=== PATIENT | female | born 1965 | race Caucasian/White ===

== ENCOUNTER → 2016-04-06 | Outpatient (CLI) | payer BC ==
[2016-04-06 12:11] LABS: Blood Urea Nitrogen 12 mg/dL (7-17); Non-African American GFR(MDRD) >60 (>60 ml/min/1.73 sqM)
--- NOTE | 2016-04-07 03:50 | MR ---
EXAMINATION TYPE: MR lumbar spine wo/w con DATE OF EXAM: 04/06/2016 1:27 PM COMPARISON: NONE HISTORY: 50-year-old female with low back pain Technique: Multiplanar, multisequence images of the lumbar spine were obtained before and after admin istration of 19 mL intravenous MultiHance gadolinium contrast. FINDINGS: Vertebral body heights are preserved and alignment is maintained. Mild heterogeneity of marrow signal without suspicious bone marrow replacement. There is a fatty matr ix hemangioma within L1 and S1 vertebral bodies. In addition, some fatty Modic type II endplate changes present at L5-S1 with associated moderate dege nerative disc disease characterized by desiccated, narrowed, and bulging disc. Mild disc bulging at a dditional levels especially L4-L5. There is hypertrophic facet arthropathy mid to lower lumbar spine along with ligamentum flavum thicke kyleigh. There also also disc desiccation and mild disc interspace narrowing in the visualized lower tho racic spine. Conus medullaris is normal. At T12-L1, there is facet degenerative change without spinal canal or neuroforaminal stenosis. At L1-L2, there is facet degenerative change without spinal canal or neuroforaminal stenosis. At L2-L3, there is facet degenerative change without spinal canal or neuroforaminal stenosis. At L3-L4, there is facet degenerative change and minimal disc bulging along with ligamentum flavum th ickening. No significant spinal canal or neuroforaminal stenosis. At L4-L5, there is mild disc bulge, marked ligamentum flavum thickening, and hypertrophic facet arthr opathy. Changes result in bilateral lateral recess stenosis with mass effect onto the cauda equina ne rve roots and mild circumferential attenuation of the thecal sac. The traversing right L5 nerve root in particular may be impinged. There is also mild bilateral neural foraminal stenosis. At L5-S1, there is broad-based disc protrusion eccentric towards the right with hypertrophic facet ar thropathy. There is mild impression onto the ventral thecal sac without significant spinal canal sten osis. Disc material closely approaches the traversing right S1 nerve root. There is mild right neurof oraminal stenosis. No abnormal enhancement within the spinal canal. No prevertebral or paravertebral soft tissue abnormality seen. IMPRESSION: 1. Degenerative disc disease greatest at L5-S1 and then at L4-L5. There is also hypertrophic facet ar thropathy in the mid to lower lumbar spine and marked ligamentum flavum thickening especially at L4-L 5. 2. At L4-L5, the changes circumferentially attenuate the thecal sac mildly narrowing the spinal canal but also cause a bilateral lateral recess stenosis. The traversing right L5 nerve root in particular may be impinged. Mild bilateral neuroforaminal stenosis at this level as well. 3. At L5-S1, a broad-based disc protrusion eccentric towards the right closely approaches the yola ing right S1 nerve root. Along with facet arthropathy, there is mild right-sided neural foraminal lucia nosis.
== END | disposition home or self-care (01) ==
LOC: RADMRIMAIN 11:40
PROVIDERS: ATTEND Physician Assistant
DX: M48.06 Spinal stenosis, lumbar region (principal); M99.73 Connective tissue and disc stenosis of intervertebral foramina of lumbar region; M51.27 Other intervertebral disc displacement, lumbosacral region; M51.37 Other intervertebral disc degeneration, lumbosacral region; M46.97 Unspecified inflammatory spondylopathy, lumbosacral region
CPT/HCPCS: 82565; 84520; 72158; 36415; A9577

== ENCOUNTER → 2016-07-28 | Outpatient (CLI) | payer BC ==
--- NOTE | 2016-07-28 11:40 | ECHOF ---
Referral Reason:R55 syncope and collapse MEASUREMENTS -------- HEIGHT: 154.9 cm WEIGHT: 95.3 kg BP: 91/53 RVIDd: 2.6 cm (< 3.3) IVSd: 1.0 cm (0.6 - 1.1) LVIDd: 3.8 cm (3.9 - 5.3) LVPWd: 0.9 cm (0.6 - 1.1) IVSs: 1.5 cm LVIDs: 2.5 cm LVPWs: 1.4 cm LA Diam: 3.3 cm (2.7 - 3.8) LAESV Index (A-L): 20.31 ml/m Ao Diam: 3.4 cm (2.0 - 3.7) AV Cusp: 2.2 cm (1.5 - 2.6) MV EXCURSION: 12.408 mm (> 18.000) MV EF SLOPE: 31 mm/s (70 - 150) EPSS: 1.0 cm MV E Mohsen: 0.70 m/s MV DecT: 175 ms MV A Mohsen: 0.91 m/s MV E/A Ratio: 0.76 RAP: 5.00 mmHg RVSP: 22.55 mmHg FINDINGS -------- Sinus rhythm. This was a technically good study. The left ventricular size is normal. Left ventricular wall thickness is normal. Overall left ventricular systolic function is normal with, an EF between 55 - 60 %. The right ventricle is normal in size and function. Normal LA size by volume 22+/-6 ml/m2. The right atrium is normal in size. Aortic valve is trileaflet and is mildly thickened. Mild mitral annular calcification present. The tricuspid valve appears structurally normal. The pulmonic valve is normal. The aortic root size is normal. Normal inferior vena cava with normal inspiratory collapse consistent with estimated right atrial pressure of 5 mmHg. The pericardium is normal. CONCLUSIONS -------- 1. Sinus rhythm. 2. Mild mitral annular calcification present. 3. The tricuspid valve appears structurally normal. 4. The pulmonic valve is normal. 5. The aortic root size is normal. 6. Normal inferior vena cava with normal inspiratory collapse consistent with estimated right atrial pressure of 5 mmHg. 7. The pericardium is normal. 8. This was a technically good study. 9. The left ventricular size is normal. 10. Left ventricular wall thickness is normal. 11. Overall left ventricular systolic function is normal with, an EF between 55 - 60 %. 12. The right ventricle is normal in size and function. 13. Normal LA size by volume 22+/-6 ml/m2. 14. The right atrium is normal in size. 15. Aortic valve is trileaflet and is mildly thickened. COMPLETION MANAGER: Jasmine Cee RDCS
--- NOTE | 2016-07-28 12:11 | CT ---
EXAMINATION TYPE: CT brain wo con DATE OF EXAM: 07/28/2016 COMPARISON: NONE HISTORY: Syncope and collapse CT DLP: 926.5 mGycm Automated exposure control for dose reduction was used. FINDINGS: There is no acute intracranial hemorrhage, mass effect, or midline shift identified. The ventricles and sulci are within normal limits in size. The globes are intact and the visualized sinuses are awa ar. IMPRESSION: No acute intracranial hemorrhage, mass effect, or midline shift is seen.
--- NOTE | 2016-07-28 16:10 | US ---
EXAMINATION TYPE: US carotid duplex BILAT DATE OF EXAM: 07/28/2016 COMPARISON: US CLINICAL HISTORY: R55 syncope and collapse. EXAM MEASUREMENTS: RIGHT: Peak Systolic Velocity (PSV) cm/sec ----- Right CCA: 73.5 ----- Right ICA: 82.6 ----- Right ECA: 94.3 ICA/CCA ratio: 1.1 RIGHT: End Diastole cm/sec ----- Right CCA: 28.5 ----- Right ICA: 26.7 ----- Right ECA: 22.2 LEFT: Peak Systolic Velocity (PSV) cm/sec ----- Left CCA: 64.9 ----- Left ICA: 86.4 ----- Left ECA: 90.5 ICA/CCA ratio: 1.3 LEFT: End Diastole cm/sec ----- Left CCA: 22.9 ----- Left ICA: 31.5 ----- Left ECA: 27.3 VERTEBRALS (direction of flow): Right Vertebral: Antegrade Left Vertebral: Antegrade No significant velocity elevations, minimal plaque. IMPRESSION: Intimal thickening and scattered plaques without evidence of flow-limiting stenosis. Criteria for Assigning % of Stenosis / Diameter reduction (Estimation based on the indirect measurements of the internal carotid artery velocities (ICA PSV). 1. Normal (no stenosis)=ICA PSV < 125 cm/s: ratio < 2.0: ICA EDV<40 cm/s. 2. Less than 50% stenosis=ICA PSV < 125 cm/s: ratio < 2.0: ICA EDV<40 cm/s. 3. 50 to 69% stenosis=ICA PSV of 125 to 230 cm/s: ration 2.0 ? 4.0: ICA EDV 40-100 cm/s. 4. Greater than 70% stenosis to near occlusion= ICA PSV > 230 cm/s: ratio > 4.0: ICA EDV > 100 cm/s. 5. Near occlusion= ICA PSV velocities may be low or undetectable: variable ratio and ICA EDV. 6. Total occlusion=unable to detect flow.
== END | disposition home or self-care (01) ==
LOC: RADUSMAIN 08:55
PROVIDERS: ATTEND Family Medicine
DX: I08.0 Rheumatic disorders of both mitral and aortic valves (principal); I65.23 Occlusion and stenosis of bilateral carotid arteries; R55 Syncope and collapse
CPT/HCPCS: 70450; 93306; 93880

== ENCOUNTER → 2016-11-13 | Outpatient (CLI) | payer BC ==
--- NOTE | 2016-11-16 19:11 | EEG ---
ELECTROENCEPHALOGRAM REPORT DATE OF SERVICE: 11/13/2016 REASON FOR TESTING: Syncope. DESCRIPTION OF THE PROCEDURE: This EEG was performed using a 21 channel digital electroencephalograph, following international 10-20 system. DESCRIPTION OF THE RECORDING: From the beginning of the tracing, with patient's eyes closed, the background rhythm was mostly consisting of 9 Hz alpha frequency in the posterior occipital leads. No obvious asymmetry is seen. Photic stimulation was performed with a good driving response seen. No pathological waves were elicited. Hyperventilation was not performed. Occasional movement artifacts are seen. The patient remains awake throughout the tracing. No epileptiform discharges were seen. Her EKG lead showed a regular rate and rhythm. INTERPRETATION: This awake EEG can be considered within normal limits. There is no asymmetry seen. No epileptiform discharges were noticed. The absence of epileptiform discharges does not rule out the diagnosis of epilepsy, therefore clinical correlation is recommended. YOLI / SANIA: [id number] /
== END | disposition home or self-care (01) ==
LOC: NEUROMAIN 07:56
PROVIDERS: ATTEND Pediatrics
DX: R55 Syncope and collapse (principal)
CPT/HCPCS: 95819

== ENCOUNTER → 2017-02-11 | Outpatient (CLI) | payer BC ==
--- NOTE | 2017-02-11 23:02 | MR ---
EXAMINATION TYPE: MR brain wo con DATE OF EXAM: 02/11/2017 COMPARISON: Prior MRI brain September 18, 2010. Prior CT brain July 28, 2016 HISTORY: Syncope and collapse TECHNIQUE: Multiplanar, multisequence imaging of the brain and brainstem is performed without IV cont rast. FINDINGS: Diffusion weighted images demonstrate no evidence of a recent infarct or other diffusion abnormality. There is no extraaxial fluid collection or significant white matter signal abnormality. The ventricu lar system and cisternal spaces are normal in size and appearance. The brain volume is age appropria te. Midline structures demonstrate normal morphology. The craniocervical junction appears within normal limits. Normal vascular flow voids are present. The visualized sinuses are clear and the globes are i ntact. No suspicious fluid signal bilateral mastoid air cells is present. IMPRESSION: No significant finding is seen to account for patient's symptoms. No significant change f rom prior studies.
--- NOTE | 2017-02-11 23:04 | MR ---
EXAMINATION TYPE: MR angio head wo con DATE OF EXAM: 02/11/2017 COMPARISON: Same day MRI brain. HISTORY: Syncope and collapse TECHNIQUE: Time of flight images focusing on the [place] of [place] were performed without contrast.. 2-D and 3-D postprocessing imaging is performed. FINDINGS: There is a codominant vertebrobasilar system. There is no significant stenosis or aneurysma l change in the posterior circulation. There is a patent left posterior communicating artery. There i s hypoplastic right posterior communicating artery. Images of the anterior circulation show patent anterior communicating artery. No significant focal st enosis or aneurysmal change is seen. IMPRESSION: No significant focal stenosis or aneurysmal change the level of the [place] of [place]a.
== END | disposition home or self-care (01) ==
LOC: RADMRIMAIN 17:44
PROVIDERS: ATTEND Psychiatry & Neurology Neurology
DX: R55 Syncope and collapse (principal); Z88.2 Allergy status to sulfonamides; Z88.8 Allergy status to other drugs, medicaments and biological substances
CPT/HCPCS: 70544; 70551

== ENCOUNTER → 2017-02-25 | Day surgery (SDC) | payer BC ==
[~2017-02-25] MED LIST: SODIUM CHLORIDE 0.9% 1,000 ML IV SCH
[2017-02-25 10:46] VITALS: BP 97/65; PULSE 102; RESP 18; TEMP 98.4
--- NOTE | 2017-02-25 17:59 | P.PCN ---
Preoperative Diagnosis: Tilt table test and twelve-lead EKG Indication for procedure recurrent syncope Twelve-lead ECG shows sinus rhythm normal NC narrow QRS normal ST segments normal QT interval poor R-wave progression in the precordial leads Tilt table test was formed per protocol. Baseline blood pressure 117/74 mmHg heart rate 99 beats a minute. Patient was tilted upright at night left 70 per protocol there was a mild drop in blood pressure into the mid 90s heart rate increased into the 120s. No syncope noted Impression mild orthostatic response with a commensurate increase in heart rate Anesthesia: none Disposition: same day
== END ==
LOC: CATHEP 10:02
PROVIDERS: ATTEND Internal Medicine Clinical Cardiac Electrophysiology
DX: R55 Syncope and collapse (principal); Z86.73 Personal history of transient ischemic attack (TIA), and cerebral infarction without residual deficits; Z79.82 Long term (current) use of aspirin; Z79.4 Long term (current) use of insulin; Z79.899 Other long term (current) drug therapy
CPT/HCPCS: 93005; 93660

== ENCOUNTER → 2017-06-10 | Outpatient (CLI) | payer BC ==
[2017-06-10 08:45] LABS: HCT 41.2 % (34.0-46.0); HGB 13.7 gm/dL (11.4-16.0); MCH 29.1 pg (25.0-35.0); MCHC 33.2 g/dL (31.0-37.0); MCV 87.6 fL (80.0-100.0); Mean Platelet Volume 6.8; Platelet Count 451 k/uL (150-450); RBC 4.71 m/uL (3.80-5.40); RDW 12.9 % (11.5-15.5); WBC 13.9 k/uL (3.8-10.6)
[2017-06-10 08:56] LABS: Anion Gap 13 mmol/L; Blood Urea Nitrogen 7 mg/dL (7-17); Calcium 10.1 mg/dL (8.4-10.2); Carbon Dioxide 29 mmol/L (22-30); Chloride 97 mmol/L (98-107); Glucose 208 mg/dL (74-99); Potassium 4.5 mmol/L (3.5-5.1); Sodium 139 mmol/L (137-145)
== END | disposition home or self-care (01) ==
LOC: LABWHC1 08:16
PROVIDERS: ATTEND Anesthesiology
DX: M48.061 Spinal stenosis, lumbar region without neurogenic claudication (principal); M54.16 Radiculopathy, lumbar region
CPT/HCPCS: 36415; 80048; 85027

== ENCOUNTER → 2017-08-26 | Outpatient (CLI) | payer BC ==
--- NOTE | 2017-08-31 07:53 | MM ---
Reason for exam: screening (asymptomatic). Last mammogram was performed 7 years and 3 months ago. History: Patient is postmenopausal. Took hormonal contraceptives for 2 years beginning at age 20. Physical Findings: A clinical breast exam by your physician is recommended on an annual basis and results should be correlated with mammographic findings. MG Screening Mammo w CAD Bilateral CC and MLO view(s) were taken. Prior study comparison: July 18, 2015, mammogram, performed at [facility]. May 29, 2010, [facility] DIGITAL LEFT BREAST MAMMOGRAM w/CAD. May 22, 2010, bilateral digital screening mammo w/CAD. There are scattered fibroglandular densities. Previous mammotome biopsy in the right breast. New 11 o'clock grouped calcifications left breast. Otherwise, no change. ASSESSMENT: Incomplete: need additional imaging evaluation, BI-RAD 0 RECOMMENDATION: Special view mammogram of the left breast. [facility] will attempt to contact patient to return for supplemental views and ultrasound if indicated. ANTONIA
== END | disposition home or self-care (01) ==
LOC: RADMAMWWP 09:06
PROVIDERS: ATTEND Pediatrics
DX: Z12.31 Encounter for screening mammogram for malignant neoplasm of breast (principal)
CPT/HCPCS: 77067

== ENCOUNTER → 2017-09-08 | Outpatient (CLI) | payer BC ==
--- NOTE | 2017-09-08 09:14 | MM ---
Reason for exam: additional evaluation requested from abnormal screening. Last mammogram was performed less than 1 month ago. History: Patient is postmenopausal. Took hormonal contraceptives for 2 years beginning at age 20. Physical Findings: Nurse did not find any significant physical abnormalities on exam. MG Work Up Mamm w CAD LT CC with magnification, LM with magnification, and LM view(s) were taken of the left breast. Prior study comparison: August 26, 2017, bilateral MG screening mammo w CAD. July 18, 2015, mammogram, performed at [facility]. Finding: There are intermediate concern, suspicious linear arranged calcifications in the 12 o'clock middle position of the left breast 10cm from the nipple. New finding since July 18, 2015. These results were verbally communicated with the patient and result sheet given to the patient on 09/08/17. ASSESSMENT: Suspicious, BI-RAD 4 RECOMMENDATION: Stereotactic core biopsy of the left breast. Called Dr. Thomas with mammographic findings and has scheduled an appointment for the patient for 09/16/17 at 10:[address] Munoz. PRELIMINARY REPORT CALLED AND FAXED TO DR. MUNOZ ON 09/08/17.
== END | disposition home or self-care (01) ==
LOC: RADMAMWWP 07:33
PROVIDERS: ATTEND Pediatrics
DX: R92.8 Other abnormal and inconclusive findings on diagnostic imaging of breast (principal)
CPT/HCPCS: 77065

== ENCOUNTER → 2017-09-16 | Outpatient (CLI) | payer BC ==
[2017-09-16 10:50] VITALS: BP 112/83; PULSE 101; TEMP 98.2; BMI 40.8
--- NOTE | 2017-09-16 11:17 | P.GSHP ---
History of Present Illness H&P Date: 09/16/17 The patient is a 51 year old white female on routine mammogram noted to have an area of increased microcalcifications in the left breast at approximately 12:00 10 cm from the nipple. She states that she does have some discomfort in the left breast and may have had some trauma in this vicinity. She otherwise feels no lumps or nodules in either breast. She has no nipple discharge or changes. She has no evidence of any infection in either breast. She has not had any prior breast biopsies. Family history: 1.mother; from lung cancer she was a smoker 2. 2 maternal aunts with lung cancer they were smokers as well 3. Cousin maternal side smoker lung cancer Past surgical history: 1. Hernia as an 2. Bladder stretched at 12 3. Hysterectomy he did not remove her ovaries this was done when she was in her 30s for a dropped bladder 4. Back surgeries 2 5. Cystectomy Past medical history: 1. Diabetes 2. Interstitial cystitis 3. Tachycardia with intermittent skipped beats Menarche: 16 Pregnancies: 4, 4 live births breast fed 2 of the children first born at 18 Menopause: Underwent hysterectomy in her 30s control pills: For approximately 6 years Home wounds: Negative Social history: smoke: none alcohol: none drugs: none - Constitutional Constitutional: Denies chills, Denies fever - EENT Eyes: denies blurred vision, denies pain Ears: deny: decreased hearing, tinnitus Ears, nose, mouth and throat: Denies headache, Denies sore throat - Breasts Breasts: bilateral: as per HPI - Cardiovascular Comment: Intermittent tachycardia and skipped heartbeats, she has been followed by cardiology and they are not concerned - Respiratory Comment: COPD, asthma, use oxygen at night Respiratory: Denies cough, Denies 7 - Gastrointestinal Gastrointestinal: Denies abdominal pain, Denies diarrhea, Denies nausea, Denies vomiting - Genitourinary (Female) Genitourinary: Denies dysuria, Denies hematuria - Menstruation Menstruation: Reports post hysterectomy - Musculoskeletal Comment: arthritis Musculoskeletal: Reports myalgias - Integumentary Integumentary: Denies pruritus, Denies rash - Neurological Neurological: Denies numbness, Denies weakness - Psychiatric Psychiatric: Denies anxiety, Denies depression - Endocrine Endocrine: Reports fatigue, Denies weight change - Hematologic/Lymphatic Comment: Baby aspirin - Allergic/Immunologic Allergic/Immunologic: Reports seasonal allergies Past Medical History Past Medical History: Asthma, COPD, Diabetes Mellitus, Osteoarthritis (OA), Seizure Disorder, Thyroid Disorder Additional Past Medical History / Comment(s): See Dr. Malcolm's H&P. hx:rapid, irregular heart rate, interstitial cystitis, seizures as a child age 2-4 History of Any Multi-Drug Resistant Organisms: None Reported Past Surgical History: Back Surgery, Bladder Surgery, Cholecystectomy, Hernia Repair, Hysterectomy Past Anesthesia/Blood Transfusion Reactions: Postoperative Nausea & Vomiting ( PONV) Smoking Status: Never smoker - Past Family History Mother Family Medical History: Cancer, Myocardial Infarction ([place]) Additional Family Medical History / Comment(s): lung cancer 11/2010 Medications and Allergies Home Medications Medication Instructions Recorded Confirmed Type Albuterol Inhaler [Ventolin Hfa 1 - 2 puff INHALATION Q6HR PRN 02/07/16 History Inhaler] Amitriptyline HCl [Elavil] 100 mg PO HS 02/07/16 09/16/17 History Aspirin [Adult Low Dose Aspirin EC] 81 mg PO DAILY 02/07/16 09/16/17 History Atorvastatin [Lipitor] 40 mg PO HS 02/07/16 09/16/17 History Cholecalciferol [Vitamin D3] 2,000 unit PO BID 02/07/16 09/16/17 History Cyanocobalamin [Vitamin B-12] 500 mcg PO DAILY 02/07/16 09/16/17 History Lisinopril-Hctz 20-12.5 mg 1 tab PO HS 02/07/16 09/16/17 History [Zestoretic 20-12.5] Mometasone/Formoterol [Dulera 100 2 puff INHALATION BID PRN 02/07/16 09/16/17 History Mcg/5 Mcg Inhaler] Montelukast [Singulair] 10 mg PO HS 02/07/16 09/16/17 History glipiZIDE XL [Glucotrol XL] 10 mg PO BID 02/07/16 09/16/17 History metFORMIN HCL 1,000 mg PO BID 02/07/16 09/16/17 History Insulin Glargine [Lantus] 36 units SQ DAILY 02/25/17 09/16/17 History Allergies Allergy/AdvReac Type Severity Reaction Status Date / Time carbamazepine [From Tegretol] Allergy Hallucinati Unverified 09/16/17 10:39 ons phenytoin [From Dilantin] Allergy Unknown Verified 09/16/17 10:39 Sulfa (Sulfonamide Allergy Dyspnea Verified 09/16/17 10:39 Antibiotics) Surgical - Exam Vital Signs Temp Pulse BP Pulse Ox 98.2 F 101 H 112/83 96 09/16/17 10:48 09/16/17 10:48 09/16/17 10:48 09/16/17 10:48 - General obese - Eyes normal ocular movement, no icteric - ENT no hearing loss, no congestion - Neck no masses, trachea midline - Respiratory normal respiratory effort, clear to auscultation - Cardiovascular Rhythm: regular Heart Sounds: normal: S1, S2 - Abdomen Abdomen: soft, non tender, no guarding, no rigid, no rebound - Neurologic no disoriented, no combative - Musculoskeletal normal gait, normal posture - Psychiatric oriented to time, oriented to person, oriented to place, speech is normal, memory intact Breast examination: Right breast: Multi-positional exam no dominant masses or nodules of concern Right axilla: No adenopathy of concern Left breast: Multi-positional exam no dominant masses or nodules of concern at the 11 o'clock position the patient does have some mild tenderness but no dominant masses or nodules of concern are appreciated Left axilla: No adenopathy of concern Results Mammogram results reviewed Assessment and Plan Assessment: Impression/plan: 1. Mammographic abnormality left breast for which stereotactic core biopsy is recommended 2. Mild tenderness medial aspect of left breast suspect may be related to trauma patient will follow up with us if it continues to be uncomfortable 3. History of osteoarthritis 4. Intermittent tachycardia 5. History of seizure disorder as a child 6. Oxygen dependent at night COPD Plan: 1. Stereotactic core biopsy of the left breast 2. At this time patient does not have any lesions noted radiographically or on physical exam in the area of tenderness in the left breast we will follow this clinically 3. Medical management of medical problems Cc: Dr. Mora The risk and benefits of the stereo procedure were discussed with the patient and she wishes to proceed.
== END | disposition home or self-care (01) ==
LOC: WWCWWP 09:51
PROVIDERS: ATTEND Surgery
DX: Z53.9 Procedure and treatment not carried out, unspecified reason (principal)

== ENCOUNTER → 2017-09-30 | Day surgery (SDC) | payer BC ==
[2017-09-30 07:41] VITALS: RESP 16; BMI 39.9
--- NOTE | 2017-09-30 09:09 | PCN ---
PROCEDURE NOTE PREPROCEDURE DIAGNOSIS: Calcifications of concern in the left breast. POSTPROCEDURE DIAGNOSIS: Calcifications of concern in the left breast. PROCEDURE: Left breast stereotactic core biopsy. PROCEDURE: The patient was taken to the stereotactic core room and the area of concern in the left breast was identified stereotactically. Prior to this, the patient had been seen in evaluation and multi-positional exam of each breast did not reveal any lesions of concern. Review of the radiographs did not reveal any other lesions of concern in the left breast. No lesions of concern had been identified for targeting in the right breast. The area of concern was targeted in the left breast. The patient was placed on the stereotactic core biopsy table. It was determined that we would approach this at a CC from above. The area of concern was targeted. The skin was prepped using Betadine and 1% lidocaine was used to anesthetize the area of concern. The needle was driven to the correct coordinates. Multiple core biopsies were obtained. Radiograph of the specimen initially did not show the calcifications and upon re-evaluation, additional tissue, which had not been radiographed, this was radiographed and calcifications were seen. The biopsy was obtained with a 9 mm vacuum assisted needle. Approximately 20 mL of 1% lidocaine were used to anesthetize the area. A top-hat SecurMark was left to tj the spot. No immediate postoperative complications were noted. The patient tolerated the procedure in stable condition. The specimen was sent to Pathology and the patient will follow up with Dr. Gill in 1 week. Please note, prior to the procedure, all risks and benefits have been discussed with the patient. MMODL / IJN: [id number] /
[2017-09-30 09:47] VITALS: BP 124/77; PULSE 87; TEMP 98
--- NOTE | 2017-09-30 13:57 | MM ---
EXAMINATION TYPE: MG stereo VAD BX LT DATE OF EXAM: 09/30/2017 COMPARISON: 09/08/2017 CLINICAL HISTORY: 3 mm group of calcifications at the 12:00 position within the left breast approximately 10 cm from the nipple TECHNIQUE: Stereotactic guided core biopsy of left breast. FINDINGS: The procedure of stereotactic guided core biopsy was explained to the patient. Benefits, alternatives, and risks were discussed. An informed consent was then obtained. [facility]. Shortness pathway was CC from above approach. I performed the localization, then surgeon, Dr. Jairo Montemayor performed the remainder of the procedure. A vacuum assisted biopsy gun was used to obtain multiple core samples. The patient tolerated the procedure well without any immediate complication. The patient was kept in the radiology department for short stay after the procedure and then discharged home in stable condition. Targeted calcifications are identified in specimen mammogram. Post biopsy mammogram shows the clip to appear in satisfactory position relative to the targeted area of concern on the preprocedure images. IMPRESSION: SUCCESSFUL, UNCOMPLICATED STEREOTACTIC GUIDED CORE BIOPSY OF THE 3 MM GROUP OF CALCIFICATIONS AT THE 12:00 POSITION WITHIN THE LEFT BREAST BREAST, FULL PATHOLOGY RESULTS TO FOLLOW. Pathology Results: Benign LEFT BREAST LESION, NEEDLE CORE BIOPSIES: Fibrocystic changes including duct cystic changes and stromal fibrosis in a background of fatty breast parenchyma with focal hemosiderin deposition and mineralizations consistent with remote breast trauma (fat necrosis). Recommendation Follow up mammogram of the left breast in 6 months. MTDD
== END | disposition home or self-care (01) ==
LOC: RADMAMWWP 07:08
PROVIDERS: ATTEND Surgery
DX: N60.32 Fibrosclerosis of left breast (principal); R92.8 Other abnormal and inconclusive findings on diagnostic imaging of breast; Z88.8 Allergy status to other drugs, medicaments and biological substances; Z88.2 Allergy status to sulfonamides
CPT/HCPCS: 19081; A4648; J2001; 88305

== ENCOUNTER → 2017-10-07 | Outpatient (CLI) | payer BC ==
[2017-10-07 11:46] VITALS: BP 123/73; PULSE 108; RESP 14; TEMP 98.4; BMI 39.2
--- NOTE | 2017-10-07 11:53 | P.PN ---
Progress Note - Text Progress Note Date: 10/07/17 Patient is status post area biopsy of the left breast. Pathology is benign. Patient has no complaints. Physical exam: Incision clean and dry mild ecchymosis near area Impression/plan: 1. Fiber cystic changes left breast 2. Stereotactic core biopsy benign this is concordant Plan: 1. Left breast mammogram in 6 months time with physician exam at that time CC: Dr. Abby Constantino
== END ==
LOC: WWCWWP 10:45
PROVIDERS: ATTEND Surgery
DX: Z53.9 Procedure and treatment not carried out, unspecified reason (principal)

== ENCOUNTER → 2017-12-24 | Outpatient (CLI) | payer BC ==
--- NOTE | 2017-12-24 12:23 | XR ---
EXAMINATION TYPE: XR ankle complete RT DATE OF EXAM: 12/24/2017 COMPARISON: NONE HISTORY: Pain TECHNIQUE: Frontal, lateral and oblique images of the right ankle are obtained. COMPARISON: None. FINDINGS: There is no acute fracture/dislocation evident. Chronic bony fragmentation noted. The join t spaces appear within normal limits. The overlying soft tissue appears unremarkable. IMPRESSION: There is no acute fracture or dislocation seen.
== END | disposition home or self-care (01) ==
LOC: RADXRMAIN 11:54
PROVIDERS: ATTEND Pediatrics
DX: M25.571 Pain in right ankle and joints of right foot (principal)

== ENCOUNTER → 2018-11-21 | Outpatient (CLI) | payer BC ==
--- NOTE | 2018-11-22 13:08 | MM ---
Reason for exam: additional evaluation requested from prior study. Last mammogram was performed 1 year and 2 months ago. History: Patient is postmenopausal. Benign MG stereo VAD BX LT of the left breast, September 30, 2017. Took hormonal contraceptives for 2 years beginning at age 20. Physical Findings: Nurse did not find any significant physical abnormalities on exam. MG Diagnostic Mammo w CAD SHAHRZAD Bilateral CC and MLO view(s) were taken. Prior study comparison: September 08, 2017, left breast MG work up mamm w CAD LT. August 26, 2017, bilateral MG screening mammo w CAD. There are scattered fibroglandular densities. Benign appearing bilateral calcifications. No suspicious abnormality. Left biopsy marker. These results were verbally communicated with the patient and result sheet given to the patient on 11/21/18. ASSESSMENT: Benign, BI-RAD 2 RECOMMENDATION: Routine screening mammogram of both breasts in 1 year.
== END | disposition home or self-care (01) ==
LOC: RADMAMWWP 07:35
PROVIDERS: ATTEND Surgery
DX: R92.8 Other abnormal and inconclusive findings on diagnostic imaging of breast (principal); R92.0 Mammographic microcalcification found on diagnostic imaging of breast
CPT/HCPCS: 77066

== ENCOUNTER → 2019-08-01 | Outpatient (CLI) | payer BC ==
--- NOTE | 2019-08-02 04:22 | US ---
EXAMINATION TYPE: US thyroid st tissue head/neck DATE OF EXAM: 08/01/2019 COMPARISON: NONE CLINICAL HISTORY: 53-year-old female E05.90 Hyperthyroidism. TECHNIQUE: Multiple sonographic images of the thyroid gland are obtained. FINDINGS: GLAND SIZE: Right Lobe: 4.1 x 2.2 x 1.5 cm Overall Parenchyma: heterogenous Left Lobe: 3.1 x .7 x 1.1 cm Overall Parenchyma: homogeneous Isthmus Thickness: .3 cm NODULES RIGHT: # of nodules measured on right: 2 1. 2.3 X 1.2 x 2.3 cm hypoechoic solid nodule at the lower pole with well-defined margins. This no dule is wider than tall and shows intranodular vascularity. Prior size: No prior 2. 1.0 X .8 x 1.3 cm hypoechoic solid nodule at the upper pole with well-defined margins; . This no dule is wider than tall and shows intranodular vascularity. Prior size: No prior LEFT: # of nodules measured on left: 0 ISTHMUS: # of nodules measured in the isthmus: 0 Bilateral neck scanned, prominent but not enlarged 1.4 x 0.6 cm lymph node along the left lateral nec k. No evidence of lymphadenopathy by size criteria based on short axis dimension. IMPRESSION: 2 dominant solid nodules in the right lobe measuring 2.3 cm and 1.3 cm. If concern for hyperfunctioni ng adenoma, nuclear medicine thyroid uptake and scan can be considered.
== END | disposition home or self-care (01) ==
LOC: RADUSWWP 16:06
PROVIDERS: ATTEND Pediatrics
DX: E05.90 Thyrotoxicosis, unspecified without thyrotoxic crisis or storm (principal)
CPT/HCPCS: 76536

== ENCOUNTER → 2020-08-22 | Outpatient (CLI) | payer BC ==
[2020-08-23 01:57] LABS: Basophils # (A) 0.05 X 10*3/uL (0.00-0.10); Basophils % (A) 0.5 %; Eosinophils # (A) 0.08 X 10*3/uL (0.04-0.35); Eosinophils % (A) 0.9 %; HCT 42.8 % (37.2-46.3); HGB 13.9 g/dL (12.0-15.0); Lymphocytes # (A) 3.42 X 10*3/uL (0.90-5.00); Lymphocytes % (A) 37.1 %; MCH 29.5 pg (27.0-32.0); MCHC 32.5 g/dL (32.0-37.0); MCV 90.9 fL (80.0-97.0); Mean Platelet Volume 9.4 fL (9.5-12.2); Monocytes # (A) 0.61 X 10*3/uL (0.20-1.00); Monocytes % (A) 6.6 %; Neutrophils # (A) 5.03 X 10*3/uL (1.80-7.70); Neutrophils % (A) 54.6 %; Platelet Count 389 X 10*3/uL (140-440); RBC 4.71 X 10*6/uL (4.10-5.20); RDW 12.5 % (11.5-14.5); WBC 9.22 X 10*3/uL (4.50-10.00)
[2020-08-23 03:50] LABS: African American GFR (CKD) 96.9 (60.0-200.0); Albumin 4.6 g/dL (3.80-4.90); Anion Gap 12.7 mmol/L (4.00-12.00); Calcium 10.2 mg/dL (8.7-10.3); Carbon Dioxide 26.3 mmol/L (21.6-31.8); Chol/HDL Ratio 4.73; Globulin 2.3 g/dL (1.6-3.3); LDL Cholesterol,Calculated 135.2 mg/dL (0.0-131.0); Non-African American GFR(CKD) 83.6 (60.0-200.0); Total Bilirubin 0.7 mg/dL (0.2-1.2); Total Protein 6.9 g/dL (6.2-8.2); VLDL Calculation 43.8 mg/dL (5.00-40.00)
[2020-08-23 06:18] LABS: Hemoglobin A1C 6.5 % (4.0-6.0)
== END | disposition home or self-care (01) ==
LOC: LABWHC1 15:44
PROVIDERS: ATTEND Physician Assistant
DX: Z00.01 Encounter for general adult medical examination with abnormal findings (principal); I10 Essential (primary) hypertension; E78.5 Hyperlipidemia, unspecified; E11.9 Type 2 diabetes mellitus without complications
CPT/HCPCS: 36415; 80053; 80061; 83036; 84443; 85025

== ENCOUNTER → 2021-01-13 | Outpatient (CLI) | payer BC ==
--- NOTE | 2021-01-15 08:46 | MM ---
Reason for exam: screening (asymptomatic). Last mammogram was performed 2 years and 2 months ago. History: Patient is postmenopausal. Benign MG stereo VAD BX LT of the left breast, September 30, 2017. Took hormonal contraceptives for 2 years beginning at age 20. Physical Findings: A clinical breast exam by your physician is recommended on an annual basis and results should be correlated with mammographic findings. MG Screening Mammo w CAD Bilateral CC and MLO view(s) were taken. Prior study comparison: November 21, 2018, bilateral MG diagnostic mammo w CAD SHAHRZAD. September 08, 2017, left breast MG work up mamm w CAD LT. There are scattered fibroglandular densities. Previous mammotome biopsy in the left breast. No significant changes when compared with prior studies. ASSESSMENT: Benign, BI-RAD 2 RECOMMENDATION: Routine screening mammogram of both breasts in 1 year.
== END | disposition home or self-care (01) ==
LOC: RADMAMWWP 16:12
PROVIDERS: ATTEND Pediatrics
DX: Z78.0 Asymptomatic menopausal state (principal)
CPT/HCPCS: 77067

== ENCOUNTER → 2023-03-26 | Outpatient (CLI) | payer BC ==
--- NOTE | 2023-03-29 08:50 | MM ---
Reason for Exam: Screening (asymptomatic). Last mammogram was performed 2 year(s) and 3 month(s) ago. Patient History: Menarche at age 17. First Full-Term at age 17. Hysterectomy at age 39. Postmenopausal. Hormonal Contraceptives for 2 years from age 20 until age 25. 09/30/2017, Benign Core Biopsy on the left side. Risk Values: Paige 5 year model risk: 1.0%. NCI Lifetime model risk: 6.2%. Prior Study Comparison: 09/08/2017 Left Diagnostic Mammogram, [facility]. 11/21/2018 Bilateral Diagnostic Mammogram, [facility]. 01/13/2021 Bilateral Screening Mammogram, [facility]. Tissue Density: There are scattered fibroglandular densities. Findings: Analyzed By CAD. Left breast biopsy clip. There is no suspicious group of microcalcifications or new suspicious mass. Overall Assessment: Benign, BI-RAD 2 Management: Screening Mammogram of both breasts in [address] [facility] will attempt to contact patient to return for supplemental views and ultrasound if indicated. Patient should continue monthly self-breast exams. A clinical breast exam by your physician is recommended on an annual basis. This exam should not preclude additional follow-up of suspicious palpable abnormalities. Note on Paige scores and lifetime risk: 1. A Paige score greater than 3% is considered moderate risk. If this is the case, consider specialist referral to assess eligibility for a risk reducing agent. 2. If overall lifetime risk for the development of breast cancer is 20% or higher, the patient may qualify for future screening with alternating mammogram and breast MRI. Electronically signed and approved by: Mj Ching DO
--- NOTE | 2023-03-29 12:29 | US ---
EXAMINATION TYPE: US thyroid st tissue head/neck DATE OF EXAM: 03/26/2023 COMPARISON: 08/01/2019 CLINICAL INDICATION: Female, 57 years old with history of E04.1 NONTOXIC SINGLE THYROID NODULE; F/U GLAND SIZE: Right Lobe: 4.7 x 2.0 x 1.9 cm Overall Parenchyma: heterogenous Left Lobe: 3.1 x 0.6 x 0.9 cm Overall Parenchyma: homogeneous Isthmus Thickness: 0.3 cm NODULES RIGHT: # of nodules measured on right: 3 1. 2.4 X 1.2 x 2.0 cm, mid, solid or almost completely solid, isoechoic TR 3 nodule, which is wide r than tall, with smooth margins, without echogenic foci. Prior size: 2.3 x 1.2 x 2.3 cm 2. 1.1 X 0.8 x 0.8 cm, upper, solid or almost completely solid, hypoechoic TR 4 nodule, which is wi johnathon than tall, with ill-defined margins, without echogenic foci. Prior size: 1.0 x 0.8 x 1.3 cm 3. 0.8 X 0.7 x 0.7 cm, lower, mixed cystic and solid, hypoechoic TR 3 nodule, which is wider than t all, with smooth margins, without echogenic foci. Prior size: Not visualized on prior LEFT: # of nodules measured on left: 0 ISTHMUS: # of nodules measured in the isthmus: 0 Internet Merchant notes: Bilateral neck scanned, no evidence of lymphadenopathy. Similar findings when comp ared to prior with one new small sub-centimeter nodule right lobe. IMPRESSION: 2 dominant solid nodules in the right lobe measuring up to 2.4 cm (TR3) and 1.1 cm (TR4) remain relat ively unchanged. 2017 ACR TI-RADS LEVEL: TR-RADS 4 - Moderately Suspicious: Follow if > 1 cm, FNA if > 1.5 cm *Highest TI-RADS level nodule reported
== END | disposition home or self-care (01) ==
LOC: RADUSWWP 15:44
PROVIDERS: ATTEND Pediatrics
DX: Z12.31 Encounter for screening mammogram for malignant neoplasm of breast (principal); E04.1 Nontoxic single thyroid nodule; R22.0 Localized swelling, mass and lump, head; Z78.0 Asymptomatic menopausal state
CPT/HCPCS: 76536; 77067

== ENCOUNTER → 2023-03-26 | Outpatient (CLI) | payer BC | END | disposition home or self-care (01) | LOC: RADMAMWWP 15:43 | PROVIDERS: ATTEND Pediatrics | DX: Z53.9 Procedure and treatment not carried out, unspecified reason (principal) ==

== ENCOUNTER 2023-09-30 06:30 | Day surgery (SDC) | payer BC ==
[2023-09-30] MEDS ORDERED: LACTATED RINGERS 1,000 ML BAG ONE (06:48)
[2023-09-30] MEDS ORDERED: BACITRACIN OINT 1 EACH PACKET TOPICAL ONE (06:48)
[2023-09-30] MEDS ORDERED: SODIUM CHLORIDE 0.9% 50 ML BAG ONE (06:48)
[2023-09-30] MEDS ORDERED: VASOPRESSIN 20 UNIT/ML 1 ML VIAL ONE (06:48)
[2023-09-30] MEDS ORDERED: DEXAMETHASONE SOD PHOSPHATE 4 MG/ML 1 ML VIAL ONE (06:56)
[2023-09-30] MEDS ORDERED: ONDANSETRON 4 MG/2 ML VIAL ONE (06:56)
[2023-09-30] MEDS ORDERED: MIDAZOLAM 2 MG/2 ML VIAL ONE (07:21)
[2023-09-30] MEDS ORDERED: fentaNYL (PF) 50 MCG/ML 2 ML AMP ONE (07:21)
[2023-09-30] MEDS ORDERED: LIDOCAINE 1% INJ 10MG/ML (20 ML MDV) ONE (07:21)
[2023-09-30] MEDS ORDERED: KETOROLAC 15 MG/ML 1 ML VIAL ONE (07:21)
[2023-09-30] MEDS ORDERED: PROPOFOL 10 MG/ML 20 ML VIAL IV ONE (07:21)
== END 2023-09-30 14:30 ==
LOC: OR 06:30
PROVIDERS: ATTEND Obstetrics & Gynecology
DX: N81.6 Rectocele (principal); E78.5 Hyperlipidemia, unspecified; J45.909 Unspecified asthma, uncomplicated; G40.909 Epilepsy, unspecified, not intractable, without status epilepticus; Z87.442 Personal history of urinary calculi; Z88.2 Allergy status to sulfonamides; Z79.899 Other long term (current) drug therapy
CPT/HCPCS: 57250; J2250; J1100; J2405; J2001; J3010; J1885; J2704

== ENCOUNTER 2024-04-18 14:17 | Inpatient (IN) | payer BC ==
[2024-04-18 14:42] LABS: Basophils % (A) 0 %; Eosinophils % (A) 0 %; HCT 43.2 % (34.0-46.0); Lymphocytes # (A) 0.6 k/uL (1.0-4.8); Lymphocytes % (A) 8 %; MCH 28.4 pg (25.0-35.0); MCHC 32.3 g/dL (31.0-37.0); MCV 87.8 fL (80.0-100.0); Mean Platelet Volume 7.3; Monocytes # (A) 0.4 k/uL (0-1.0); Monocytes % (A) 5 %; Neutrophils # (A) 6.8 k/uL (1.3-7.7); Neutrophils % (A) 85 %; Platelet Count 405 k/uL (150-450); RBC 4.91 m/uL (3.80-5.40)
[2024-04-18 14:53] LABS: ALT 18 U/L (4-34); African American GFR (CKD) >90 (>60 ml/min/1.73 sqM); Albumin 4.2 g/dL (3.5-5.0); Anion Gap 26 mmol/L; Blood Urea Nitrogen 19 mg/dL (7-17); Calcium 9.8 mg/dL (8.4-10.2); Carbon Dioxide 14 mmol/L (22-30); Chloride 91 mmol/L (98-107); Glucose 302 mg/dL (74-99); Non-African American GFR(CKD) 88 (>60 ml/min/1.73 sqM); Sodium 131 mmol/L (137-145); Total Bilirubin 1.6 mg/dL (0.2-1.3)
[2024-04-18 14:58] LABS: AST 23 U/L (14-36); Alkaline Phosphatase 76 U/L (38-126); Potassium 3.9 mmol/L (3.5-5.1)
[2024-04-18 15:02] LABS: Prothrombin Time 11.3 sec (10.0-12.5)
--- NOTE | 2024-04-18 15:13 | XR ---
EXAMINATION TYPE: XR chest 2V DATE OF EXAM: 04/18/2024 3:09 PM COMPARISON: None TECHNIQUE: XR chest 2V Frontal and lateral views of the chest. CLINICAL INDICATION:Female, 58 years old with history of difficulty breathing; FINDINGS: Lungs/Pleura: No pleural effusion or pneumothorax. Bibasilar and right midlung airspace opacities. Pulmonary vascularity: Unremarkable. Heart/mediastinum: Cardiomediastinal silhouette is unremarkable. Musculoskeletal: No acute osseous pathology. IMPRESSION: Bibasilar and right midlung airspace opacities concerning for pneumonia. [facility], , 04/18/2024 3:11 PM
[2024-04-18] MEDS: SODIUM CHLORIDE 0.9% 1,000 ML IV STA ×2 (15:49→15:55)
[2024-04-18] MEDS: INSULIN REGULAR 100 UNIT/ML VIAL (IM/SQ) SQ ONE (15:58)
--- NOTE | 2024-04-18 16:13 | ED ---
SOB HPI - General Chief Complaint: Shortness of Breath Stated Complaint: SOB, back pain Time Seen by Provider: 04/18/24 16:11 Source: patient, RN notes reviewed Mode of arrival: wheelchair Limitations: no limitations - History of Present Illness Initial Comments: 58-year-old female with history of type 2 diabetes presenting for shortness of breath x 1 day. Reports she was diagnosed with the flu last week and has had progressive shortness of breath and productive cough since then. Reports generalized back pain. Denies chest pain, abdominal pain, urinary symptoms. Denies injury or falls. History of COPD and asthma. - Related Data Home Medications Medication Instructions Recorded Confirmed Lisinopril-Hctz 20-12.5 mg 1 tab PO DAILY 02/07/16 04/18/24 [Zestoretic 20-12.5] Montelukast [Singulair] 10 mg PO HS 02/07/16 04/18/24 Amitriptyline HCl [Elavil] 150 mg PO HS 04/18/24 04/18/24 Atorvastatin [Lipitor] 80 mg PO HS 04/18/24 04/18/24 Cyclobenzaprine [Flexeril] 10 mg PO HS 04/18/24 04/18/24 Empagliflozin [Jardiance] 10 mg PO DAILY 04/18/24 04/18/24 Insulin Degludec [Tresiba 10 units SQ DAILY 04/18/24 04/18/24 Flextouch U-100 Pen] Oxybutynin Chloride [oxyBUTYnin 30 mg PO DAILY 04/18/24 04/18/24 chloride ER] Allergies Allergy/AdvReac Type Severity Reaction Status Date / Time carbamazepine [From Tegretol] Allergy Hallucinati Verified 04/18/24 16:52 ons phenytoin [From Dilantin] Allergy Unknown Verified 04/18/24 16:52 Sulfa (Sulfonamide Allergy Dyspnea Verified 04/18/24 16:52 Antibiotics) Review of Systems ROS Statement: Those systems with pertinent positive or pertinent negative responses have been documented in the HPI. ROS Other: All systems not noted in ROS Statement are negative. Past Medical History Past Medical History: Asthma, COPD, Diabetes Mellitus, Osteoarthritis (OA), Seizure Disorder, Thyroid Disorder Additional Past Medical History / Comment(s): See Dr. Malcolm's H&P. hx:rapid, irregular heart rate, interstitial cystitis, seizures as a child age 2-4 History of Any Multi-Drug Resistant Organisms: None Reported Past Surgical History: Back Surgery, Bladder Surgery, Cholecystectomy, Hernia Repair, Hysterectomy Past Anesthesia/Blood Transfusion Reactions: Postoperative Nausea & Vomiting (PONV) Past Psychological History: No Psychological Hx Reported Past Alcohol Use History: None Reported Past Drug Use History: None Reported - Past Family History Mother Family Medical History: Cancer, Myocardial Infarction (DC) Additional Family Medical History / Comment(s): lung cancer 11/2010 General Exam Limitations: no limitations General appearance: alert, in no apparent distress Head exam: Present: atraumatic, normocephalic, normal inspection Eye exam: Present: normal appearance, PERRL, EOMI. Absent: scleral icterus, conjunctival injection, periorbital swelling ENT exam: Present: normal exam, mucous membranes moist Respiratory exam: Present: normal lung sounds bilaterally. Absent: respiratory distress, wheezes, rales, rhonchi, stridor Cardiovascular Exam: Present: regular rate, normal rhythm, normal heart sounds. Absent: systolic murmur, diastolic murmur, rubs, gallop, clicks GI/Abdominal exam: Present: soft, normal bowel sounds. Absent: distended, tenderness, guarding, rebound, rigid Back exam: Present: normal inspection, full ROM, tenderness (Diffuse reproducible tenderness in thoracic portion of spine) Neurological exam: Present: alert, oriented X3 Psychiatric exam: Present: normal affect, normal mood Skin exam: Present: warm, dry, intact, normal color. Absent: rash Course Vital Signs 04/18/24 04/18/24 14:22 17:34 Temperature 98.4 F 98.5 F Pulse Rate 134 H 111 H Respiratory 36 H 20 Rate Blood Pressure 106/67 109/67 O2 Sat by Pulse 93 L 92 L Oximetry Medical Decision Making - Medical Decision Making Was pt. sent in by a medical professional or institution (, PA, MOPHEAD SEWER, urgent care, hospital, or fpc...) When possible be specific @ -No Did you speak to anyone other than the patient for history (EMS, parent, family, police, friend...)? What history was obtained from this source @ -No Did you review nursing and triage notes (agree or disagree)? Why? @ -I reviewed and agree with nursing and triage notes Were old charts reviewed (outside hosp., previous admission, EMS record, old EKG, old radiological studies, urgent care reports/EKG's, fpc records)? Report findings @ -No old charts were reviewed Differential Diagnosis (chest pain, altered mental status, abdominal pain women, abdominal pain men, vaginal bleeding, weakness, fever, dyspnea, syncope, headache, dizziness, GI bleed, back pain, seizure, CVA, palpatations, mental health, musculoskeletal)? @ -Differential Dyspnea: Coronary syndrome, arrhythmia, tamponade, asthma, COPD, pulmonary embolism, pneumonia, pneumothorax, pulmonary effusion, anaphylaxis, diabetic ketoacidosis, flailed chest, pulmonary contusion, diaphragmatic rupture, anemia, neuromuscular, this is not meant to be an all-inclusive list. EKG interpreted by me (3pts min.). @ -No X-rays interpreted by me (1pt min.). @ -Chest x-ray revealed bibasilar and right midlung airspace opacity concerning for pneumonia CT interpreted by me (1pt min.). @ -None done U/S interpreted by me (1pt. min.). @ -None done What testing was considered but not performed or refused? (CT, X-rays, U/S, labs)? Why? @ -None What meds were considered but not given or refused? Why? @ -None Did you discuss the management of the patient with other professionals (professionals i.e. , PA, MOPHEAD SEWER, lab, RT, psych nurse, social services aide, montessori program director, teacher, anti air warfare operations officer, pillowcase maker)? Give summary @ -I spoke with Rogelio from [facility] who accepts admission for DKA Was smoking cessation discussed for >3mins.? @ -No Was critical care preformed (if so, how long)? @ -No Were there social determinants of health that impacted care today? How? (Homele ssness, low income, unemployed, alcoholism, drug addiction, transportation, low edu. Level, literacy, decrease access to med. care, assisted, rehab)? @ -No Was there de-escalation of care discussed even if they declined (Discuss DNR or withdrawal of care, Hospice)? DNR status @ -No What co-morbidities impacted this encounter? (DM, HTN, Smoking, COPD, CAD, Cancer, CVA, ARF, Chemo, Hep., AIDS, mental health diagnosis, sleep apnea, morbid obesity)? @ -DM Was patient admitted / discharged? Hospital course, mention meds given and route, prescriptions, significant lab abnormalities, going to OR and other pertinent info. @ -Admitted. 58-year-old female with history of diabetes presenting for shortness of breath x 1 day. Patient is tachycardic and tachypneic. Blood glucose is found to be 302 anion gap 26, acetone positive, pCO2 28, 3+ ketones in urinalysis. Potassium stable at 3.9. Patient was started on IV fluids and given dose of subcutaneous insulin. Chest x-ray reveals bibasilar and right midlung airspace opacity concerning for pneumonia. Blood blood cell count stable at 8. As patient is afebrile and white count stable, I suspect pneumonia is viral at this time. Patient will be admitted to medicine for DKA. DKA protocol initiated and procalcitonin was ordered per Rogelio. Case was discussed with ED attending Dr. Chang. Undiagnosed new problem with uncertain prognosis? @ -No Drug Therapy requiring intensive monitoring for toxicity (Heparin, Nitro, Insulin, Cardizem)? @ -No Were any procedures done? @ -No Diagnosis/symptom? @ -Diabetic ketoacidosis Acute, or Chronic, or Acute on Chronic? @ -Acute Uncomplicated (without systemic symptoms) or Complicated (systemic symptoms)? @ -Complicated Side effects of treatment? @ -No Exacerbation, Progression, or Severe Exacerbation? @ -No Poses a threat to life or bodily function? How? (Chest pain, USA, DC, pneumonia, PE, COPD, DKA, ARF, appy, cholecystitis, CVA, Diverticulitis, Homicidal, Suicidal, threat to staff... and all critical care pts) @ -Yes - Lab Data Result diagrams: 04/18/24 14:32 04/18/24 14:32 Lab Results 04/18/24 04/18/24 04/18/24 Range/Units 12:35 14:32 14:32 WBC 8.0 (3.8-10.6) k/uL RBC 4.91 (3.80-5.40) m/uL Hgb 14.0 (11.4-16.0) gm/dL Hct 43.2 (34.0-46.0) % MCV 87.8 (80.0-100.0) fL MCH 28.4 (25.0-35.0) pg MCHC 32.3 (31.0-37.0) g/dL RDW 13.0 (11.5-15.5) % Plt Count 405 (150-450) k/uL MPV 7.3 Neutrophils % 85 % Lymphocytes % 8 % Monocytes % 5 % Eosinophils % 0 % Basophils % 0 % Neutrophils # 6.8 (1.3-7.7) k/uL Lymphocytes # 0.6 L (1.0-4.8) k/uL Monocytes # 0.4 (0-1.0) k/uL Eosinophils # 0.0 (0-0.7) k/uL Basophils # 0.0 (0-0.2) k/uL Manual Slide Review Performed PT 11.3 (10.0-12.5) sec INR 1.0 (<1.2) APTT 22.0 (22.0-30.0) sec VBG pH (7.31-7.41) VBG pCO2 (37-51) mmHg VBG HCO3 (24-28) mmol/L Sodium (137-145) mmol/L Potassium (3.5-5.1) mmol/L Chloride (98-107) mmol/L Carbon Dioxide (22-30) mmol/L Anion Gap mmol/L BUN (7-17) mg/dL Creatinine (0.52-1.04) mg/dL Est GFR (CKD-EPI)AfAm (>60 ml/min/1.73 sqM) Est GFR (CKD-EPI)NonAf (>60 ml/min/1.73 sqM) Glucose (74-99) mg/dL POC Glucose (mg/dL) (70-110) mg/dL POC Glu Corporate Human Resources Manager ID Lactic Ac Sepsis Rflx Plasma Lactic Acid Clayton (0.7-2.0) mmol/L Calcium (8.4-10.2) mg/dL Total Bilirubin (0.2-1.3) mg/dL AST (14-36) U/L ALT (4-34) U/L Alkaline Phosphatase (38-126) U/L Troponin I (0.000-0.034) ng/mL Total Protein (6.3-8.2) g/dL Albumin (3.5-5.0) g/dL Urine Color Urine Appearance (Clear) Urine pH (5.0-8.0) Ur Specific [place] (1.001-1.035) Urine Protein (Negative) Urine Glucose (UA) (Negative) Urine Ketones (Negative) Urine Blood (Negative) Urine Nitrite (Negative) Urine Bilirubin (Negative) Urine Urobilinogen (<2.0) mg/dL Ur Leukocyte Esterase (Negative) Acetone, Qual Positive (Negative) 04/18/24 04/18/24 04/18/24 Range/Units 14:32 14:32 15:59 WBC (3.8-10.6) k/uL RBC (3.80-5.40) m/uL Hgb (11.4-16.0) gm/dL Hct (34.0-46.0) % MCV (80.0-100.0) fL MCH (25.0-35.0) pg MCHC (31.0-37.0) g/dL RDW (11.5-15.5) % Plt Count (150-450) k/uL MPV Neutrophils % % Lymphocytes % % Monocytes % % Eosinophils % % Basophils % % Neutrophils # (1.3-7.7) k/uL Lymphocytes # (1.0-4.8) k/uL Monocytes # (0-1.0) k/uL Eosinophils # (0-0.7) k/uL Basophils # (0-0.2) k/uL Manual Slide Review PT (10.0-12.5) sec INR (<1.2) APTT (22.0-30.0) sec VBG pH (7.31-7.41) VBG pCO2 (37-51) mmHg VBG HCO3 (24-28) mmol/L Sodium 131 L (137-145) mmol/L Potassium 3.9 (3.5-5.1) mmol/L Chloride 91 L (98-107) mmol/L Carbon Dioxide 14 L (22-30) mmol/L Anion Gap 26 mmol/L BUN 19 H (7-17) mg/dL Creatinine 0.75 (0.52-1.04) mg/dL Est GFR (CKD-EPI)AfAm >90 (>60 ml/min/1.73 sqM) Est GFR (CKD-EPI)NonAf 88 (>60 ml/min/1.73 sqM) Glucose 302 H (74-99) mg/dL POC Glucose (mg/dL) (70-110) mg/dL POC Glu Corporate Human Resources Manager ID Lactic Ac Sepsis Rflx Plasma Lactic Acid Clayton 2.5 H* (0.7-2.0) mmol/L Calcium 9.8 (8.4-10.2) mg/dL Total Bilirubin 1.6 H (0.2-1.3) mg/dL AST 23 (14-36) U/L ALT 18 (4-34) U/L Alkaline Phosphatase 76 (38-126) U/L Troponin I <0.012 (0.000-0.034) ng/mL Total Protein 7.0 (6.3-8.2) g/dL Albumin 4.2 (3.5-5.0) g/dL Urine Color Urine Appearance (Clear) Urine pH (5.0-8.0) Ur Specific [place] (1.001-1.035) Urine Protein (Negative) Urine Glucose (UA) (Negative) Urine Ketones (Negative) Urine Blood (Negative) Urine Nitrite (Negative) Urine Bilirubin (Negative) Urine Urobilinogen (<2.0) mg/dL Ur Leukocyte Esterase (Negative) Acetone, Qual (Negative) 04/18/24 04/18/24 04/18/24 Range/Units 16:35 17:26 17:34 WBC (3.8-10.6) k/uL RBC (3.80-5.40) m/uL Hgb (11.4-16.0) gm/dL Hct (34.0-46.0) % MCV (80.0-100.0) fL MCH (25.0-35.0) pg MCHC (31.0-37.0) g/dL RDW (11.5-15.5) % Plt Count (150-450) k/uL MPV Neutrophils % % Lymphocytes % % Monocytes % % Eosinophils % % Basophils % % Neutrophils # (1.3-7.7) k/uL Lymphocytes # (1.0-4.8) k/uL Monocytes # (0-1.0) k/uL Eosinophils # (0-0.7) k/uL Basophils # (0-0.2) k/uL Manual Slide Review PT (10.0-12.5) sec INR (<1.2) APTT (22.0-30.0) sec VBG pH 7.34 (7.31-7.41) VBG pCO2 28 L (37-51) mmHg VBG HCO3 15 L (24-28) mmol/L Sodium (137-145) mmol/L Potassium (3.5-5.1) mmol/L Chloride (98-107) mmol/L Carbon Dioxide (22-30) mmol/L Anion Gap mmol/L BUN (7-17) mg/dL Creatinine (0.52-1.04) mg/dL Est GFR (CKD-EPI)AfAm (>60 ml/min/1.73 sqM) Est GFR (CKD-EPI)NonAf (>60 ml/min/1.73 sqM) Glucose (74-99) mg/dL POC Glucose (mg/dL) (70-110) mg/dL POC Glu Corporate Human Resources Manager ID Lactic Ac Sepsis Rflx Y Plasma Lactic Acid Clayton (0.7-2.0) mmol/L Calcium (8.4-10.2) mg/dL Total Bilirubin (0.2-1.3) mg/dL AST (14-36) U/L ALT (4-34) U/L Alkaline Phosphatase (38-126) U/L Troponin I (0.000-0.034) ng/mL Total Protein (6.3-8.2) g/dL Albumin (3.5-5.0) g/dL Urine Color Colorless Urine Appearance Clear (Clear) Urine pH 5.5 (5.0-8.0) Ur Specific [place] 1.024 (1.001-1.035) Urine Protein Trace H (Negative) Urine Glucose (UA) 4+ H (Negative) Urine Ketones 3+ H (Negative) Urine Blood Negative (Negative) Urine Nitrite Negative (Negative) Urine Bilirubin Negative (Negative) Urine Urobilinogen <2.0 (<2.0) mg/dL Ur Leukocyte Esterase Negative (Negative) Acetone, Qual (Negative) 04/18/24 Range/Units 18:48 WBC (3.8-10.6) k/uL RBC (3.80-5.40) m/uL Hgb (11.4-16.0) gm/dL Hct (34.0-46.0) % MCV (80.0-100.0) fL MCH (25.0-35.0) pg MCHC (31.0-37.0) g/dL RDW (11.5-15.5) % Plt Count (150-450) k/uL MPV Neutrophils % % Lymphocytes % % Monocytes % % Eosinophils % % Basophils % % Neutrophils # (1.3-7.7) k/uL Lymphocytes # (1.0-4.8) k/uL Monocytes # (0-1.0) k/uL Eosinophils # (0-0.7) k/uL Basophils # (0-0.2) k/uL Manual Slide Review PT (10.0-12.5) sec INR (<1.2) APTT (22.0-30.0) sec VBG pH (7.31-7.41) VBG pCO2 (37-51) mmHg VBG HCO3 (24-28) mmol/L Sodium (137-145) mmol/L Potassium (3.5-5.1) mmol/L Chloride (98-107) mmol/L Carbon Dioxide (22-30) mmol/L Anion Gap mmol/L BUN (7-17) mg/dL Creatinine (0.52-1.04) mg/dL Est GFR (CKD-EPI)AfAm (>60 ml/min/1.73 sqM) Est GFR (CKD-EPI)NonAf (>60 ml/min/1.73 sqM) Glucose (74-99) mg/dL POC Glucose (mg/dL) 205 H (70-110) mg/dL POC Glu Corporate Human Resources Manager ID Lj Schaefer Lactic Ac Sepsis Rflx Plasma Lactic Acid Clayton (0.7-2.0) mmol/L Calcium (8.4-10.2) mg/dL Total Bilirubin (0.2-1.3) mg/dL AST (14-36) U/L ALT (4-34) U/L Alkaline Phosphatase (38-126) U/L Troponin I (0.000-0.034) ng/mL Total Protein (6.3-8.2) g/dL Albumin (3.5-5.0) g/dL Urine Color Urine Appearance (Clear) Urine pH (5.0-8.0) Ur Specific [place] (1.001-1.035) Urine Protein (Negative) Urine Glucose (UA) (Negative) Urine Ketones (Negative) Urine Blood (Negative) Urine Nitrite (Negative) Urine Bilirubin (Negative) Urine Urobilinogen (<2.0) mg/dL Ur Leukocyte Esterase (Negative) Acetone, Qual (Negative) Disposition Clinical Impression: Diabetic ketoacidosis Disposition: ADMITTED IP TO THIS HOSP Condition: Fair Referrals: Vonda Mueller PAC [REFERRING] - 1-2 days Time of Disposition: 18:30
[2024-04-18] MEDS: KETOROLAC 15 MG/ML 1 ML VIAL IVP STA (16:37)
[2024-04-18 17:38] LABS: Appearance,Urine Clear (Clear); Bilirubin,Urine Negative (Negative); Blood,Urine Negative (Negative); Color,Urine Colorless; Glucose,Urine (UA) 4+ (Negative); Leukocyte Esterase,Urine Negative (Negative); Nitrite,Urine Negative (Negative); PH, Urine 5.5 (5.0-8.0); Protein,Urine Trace (Negative); Specific Gravity,Urine 1.024 (1.001-1.035); Urobilinogen,Urine <2.0 mg/dL (<2.0)
[2024-04-18 17:50] LABS: VBG PH 7.34 (7.31-7.41)
[2024-04-18 18:09] LABS: Ketones,Urine 3+ (Negative)
[2024-04-18] MEDS ORDERED: NALOXONE 0.4 MG/ML 1 ML VIAL IV PRN (18:24)
[2024-04-18] MEDS ORDERED: ONDANSETRON 4 MG/2 ML VIAL IVP PRN (18:24)
[2024-04-18 18:49] LABS: Glucose,Whole Blood 205 mg/dL (70-110)
[2024-04-18] MEDS: SODIUM CHLORIDE 0.9% 1,000 ML IV SCH (18:49)
[2024-04-18] MEDS: INSULIN REGULAR 100 UNIT in SODIUM CHLORIDE 0.9% 100 ML IV SCH (19:05)
[2024-04-18] MEDS: D5-0.45% NACL WITH KCL 20MEQ/L 1,000 ML IV SCH (19:49)
[2024-04-18] MEDS: ACETAMINOPHEN TAB 325 MG TAB PO PRN (20:12)
[2024-04-18 20:13] LABS: Glucose,Whole Blood 177 mg/dL (70-110)
[2024-04-18] MEDS: MORPHINE SULFATE 4 MG/ML SYRINGE IV PRN (20:13)
[2024-04-18 21:02] LABS: African American GFR (CKD) >90 (>60 ml/min/1.73 sqM); Anion Gap 17 mmol/L; Blood Urea Nitrogen 19 mg/dL (7-17); Carbon Dioxide 17 mmol/L (22-30); Chloride 101 mmol/L (98-107); Glucose 196 mg/dL (74-99); Non-African American GFR(CKD) >90 (>60 ml/min/1.73 sqM); Phosphorus 2.5 mg/dL (2.5-4.5); Potassium 4.3 mmol/L (3.5-5.1); Sodium 135 mmol/L (137-145)
[2024-04-18 21:02] LABS: Glucose,Whole Blood 176 mg/dL (70-110)
[2024-04-18 21:21] LABS: Influenza A Not Detected (Not Detectd); Influenza B Not Detected (Not Detectd); RSV Not Detected (Not Detectd)
[2024-04-18 22:17] LABS: Glucose,Whole Blood 151 mg/dL (70-110)
[2024-04-18 23:07] LABS: Glucose,Whole Blood 161 mg/dL (70-110)
[2024-04-19 00:06] LABS: Glucose,Whole Blood 131 mg/dL (70-110)
[2024-04-19 01:08] LABS: Glucose,Whole Blood 118 mg/dL (70-110)
[2024-04-19] MEDS: KETOROLAC 15 MG/ML 1 ML VIAL IVP PRN (01:47)
[2024-04-19] MEDS: DOXYCYCLINE 100 MG TABLET PO SCH (01:48)
[2024-04-19 01:51] LABS: African American GFR (CKD) >90 (>60 ml/min/1.73 sqM); Anion Gap 10 mmol/L; Blood Urea Nitrogen 22 mg/dL (7-17); Carbon Dioxide 22 mmol/L (22-30); Chloride 101 mmol/L (98-107); Glucose 123 mg/dL (74-99); Non-African American GFR(CKD) 84 (>60 ml/min/1.73 sqM); Sodium 133 mmol/L (137-145)
[2024-04-19 02:00] LABS: NT-Pro-B-Type Natriuretic Pept 7700 pg/mL
[2024-04-19 02:07] LABS: Glucose,Whole Blood 108 mg/dL (70-110)
[2024-04-19 03:06] LABS: Glucose,Whole Blood 121 mg/dL (70-110)
[2024-04-19] MEDS ORDERED: DEXTROSE 50% SYRINGE 50 ML IVP PRN ×2 (03:09)
--- NOTE | 2024-04-19 04:09 | P.CNPUL ---
History of Present Illness Consult date: 04/19/24 Requesting physician: Rogelio Infante Reason for consult: pneumonia Chief complaint: Shortness of breath, fevers, recent influenza A infection History of present illness: Patient is a 58-year-old female with past medical history significant for asthma/COPD, diabetes mellitus, hypertension, hyperlipidemia, GERD. Presented emergency department yesterday afternoon with severe shortness of breath. Vanna mejia reports flulike symptoms developing last Wednesday. Seen at her PCP office, in [place] on Wednesday and diagnosed with influenza. She was outside the window for Tamiflu. Given steroid burst taper and cough suppressant. Intially, felt a little better, then her symptoms worsened. Workup in the emergency department including a chest x-ray demonstrating bibasilar and right midlung airspace opacities concerning for pneumonia. Febrile with a Tmax of 102.1 F, tachycardic, tachypneic. Viral screen at our facility negative for influenza A/B, RSV, COVID. Previously fluid resuscitated with 2 L normal saline in the ED. Found to be hypoxic on room air and placed on 2 L/min nasal cannula. CBC: WBC count 8, hemoglobin 14, platelets 405. VBG with a pH of 7.34, pCO2 28. CMP done on arrival includes a sodium 135 potassium 4.3, chloride 101, serum bicarb 17, BUN 19, creatinine 0.64, glucose 196. Lactic is elevated at 4.4. Troponin less than 0.012. NT proBNP 7700. UA positive for glucose and ketones. [place] to be in a mild DKA in the ED, and started on the DKA protocol. Admitting physician started patient on antibiotics empirically. Patient currently being evaluated in the cardiac stepdown unit. D5W/0.45% saline/20 mEq of potassium infusing at 75 mg/h. Insulin infusion per protocol. Repeat electrolytes indicate resolution of DKA. Endorses above mentioned symptoms. She has been intermittently febrile at home, productive cough with green sputum, generally weak, poor appetite. Bloo d sugars were high at home. Most recent vital signs: Temperature 98.9 F, heart rate 134 bpm, blood pressure 90/63 mmHg, tachypneic, SpO2 recorded at 92% on 2 L/min nasal cannula. Review of Systems Constitutional: Reports chills, Reports fatigue, Reports fever, Reports poor appetite, Reports sweats, Denies weight gain, Denies weight loss Ears, nose, mouth and throat: Reports nasal congestion, Reports nasal discharge, Reports post-nasal drip, Reports sore throat, Denies sinus pain, Denies sinus pressure Cardiovascular: Denies chest pain, Denies leg edema, Denies lightheadedness, Denies orthopnea, Denies palpitations, Denies paroxysmal nocturnal dyspnea, Denies syncope Respiratory: Reports congestion, Reports cough, Reports cough with sputum, Denies hemoptysis, Denies home oxygen, Denies pain on inspiration Gastrointestinal: Denies abdominal pain, Denies change in bowel habits, Denies diarrhea, Denies nausea, Denies vomiting Genitourinary: Denies dysuria Musculoskeletal: Denies limitation of motion Integumentary: Denies rash Neurological: Denies seizures, Denies syncope Psychiatric: Denies anxiety, Denies depression Past Medical History Past Medical History: Asthma, COPD, Diabetes Mellitus, Osteoarthritis (OA), Seizure Disorder, Thyroid Disorder Additional Past Medical History / Comment(s): See Dr. Malcolm's H&P. hx:rapid, irregular heart rate, interstitial cystitis, seizures as a child age 2-4 History of Any Multi-Drug Resistant Organisms: None Reported Past Surgical History: Back Surgery, Bladder Surgery, Cholecystectomy, Hernia Repair, Hysterectomy Past Anesthesia/Blood Transfusion Reactions: Postoperative Nausea & Vomiting (PONV) Past Psychological History: No Psychological Hx Reported Smoking Status: Never smoker Past Alcohol Use History: None Reported Past Drug Use History: None Reported - Past Family History Mother Family Medical History: Cancer, Myocardial Infarction ([place]) Additional Family Medical History / Comment(s): lung cancer 11/2010 Medications and Allergies Home Medications Medication Instructions Recorded Confirmed Type Lisinopril-Hctz 20-12.5 mg 1 tab PO DAILY 02/07/16 04/18/24 History [Zestoretic 20-12.5] Montelukast [Singulair] 10 mg PO HS 02/07/16 04/18/24 History Amitriptyline HCl [Elavil] 150 mg PO HS 04/18/24 04/18/24 History Atorvastatin [Lipitor] 80 mg PO HS 04/18/24 04/18/24 History Cyclobenzaprine [Flexeril] 10 mg PO HS 04/18/24 04/18/24 History Empagliflozin [Jardiance] 10 mg PO DAILY 04/18/24 04/18/24 History Insulin Degludec [Tresiba 10 units SQ DAILY 04/18/24 04/18/24 History Flextouch U-100 Pen] Oxybutynin Chloride [oxyBUTYnin 30 mg PO DAILY 04/18/24 04/18/24 History chloride ER] Allergies Allergy/AdvReac Type Severity Reaction Status Date / Time carbamazepine [From Tegretol] Allergy Hallucinati Verified 04/18/24 16:52 ons phenytoin [From Dilantin] Allergy Unknown Verified 04/18/24 16:52 Sulfa (Sulfonamide Allergy Dyspnea Verified 04/18/24 16:52 Antibiotics) Physical Exam Vitals: Vital Signs Temp Pulse Pulse Resp BP BP Pulse Ox 04/18/24 21:42 98.9 F 134 H 19 90/63 92 L 04/18/24 21:00 99.7 F H 135 H 22 113/72 90 L 04/18/24 20:04 102.1 F H 130 H 22 112/65 91 L 04/18/24 17:34 98.5 F 111 H 20 109/67 92 L 04/18/24 14:22 98.4 F 134 H 36 H 106/67 93 L Intake and Output 04/18/24 04/18/24 04/19/24 14:59 22:59 06:59 Intake Total 8.98 34.765 Balance 8.98 34.765 Intake: Intake, IV Titration 8.98 34.765 Amount Insulin Regular 100 unit 8.98 34.765 In Sodium Chloride 0.9% 100 ml @ 0.1 UNITS/KG/HR 7.697 mls/hr IV .Q13H8M [facility] Rx#:[id number] Other: Weight 76.204 kg 76.204 kg GENERAL EXAM: Lethargic and generally weak, 58-year-old female, nonlabored breathing HEAD: Normocephalic and atraumatic EYES: Normal reaction of pupils, equal size. NOSE: Clear with pink turbinates. THROAT: No erythema or exudates. NECK: No masses, no JVD. CHEST: No chest wall deformity. LUNGS: Equal air entry with diffuse bilateral rhonchi. On 2 L/min nasal cannula. No conversational dyspnea or accessory muscle use while at rest CVS: S1 and S2 normal with no audible murmur, regular rhythm. No extra heart sounds ABDOMEN: No hepatosplenomegaly, active bowel sounds, no guarding or rigidity. SPINE: No scoliosis or deformity SKIN: No rashes CENTRAL NERVOUS SYSTEM: No focal deficits, tone is normal in all 4 extremities. EXTREMITIES: There is no peripheral edema, clubbing, or cyanosis. Peripheral pulses are intact. Results - Laboratory Findings CBC and BMP: 04/18/24 14:32 04/19/24 01:10 PT/INR, D-dimer PT 11.3 sec (10.0-12.5) 04/18/24 14:32 INR 1.0 (<1.2) 04/18/24 14:32 Abnormal lab findings: Abnormal Labs 04/18/24 04/18/24 04/18/24 14:32 14:32 15:59 Lymphocytes # 0.6 L VBG pCO2 VBG HCO3 Sodium 131 L Potassium Chloride 91 L Carbon Dioxide 14 L BUN 19 H Glucose 302 H POC Glucose (mg/dL) Plasma Lactic Acid Clayton 2.5 H* Phosphorus Total Bilirubin 1.6 H Urine Protein Urine Glucose (UA) Urine Ketones 04/18/24 04/18/24 04/18/24 17:26 17:34 18:48 Lymphocytes # VBG pCO2 28 L VBG HCO3 15 L Sodium Potassium Chloride Carbon Dioxide BUN Glucose POC Glucose (mg/dL) 205 H Plasma Lactic Acid Clayton Phosphorus Total Bilirubin Urine Protein Trace H Urine Glucose (UA) 4+ H Urine Ketones 3+ H 04/18/24 04/18/24 04/18/24 20:01 20:12 21:00 Lymphocytes # VBG pCO2 VBG HCO3 Sodium 135 L Potassium Chloride Carbon Dioxide 17 L BUN 19 H Glucose 196 H POC Glucose (mg/dL) 177 H 176 H Plasma Lactic Acid Clayton Phosphorus Total Bilirubin Urine Protein Urine Glucose (UA) Urine Ketones 04/18/24 04/18/24 04/18/24 22:16 22:17 23:06 Lymphocytes # VBG pCO2 VBG HCO3 Sodium Potassium Chloride Carbon Dioxide BUN Glucose POC Glucose (mg/dL) 151 H 161 H Plasma Lactic Acid Clayton 4.4 H* Phosphorus Total Bilirubin Urine Protein Urine Glucose (UA) Urine Ketones 04/19/24 04/19/24 04/19/24 00:05 00:18 01:06 Lymphocytes # VBG pCO2 VBG HCO3 Sodium Potassium Chloride Carbon Dioxide BUN Glucose POC Glucose (mg/dL) 131 H 118 H Plasma Lactic Acid Clayton Phosphorus 1.4 L Total Bilirubin Urine Protein Urine Glucose (UA) Urine Ketones 04/19/24 01:10 Lymphocytes # VBG pCO2 VBG HCO3 Sodium 133 L Potassium 3.0 L Chloride Carbon Dioxide BUN 22 H Glucose 123 H POC Glucose (mg/dL) Plasma Lactic Acid Clayton Phosphorus Total Bilirubin Urine Protein Urine Glucose (UA) Urine Ketones - Diagnostic Findings Chest x-ray: image reviewed Assessment and Plan Assessment: Community acquired pneumonia, chest x-ray showing bibasilar and right midlung airspace opacities concerning for pneumonia. Procalcitonin level elevated at 8.68. Acute hypoxemic respiratory failure, secondary to above Pneumonia, sepsis; tachycardic, tachypneic, febrile Lactic acidosis, improving Anion gap metabolic acidosis, improved Mild DKA, resolved Recent influenza infection Asthma/COPD Diabetes mellitus type II History of hypertension History of hyperlipidemia Gastroesophageal reflux disease Obesity, with a BMI of 32.8 kg/m Plan: Continue supplemental oxygen to maintain oxygen saturation 92% or greater Patient's medications, labs, chest x-ray reviewed Findings consistent with pneumonia sepsis Continue empiric antibiotics Obtain sputum and blood cultures Procalcitonin level elevated at 8.68 Viral screen at our facility negative for influenza A/B, RSV, COVID Add DuFay [id number] Transition patient over to subcutaneous insulin We will continue to follow, additional recommendations to be forthcoming I have personally seen and examined the patient, performed the documentation and the assessment and plan as written. Number of minutes spent on the visit:20 This dictation was produced using [employer] dictation software please excuse grammatical errors Time with Patient: Greater than 30
[2024-04-19] MEDS: INSULIN NPH 100 UNIT/ML 10 ML VIAL SQ ONE (04:39)
--- NOTE | 2024-04-19 06:20 | CT ---
EXAM: CT Angiography Chest With Intravenous Contrast CLINICAL HISTORY: Rule out PE TECHNIQUE: Axial computed tomographic angiography images of the chest with intravenous contrast. CTDI is 83.2 mGy and DLP is 512.9 mGy-cm. This CT exam was performed using one or more of the following dose reduction techniques: automated exposure control, adjustment of the mA and/or kV according to patient size, and/or use of iterative reconstruction technique. MIP reconstructed images were created and reviewed. Coronal and sagittal reformatted images were created and reviewed.700 images COMPARISON: No relevant prior studies available. FINDINGS: Pulmonary arteries: Unremarkable. No pulmonary embolism. Aorta: Minimal atherosclerotic calcifications. No thoracic aortic aneurysm. Lungs: Moderate-large amount of patchy airspace opacities/consolidations more on the left indicate pneumonia. Pleural space: Small bilateral pleural effusions more on the right. No pneumothorax. Heart: Unremarkable. No cardiomegaly. No significant pericardial effusion. No evidence of RV dysfunction. Thyroid: Solid-appearing nodule of right lobe of the thyroid gland with coarse calcification. Bones/joints: Suspect osteopenia. Mild to moderate degenerative changes. Soft tissues: Unremarkable. Lymph nodes: Unremarkable. No enlarged lymph nodes. Gallbladder and bile ducts: Cholecystectomy clips. IMPRESSION: 1. No pulmonary embolism. 2. Bilateral pneumonia. 3. Small bilateral pleural effusions
[2024-04-19 06:57] LABS: Glucose,Whole Blood 154 mg/dL (70-110)
[2024-04-19] MEDS: INSULIN GLARGINE (LANTUS) 100 UNIT/ML SYR SQ SCH ×2 (06:59→10:33)
[2024-04-19] MEDS: INSULIN LISPRO (HumaLOG) 100 UNIT/ML 10 mL VL SQ SCH (06:59)
[2024-04-19] MEDS: BUDESONIDE 1 MG/2 ML NEBU INHALATION SCH (09:48)
[2024-04-19] MEDS: IPRATROPIUM-ALBUTEROL 3 ML NEB INHALATION SCH (09:48)
[2024-04-19] MEDS: FORMOTEROL FUMARATE 20 MCG/2 ML NEBU INHALATION SCH (09:48)
[2024-04-19] MEDS ORDERED: VANCOMYCIN IV PER PHARMACY 1 EACH MISC MISCELLANE PRN (09:56)
[2024-04-19] MEDS ORDERED: Phosphorus Replacement Protoco 1 EACH MISC MISCELLANE PRN (09:57)
[2024-04-19] MEDS ORDERED: Potassium Replacement Protocol 1 EACH MISC MISCELLANE PRN (09:57)
[2024-04-19] MEDS: VANCOMYCIN 1,500 MG in SODIUM CHLORIDE 0.9% 500 ML 500 ML IVPB SCH (11:22)
[2024-04-19 11:51] LABS: Glucose,Whole Blood 230 mg/dL (70-110)
--- NOTE | 2024-04-19 14:07 | P.HPIM ---
History of Present Illness H&P Date: 04/19/24 History of present illness: 58-year-old female with past medical history significant for type 2 diabetes mellitus, history of COPD/asthma on home inhalers, on 2 L oxygen nightly, hypertension, hyperlipidemia, GERD who presented to ER with a complaint of significant shortness of breath. Patient reported that she had flulike symptoms last Wednesday, went to PCP office on Wednesday and was diagnosed with influenza, patient was outside the window for Tamiflu, was treated with steroid burst taper and cough suppressants. Patient stated that she felt better initially, but her symptoms started to get worse later on. Patient also reported having fever and chills at home. Patient reported productive cough, worsening shortness of breath. Patient denied any headache, chest pain, palpitations, nausea vomiting diarrhea constipation abdominal pain dysuria urgency frequency weakness or numbness to extremities. In the ED patient had a Tmax of 102.1, was initially tachycardic with heart rate in the 130s, tachypneic, blood pressure 10 initially was 112/65, required 2 L oxygen. WBCs 8.0, hemoglobin 14.0, platelet 405. Absolute neutrophils 6.8. VBG showed pH 7.34, pCO2 28, HCO3 15. Sodium 135 potassium 4.3 chloride 101 BUN 19 creatinine 0.64. Lactic acid was 4.2, received fluid boluses, trended down, today 2.2. LFTs were unremarkable except mildly elevated bilirubin 1.6. NT proBNP was 7700. Procalcitonin was 8.68. UA was negative. Viral panel was negative. CT chest showed no PE, showed bilateral pneumonia, small bilateral pleural effusions. Assessment and plan: Acute hypoxic respiratory failure: Severe sepsis: Bilateral pneumonia Lactic acidosis: Mild DKA: Resolved Recent influenza A infection Asthma/COPD: Diabetes mellitus Hypertension Hyperlipidemia GERD Morbid obesity with BMI of 32.8 Plan: Presented with worsening shortness of breath, productive cough, fever, chills. Recent influenza infection treated with steroids CT chest showed bilateral pneumonia, small pleural effusions Procalcitonin 8.68 Monitor vitals closely Antibiotics: Vancomycin Rocephin, doxycycline Judicious IV fluid boluses for low blood pressure Blood culture, sputum culture Initially required insulin drip, now on subcu insulin, Accu-Cheks, Inhaler/bronchodilator protocol Hold antihypertensives Pulmonary consulted DVT prophylaxis Subcutaneous heparin Monitor vital signs and labs Labs and medication were reviewed. Continue same treatment. Further recommendations as per clinical course of the patient PHYSICAL EXAMINATION: GENERAL: The patient is A&O x3, NAD HEENT: EOMI, Sclerae anicteric, Moist Mucous membranes Neck: Supple, Non tender, No JVD PULMONARY: Decreased breath sounds bilaterally, + crackles. CARDIOVASCULAR: S1, S2 present. No murmurs, rubs, or gallops. ABDOMEN: Soft, nontender, nondistended, normoactive bowel sounds. No guarding or rebound tenderness. MUSCULOSKELETAL: No edema, No cyanosis. No clubbing. Normal ROM. Intact peripheral pulses. NEUROLOGICAL: CN 2-12 grossly intact. No FND REVIEW OF SYSTEMS: CONSTITUTIONAL: Complains of fever, chills, fatigue. HEENT: No recent visual problems or hearing problems. Denied any sore throat. CARDIOVASCULAR: No chest pain, orthopnea, PND, no palpitations, no syncope. PULMONARY: + Productive cough, shortness of breath GASTROINTESTINAL: No diarrhea, no nausea, no vomiting, no abdominal pain. NEUROLOGICAL: No headaches, no weakness, no numbness. HEMATOLOGICAL: Denies any bleeding or petechiae. GENITOURINARY: Denies any burning micturition, frequency, or urgency. MUSCULOSKELETAL/RHEUMATOLOGICAL: Denies any joint pain, swelling, or any muscle pain. ENDOCRINE: Denies any polyuria or polydipsia. The rest of the 14-point review of systems is negative. Dictation was produced using [employer] dictation software. please excuse any grammatical, word or spelling errors. Past Medical History Past Medical History: Asthma, COPD, Diabetes Mellitus, Osteoarthritis (OA), Seizure Disorder, Thyroid Disorder Additional Past Medical History / Comment(s): See Dr. Malcolm's H&P. hx:rapid, irregular heart rate, interstitial cystitis, seizures as a child age 2-4 History of Any Multi-Drug Resistant Organisms: None Reported Past Surgical History: Back Surgery, Bladder Surgery, Cholecystectomy, Hernia Repair, Hysterectomy Past Anesthesia/Blood Transfusion Reactions: Postoperative Nausea & Vomiting (PONV) Past Psychological History: No Psychological Hx Reported Smoking Status: Never smoker Past Alcohol Use History: None Reported Past Drug Use History: None Reported - Past Family History Mother Family Medical History: Cancer, Myocardial Infarction ([place]) Additional Family Medical History / Comment(s): lung cancer 11/2010 Medications and Allergies Home Medications Medication Instructions Recorded Confirmed Type Lisinopril-Hctz 20-12.5 mg 1 tab PO DAILY 02/07/16 04/18/24 History [Zestoretic 20-12.5] Montelukast [Singulair] 10 mg PO HS 02/07/16 04/18/24 History Amitriptyline HCl [Elavil] 150 mg PO HS 04/18/24 04/18/24 History Atorvastatin [Lipitor] 80 mg PO HS 04/18/24 04/18/24 History Cyclobenzaprine [Flexeril] 10 mg PO HS 04/18/24 04/18/24 History Empagliflozin [Jardiance] 10 mg PO DAILY 04/18/24 04/18/24 History Insulin Degludec [Tresiba 10 units SQ DAILY 04/18/24 04/18/24 History Flextouch U-100 Pen] Oxybutynin Chloride [oxyBUTYnin 30 mg PO DAILY 04/18/24 04/18/24 History chloride ER] Allergies Allergy/AdvReac Type Severity Reaction Status Date / Time carbamazepine [From Tegretol] Allergy Hallucinati Verified 04/18/24 16:52 ons phenytoin [From Dilantin] Allergy Unknown Verified 04/18/24 16:52 Sulfa (Sulfonamide Allergy Dyspnea Verified 04/18/24 16:52 Antibiotics) Physical Exam Vitals: Vital Signs Temp Pulse Pulse Resp BP BP Pulse Ox 04/19/24 13:33 118 H 04/19/24 11:27 98.1 F 130 H 22 83/50 92 L 04/19/24 10:08 125 H 04/19/24 10:01 126 H 04/19/24 09:52 128 H 04/19/24 09:49 91 L 04/19/24 08:28 98.1 F 128 H 28 H 88/56 90 L 04/19/24 04:00 98.3 F 127 H 26 H 96/65 90 L 04/19/24 02:00 128 H 26 H 04/19/24 00:00 98.7 F 123 H 25 H 87/60 91 L 04/18/24 21:42 98.9 F 134 H 19 90/63 92 L 04/18/24 21:00 99.7 F H 135 H 22 113/72 90 L 04/18/24 20:04 102.1 F H 130 H 22 112/65 91 L 04/18/24 17:34 98.5 F 111 H 20 109/67 92 L 04/18/24 14:22 98.4 F 134 H 36 H 106/67 93 L Intake and Output 04/18/24 04/19/24 04/19/24 22:59 06:59 14:59 Intake Total 8.98 532.554 462 Balance 8.98 532.554 462 Intake: IV 10 Invasive Line 2 10 Intake, IV Titration 8.98 42.554 Amount Insulin Regular 100 unit 8.98 42.554 In Sodium Chloride 0.9% 100 ml @ 0.1 UNITS/KG/HR 7.697 mls/hr IV .Q13H8M [facility] Rx#:[id number] Oral 480 462 Other: Voiding Method Toilet # Voids 1 Weight 76.204 kg 76.4 kg Results CBC & Chem 7: 04/18/24 14:32 04/19/24 01:10 Labs: Abnormal Lab Results - Last 24 Hours (Table) 04/18/24 04/18/24 04/18/24 Range/Units 14:32 14:32 14:32 Lymphocytes # 0.6 L (1.0-4.8) k/uL VBG pCO2 (37-51) mmHg VBG HCO3 (24-28) mmol/L Sodium 131 L (137-145) mmol/L Potassium (3.5-5.1) mmol/L Chloride 91 L (98-107) mmol/L Carbon Dioxide 14 L (22-30) mmol/L BUN 19 H (7-17) mg/dL Glucose 302 H (74-99) mg/dL POC Glucose (mg/dL) (70-110) mg/dL Plasma Lactic Acid Clayton (0.7-2.0) mmol/L Phosphorus (2.5-4.5) mg/dL Total Bilirubin 1.6 H (0.2-1.3) mg/dL Procalcitonin 8.68 H (0.02-0.50) ng/mL Urine Protein (Negative) Urine Glucose (UA) (Negative) Urine Ketones (Negative) 04/18/24 04/18/24 04/18/24 Range/Units 15:59 17:26 17:34 Lymphocytes # (1.0-4.8) k/uL VBG pCO2 28 L (37-51) mmHg VBG HCO3 15 L (24-28) mmol/L Sodium (137-145) mmol/L Potassium (3.5-5.1) mmol/L Chloride (98-107) mmol/L Carbon Dioxide (22-30) mmol/L BUN (7-17) mg/dL Glucose (74-99) mg/dL POC Glucose (mg/dL) (70-110) mg/dL Plasma Lactic Acid Clayton 2.5 H* (0.7-2.0) mmol/L Phosphorus (2.5-4.5) mg/dL Total Bilirubin (0.2-1.3) mg/dL Procalcitonin (0.02-0.50) ng/mL Urine Protein Trace H (Negative) Urine Glucose (UA) 4+ H (Negative) Urine Ketones 3+ H (Negative) 04/18/24 04/18/24 04/18/24 Range/Units 18:48 20:01 20:12 Lymphocytes # (1.0-4.8) k/uL VBG pCO2 (37-51) mmHg VBG HCO3 (24-28) mmol/L Sodium 135 L (137-145) mmol/L Potassium (3.5-5.1) mmol/L Chloride (98-107) mmol/L Carbon Dioxide 17 L (22-30) mmol/L BUN 19 H (7-17) mg/dL Glucose 196 H (74-99) mg/dL POC Glucose (mg/dL) 205 H 177 H (70-110) mg/dL Plasma Lactic Acid Clayton (0.7-2.0) mmol/L Phosphorus (2.5-4.5) mg/dL Total Bilirubin (0.2-1.3) mg/dL Procalcitonin (0.02-0.50) ng/mL Urine Protein (Negative) Urine Glucose (UA) (Negative) Urine Ketones (Negative) 04/18/24 04/18/24 04/18/24 Range/Units 21:00 22:16 22:17 Lymphocytes # (1.0-4.8) k/uL VBG pCO2 (37-51) mmHg VBG HCO3 (24-28) mmol/L Sodium (137-145) mmol/L Potassium (3.5-5.1) mmol/L Chloride (98-107) mmol/L Carbon Dioxide (22-30) mmol/L BUN (7-17) mg/dL Glucose (74-99) mg/dL POC Glucose (mg/dL) 176 H 151 H (70-110) mg/dL Plasma Lactic Acid Clayton 4.4 H* (0.7-2.0) mmol/L Phosphorus (2.5-4.5) mg/dL Total Bilirubin (0.2-1.3) mg/dL Procalcitonin (0.02-0.50) ng/mL Urine Protein (Negative) Urine Glucose (UA) (Negative) Urine Ketones (Negative) 04/18/24 04/19/24 04/19/24 Range/Units 23:06 00:05 00:18 Lymphocytes # (1.0-4.8) k/uL VBG pCO2 (37-51) mmHg VBG HCO3 (24-28) mmol/L Sodium (137-145) mmol/L Potassium (3.5-5.1) mmol/L Chloride (98-107) mmol/L Carbon Dioxide (22-30) mmol/L BUN (7-17) mg/dL Glucose (74-99) mg/dL POC Glucose (mg/dL) 161 H 131 H (70-110) mg/dL Plasma Lactic Acid Clayton (0.7-2.0) mmol/L Phosphorus 1.4 L (2.5-4.5) mg/dL Total Bilirubin (0.2-1.3) mg/dL Procalcitonin (0.02-0.50) ng/mL Urine Protein (Negative) Urine Glucose (UA) (Negative) Urine Ketones (Negative) 04/19/24 04/19/24 04/19/24 Range/Units 01:06 01:10 02:14 Lymphocytes # (1.0-4.8) k/uL VBG pCO2 (37-51) mmHg VBG HCO3 (24-28) mmol/L Sodium 133 L (137-145) mmol/L Potassium 3.0 L (3.5-5.1) mmol/L Chloride (98-107) mmol/L Carbon Dioxide (22-30) mmol/L BUN 22 H (7-17) mg/dL Glucose 123 H (74-99) mg/dL POC Glucose (mg/dL) 118 H (70-110) mg/dL Plasma Lactic Acid Clayton 3.5 H* (0.7-2.0) mmol/L Phosphorus (2.5-4.5) mg/dL Total Bilirubin (0.2-1.3) mg/dL Procalcitonin (0.02-0.50) ng/mL Urine Protein (Negative) Urine Glucose (UA) (Negative) Urine Ketones (Negative) 04/19/24 04/19/24 04/19/24 Range/Units 03:05 06:52 07:06 Lymphocytes # (1.0-4.8) k/uL VBG pCO2 (37-51) mmHg VBG HCO3 (24-28) mmol/L Sodium (137-145) mmol/L Potassium (3.5-5.1) mmol/L Chloride (98-107) mmol/L Carbon Dioxide (22-30) mmol/L BUN (7-17) mg/dL Glucose (74-99) mg/dL POC Glucose (mg/dL) 121 H 154 H (70-110) mg/dL Plasma Lactic Acid Clayton 2.3 H* (0.7-2.0) mmol/L Phosphorus (2.5-4.5) mg/dL Total Bilirubin (0.2-1.3) mg/dL Procalcitonin (0.02-0.50) ng/mL Urine Protein (Negative) Urine Glucose (UA) (Negative) Urine Ketones (Negative) 04/19/24 04/19/24 04/19/24 Range/Units 10:06 11:50 13:10 Lymphocytes # (1.0-4.8) k/uL VBG pCO2 (37-51) mmHg VBG HCO3 (24-28) mmol/L Sodium (137-145) mmol/L Potassium (3.5-5.1) mmol/L Chloride (98-107) mmol/L Carbon Dioxide (22-30) mmol/L BUN (7-17) mg/dL Glucose (74-99) mg/dL POC Glucose (mg/dL) 230 H (70-110) mg/dL Plasma Lactic Acid Clayton 2.8 H* 2.2 H* (0.7-2.0) mmol/L Phosphorus (2.5-4.5) mg/dL Total Bilirubin (0.2-1.3) mg/dL Procalcitonin (0.02-0.50) ng/mL Urine Protein (Negative) Urine Glucose (UA) (Negative) Urine Ketones (Negative) Thrombosis Risk Factor Assmnt - Choose All That Apply Any of the Below Risk Factors Present?: Yes Each Factor Represents 1 point: Abnormal pulmonary function (COPD), Age 41-60 years, Obesity (BMI >25) Other Risk Factors: No Thrombosis Risk Factor Assessment Total Risk Factor Score: 3 Thrombosis Risk Factor Assessment Level: Moderate Risk
[2024-04-19 16:23] LABS: Glucose,Whole Blood 258 mg/dL (70-110)
[2024-04-19] MEDS: POTASSIUM CHLORIDE ER 20 MEQ TAB.ER PO SCH (17:32)
[2024-04-19] MEDS: SODIUM CHLORIDE 0.9% 500 ML 500 ML IV ONE (17:32)
[2024-04-19] MEDS: POTAS-SOD-PHOS 280-160-250 MG 1 EACH PACKET PO ONE (18:30)
[2024-04-19 20:38] LABS: Glucose,Whole Blood 224 mg/dL (70-110)
[2024-04-19] MEDS: CYCLOBENZAPRINE 10 MG TAB PO SCH (20:38)
[2024-04-19] MEDS: ATORVASTATIN 80 MG TAB PO SCH (20:38)
[2024-04-19] MEDS: MONTELUKAST 10 MG TAB PO SCH (20:38)
[2024-04-19] MEDS: AMITRIPTYLINE HCL 50 MG TAB PO SCH (20:39)
[2024-04-20 06:01] LABS: Glucose,Whole Blood 177 mg/dL (70-110)
[2024-04-20] MEDS: OXYBUTYNIN 15 MG TAB.ER.24 PO SCH (07:54)
[2024-04-20 08:19] LABS: Basophils % (A) 0 %; Eosinophils % (A) 0 %; HCT 36.6 % (34.0-46.0); HGB 11.5 gm/dL (11.4-16.0); Hypochromasia Slight; Lymphocytes # (A) 0.7 k/uL (1.0-4.8); Lymphocytes % (A) 6 %; MCH 28.1 pg (25.0-35.0); MCHC 31.3 g/dL (31.0-37.0); MCV 89.8 fL (80.0-100.0); Mean Platelet Volume 7.5; Monocytes # (A) 0.6 k/uL (0-1.0); Monocytes % (A) 5 %; Neutrophils # (A) 10.6 k/uL (1.3-7.7); Neutrophils % (A) 87 %; Platelet Count 331 k/uL (150-450); RBC 4.08 m/uL (3.80-5.40); RDW 13.2 % (11.5-15.5); WBC 12.1 k/uL (3.8-10.6)
[2024-04-20 08:42] LABS: African American GFR (CKD) >90 (>60 ml/min/1.73 sqM); Anion Gap 12 mmol/L; Blood Urea Nitrogen 28 mg/dL (7-17); Calcium 7.9 mg/dL (8.4-10.2); Carbon Dioxide 16 mmol/L (22-30); Chloride 107 mmol/L (98-107); Glucose 150 mg/dL (74-99); Non-African American GFR(CKD) >90 (>60 ml/min/1.73 sqM); Potassium 4.1 mmol/L (3.5-5.1); Sodium 135 mmol/L (137-145)
--- NOTE | 2024-04-20 11:40 | CA ---
Transthoracic Echo Report Name: Marisa Moody Age: 58 Gender: F : 1965 Exam Date: 04/20/2024 10:54 Exam Location: [facility] Ht (in): 60 Wt (lb): 177 Ordering Physician: Brice Arthur MD Attending/Referring Phys: Top Icer Jasmine Cee RDCS Procedure CPT: Indications: chf Cardiac Hx: Technical Quality: Good Contrast 1: Total Dose (mL): Contrast 2: Total Dose (mL): MEASUREMENTS (Male / Female) Normal Values 2D ECHO LV Diastolic Diameter PLAX 3.9 cm 4.2 - 5.9 / 3.9 - 5.3 cm LV Systolic Diameter PLAX 2.6 cm IVS Diastolic Thickness 1.0 cm 0.6 - 1.0 / 0.6 - 0.9 cm LVPW Diastolic Thickness 1.0 cm 0.6 - 1.0 / 0.6 - 0.9 cm LV Relative Wall Thickness 0.5 RV Internal Dim ED PLAX 3.1 cm LA Systolic Diameter LX 3.3 cm 3.0 - 4.0 / 2.7 - 3.8 cm LV Diastolic Volume MOD 4C 111.1 cm??? LV Systolic Volume MOD 4C 63.8 cm??? LV Ejection Fraction MOD 4C 42.5 % LV Cardiac Index MOD 4C 3136.9 cm???/min???m??? LV Diastolic Length 4C 8.1 cm LV Systolic Length 4C 6.4 cm LV Diastolic Volume MOD 2C 89.5 cm??? LV Systolic Volume MOD 2C 50.3 cm??? LV Ejection Fraction MOD 2C 43.8 % LV Cardiac Index MOD 2C 2603.8 cm???/min???m??? LV Diastolic Length 2C 7.7 cm LV Systolic Length 2C 6.4 cm LA Volume 51.1 cm??? 18 - 58 / 22 - 52 cm??? LA Volume Index 27.1 cm???/m??? 16 - 28 cm???/m??? M-MODE Aortic Root Diameter MM 3.3 cm DOPPLER AV Peak Velocity 143.2 cm/s AV Peak Gradient 8.2 mmHg TR Peak Velocity 225.1 cm/s TR Peak Gradient 20.3 mmHg Right Ventricular Systolic Press 24.9 mmHg FINDINGS Left Ventricle Left ventricular ejection fraction is estimated at 50-55 %. Left ventricular cavity size normal. Left ventricular systolic function borderline normal Right Ventricle Normal right ventricular size and function. Right ventricular systolic pressure within normal limits. Right Atrium Normal right atrial size. No right atrial thrombus or mass seen. Left Atrium Normal left atrial size. No left atrial thrombus or mass present. Mitral Valve Structurally normal mitral valve. No mitral stenosis. No evidence for mitral valve prolapse. Mild mitral regurgitation. Aortic Valve Trileaflet aortic valve. No aortic valve stenosis or regurgitation. Tricuspid Valve Structurally normal tricuspid valve. Mild tricuspid regurgitation. Pulmonic Valve Structurally normal pulmonic valve. No pulmonic regurgitation. Pericardium No pericardial effusion. Aorta Normal size aortic root and proximal ascending aorta. CONCLUSIONS 1. Left ventricle systolic function borderline normal 2. Mild mitral and tricuspid regurgitation with no evidence of pulmonary hypertension Previewed by: Dr. Nicolasa Harrell MD (Electronically Signed) Final Date: 20 April 2024 11:39
[2024-04-20 11:53] LABS: Glucose,Whole Blood 166 mg/dL (70-110)
--- NOTE | 2024-04-20 14:13 | P.PN ---
Subjective Progress Note Date: 04/20/24 Principal diagnosis: Shortness of breath. Patient is a 58-year-old female with past medical history significant for asthma/COPD, diabetes mellitus, hypertension, hyperlipidemia, GERD. Presented emergency department yesterday afternoon with severe shortness of breath. Patient reports flulike symptoms developing last Wednesday. Seen at her PCP office, in [place] on Wednesday and diagnosed with influenza. She was outside the window for Tamiflu. Given steroid burst taper and cough suppressant. Intially, felt a little better, then her symptoms worsened. Workup in the emergency depa rtment including a chest x-ray demonstrating bibasilar and right midlung airspace opacities concerning for pneumonia. Febrile with a Tmax of 102.1 F, tachycardic, tachypneic. Viral screen at our facility negative for influenza A/B, RSV, COVID. Previously fluid resuscitated with 2 L normal saline in the ED. Found to be hypoxic on room air and placed on 2 L/min nasal cannula. CBC: WBC count 8, hemoglobin 14, platelets 405. VBG with a pH of 7.34, pCO2 28. CMP done on arrival includes a sodium 135 potassium 4.3, chloride 101, serum bicarb 17, BUN 19, creatinine 0.64, glucose 196. Lactic is elevated at 4.4. Troponin less than 0.012. NT proBNP 7700. UA positive for glucose and ketones. Dubberly to be in a mild DKA in the ED, and started on the DKA protocol. Admitting physician started patient on antibiotics empirically. Patient currently being evaluated in the cardiac stepdown unit. D5W/0.45% saline/20 mEq of potassium infusing at 75 mg/h. Insulin infusion per protocol. Repeat electrolytes indicate resolution of DKA. Endorses above mentioned symptoms. She has been intermittently febrile at home, productive cough with green sputum, generally weak, poor appetite. Blood sugars were high at home. Most recent vital signs: Temperature 98.9 F, heart rate 134 bpm, blood pressure 90/63 mmHg, tachypneic, SpO2 recorded at 92% on 2 L/min nasal cannula. Progress note dated April 20, 2024. 58-year-old female seen today in room 373. The patient has a history of asthma/COPD, diabetes, hypertension, hyperlipidemia, and gastroesophageal reflux disease. The patient is currently being treated for influenza, and pneumonia. Her procalcitonin level was elevated at 8.68. Her BNP was elevated at 7700. She is on 5 L nasal cannula. She is getting saline at 15 cc an hour. We ordered a follow-up chest x-ray for the morning. White count 12.1, hemoglobin 11.5, hematocrit 36.6, platelet count 331,000. Sodium 135, potassium 4.1, chlorides 107, CO2 16, anion gap 12, BUN 28, creatinine 0.68. Glucose is 166. Calcium is 7.9. Objective - Vital Signs Vital signs: Vital Signs Temp 98.2 F 04/20/24 11:35 Pulse 118 H 04/20/24 12:31 Resp 17 04/20/24 11:35 BP 108/68 04/20/24 11:35 Pulse Ox 96 04/20/24 11:35 FiO2 Intake & Output 04/19/24 04/20/24 04/20/24 18:59 06:59 18:59 Intake Total 1002 20 Balance 1002 20 Weight 80.7 kg 80.7 kg Intake: IV 20 Invasive Line 1 20 Oral 1002 Other: Voiding Method Toilet Toilet Toilet # Voids 0 - Exam No acute distress, oriented 3. Nurse of breath. The patient is currently on 5 L of oxygen. HEENT examination is grossly unremarkable. Mucous membranes are moist. No oral lesions. Neck supple. Full range of motion. No adenopathy thyromegaly or neck vein distention. Cardiovascular examination reveals regular rhythm rate. S1-S2 normal. No S3 or S4. No discernible murmur noted. Lungs reveal bilateral inspiratory and expiratory rhonchi. Few scattered crackles are noted. No wheezes. Breath sounds are equal bilaterally. Abdomen soft bowel sounds are heard. No masses or tenderness. Extremities are intact. No cyanosis clubbing or edema. Skin is without rash or lesion. Neurologic examination is brief but nonfocal. - Labs CBC & Chem 7: 04/20/24 07:47 04/20/24 07:47 Labs: Abnormal Lab Results - Last 24 Hours (Table) 04/19/24 04/19/24 04/20/24 Range/Units 16:22 20:36 05:59 WBC (3.8-10.6) k/uL Neutrophils # (1.3-7.7) k/uL Lymphocytes # (1.0-4.8) k/uL Sodium (137-145) mmol/L Carbon Dioxide (22-30) mmol/L BUN (7-17) mg/dL Glucose (74-99) mg/dL POC Glucose (mg/dL) 258 H 224 H 177 H (70-110) mg/dL Hemoglobin A1c (<=6.0) % Calcium (8.4-10.2) mg/dL 04/20/24 04/20/24 04/20/24 Range/Units 07:47 07:47 07:47 WBC 12.1 H (3.8-10.6) k/uL Neutrophils # 10.6 H (1.3-7.7) k/uL Lymphocytes # 0.7 L (1.0-4.8) k/uL Sodium 135 L (137-145) mmol/L Carbon Dioxide 16 L (22-30) mmol/L BUN 28 H (7-17) mg/dL Glucose 150 H (74-99) mg/dL POC Glucose (mg/dL) (70-110) mg/dL Hemoglobin A1c 14.3 H (<=6.0) % Calcium 7.9 L (8.4-10.2) mg/dL 04/20/24 Range/Units 11:51 WBC (3.8-10.6) k/uL Neutrophils # (1.3-7.7) k/uL Lymphocytes # (1.0-4.8) k/uL Sodium (137-145) mmol/L Carbon Dioxide (22-30) mmol/L BUN (7-17) mg/dL Glucose (74-99) mg/dL POC Glucose (mg/dL) 166 H (70-110) mg/dL Hemoglobin A1c (<=6.0) % Calcium (8.4-10.2) mg/dL Microbiology - Last 24 Hours (Table) 04/19/24 07:06 Blood Culture - Preliminary Blood Assessment and Plan Assessment: Community acquired pneumonia, right lung. Acute hypoxemic respiratory failure, secondary to above. Lactic acidosis, improving. Anion gap metabolic acidosis. Mild DKA, resolved. Recent influenza infection. Asthma/COPD. Diabetes mellitus type II. History of hypertension. History of hyperlipidemia . Gastroesophageal reflux disease. Obesity, with a BMI of 32.8 kg/m. Plan: Plan dated April 20, 2024. The patient continues on appropriate medications, including antibiotics, b reathing treatments, formoterol, budesonide, and Singulair. Labs, x-rays, and medications are all reviewed. The patient is currently feeling a bit better than she did yesterday. She continues on 5 L. We will continue to follow make recommendations along the way. Prognosis is guarded. All labs, x-rays, medications are reviewed. The patient will have a follow-up chest x-ray in the morning, April 21. Time with Patient: Less than 30
--- NOTE | 2024-04-20 14:32 | P.PN ---
Subjective Progress Note Date: 04/20/24 Interval History: History of present illness: 58-year-old female with past medical history significant for type 2 diabetes mellitus, history of COPD/asthma on home inhalers, on 2 L oxygen nightly, hypertension, hyperlipidemia, GERD who presented to ER with a complaint of significant shortness of breath. Patient reported that she had flulike symptoms last Wednesday, went to PCP office on Wednesday and was diagnosed with influenza, patient was outside the window for Tamiflu, was treated with steroid burst taper and cough suppressants. Patient stated that she felt better initially, but her symptoms started to get worse later on. Patient also reported having fever and chills at home. Patient reported productive cough, worsening shortness of breath. Patient denied any headache, chest pain, palpitations, nausea vomiting diarrhea constipation abdominal pain dysuria urgency frequency weakness or nu mbness to extremities. In the ED patient had a Tmax of 102.1, was initially tachycardic with heart rate in the 130s, tachypneic, blood pressure 10 initially was 112/65, required 2 L oxygen. WBCs 8.0, hemoglobin 14.0, platelet 405. Absolute neutrophils 6.8. VBG showed pH 7.34, pCO2 28, HCO3 15. Sodium 135 potassium 4.3 chloride 101 BUN 19 creatinine 0.64. Lactic acid was 4.2, received fluid boluses, trended down, today 2.2. LFTs were unremarkable except mildly elevated bilirubin 1.6. NT pro BNP was 7700. Procalcitonin was 8.68. UA was negative. Viral panel was negative. CT chest showed no PE, showed bilateral pneumonia, small bilateral pleural effusions. 04/20--- patient was seen and examined today. Patient is afebrile, tachycardic, respiratory rate 17, blood pressure 108/68, better as compared to yesterday. Saturating 96% on 5 L. WBCs 12.5, hemoglobin 11.5, platelet 331. BMP is unremarkable. HbA1c is 14.3. Echocardiogram done which showed normal ventricle systolic function, mild MR and TR. No pericardial effusion. Will discontinue IV fluids due to concern of fluid overload, will monitor blood pressure closely. Patient remains on vancomycin Rocephin and doxycycline, infectious disease consulted. Pulmonary following. Will try IV diuresis if blood pressure better. Assessment and plan: Acute hypoxic respiratory failure: Severe sepsis: Bilateral pneumonia: Fluid overload: Hypotension: Lactic acidosis: Mild DKA: Resolved Recent influenza A infection Asthma/COPD: Diabetes mellitus: Poorly controlled Hypertension Hyperlipidemia GERD Morbid obesity with BMI of 32.8 Plan: Presented with worsening shortness of breath, productive cough, fever, chills. Recent influenza infection treated with steroids CT chest showed bilateral pneumonia, small pleural effusions Procalcitonin 8.68 Monitor vitals closely Antibiotics: Vancomycin Rocephin, doxycycline Judicious IV fluid boluses for low blood pressure Blood culture, sputum culture Initially required insulin drip, now on subcu insulin, Accu-Cheks, Inhaler/bronchodilator protocol Hold antihypertensives Pulmonary consulted Infectious disease consulted. Echocardiogramnormal LV function, mild MR and TR, no pericardial effusion. DVT prophylaxis Subcutaneous heparin Monitor vital signs and labs Labs and medication were reviewed. Continue same treatment. Further recommendations as per clinical course of the patient PHYSICAL EXAMINATION: GENERAL: The patient is A&O x3, NAD HEENT: EOMI, Sclerae anicteric, Moist Mucous membranes Neck: Supple, Non tender, No JVD PULMONARY: Decreased breath sounds bilaterally, + crackles. CARDIOVASCULAR: S1, S2 present. No murmurs, rubs, or gallops. ABDOMEN: Soft, nontender, nondistended, normoactive bowel sounds. No guarding or rebound tenderness. MUSCULOSKELETAL: +edema, No cyanosis. No clubbing. Normal ROM. Intact peripheral pulses. NEUROLOGICAL: CN 2-12 grossly intact. No FND REVIEW OF SYSTEMS: CONSTITUTIONAL: No fever or chills. CARDIOVASCULAR: No chest pain, palpitations or syncope. PULMONARY: No shortness of breath, no cough, sore throat. GASTROINTESTINAL: No nausea, vomiting, diarrhea, abdominal pain. : No Dysuria, urgency, frequency. Extremities: No edema. NEUROLOGICAL: No headaches, no weakness, or numbness Dictation was produced using [employer] dictation software. please excuse any grammatical, word or spelling errors. Objective - Vital Signs Vital signs: Vital Signs Temp 98.2 F 04/20/24 11:35 Pulse 118 H 04/20/24 12:31 Resp 17 04/20/24 11:35 BP 108/68 04/20/24 11:35 Pulse Ox 96 04/20/24 11:35 FiO2 Intake & Output 04/19/24 04/20/24 04/20/24 18:59 06:59 18:59 Intake Total 1002 20 Balance 1002 20 Weight 80.7 kg 80.7 kg Intake: IV 20 Invasive Line 1 20 Oral 1002 Other: Voiding Method Toilet Toilet Toilet # Voids 0 - Labs CBC & Chem 7: 04/20/24 07:47 04/20/24 07:47 Labs: Abnormal Lab Results - Last 24 Hours (Table) 04/19/24 04/19/24 04/20/24 Range/Units 16:22 20:36 05:59 WBC (3.8-10.6) k/uL Neutrophils # (1.3-7.7) k/uL Lymphocytes # (1.0-4.8) k/uL Sodium (137-145) mmol/L Carbon Dioxide (22-30) mmol/L BUN (7-17) mg/dL Glucose (74-99) mg/dL POC Glucose (mg/dL) 258 H 224 H 177 H (70-110) mg/dL Hemoglobin A1c (<=6.0) % Calcium (8.4-10.2) mg/dL 04/20/24 04/20/24 04/20/24 Range/Units 07:47 07:47 07:47 WBC 12.1 H (3.8-10.6) k/uL Neutrophils # 10.6 H (1.3-7.7) k/uL Lymphocytes # 0.7 L (1.0-4.8) k/uL Sodium 135 L (137-145) mmol/L Carbon Dioxide 16 L (22-30) mmol/L BUN 28 H (7-17) mg/dL Glucose 150 H (74-99) mg/dL POC Glucose (mg/dL) (70-110) mg/dL Hemoglobin A1c 14.3 H (<=6.0) % Calcium 7.9 L (8.4-10.2) mg/dL 04/20/24 Range/Units 11:51 WBC (3.8-10.6) k/uL Neutrophils # (1.3-7.7) k/uL Lymphocytes # (1.0-4.8) k/uL Sodium (137-145) mmol/L Carbon Dioxide (22-30) mmol/L BUN (7-17) mg/dL Glucose (74-99) mg/dL POC Glucose (mg/dL) 166 H (70-110) mg/dL Hemoglobin A1c (<=6.0) % Calcium (8.4-10.2) mg/dL Microbiology - Last 24 Hours (Table) 04/19/24 07:06 Blood Culture - Preliminary Blood
[2024-04-20] MEDS: HEPARIN SODIUM,PORCINE 5,000 UNIT/ML 1 ML VIAL SQ SCH (16:16)
[2024-04-20 16:53] LABS: Glucose,Whole Blood 125 mg/dL (70-110)
[2024-04-20 19:59] LABS: Glucose,Whole Blood 140 mg/dL (70-110)
--- NOTE | 2024-04-20 22:06 | P.CONS ---
History of Present Illness - Reason for Consult Consult date: 04/20/24 Sepsis, pneumonia, recent influenza Requesting physician: Brice Arthur - Chief Complaint Shortness of breath and cough x 3 days - History of Present Illness Patient is a 58-year-old female with a past medical history significant for COPD diabetes mellitus osteoarthritis and seizure disorder has been diagnosed with influenza A about a week and a half ago however the patient mention she did not receive treatment as she was told presented 2 days ago her symptoms patient now presenting to [facility] ER 2 days ago for evaluation of increasing shortness of breath that has been getting worse for about a day before presentation shortness of breath on minimal exertion even at rest the patient also have a cough which has been moderate intensity congestion unable to bring up any sputum denies any pleuritic chest pain patient denies having any nausea vomiting no abdominal pain no diarrhea patient on presentation to the hospital did have a temperature of 102.1 F patient was tachycardic but not hypotensive or hypoxic currently on 5 L nasal cannula oxygen she did have white count of 12.1 with a left shift creatinine is 0.68 electrolytes has been normal lactic acid was elevated urine has been negative influenza RSV COVID testing negative patient was started on vancomycin and ceftriaxone infectious disease was consulted today regarding sepsis pneumonia and recent influenza Review of Systems Positive point and negatives has been mentioned in the HPI, complete review of systems was performed and all other systems are negative Past Medical History Past Medical History: Asthma, COPD, Diabetes Mellitus, Osteoarthritis (OA), Seizure Disorder, Thyroid Disorder Additional Past Medical History / Comment(s): See Dr. Malcolm's H&P. hx:rapid, irregular heart rate, interstitial cystitis, seizures as a child age 2-4 History of Any Multi-Drug Resistant Organisms: None Reported Past Surgical History: Back Surgery, Bladder Surgery, Cholecystectomy, Hernia Repair, Hysterectomy Past Anesthesia/Blood Transfusion Reactions: Postoperative Nausea & Vomiting (PONV) Past Psychological History: No Psychological Hx Reported Smoking Status: Never smoker Past Alcohol Use History: None Reported Past Drug Use History: None Reported - Past Family History Mother Family Medical History: Cancer, Myocardial Infarction ([place]) Additional Family Medical History / Comment(s): lung cancer 11/2010 Medications and Allergies Home Medications Medication Instructions Recorded Confirmed Type Lisinopril-Hctz 20-12.5 mg 1 tab PO DAILY 02/07/16 04/18/24 History [Zestoretic 20-12.5] Montelukast [Singulair] 10 mg PO HS 02/07/16 04/18/24 History Amitriptyline HCl [Elavil] 150 mg PO HS 04/18/24 04/18/24 History Atorvastatin [Lipitor] 80 mg PO HS 04/18/24 04/18/24 History Cyclobenzaprine [Flexeril] 10 mg PO HS 04/18/24 04/18/24 History Empagliflozin [Jardiance] 10 mg PO DAILY 04/18/24 04/18/24 History Insulin Degludec [Tresiba 10 units SQ DAILY 04/18/24 04/18/24 History Flextouch U-100 Pen] Oxybutynin Chloride [oxyBUTYnin 30 mg PO DAILY 04/18/24 04/18/24 History chloride ER] Allergies Allergy/AdvReac Type Severity Reaction Status Date / Time carbamazepine [From Tegretol] Allergy Hallucinati Verified 04/18/24 16:52 ons phenytoin [From Dilantin] Allergy Unknown Verified 04/18/24 16:52 Sulfa (Sulfonamide Allergy Dyspnea Verified 04/18/24 16:52 Antibiotics) Physical Exam Vitals: Vital Signs Temp Pulse Pulse Resp BP Pulse Ox 04/20/24 11:35 98.2 F 118 H 17 108/68 96 04/20/24 09:06 116 H 04/20/24 08:55 120 H 04/20/24 08:48 94 L 04/20/24 08:44 118 H 04/20/24 07:50 98.5 F 118 H 19 101/67 95 04/20/24 03:45 98.6 F 119 H 20 101/64 94 L 04/20/24 02:00 120 H 20 04/19/24 23:04 98.2 F 120 H 20 96/65 94 L 04/19/24 20:52 127 H 20 04/19/24 20:41 124 H 20 04/19/24 20:34 122 H 20 04/19/24 20:00 98.6 F 125 H 20 107/59 92 L 04/19/24 18:35 122 H 91/55 04/19/24 16:56 98.2 F 124 H 20 81/52 92 L 04/19/24 16:53 123 H 04/19/24 16:30 122 H 04/19/24 15:17 98.2 F 120 H 22 91/56 93 L 04/19/24 13:33 118 H Intake and Output 04/19/24 04/20/24 04/20/24 22:59 06:59 14:59 Intake Total 540 10 Balance 540 10 Intake: IV 10 Invasive Line 1 10 Oral 540 Other: Voiding Method Toilet Toilet Toilet # Voids 0 0 Weight 80.7 kg GENERAL DESCRIPTION: Middle-age female lying in bed, no distress. No tachypnea or accessory muscle of respiration use. HEENT: Shows Pallor , no scleral icterus. Oral mucous membrane is dry. NECK: Trachea central, no thyromegaly. LUNGS: Unlabored breathing. Coarse breath sounds bilaterally HEART: S1, S2, regular rate and rhythm. No loud murmur ABDOMEN: Soft, no tenderness , EXTREMITIES: No edema of feet. SKIN: No rash, no masses palpable. NEUROLOGICAL: The patient is awake, alert, oriented x3, mood and affect normal. Results CBC & Chem 7: 04/20/24 07:47 04/20/24 07:47 Labs: Abnormal Lab Results - Last 24 Hours (Table) 04/19/24 04/19/24 04/19/24 Range/Units 11:50 13:10 16:22 WBC (3.8-10.6) k/uL Neutrophils # (1.3-7.7) k/uL Lymphocytes # (1.0-4.8) k/uL Sodium (137-145) mmol/L Carbon Dioxide (22-30) mmol/L BUN (7-17) mg/dL Glucose (74-99) mg/dL POC Glucose (mg/dL) 230 H 258 H (70-110) mg/dL Hemoglobin A1c (<=6.0) % Plasma Lactic Acid Clayton 2.2 H* (0.7-2.0) mmol/L Calcium (8.4-10.2) mg/dL 04/19/24 04/20/24 04/20/24 Range/Units 20:36 05:59 07:47 WBC (3.8-10.6) k/uL Neutrophils # (1.3-7.7) k/uL Lymphocytes # (1.0-4.8) k/uL Sodium (137-145) mmol/L Carbon Dioxide (22-30) mmol/L BUN (7-17) mg/dL Glucose (74-99) mg/dL POC Glucose (mg/dL) 224 H 177 H (70-110) mg/dL Hemoglobin A1c 14.3 H (<=6.0) % Plasma Lactic Acid Clayton (0.7-2.0) mmol/L Calcium (8.4-10.2) mg/dL 04/20/24 04/20/24 Range/Units 07:47 07:47 WBC 12.1 H (3.8-10.6) k/uL Neutrophils # 10.6 H (1.3-7.7) k/uL Lymphocytes # 0.7 L (1.0-4.8) k/uL Sodium 135 L (137-145) mmol/L Carbon Dioxide 16 L (22-30) mmol/L BUN 28 H (7-17) mg/dL Glucose 150 H (74-99) mg/dL POC Glucose (mg/dL) (70-110) mg/dL Hemoglobin A1c (<=6.0) % Plasma Lactic Acid Clayton (0.7-2.0) mmol/L Calcium 7.9 L (8.4-10.2) mg/dL Assessment and Plan (1) Sepsis Current Visit: Yes Status: Acute Code(s): A41.9 - SEPSIS, UNSPECIFIED ORGANISM SNOMED Code(s): 95433492 (2) Pneumonia Current Visit: Yes Status: Acute Code(s): J18.9 - PNEUMONIA, UNSPECIFIED ORGANISM SNOMED Code(s): 124419201 (3) Allergy to sulfa drugs Current Visit: Yes Status: Acute Code(s): Z88.2 - ALLERGY STATUS TO SULFONAMIDES SNOMED Code(s): 25500069 Plan: 1patient presented to hospital with sepsis in this patient noted to have fever tachycardia elevated white count meeting criteria for SIRS source is likely pneumonia in this patient who recently did have a influenza A but not treated with evidence of bibasilar and right middle lung airspace opacity concerning for pneumonia will need to cover for Staph aureus that is commonly associated post influenza pneumonia 2-blood culture has been obtained try to obtain sputum for Gram stain and culture 3-we will treat with Rocephin and vancomycin while waiting for the culture to finalize We will follow on clinical condition and cultures to further adjust medication if needed Thank you for this consultation we will follow the patient along with you Dictation was produced using [employer] dictation software. please excuse any grammatical, word or spelling errors.
[2024-04-21] MEDS: CALCIUM CARBONATE 500 MG CHEWABLE PO PRN (01:05)
[2024-04-21 06:07] LABS: Glucose,Whole Blood 134 mg/dL (70-110)
[2024-04-21 07:10] LABS: Basophils % (A) 0 %; Eosinophils % (A) 0 %; HCT 40.8 % (34.0-46.0); HGB 12.8 gm/dL (11.4-16.0); Lymphocytes # (A) 0.6 k/uL (1.0-4.8); Lymphocytes % (A) 4 %; MCH 27.7 pg (25.0-35.0); MCHC 31.5 g/dL (31.0-37.0); MCV 88.1 fL (80.0-100.0); Mean Platelet Volume 7.7; Monocytes # (A) 0.7 k/uL (0-1.0); Monocytes % (A) 5 %; Neutrophils # (A) 13.5 k/uL (1.3-7.7); Neutrophils % (A) 90 %; Platelet Count 423 k/uL (150-450); RBC 4.63 m/uL (3.80-5.40); RDW 13.2 % (11.5-15.5); WBC 15.1 k/uL (3.8-10.6)
[2024-04-21 07:20] LABS: African American GFR (CKD) >90 (>60 ml/min/1.73 sqM); Anion Gap 20 mmol/L; Blood Urea Nitrogen 23 mg/dL (7-17); Calcium 8.7 mg/dL (8.4-10.2); Carbon Dioxide 14 mmol/L (22-30); Chloride 104 mmol/L (98-107); Glucose 150 mg/dL (74-99); Non-African American GFR(CKD) >90 (>60 ml/min/1.73 sqM); Potassium 3.5 mmol/L (3.5-5.1); Sodium 138 mmol/L (137-145)
--- NOTE | 2024-04-21 08:05 | XR ---
EXAMINATION TYPE: XR chest 1V portable DATE OF EXAM: 04/21/2024 7:05 AM COMPARISON: Chest radiographs from 04/18/2024 TECHNIQUE: XR chest 1V portable Portable AP radiograph of the chest. CLINICAL INDICATION:Female, 58 years old with history of Pneumonia; FINDINGS: Lungs/Pleura: Blunting of both costal angles. Redemonstration of multifocal patchy bibasilar airspace opacities. No pneumothorax. Pulmonary vascularity: Unremarkable. Heart/mediastinum: Cardiomediastinal silhouette is enlarged and stable. Atherosclerotic calcificatio ns are seen in the aorta. Musculoskeletal: No acute osseous pathology. IMPRESSION: 1. Similar multifocal patchy airspace opacities consistent with pneumonia. 2. Similar small right pleural effusions. [facility], , 04/21/2024 8:03 AM
[2024-04-21] MEDS: METOPROLOL TARTRATE 12.5 MG TAB PO SCH (08:55)
[2024-04-21 11:44] LABS: Glucose,Whole Blood 163 mg/dL (70-110)
--- NOTE | 2024-04-21 12:20 | P.PN ---
Subjective Interval History: History of present illness: 58-year-old female with past medical history significant for type 2 diabetes mellitus, history of COPD/asthma on home inhalers, on 2 L oxygen nightly, hypertension, hyperlipidemia, GERD who presented to ER with a complaint of significant shortness of breath. Patient reported that she had flulike symptoms last Wednesday, went to PCP office on Wednesday and was diagnosed with influenza, patient was outside the window for Tamiflu, was treated with steroid burst taper and cough suppressants. Patient stated that she felt better initially, but her symptoms started to get worse later on. Patient also reported having fever and chills at home. Patient reported productive cough, worsening shortness of breath. Patient denied any headache, chest pain, palpitations, nausea vomiting diarrhea constipation abdominal pain dysuria urgency frequency weakness or numbness to extremities. In the ED patient had a Tmax of 102.1, was initially tachycardic with heart rate in the 130s, tachypneic, blood pressure 10 initially was 112/65, required 2 L oxygen. WBCs 8.0, hemoglobin 14.0, platelet 405. Absolute neutrophils 6.8. VBG showed pH 7.34, pCO2 28, HCO3 15. Sodium 135 potassium 4.3 chloride 101 BUN 19 creatinine 0.64. Lactic acid was 4.2, received fluid boluses, trended down, today 2.2. LFTs were unremarkable except mildly elevated bilirubin 1.6. NT proBNP was 7700. Procalcitonin was 8.68. UA was negative. Viral panel was negative. CT chest showed no PE, showed bilateral pneumonia, small bilateral pleural effusions. 04/20--- patient was seen and examined today. Patient is afebrile, tachycardic, respiratory rate 17, blood pressure 108/68, better as compared to yesterday. Saturating 96% on 5 L. WBCs 12.5, hemoglobin 11.5, platelet 331. BMP is unremarkable. HbA1c is 14.3. Echocardiogram done which showed normal ventricle systolic function, mild MR and TR. No pericardial effusion. Will discontinue IV fluids due to concern of fluid overload, will monitor blood pressure closely. Patient remains on vancomycin Rocephin and doxycycline, infectious disease consulted. Pulmonary following. Will try IV diuresis if blood pressure better. 04/21--patient was seen and examined today. Continues complain of productive cough, shortness of breath, generalized weakness and fatigue. Remained afebrile, still quite tachycardic with heart rate in 110s, respiratory rate 20, blood pressure better 119/79, saturating 93% on 4 L. Blood culture came back positive for Staph aureus, antibiotics changed to cefazolin per infectious disease. Started on low-dose metoprolol for heart rate control. Will try low- dose IV Lasix if blood pressure remains stable. Assessment and plan: Acute hypoxic respiratory failure: Severe sepsis: Bilateral pneumonia Staph aureus bacteremia:onia: Fluid overload: Hypotension: Lactic acidosis: Mild DKA: Resolved Recent influenza A infection Asthma/COPD: Diabetes mellitus: Poorly controlled Hypertension Hyperlipidemia GERD Morbid obesity with BMI of 32.8 Plan: Presented with worsening shortness of breath, productive cough, fever, chills. Recent influenza infection treated with steroids CT chest showed bilateral pneumonia, small pleural effusions Procalcitonin 8.68 Monitor vitals closely Antibiotics: Vancomycin Rocephin, doxycycline, now switched to cefazolin 04/21. Judicious IV fluid boluses for low blood pressure Blood culture--Staph aureus Sputum culture Initially required insulin drip, now on subcu insulin, Accu-Cheks, Inhaler/bronchodilator protocol Hold antihypertensives Pulmonary consulted Infectious disease consulted. Echocardiogramnormal LV function, mild MR and TR, no pericardial effusion. DVT prophylaxis Subcutaneous heparin Monitor vital signs and labs Labs and medication were reviewed. Continue same treatment. Further recommendations as per clinical course of the patient PHYSICAL EXAMINATION: GENERAL: The patient is A&O x3, NAD HEENT: EOMI, Sclerae anicteric, Moist Mucous membranes Neck: Supple, Non tender, No JVD PULMONARY: Decreased breath sounds bilaterally, + crackles. CARDIOVASCULAR: S1, S2 present. No murmurs, rubs, or gallops. ABDOMEN: Soft, nontender, nondistended, normoactive bowel sounds. No guarding or rebound tenderness. MUSCULOSKELETAL: +edema, No cyanosis. No clubbing. Normal ROM. Intact peripheral pulses. NEUROLOGICAL: CN 2-12 grossly intact. No FND REVIEW OF SYSTEMS: CONSTITUTIONAL: No fever or chills. CARDIOVASCULAR: No chest pain, palpitations or syncope. PULMONARY: No shortness of breath, no cough, sore throat. GASTROINTESTINAL: No nausea, vomiting, diarrhea, abdominal pain. : No Dysuria, urgency, frequency. Extremities: No edema. NEUROLOGICAL: No headaches, no weakness, or numbness Dictation was produced using [employer] dictation software. please excuse any grammatical, word or spelling errors. Objective - Vital Signs Vital signs: Vital Signs Temp 97.8 F 04/21/24 08:00 Pulse 108 H 04/21/24 11:38 Resp 18 04/21/24 11:29 BP 111/62 04/21/24 11:29 Pulse Ox 94 L 04/21/24 11:29 FiO2 Intake & Output 04/20/24 04/21/24 04/21/24 18:59 06:59 18:59 Intake Total 20 20 540 Balance 20 20 540 Weight 80.7 kg 81.1 kg Intake: IV 20 20 Invasive Line 1 20 20 Oral 540 Other: Voiding Method Toilet Toilet Toilet Bedside Commode # Voids 1 1 1 # Bowel Movements 1 1 - Labs CBC & Chem 7: 04/21/24 06:39 04/21/24 06:39 Labs: Abnormal Lab Results - Last 24 Hours (Table) 04/20/24 04/20/24 04/21/24 Range/Units 16:51 19:57 06:03 WBC (3.8-10.6) k/uL Neutrophils # (1.3-7.7) k/uL Lymphocytes # (1.0-4.8) k/uL Carbon Dioxide (22-30) mmol/L BUN (7-17) mg/dL Glucose (74-99) mg/dL POC Glucose (mg/dL) 125 H 140 H 134 H (70-110) mg/dL 04/21/24 04/21/24 04/21/24 Range/Units 06:39 06:39 11:42 WBC 15.1 H (3.8-10.6) k/uL Neutrophils # 13.5 H (1.3-7.7) k/uL Lymphocytes # 0.6 L (1.0-4.8) k/uL Carbon Dioxide 14 L (22-30) mmol/L BUN 23 H (7-17) mg/dL Glucose 150 H (74-99) mg/dL POC Glucose (mg/dL) 163 H (70-110) mg/dL Microbiology - Last 24 Hours (Table) 04/19/24 07:06 Blood Culture Gram Stain - Preliminary Blood Blood Culture - Preliminary Presumptive Staph aureus Molecular ID 04/19/24 11:30 Nasal Screen MRSA/MSSA - Final Nasal Swab Staphylococcus aureus,Not MRSA
--- NOTE | 2024-04-21 14:24 | P.PN ---
Subjective Progress Note Date: 04/21/24 Principal diagnosis: Shortness of breath. Patient is a 58-year-old female with past medical history significant for asthma/COPD, diabetes mellitus, hypertension, hyperlipidemia, GERD. Presented emergency department yesterday afternoon with severe shortness of breath. Patient reports flulike symptoms developing last Wednesday. Seen at her PCP office, in [place] on Wednesday and diagnosed with influenza. She was outside the window for Tamiflu. Given steroid burst taper and cough suppressant. Intially, felt a little better, then her symptoms worsened. Workup in the emergency depa rtment including a chest x-ray demonstrating bibasilar and right midlung airspace opacities concerning for pneumonia. Febrile with a Tmax of 102.1 F, tachycardic, tachypneic. Viral screen at our facility negative for influenza A/B, RSV, COVID. Previously fluid resuscitated with 2 L normal saline in the ED. Found to be hypoxic on room air and placed on 2 L/min nasal cannula. CBC: WBC count 8, hemoglobin 14, platelets 405. VBG with a pH of 7.34, pCO2 28. CMP done on arrival includes a sodium 135 potassium 4.3, chloride 101, serum bicarb 17, BUN 19, creatinine 0.64, glucose 196. Lactic is elevated at 4.4. Troponin less than 0.012. NT proBNP 7700. UA positive for glucose and ketones. Hurst to be in a mild DKA in the ED, and started on the DKA protocol. Admitting physician started patient on antibiotics empirically. Patient currently being evaluated in the cardiac stepdown unit. D5W/0.45% saline/20 mEq of potassium infusing at 75 mg/h. Insulin infusion per protocol. Repeat electrolytes indicate resolution of DKA. Endorses above mentioned symptoms. She has been intermittently febrile at home, productive cough with green sputum, generally weak, poor appetite. Blood sugars were high at home. Most recent vital signs: Temperature 98.9 F, heart rate 134 bpm, blood pressure 90/63 mmHg, tachypneic, SpO2 recorded at 92% on 2 L/min nasal cannula. Progress note dated April 20, 2024. 58-year-old female seen today in room 373. The patient has a history of asthma/COPD, diabetes, hypertension, hyperlipidemia, and gastroesophageal reflux disease. The patient is currently being treated for influenza, and pneumonia. Her procalcitonin level was elevated at 8.68. Her BNP was elevated at 7700. She is on 5 L nasal cannula. She is getting saline at 15 cc an hour. We ordered a follow-up chest x-ray for the morning. White count 12.1, hemoglobin 11.5, hematocrit 36.6, platelet count 331,000. Sodium 135, potassium 4.1, chlorides 107, CO2 16, anion gap 12, BUN 28, creatinine 0.68. Glucose is 166. Calcium is 7.9. Progress note dated April 21, 2024. 58-year-old female seen today in room 373. Currently, the patient is on 4 L of oxygen. She is not receiving any IV fluids. She has a history of asthma/COPD, diabetes mellitus, hypertension, hyperlipidemia, and GERD. The patient is currently being treated for both influenza and pneumonia. White count is 15.1, hemoglobin 12.8, macro 40.8, platelet count 423,000. Sodium 138, potassium 3.5, chlorides 104, CO2 14, anion gap 20, BUN 23, and creatinine 0.59. Glucose is 163. Calcium is 8.7. Nasal screen was positive for oxacillin sensitive Staph aureus. Blood cultures are positive for presumptive Staph aureus. Chest x-ray from today shows patchy airspace disease, in both bases. Objective - Vital Signs Vital signs: Vital Signs Temp 97.8 F 04/21/24 08:00 Pulse 108 H 04/21/24 11:38 Resp 18 04/21/24 11:29 BP 111/62 04/21/24 11:29 Pulse Ox 94 L 04/21/24 11:29 FiO2 Intake & Output 04/20/24 04/21/24 04/21/24 18:59 06:59 18:59 Intake Total 20 20 540 Balance 20 20 540 Weight 80.7 kg 81.1 kg Intake: IV 20 20 Invasive Line 1 20 20 Oral 540 Other: Voiding Method Toilet Toilet Toilet Bedside Commode # Voids 1 1 1 # Bowel Movements 1 1 - Exam No acute distress, oriented 3. Nurse of breath. The patient is currently on 4 L of oxygen. HEENT examination is grossly unremarkable. Mucous membranes are moist. No oral lesions. Neck supple. Full range of motion. No adenopathy thyromegaly or neck vein dist ention. Cardiovascular examination reveals regular rhythm rate. S1-S2 normal. No S3 or S4. No discernible murmur noted. Lungs reveal bilateral inspiratory and expiratory rhonchi. Few scattered c rackles are noted. No wheezes. Breath sounds are equal bilaterally. Abdomen soft bowel sounds are heard. No masses or tenderness. Extremities are intact. No cyanosis clubbing or edema. Skin is without rash or lesion. Neurologic examination is brief but nonfocal. - Labs CBC & Chem 7: 04/21/24 06:39 04/21/24 06:39 Labs: Abnormal Lab Results - Last 24 Hours (Table) 04/20/24 04/20/24 04/21/24 Range/Units 16:51 19:57 06:03 WBC (3.8-10.6) k/uL Neutrophils # (1.3-7.7) k/uL Lymphocytes # (1.0-4.8) k/uL Carbon Dioxide (22-30) mmol/L BUN (7-17) mg/dL Glucose (74-99) mg/dL POC Glucose (mg/dL) 125 H 140 H 134 H (70-110) mg/dL 04/21/24 04/21/24 04/21/24 Range/Units 06:39 06:39 11:42 WBC 15.1 H (3.8-10.6) k/uL Neutrophils # 13.5 H (1.3-7.7) k/uL Lymphocytes # 0.6 L (1.0-4.8) k/uL Carbon Dioxide 14 L (22-30) mmol/L BUN 23 H (7-17) mg/dL Glucose 150 H (74-99) mg/dL POC Glucose (mg/dL) 163 H (70-110) mg/dL Microbiology - Last 24 Hours (Table) 04/19/24 07:06 Blood Culture Gram Stain - Preliminary Blood Blood Culture - Preliminary Presumptive Staph aureus Molecular ID 04/19/24 11:30 Nasal Screen MRSA/MSSA - Final Nasal Swab Staphylococcus aureus,Not MRSA Assessment and Plan Assessment: Community acquired pneumonia, right lung. Staphylococcal bacteremia, sensitivities pending. Acute hypoxemic respiratory failure, secondary to above. Lactic acidosis, improving. Anion gap metabolic acidosis. Mild DKA, resolved. Recent influenza infection. Asthma/COPD. Diabetes mellitus type II. History of hypertension. History of hyperlipidemia . Gastroesophageal reflux disease. Obesity, with a BMI of 32.8 kg/m. Plan: Plan dated April 20, 2024. The patient continues on appropriate medications, including antibiotics, breathing treatments, formoterol, budesonide, and Singulair. Labs, x-rays, and medications are all reviewed. The patient is currently feeling a bit better than she did yesterday. She continues on 5 L. We will continue to follow make recommendations along the way. Prognosis is guarded. All labs, x-rays, medications are reviewed. The patient will have a follow-up chest x-ray in the morning, April 21. Plan dated April 21, 2024. 58-year-old female seen today in room 373. She was admitted with a diagnosis of pneumonia and influenza. Currently, she is on 4 L. She is a bit improved today. She continues on Pulmicort, formoterol, and DuoNebs. In addition, she is currently on Ancef. Blood cultures were positive for presumptive staphylococcal aureus. We do not know if it is methicillin-resistant staph or methicillin sensitive staph. Additional recommendations and suggestions are forthcoming. We will continue to follow. Prognosis is guarded. All labs, x- rays, and medications are reviewed. Dictation was produced using [employer] dictation software. Please excuse any grammatical, word or spelling errors. Time with Patient: Less than 30
--- NOTE | 2024-04-21 15:15 | P.PN ---
Subjective Progress Note Date: 04/21/24 Principal diagnosis: Reason for follow-up is pneumonia and bacteremia Patient is a 58-year-old female with a past medical history significant for COPD diabetes mellitus osteoarthritis and seizure disorder has been diagnosed with influenza A about a week and a half before presentation to the hospital subsequently presented to the hospital with increasing shortness of breath and cough has been diagnosed with pneumonia blood culture positive for MSSA. On today's evaluation that is 04/21/2024, the patient did have resolution of her fever afebrile this morning still complaining of feeling weak short of breath or cough moderate intensity is currently on 4 L nasal cannula oxygen no vomiting abdominal pain or diarrhea. The patient white count is 15.1 creatinine 0.59 blood culture with MSSA Objective - Vital Signs Vital signs: Vital Signs Temp 97.8 F 04/21/24 08:00 Pulse 108 H 04/21/24 11:38 Resp 18 04/21/24 11:29 BP 111/62 04/21/24 11:29 Pulse Ox 94 L 04/21/24 11:29 FiO2 Intake & Output 04/20/24 04/21/24 04/21/24 18:59 06:59 18:59 Intake Total 20 20 540 Balance 20 20 540 Weight 80.7 kg 81.1 kg Intake: IV 20 20 Invasive Line 1 20 20 Oral 540 Other: Voiding Method Toilet Toilet Toilet Bedside Commode # Voids 1 1 1 # Bowel Movements 1 1 - Exam GENERAL DESCRIPTION: Middle-age female up in bed in no distress RESPIRATORY SYSTEM: Unlabored breathing , coarse breath sounds bilaterally HEART: S1 S2 regular rate and rhythm , ABDOMEN: Soft , no tenderness EXTREMITIES: No edema feet - Labs CBC & Chem 7: 04/21/24 06:39 04/21/24 06:39 Labs: Abnormal Lab Results - Last 24 Hours (Table) 04/20/24 04/20/24 04/21/24 Range/Units 16:51 19:57 06:03 WBC (3.8-10.6) k/uL Neutrophils # (1.3-7.7) k/uL Lymphocytes # (1.0-4.8) k/uL Carbon Dioxide (22-30) mmol/L BUN (7-17) mg/dL Glucose (74-99) mg/dL POC Glucose (mg/dL) 125 H 140 H 134 H (70-110) mg/dL 04/21/24 04/21/24 04/21/24 Range/Units 06:39 06:39 11:42 WBC 15.1 H (3.8-10.6) k/uL Neutrophils # 13.5 H (1.3-7.7) k/uL Lymphocytes # 0.6 L (1.0-4.8) k/uL Carbon Dioxide 14 L (22-30) mmol/L BUN 23 H (7-17) mg/dL Glucose 150 H (74-99) mg/dL POC Glucose (mg/dL) 163 H (70-110) mg/dL Microbiology - Last 24 Hours (Table) 04/19/24 07:06 Blood Culture Gram Stain - Preliminary Blood Blood Culture - Preliminary Presumptive Staph aureus Molecular ID 04/19/24 11:30 Nasal Screen MRSA/MSSA - Final Nasal Swab Staphylococcus aureus,Not MRSA Assessment and Plan (1) Sepsis Current Visit: Yes Status: Acute Code(s): A41.9 - SEPSIS, UNSPECIFIED ORGANISM SNOMED Code(s): 63054637 (2) Pneumonia Current Visit: Yes Status: Acute Code(s): J18.9 - PNEUMONIA, UNSPECIFIED ORGANISM SNOMED Code(s): 832019251 (3) Allergy to sulfa drugs Current Visit: Yes Status: Acute Code(s): Z88.2 - ALLERGY STATUS TO SULFONAMIDES SNOMED Code(s): 05878702 Plan: 1patient presented to hospital with sepsis in this patient noted to have fever tachycardia elevated white count meeting criteria for SIRS source is likely pneumonia in this patient who recently did have a influenza A but not treated with evidence of bibasilar and right middle lung airspace opacity concerning for pneumonia will need to cover for Staph aureus that is commonly associated post influenza pneumonia 2-blood culture has been positive for MSSA sputum culture has been collected 3-patient antibiotics has been treated with cefazolin 2 g every 8 hours Multiple question concern answered Dictation was produced using [employer] dictation software. please excuse any grammatical, word or spelling errors. Time with Patient: Less than 30
[2024-04-21 16:33] LABS: Glucose,Whole Blood 200 mg/dL (70-110)
[2024-04-21 20:17] LABS: Glucose,Whole Blood 162 mg/dL (70-110)
[2024-04-22 02:58] LABS: Glucose,Whole Blood 127 mg/dL (70-110)
[2024-04-22 06:09] LABS: Glucose,Whole Blood 141 mg/dL (70-110)
[2024-04-22 07:39] LABS: Basophils % (A) 0 %; Eosinophils % (A) 0 %; HCT 42.6 % (34.0-46.0); HGB 13.5 gm/dL (11.4-16.0); Hypochromasia Slight; Lymphocytes # (A) 0.7 k/uL (1.0-4.8); Lymphocytes % (A) 5 %; MCH 28.1 pg (25.0-35.0); MCHC 31.6 g/dL (31.0-37.0); MCV 88.8 fL (80.0-100.0); Mean Platelet Volume 7.7; Monocytes % (A) 6 %; Neutrophils # (A) 13.3 k/uL (1.3-7.7); Neutrophils % (A) 87 %; Platelet Count 349 k/uL (150-450); RBC 4.79 m/uL (3.80-5.40); RDW 13.4 % (11.5-15.5); WBC 15.3 k/uL (3.8-10.6)
[2024-04-22 07:45] LABS: ALT 148 U/L (4-34); AST 648 U/L (14-36); African American GFR (CKD) >90 (>60 ml/min/1.73 sqM); Albumin 2.5 g/dL (3.5-5.0); Alkaline Phosphatase 472 U/L (38-126); Anion Gap 18 mmol/L; Blood Urea Nitrogen 19 mg/dL (7-17); Calcium 8.9 mg/dL (8.4-10.2); Carbon Dioxide 16 mmol/L (22-30); Chloride 104 mmol/L (98-107); Glucose 149 mg/dL (74-99); Magnesium 2.1 mg/dL (1.6-2.3); Non-African American GFR(CKD) >90 (>60 ml/min/1.73 sqM); Potassium 3.1 mmol/L (3.5-5.1); Sodium 138 mmol/L (137-145); Total Protein 4.9 g/dL (6.3-8.2)
[2024-04-22 11:27] LABS: Glucose,Whole Blood 150 mg/dL (70-110)
[2024-04-22] MEDS: guaiFENesin 600 MG TABLET.ER PO SCH (13:00)
--- NOTE | 2024-04-22 13:28 | P.PN ---
Subjective Progress Note Date: 04/22/24 58-year-old female with past medical history significant for type 2 diabetes mellitus, history of COPD/asthma on home inhalers, on 2 L oxygen nightly, hypertension, hyperlipidemia, GERD who presented to ER with a complaint of significant shortness of breath. Patient reported that she had flulike symptoms last Wednesday, went to PCP office on Wednesday and was diagnosed with influenza, patient was outside the window for Tamiflu, was treated with steroid burst taper and cough suppressants. Patient stated that she felt better initially, but her symptoms started to get worse later on. Patient also reported having fever and chills at home. Patient reported productive cough, worsening shortness of br eath. Patient denied any headache, chest pain, palpitations, nausea vomiting diarrhea constipation abdominal pain dysuria urgency frequency weakness or numbness to extremities. In the ED patient had a Tmax of 102.1, was initially tachycardic with heart rate in the 130s, tachypneic, blood pressure 10 initially was 112/65, required 2 L oxygen. WBCs 8.0, hemoglobin 14.0, platelet 405. Absolute neutrophils 6.8. VBG showed pH 7.34, pCO2 28, HCO3 15. Sodium 135 potassium 4.3 chloride 101 BUN 19 cr eatinine 0.64. Lactic acid was 4.2, received fluid boluses, trended down, today 2.2. LFTs were unremarkable except mildly elevated bilirubin 1.6. NT proBNP was 7700. Procalcitonin was 8.68. UA was negative. Viral panel was negative. CT chest showed no PE, showed bilateral pneumonia, small bilateral pleural effusions. 04/20--- patient was seen and examined today. Patient is afebrile, tachycardic, respiratory rate 17, blood pressure 108/68, better as compared to yesterday. Saturating 96% on 5 L. WBCs 12.5, hemoglobin 11.5, platelet 331. BMP is unremarkable. HbA1c is 14.3. Echocardiogram done which showed normal ventricle systolic function, mild MR and TR. No pericardial effusion. Will discontinue IV fluids due to concern of fluid overload, will monitor blood pressure closely. Patient remains on vancomycin Rocephin and doxycycline, infectious disease consulted. Pulmonary following. Will try IV diuresis if blood pressure better. 04/21--patient was seen and examined today. Continues complain of productive cough, shortness of breath, generalized weakness and fatigue. Remained afebrile, still quite tachycardic with heart rate in 110s, respiratory rate 20, blood pressure better 119/79, saturating 93% on 4 L. Blood culture came back positive for Staph aureus, antibiotics changed to cefazolin per infectious disease. Started on low-dose metoprolol for heart rate control. Will try low- dose IV Lasix if blood pressure remains stable. 04/22. Patient seen and examined. Vital signs of this morning showed heart rate 122, respiration 20, blood pressure 111/83, currently on 3 L of oxygen. LFTs were elevated. Patient also complaining of coughing when swallowing. Speech evaluation ordered REVIEW OF SYSTEMS: CONSTITUTIONAL: No fever, no malaise,. CARDIOVASCULAR: No chest pain, no palpitations, no syncope. PULMONARY: No shortness of breath, no cough, GASTROINTESTINAL: No diarrhea, no nausea, no vomiting, no abdominal pain. NEUROLOGICAL: No headaches, no weakness, PHYSICAL EXAMINATION: GENERAL: The patient is alert and oriented x3, ill looking HEENT: Pupils are round and equally reacting to light. EOMI. No scleral icterus. No conjunctival pallor. Normocephalic, atraumatic. No pharyngeal erythema. No thyromegaly. CARDIOVASCULAR: S1 and S2 present. No murmurs, rubs, or gallops. PULMONARY: Coarse breath sound bilaterally, crackles on the right lung base, no wheezing ABDOMEN: Soft, nontender, nondistended, normoactive bowel sounds. No palpable organomegaly. MUSCULOSKELETAL: No joint swelling or deformity. EXTREMITIES: No cyanosis, clubbing, or pedal edema. NEUROLOGICAL: Gross neurological examination did not reveal any focal deficits. SKIN: No rashes. Assessment and plan Severe sepsis: Bilateral pneumonia Staph aureus bacteremia Fluid overload: Hypotension: Lactic acidosis: Mild DKA: Resolved Recent influenza A infection Asthma/COPD: Diabetes mellitus: Poorly controlled Hypertension Hyperlipidemia GERD Morbid obesity with BMI of 32.8 Acute transaminitis Monitor vital signs Monitor CBC Monitor CMP Continue telemetry monitoring CT chest showed bilateral pneumonia, small pleural effusions Echocardiogramnormal LV function, mild MR and TR, no pericardial effusion. Blood culture--Staph aureus Sputum culture Continue cefazolin Judicious IV fluid boluses for low blood pressure subcu insulin, Accu-Cheks, Trend LFTs, DC Lipitor, avoid hepatotoxic agents Inhaler/bronchodilator protocol Pulmonary following Infectious disease following Labs and medication were reviewed.. Continue same treatment. Continue with symptomatic treatment. Resume home medication. Monitor labs and vitals. DVT and GI prophylaxis. Further recommendations as per clinical course of the patient Dictation was produced using iGo dictation software. please excuse any grammatical, word or spelling errors. Objective - Vital Signs Vital signs: Vital Signs Temp 98.0 F 04/22/24 08:20 Pulse 122 H 04/22/24 08:20 Resp 20 04/22/24 08:20 BP 141/83 04/22/24 08:20 Pulse Ox 97 04/22/24 08:20 FiO2 Intake & Output 04/21/24 04/22/24 04/22/24 18:59 06:59 18:59 Intake Total 898 Output Total 300 Balance 898 -300 Weight 81.1 kg Intake: Oral 898 Output: Urine 300 Other: Voiding Method Toilet Toilet Bedside Commode Bedside Commode # Voids 2 1 # Bowel Movements 1 - Labs CBC & Chem 7: 04/22/24 06:55 04/22/24 06:55 Labs: Abnormal Lab Results - Last 24 Hours (Table) 04/21/24 04/21/24 04/21/24 Range/Units 11:42 16:32 20:16 WBC (3.8-10.6) k/uL Neutrophils # (1.3-7.7) k/uL Lymphocytes # (1.0-4.8) k/uL Potassium (3.5-5.1) mmol/L Carbon Dioxide (22-30) mmol/L BUN (7-17) mg/dL Creatinine (0.52-1.04) mg/dL Glucose (74-99) mg/dL POC Glucose (mg/dL) 163 H 200 H 162 H (70-110) mg/dL AST (14-36) U/L ALT (4-34) U/L Alkaline Phosphatase (38-126) U/L Total Protein (6.3-8.2) g/dL Albumin (3.5-5.0) g/dL 04/22/24 04/22/24 04/22/24 Range/Units 02:56 06:07 06:55 WBC 15.3 H (3.8-10.6) k/uL Neutrophils # 13.3 H (1.3-7.7) k/uL Lymphocytes # 0.7 L (1.0-4.8) k/uL Potassium (3.5-5.1) mmol/L Carbon Dioxide (22-30) mmol/L BUN (7-17) mg/dL Creatinine (0.52-1.04) mg/dL Glucose (74-99) mg/dL POC Glucose (mg/dL) 127 H 141 H (70-110) mg/dL AST (14-36) U/L ALT (4-34) U/L Alkaline Phosphatase (38-126) U/L Total Protein (6.3-8.2) g/dL Albumin (3.5-5.0) g/dL 04/22/24 Range/Units 06:55 WBC (3.8-10.6) k/uL Neutrophils # (1.3-7.7) k/uL Lymphocytes # (1.0-4.8) k/uL Potassium 3.1 L (3.5-5.1) mmol/L Carbon Dioxide 16 L (22-30) mmol/L BUN 19 H (7-17) mg/dL Creatinine 0.44 L (0.52-1.04) mg/dL Glucose 149 H (74-99) mg/dL POC Glucose (mg/dL) (70-110) mg/dL AST 648 H (14-36) U/L ALT 148 H (4-34) U/L Alkaline Phosphatase 472 H (38-126) U/L Total Protein 4.9 L (6.3-8.2) g/dL Albumin 2.5 L (3.5-5.0) g/dL Microbiology - Last 24 Hours (Table) 04/19/24 07:06 Blood Culture Gram Stain - Preliminary Blood Blood Culture - Preliminary Presumptive Staph aureus Molecular ID
--- NOTE | 2024-04-22 14:16 | P.PN ---
Subjective Progress Note Date: 04/22/24 Principal diagnosis: Shortness of breath. Patient is a 58-year-old female with past medical history significant for asthma/COPD, diabetes mellitus, hypertension, hyperlipidemia, GERD. Presented emergency department yesterday afternoon with severe shortness of breath. Patient reports flulike symptoms developing last Wednesday. Seen at her PCP office, in [place] on Wednesday and diagnosed with influenza. She was outside the window for Tamiflu. Given steroid burst taper and cough suppressant. Intially, felt a little better, then her symptoms worsened. Workup in the emergency depa rtment including a chest x-ray demonstrating bibasilar and right midlung airspace opacities concerning for pneumonia. Febrile with a Tmax of 102.1 F, tachycardic, tachypneic. Viral screen at our facility negative for influenza A/B, RSV, COVID. Previously fluid resuscitated with 2 L normal saline in the ED. Found to be hypoxic on room air and placed on 2 L/min nasal cannula. CBC: WBC count 8, hemoglobin 14, platelets 405. VBG with a pH of 7.34, pCO2 28. CMP done on arrival includes a sodium 135 potassium 4.3, chloride 101, serum bicarb 17, BUN 19, creatinine 0.64, glucose 196. Lactic is elevated at 4.4. Troponin less than 0.012. NT proBNP 7700. UA positive for glucose and ketones. [place] to be in a mild DKA in the ED, and started on the DKA protocol. Admitting physician started patient on antibiotics empirically. Patient currently being evaluated in the cardiac stepdown unit. D5W/0.45% saline/20 mEq of potassium infusing at 75 mg/h. Insulin infusion per protocol. Repeat electrolytes indicate resolution of DKA. Endorses above mentioned symptoms. She has been intermittently febrile at home, productive cough with green sputum, generally weak, poor appetite. Blood sugars were high at home. Most recent vital signs: Temperature 98.9 F, heart rate 134 bpm, blood pressure 90/63 mmHg, tachypneic, SpO2 recorded at 92% on 2 L/min nasal cannula. Progress note dated April 20, 2024. 58-year-old female seen today in room 373. The patient has a history of asthma/COPD, diabetes, hypertension, hyperlipidemia, and gastroesophageal reflux disease. The patient is currently being treated for influenza, and pneumonia. Her procalcitonin level was elevated at 8.68. Her BNP was elevated at 7700. She is on 5 L nasal cannula. She is getting saline at 15 cc an hour. We ordered a follow-up chest x-ray for the morning. White count 12.1, hemoglobin 11.5, hematocrit 36.6, platelet count 331,000. Sodium 135, potassium 4.1, chlorides 107, CO2 16, anion gap 12, BUN 28, creatinine 0.68. Glucose is 166. Calcium is 7.9. Progress note dated April 21, 2024. 58-year-old female seen today in room 373. Currently, the patient is on 4 L of oxygen. She is not receiving any IV fluids. She has a history of asthma/COPD, diabetes mellitus, hypertension, hyperlipidemia, and GERD. The patient is currently being treated for both influenza and pneumonia. White count is 15.1, hemoglobin 12.8, macro 40.8, platelet count 423,000. Sodium 138, potassium 3.5, chlorides 104, CO2 14, anion gap 20, BUN 23, and creatinine 0.59. Glucose is 163. Calcium is 8.7. Nasal screen was positive for oxacillin sensitive Staph aureus. Blood cultures are positive for presumptive Staph aureus. Chest x-ray from today shows patchy airspace disease, in both bases. Progress note dated April 22, 2024. 58-year-old female seen today in room 373. Family members are also in the room. The patient is currently on 3 L of oxygen. She was on 4 L yesterday. She is feeling better. In addition, she is getting saline at 20 cc an hour. She is much more awake and alert. She has a history of asthma/COPD, diabetes, hypertension, hyperlipidemia, and gastroesophageal reflux disease. White count is 15.3, hemoglobin 13.5, hematocrit 42.6, platelet count 349,000. Sodium 138, potassium 3.1, chlorides 104, CO2 16, anion gap 18, BUN 19, creatinine 0.44. Glucose is 150. AST is 648. ALT is 148. Alkaline phosphatase is 472. Albumin 2.5. Blood cultures are positive for Staphylococcus aureus. Chest x-rays from April 21 shows patchy opacities consistent with pneumonia. Patient continues on Ancef, as per infectious diseases. Objective - Vital Signs Vital signs: Vital Signs Temp 98.0 F 04/22/24 08:20 Pulse 101 H 04/22/24 12:42 Resp 20 04/22/24 12:42 BP 113/73 04/22/24 12:42 Pulse Ox 97 04/22/24 12:42 FiO2 Intake & Output 04/21/24 04/22/24 04/22/24 18:59 06:59 18:59 Intake Total 898 0 Output Total 300 Balance 898 -300 0 Weight 81.1 kg Intake: Oral 898 0 Output: Urine 300 Other: Voiding Method Toilet Toilet Toilet Bedside Commode Bedside Commode Bedside Commode # Voids 2 1 # Bowel Movements 1 - Exam No acute distress, oriented 3. Nurse of breath. The patient is currently on 3 L of oxygen. HEENT examination is grossly unremarkable. Mucous membranes are moist. No oral lesions. Neck supple. Full range of motion. No adenopathy thyromegaly or neck vein distention. Cardiovascular examination reveals regular rhythm rate. S1-S2 normal. No S3 or S4. No discernible murmur noted. Lungs reveal bilateral inspiratory and expiratory rhonchi. Few scattered crackles are noted. No wheezes. Breath sounds are equal bilaterally. Abdomen soft bowel sounds are heard. No masses or tenderness. Extremities are intact. No cyanosis clubbing or edema. Skin is without rash or lesion. Neurologic examination is brief but nonfocal. - Labs CBC & Chem 7: 04/22/24 06:55 04/22/24 06:55 Labs: Abnormal Lab Results - Last 24 Hours (Table) 04/21/24 04/21/24 04/22/24 Range/Units 16:32 20:16 02:56 WBC (3.8-10.6) k/uL Neutrophils # (1.3-7.7) k/uL Lymphocytes # (1.0-4.8) k/uL Potassium (3.5-5.1) mmol/L Carbon Dioxide (22-30) mmol/L BUN (7-17) mg/dL Creatinine (0.52-1.04) mg/dL Glucose (74-99) mg/dL POC Glucose (mg/dL) 200 H 162 H 127 H (70-110) mg/dL AST (14-36) U/L ALT (4-34) U/L Alkaline Phosphatase (38-126) U/L Total Protein (6.3-8.2) g/dL Albumin (3.5-5.0) g/dL 04/22/24 04/22/24 04/22/24 Range/Units 06:07 06:55 06:55 WBC 15.3 H (3.8-10.6) k/uL Neutrophils # 13.3 H (1.3-7.7) k/uL Lymphocytes # 0.7 L (1.0-4.8) k/uL Potassium 3.1 L (3.5-5.1) mmol/L Carbon Dioxide 16 L (22-30) mmol/L BUN 19 H (7-17) mg/dL Creatinine 0.44 L (0.52-1.04) mg/dL Glucose 149 H (74-99) mg/dL POC Glucose (mg/dL) 141 H (70-110) mg/dL AST 648 H (14-36) U/L ALT 148 H (4-34) U/L Alkaline Phosphatase 472 H (38-126) U/L Total Protein 4.9 L (6.3-8.2) g/dL Albumin 2.5 L (3.5-5.0) g/dL 04/22/24 Range/Units 11:25 WBC (3.8-10.6) k/uL Neutrophils # (1.3-7.7) k/uL Lymphocytes # (1.0-4.8) k/uL Potassium (3.5-5.1) mmol/L Carbon Dioxide (22-30) mmol/L BUN (7-17) mg/dL Creatinine (0.52-1.04) mg/dL Glucose (74-99) mg/dL POC Glucose (mg/dL) 150 H (70-110) mg/dL AST (14-36) U/L ALT (4-34) U/L Alkaline Phosphatase (38-126) U/L Total Protein (6.3-8.2) g/dL Albumin (3.5-5.0) g/dL Microbiology - Last 24 Hours (Table) 04/19/24 07:06 Blood Culture Gram Stain - Final Blood Blood Culture - Final Staphylococcus aureus Molecular ID Assessment and Plan Assessment: Community acquired pneumonia, right lung. Staphylococcal bacteremia, sensitivities pending. Acute hypoxemic respiratory failure, secondary to above. Lactic acidosis, improving. Anion gap metabolic acidosis. Mild DKA, resolved. Recent influenza infection. Asthma/COPD. Diabetes mellitus type II. History of hypertension. History of hyperlipidemia . Gastroesophageal reflux disease. Obesity, with a BMI of 32.8 kg/m. Plan: Plan dated April 20, 2024. The patient continues on appropriate medications, including antibiotics, breathi ng treatments, formoterol, budesonide, and Singulair. Labs, x-rays, and medications are all reviewed. The patient is currently feeling a bit better than she did yesterday. She continues on 5 L. We will continue to follow make recommendations along the way. Prognosis is guarded. All labs, x-rays, medications are reviewed. The patient will have a follow-up chest x-ray in the morning, April 21. Plan dated April 21, 2024. 58-year-old female seen today in room 373. She was admitted with a diagnosis of pneumonia and influenza. Currently, she is on 4 L. She is a bit improved today. She continues on Pulmicort, formoterol, and DuoNebs. In addition, she is currently on Ancef. Blood cultures were positive for presumptive staphylococcal aureus. We do not know if it is methicillin-resistant staph or methicillin sensitive staph. Additional recommendations and suggestions are forthcoming. We will continue to follow. Prognosis is guarded. All labs, x- rays, and medications are reviewed. Dictation was produced using Image[employer] software. Please excuse any grammatical, word or spelling errors. Plan dated April 22, 2024. 58-year-old female, seen today in room 373. She is down to 3 L nasal O2. She is feeling better. She continues on Ancef as per infectious diseases. Labs, x- rays, and all medications are reviewed. We will continue to follow the patient, make recommendations. Clinically, the patient appears a bit more awake and alert, and definitely feels better. We will continue to follow. Dictation was produced using [employer] software. Please excuse any grammatical, word or spelling errors. Time with Patient: Less than 30
[2024-04-22] MEDS ORDERED: Potassium Replacement Protocol 1 EACH MISC MISCELLANE PRN (15:56)
[2024-04-22 16:20] LABS: Glucose,Whole Blood 219 mg/dL (70-110)
[2024-04-22] MEDS: POTASSIUM CHLORIDE ER 20 MEQ TAB.ER PO SCH (16:24)
[2024-04-22 20:26] LABS: Glucose,Whole Blood 145 mg/dL (70-110)
[2024-04-22] MEDS: METOPROLOL TARTRATE 25 MG TAB PO SCH (21:22)
[2024-04-23 03:16] LABS: Glucose,Whole Blood 213 mg/dL (70-110)
[2024-04-23 06:09] LABS: Glucose,Whole Blood 226 mg/dL (70-110)
--- NOTE | 2024-04-23 07:38 | US ---
EXAMINATION TYPE: US abdomen limited DATE OF EXAM: 04/23/2024 COMPARISON: NONE CLINICAL INDICATION: Female, 58 years old with history of Right upper quadrant pain, elevated LFTs; L FTs, GB resected TECHNIQUE: Grayscale and color Doppler imaging of the right upper quadrant was performed. FINDINGS: EXAM MEASUREMENTS: Liver Length: 14.3 cm Gallbladder Wall: Surgically absent CBD: 0.5 cm Right Kidney: 10.8x4.0x5.4 cm SLIVER CUTTER NOTES: Pancreas: Tail obscured by overlying bowel gas Liver: wnl as best visualized Gallbladder: Surgically absent Evidence for sonographic Motley's sign: No CBD: wnl Right Kidney: wnl exam very limited by overlying bowel gas and large body habitus IMPRESSION: 1. Limited exam due to body habitus and overlying bowel content. 2. Partial visualization of pancreas. Visualized portion is normal. 3. Cholecystectomy. 4. Unremarkable liver. 5. No biliary ductal dilatation. [facility], Workstation: [facility] 04/23/2024 7:36 AM
[2024-04-23 08:24] LABS: Basophils % (A) 0 %; Eosinophils % (A) 0 %; HCT 38.5 % (34.0-46.0); HGB 12.5 gm/dL (11.4-16.0); Hypochromasia Slight; Lymphocytes % (A) 6 %; MCH 28.7 pg (25.0-35.0); MCHC 32.4 g/dL (31.0-37.0); MCV 88.8 fL (80.0-100.0); Mean Platelet Volume 7.7; Monocytes # (A) 0.7 k/uL (0-1.0); Monocytes % (A) 4 %; Neutrophils # (A) 13.6 k/uL (1.3-7.7); Neutrophils % (A) 88 %; Platelet Count 369 k/uL (150-450); RBC 4.34 m/uL (3.80-5.40); RDW 13.6 % (11.5-15.5); WBC 15.5 k/uL (3.8-10.6)
[2024-04-23 08:37] LABS: ALT 76 U/L (4-34); AST 176 U/L (14-36); African American GFR (CKD) >90 (>60 ml/min/1.73 sqM); Albumin 2.6 g/dL (3.5-5.0); Alkaline Phosphatase 316 U/L (38-126); Anion Gap 13 mmol/L; Blood Urea Nitrogen 16 mg/dL (7-17); Calcium 8.9 mg/dL (8.4-10.2); Carbon Dioxide 21 mmol/L (22-30); Chloride 104 mmol/L (98-107); Glucose 167 mg/dL (74-99); Non-African American GFR(CKD) >90 (>60 ml/min/1.73 sqM); Potassium 3.5 mmol/L (3.5-5.1); Sodium 138 mmol/L (137-145); Total Bilirubin 0.6 mg/dL (0.2-1.3); Total Protein 5.2 g/dL (6.3-8.2)
[2024-04-23 11:31] LABS: Glucose,Whole Blood 147 mg/dL (70-110)
--- NOTE | 2024-04-23 13:41 | P.PN ---
Subjective Progress Note Date: 04/23/24 Principal diagnosis: Shortness of breath. Patient is a 58-year-old female with past medical history significant for asthma/COPD, diabetes mellitus, hypertension, hyperlipidemia, GERD. Presented emergency department yesterday afternoon with severe shortness of breath. Patient reports flulike symptoms developing last Wednesday. Seen at her PCP office, in [place] on Wednesday and diagnosed with influenza. She was outside the window for Tamiflu. Given steroid burst taper and cough suppressant. Intially, felt a little better, then her symptoms worsened. Workup in the emergency depa rtment including a chest x-ray demonstrating bibasilar and right midlung airspace opacities concerning for pneumonia. Febrile with a Tmax of 102.1 F, tachycardic, tachypneic. Viral screen at our facility negative for influenza A/B, RSV, COVID. Previously fluid resuscitated with 2 L normal saline in the ED. Found to be hypoxic on room air and placed on 2 L/min nasal cannula. CBC: WBC count 8, hemoglobin 14, platelets 405. VBG with a pH of 7.34, pCO2 28. CMP done on arrival includes a sodium 135 potassium 4.3, chloride 101, serum bicarb 17, BUN 19, creatinine 0.64, glucose 196. Lactic is elevated at 4.4. Troponin less than 0.012. NT proBNP 7700. UA positive for glucose and ketones. [place] to be in a mild DKA in the ED, and started on the DKA protocol. Admitting physician started patient on antibiotics empirically. Patient currently being evaluated in the cardiac stepdown unit. D5W/0.45% saline/20 mEq of potassium infusing at 75 mg/h. Insulin infusion per protocol. Repeat electrolytes indicate resolution of DKA. Endorses above mentioned symptoms. She has been intermittently febrile at home, productive cough with green sputum, generally weak, poor appetite. Blood sugars were high at home. Most recent vital signs: Temperature 98.9 F, heart rate 134 bpm, blood pressure 90/63 mmHg, tachypneic, SpO2 recorded at 92% on 2 L/min nasal cannula. Progress note dated April 20, 2024. 58-year-old female seen today in room 373. The patient has a history of asthma/COPD, diabetes, hypertension, hyperlipidemia, and gastroesophageal reflux disease. The patient is currently being treated for influenza, and pneumonia. Her procalcitonin level was elevated at 8.68. Her BNP was elevated at 7700. She is on 5 L nasal cannula. She is getting saline at 15 cc an hour. We ordered a follow-up chest x-ray for the morning. White count 12.1, hemoglobin 11.5, hematocrit 36.6, platelet count 331,000. Sodium 135, potassium 4.1, chlorides 107, CO2 16, anion gap 12, BUN 28, creatinine 0.68. Glucose is 166. Calcium is 7.9. Progress note dated April 21, 2024. 58-year-old female seen today in room 373. Currently, the patient is on 4 L of oxygen. She is not receiving any IV fluids. She has a history of asthma/COPD, diabetes mellitus, hypertension, hyperlipidemia, and GERD. The patient is currently being treated for both influenza and pneumonia. White count is 15.1, hemoglobin 12.8, macro 40.8, platelet count 423,000. Sodium 138, potassium 3.5, chlorides 104, CO2 14, anion gap 20, BUN 23, and creatinine 0.59. Glucose is 163. Calcium is 8.7. Nasal screen was positive for oxacillin sensitive Staph aureus. Blood cultures are positive for presumptive Staph aureus. Chest x-ray from today shows patchy airspace disease, in both bases. Progress note dated April 22, 2024. 58-year-old female seen today in room 373. Family members are also in the room. The patient is currently on 3 L of oxygen. She was on 4 L yesterday. She is feeling better. In addition, she is getting saline at 20 cc an hour. She is much more awake and alert. She has a history of asthma/COPD, diabetes, hypertension, hyperlipidemia, and gastroesophageal reflux disease. White count is 15.3, hemoglobin 13.5, hematocrit 42.6, platelet count 349,000. Sodium 138, potassium 3.1, chlorides 104, CO2 16, anion gap 18, BUN 19, creatinine 0.44. Glucose is 150. AST is 648. ALT is 148. Alkaline phosphatase is 472. Albumin 2.5. Blood cultures are positive for Staphylococcus aureus. Chest x-rays from April 21 shows patchy opacities consistent with pneumonia. Patient continues on Ancef, as per infectious diseases. Progress note dated April 23, 2024. 58-year-old female seen today in room 373. The patient continues on nasal O2 at 3 L. She continues on his Ancef. In addition, she is complaining of chest congestion, and inability to clear phlegm. Will order her a flutter valve. Her cough is wet and congested sounding. Current labs include a white count 15.5, hemoglobin 12.5, hematocrit 38.5, and a platelet count of 369,000. Sodium 138, potassium 3.5, chlorides 104, CO2 21, BUN 16, creatinine 0.53. Glucose is 147. AST is 176. ALT is 76. Albumin is 2.6. Blood cultures were positive for Staph aureus. Objective - Vital Signs Vital signs: Vital Signs Temp 98.3 F 04/23/24 12:00 Pulse 92 04/23/24 12:30 Resp 18 04/23/24 12:00 BP 124/78 04/23/24 12:00 Pulse Ox 93 L 04/23/24 12:00 FiO2 Intake & Output 04/22/24 04/23/24 04/23/24 17:59 06:59 18:59 Intake Total 480 Output Total 0 Balance 480 Weight Intake: Oral 480 Output: Gastric Drainage Urine Stool 0 Urine/Stool Mix Emesis Oral Regurgitation Other Other: Voiding Method Toilet Bedside Commode Diaper # Voids # Bowel Movements - Exam No acute distress, oriented 3. Nurse of breath. The patient is currently on 3 L of oxygen. HEENT examination is grossly unremarkable. Mucous membranes are moist. No oral lesions. Neck supple. Full range of motion. No adenopathy thyromegaly or neck vein distention. Cardiovascular examination reveals regular rhythm rate. S1-S2 normal. No S3 or S4. No discernible murmur noted. Lungs reveal bilateral inspiratory and expiratory rhonchi. Few scattered crackles are noted. No wheezes. Breath sounds are equal bilaterally. Cough is wet and congested sounding. Abdomen soft bowel sounds are heard. No masses or tenderness. Extremities are intact. No cyanosis clubbing or edema. Skin is without rash or lesion. Neurologic examination is brief but nonfocal. - Labs CBC & Chem 7: 04/23/24 07:34 04/23/24 07:34 Labs: Abnormal Lab Results - Last 24 Hours (Table) 04/22/24 04/22/24 04/23/24 Range/Units 16:18 20:25 03:15 WBC (3.8-10.6) k/uL Neutrophils # (1.3-7.7) k/uL Carbon Dioxide (22-30) mmol/L Glucose (74-99) mg/dL POC Glucose (mg/dL) 219 H 145 H 213 H (70-110) mg/dL AST (14-36) U/L ALT (4-34) U/L Alkaline Phosphatase (38-126) U/L Total Protein (6.3-8.2) g/dL Albumin (3.5-5.0) g/dL 04/23/24 04/23/24 04/23/24 Range/Units 06:07 07:34 07:34 WBC 15.5 H (3.8-10.6) k/uL Neutrophils # 13.6 H (1.3-7.7) k/uL Carbon Dioxide 21 L (22-30) mmol/L Glucose 167 H (74-99) mg/dL POC Glucose (mg/dL) 226 H (70-110) mg/dL AST 176 H (14-36) U/L ALT 76 H (4-34) U/L Alkaline Phosphatase 316 H (38-126) U/L Total Protein 5.2 L (6.3-8.2) g/dL Albumin 2.6 L (3.5-5.0) g/dL 04/23/24 Range/Units 11:29 WBC (3.8-10.6) k/uL Neutrophils # (1.3-7.7) k/uL Carbon Dioxide (22-30) mmol/L Glucose (74-99) mg/dL POC Glucose (mg/dL) 147 H (70-110) mg/dL AST (14-36) U/L ALT (4-34) U/L Alkaline Phosphatase (38-126) U/L Total Protein (6.3-8.2) g/dL Albumin (3.5-5.0) g/dL Microbiology - Last 24 Hours (Table) 04/21/24 06:39 Blood Culture - Preliminary Blood 04/19/24 07:06 Blood Culture Gram Stain - Final Blood Blood Culture - Final Staphylococcus aureus Molecular ID Assessment and Plan Assessment: Community acquired pneumonia, right lung. Methicillin sensitive staphylococcal aureus bacteremia. Acute hypoxemic respiratory failure, secondary to above. Lactic acidosis, improving. Anion gap metabolic acidosis. Mild DKA, resolved. Recent influenza infection. Asthma/COPD. Diabetes mellitus type II. History of hypertension. History of hyperlipidemia . Gastroesophageal reflux disease. Obesity, with a BMI of 32.8 kg/m. Plan: Plan dated April 20, 2024. The patient continues on appropriate medications, including antibiotics, breathing treatments, formoterol, budesonide, and Singulair. Labs, x-rays, and medications are all reviewed. The patient is currently feeling a bit better than she did yesterday. She continues on 5 L. We will continue to follow make recommendations along the way. Prognosis is guarded. All labs, x-rays, medications are reviewed. The patient will have a follow-up chest x-ray in the morning, April 21. Plan dated April 21, 2024. 58-year-old female seen today in room 373. She was admitted with a diagnosis of pneumonia and influenza. Currently, she is on 4 L. She is a bit improved today. She continues on Pulmicort, formoterol, and DuoNebs. In addition, she is currently on Ancef. Blood cultures were positive for presumptive staphylococ kaitlyn aureus. We do not know if it is methicillin-resistant staph or methicillin sensitive staph. Additional recommendations and suggestions are forthcoming. We will continue to follow. Prognosis is guarded. All labs, x-rays, and medications are reviewed. Dictation was produced using [employer] software. Please excuse any grammatical, word or spelling errors. Plan dated April 22, 2024. 58-year-old female, seen today in room 373. She is down to 3 L nasal O2. She is feeling better. She continues on Ancef as per infectious diseases. Labs, x- rays, and all medications are reviewed. We will continue to follow the patient, make recommendations. Clinically, the patient appears a bit more awake and alert, and definitely feels better. We will continue to follow. Dictation was produced using [employer] software. Please excuse any grammatical, word or spelling errors. Plan dated April 23, 2024. The patient is seen today in room 373. The patient is currently on 3 L. She sitting in the chair next to the hospital bed. She continues on Ancef, for methicillin sensitive Staph aureus bacteremia. Will order a flutter valve. Her cough is wet and congested sounding. All labs, x-rays, and medications are reviewed. The patient's prognosis remains guarded. We will continue to follow. No additional recommendations at this time. Dictation was produced using [employer] software. Please excuse any grammatical, word or spelling errors. Time with Patient: Less than 30
--- NOTE | 2024-04-23 13:49 | P.PN ---
Subjective Progress Note Date: 04/23/24 58-year-old female with past medical history significant for type 2 diabetes mellitus, history of COPD/asthma on home inhalers, on 2 L oxygen nightly, hypertension, hyperlipidemia, GERD who presented to ER with a complaint of significant shortness of breath. Patient reported that she had flulike symptoms last Wednesday, went to PCP office on Wednesday and was diagnosed with influenza, patient was outside the window for Tamiflu, was treated with steroid burst taper and cough suppressants. Patient stated that she felt better initially, but her symptoms started to get worse later on. Patient also reported having fever and chills at home. Patient reported productive cough, worsening shortness of br eath. Patient denied any headache, chest pain, palpitations, nausea vomiting diarrhea constipation abdominal pain dysuria urgency frequency weakness or numbness to extremities. In the ED patient had a Tmax of 102.1, was initially tachycardic with heart rate in the 130s, tachypneic, blood pressure 10 initially was 112/65, required 2 L oxygen. WBCs 8.0, hemoglobin 14.0, platelet 405. Absolute neutrophils 6.8. VBG showed pH 7.34, pCO2 28, HCO3 15. Sodium 135 potassium 4.3 chloride 101 BUN 19 cr eatinine 0.64. Lactic acid was 4.2, received fluid boluses, trended down, today 2.2. LFTs were unremarkable except mildly elevated bilirubin 1.6. NT proBNP was 7700. Procalcitonin was 8.68. UA was negative. Viral panel was negative. CT chest showed no PE, showed bilateral pneumonia, small bilateral pleural effusions. 04/20--- patient was seen and examined today. Patient is afebrile, tachycardic, respiratory rate 17, blood pressure 108/68, better as compared to yesterday. Saturating 96% on 5 L. WBCs 12.5, hemoglobin 11.5, platelet 331. BMP is unremarkable. HbA1c is 14.3. Echocardiogram done which showed normal ventricle systolic function, mild MR and TR. No pericardial effusion. Will discontinue IV fluids due to concern of fluid overload, will monitor blood pressure closely. Patient remains on vancomycin Rocephin and doxycycline, infectious disease consulted. Pulmonary following. Will try IV diuresis if blood pressure better. 04/21--patient was seen and examined today. Continues complain of productive cough, shortness of breath, generalized weakness and fatigue. Remained afebrile, still quite tachycardic with heart rate in 110s, respiratory rate 20, blood pressure better 119/79, saturating 93% on 4 L. Blood culture came back positive for Staph aureus, antibiotics changed to cefazolin per infectious disease. Started on low-dose metoprolol for heart rate control. Will try low- dose IV Lasix if blood pressure remains stable. 04/22. Patient seen and examined. Vital signs of this morning showed heart rate 122, respiration 20, blood pressure 111/83, currently on 3 L of oxygen. LFTs were elevated. Patient also complaining of coughing when swallowing. Speech evaluation ordered 04/23. Patient seen and examined. Blood work done this morning showed WBC 15.5, hemoglobin 12.5, platelet count 69, sodium 130, potassium 3.5, BUN 16, creat inine 0.53, glucose 167, AST 176, ALT 76. Continues to have cough, nonproductive. REVIEW OF SYSTEMS: CONSTITUTIONAL: No fever, no malaise,. CARDIOVASCULAR: No chest pain, no palpitations, no syncope. PULMONARY: As mentioned above GASTROINTESTINAL: No diarrhea, no nausea, no vomiting, no abdominal pain. NEUROLOGICAL: No headaches, no weakness, PHYSICAL EXAMINATION: GENERAL: The patient is alert and oriented x3, ill looking HEENT: Pupils are round and equally reacting to light. EOMI. No scleral icterus. No conjunctival pallor. Normocephalic, atraumatic. No pharyngeal erythema. No thyromegaly. CARDIOVASCULAR: S1 and S2 present. No murmurs, rubs, or gallops. PULMONARY: Coarse breath sound bilaterally, crackles on the right lung base, no wheezing ABDOMEN: Soft, nontender, nondistended, normoactive bowel sounds. No palpable organomegaly. MUSCULOSKELETAL: No joint swelling or deformity. EXTREMITIES: No cyanosis, clubbing, or pedal edema. NEUROLOGICAL: Gross neurological examination did not reveal any focal deficits. SKIN: No rashes. Assessment and plan Severe sepsis: Bilateral pneumonia Staph aureus bacteremia Fluid overload: Hypotension: Lactic acidosis: Mild DKA: Resolved Recent influenza A infection Asthma/COPD: Diabetes mellitus: Poorly controlled Hypertension Hyperlipidemia GERD Morbid obesity with BMI of 32.8 Acute transaminitis Monitor vital signs Monitor CBC Monitor CMP Continue telemetry monitoring CT chest showed bilateral pneumonia, small pleural effusions Echocardiogramnormal LV function, mild MR and TR, no pericardial effusion. Blood culture--Staph aureus Sputum culture Continue cefazolin subcu insulin, Accu-Cheks, Trend LFTs, DC Lipitor, avoid hepatotoxic agents Inhaler/bronchodilator protocol Pulmonary following Infectious disease following Labs and medication were reviewed.. Continue same treatment. Continue with symptomatic treatment. Resume home medication. Monitor labs and vitals. DVT and GI prophylaxis. Further recommendations as per clinical course of the patient Dictation was produced using [employer] dictation software. please excuse any grammatical, word or spelling errors. Objective - Vital Signs Vital signs: Vital Signs Temp 98.1 F 04/23/24 08:10 Pulse 96 04/23/24 09:25 Resp 18 04/23/24 08:10 BP 122/86 04/23/24 08:10 Pulse Ox 95 04/23/24 08:58 FiO2 Intake & Output 04/22/24 04/23/24 04/23/24 17:59 06:59 18:59 Intake Total Output Total 0 Balance 0 Weight Intake: Oral Output: Gastric Drainage Urine Stool 0 Urine/Stool Mix Emesis Oral Regurgitation Other Other: Voiding Method Toilet Bedside Commode Diaper # Voids # Bowel Movements - Labs CBC & Chem 7: 04/23/24 07:34 04/23/24 07:34 Labs: Abnormal Lab Results - Last 24 Hours (Table) 04/22/24 04/22/24 04/22/24 Range/Units 11:25 16:18 20:25 WBC (3.8-10.6) k/uL Neutrophils # (1.3-7.7) k/uL Carbon Dioxide (22-30) mmol/L Glucose (74-99) mg/dL POC Glucose (mg/dL) 150 H 219 H 145 H (70-110) mg/dL AST (14-36) U/L ALT (4-34) U/L Alkaline Phosphatase (38-126) U/L Total Protein (6.3-8.2) g/dL Albumin (3.5-5.0) g/dL 04/23/24 04/23/24 04/23/24 Range/Units 03:15 06:07 07:34 WBC 15.5 H (3.8-10.6) k/uL Neutrophils # 13.6 H (1.3-7.7) k/uL Carbon Dioxide (22-30) mmol/L Glucose (74-99) mg/dL POC Glucose (mg/dL) 213 H 226 H (70-110) mg/dL AST (14-36) U/L ALT (4-34) U/L Alkaline Phosphatase (38-126) U/L Total Protein (6.3-8.2) g/dL Albumin (3.5-5.0) g/dL 04/23/24 Range/Units 07:34 WBC (3.8-10.6) k/uL Neutrophils # (1.3-7.7) k/uL Carbon Dioxide 21 L (22-30) mmol/L Glucose 167 H (74-99) mg/dL POC Glucose (mg/dL) (70-110) mg/dL AST 176 H (14-36) U/L ALT 76 H (4-34) U/L Alkaline Phosphatase 316 H (38-126) U/L Total Protein 5.2 L (6.3-8.2) g/dL Albumin 2.6 L (3.5-5.0) g/dL Microbiology - Last 24 Hours (Table) 04/21/24 06:39 Blood Culture - Preliminary Blood 04/19/24 07:06 Blood Culture Gram Stain - Final Blood Blood Culture - Final Staphylococcus aureus Molecular ID
--- NOTE | 2024-04-23 15:00 | P.PN ---
Subjective Progress Note Date: 04/22/24 Principal diagnosis: Reason for follow-up is pneumonia and bacteremia Patient is a 58-year-old female with a past medical history significant for COPD diabetes mellitus osteoarthritis and seizure disorder has been diagnosed with influenza A about a week and a half before presentation to the hospital subsequently presented to the hospital with increasing shortness of breath and cough has been diagnosed with pneumonia blood culture positive for MSSA. On today's evaluation that is 04/22/2024, patient did not have any fever and denies any chills, patient is breathing slightly comfortably on 4 L nasal cannula oxygen, patient with no chest pain or any worsening cough patient did not have any abdominal pain nausea vomiting or any loose stools. Patient white count is 15.3 creatinine 0.44 Objective - Vital Signs Vital signs: Vital Signs Temp 98.0 F 04/22/24 08:20 Pulse 101 H 04/22/24 12:42 Resp 20 04/22/24 12:42 BP 113/73 04/22/24 12:42 Pulse Ox 97 04/22/24 12:42 FiO2 Intake & Output 04/21/24 04/22/24 04/22/24 18:59 06:59 18:59 Intake Total 898 0 Output Total 300 Balance 898 -300 0 Weight 81.1 kg Intake: Oral 898 0 Output: Urine 300 Other: Voiding Method Toilet Toilet Toilet Bedside Commode Bedside Commode Bedside Commode # Voids 2 1 # Bowel Movements 1 - Exam GENERAL DESCRIPTION: Middle-age female up in bed in no distress RESPIRATORY SYSTEM: Unlabored breathing , coarse breath sounds bilaterally HEART: S1 S2 regular rate and rhythm , ABDOMEN: Soft , no tenderness EXTREMITIES: No edema feet - Labs CBC & Chem 7: 04/23/24 07:34 04/23/24 07:34 Labs: Abnormal Lab Results - Last 24 Hours (Table) 04/21/24 04/21/24 04/22/24 Range/Units 16:32 20:16 02:56 WBC (3.8-10.6) k/uL Neutrophils # (1.3-7.7) k/uL Lymphocytes # (1.0-4.8) k/uL Potassium (3.5-5.1) mmol/L Carbon Dioxide (22-30) mmol/L BUN (7-17) mg/dL Creatinine (0.52-1.04) mg/dL Glucose (74-99) mg/dL POC Glucose (mg/dL) 200 H 162 H 127 H (70-110) mg/dL AST (14-36) U/L ALT (4-34) U/L Alkaline Phosphatase (38-126) U/L Total Protein (6.3-8.2) g/dL Albumin (3.5-5.0) g/dL 04/22/24 04/22/24 04/22/24 Range/Units 06:07 06:55 06:55 WBC 15.3 H (3.8-10.6) k/uL Neutrophils # 13.3 H (1.3-7.7) k/uL Lymphocytes # 0.7 L (1.0-4.8) k/uL Potassium 3.1 L (3.5-5.1) mmol/L Carbon Dioxide 16 L (22-30) mmol/L BUN 19 H (7-17) mg/dL Creatinine 0.44 L (0.52-1.04) mg/dL Glucose 149 H (74-99) mg/dL POC Glucose (mg/dL) 141 H (70-110) mg/dL AST 648 H (14-36) U/L ALT 148 H (4-34) U/L Alkaline Phosphatase 472 H (38-126) U/L Total Protein 4.9 L (6.3-8.2) g/dL Albumin 2.5 L (3.5-5.0) g/dL 04/22/24 Range/Units 11:25 WBC (3.8-10.6) k/uL Neutrophils # (1.3-7.7) k/uL Lymphocytes # (1.0-4.8) k/uL Potassium (3.5-5.1) mmol/L Carbon Dioxide (22-30) mmol/L BUN (7-17) mg/dL Creatinine (0.52-1.04) mg/dL Glucose (74-99) mg/dL POC Glucose (mg/dL) 150 H (70-110) mg/dL AST (14-36) U/L ALT (4-34) U/L Alkaline Phosphatase (38-126) U/L Total Protein (6.3-8.2) g/dL Albumin (3.5-5.0) g/dL Microbiology - Last 24 Hours (Table) 04/19/24 07:06 Blood Culture Gram Stain - Final Blood Blood Culture - Final Staphylococcus aureus Molecular ID Assessment and Plan (1) Sepsis Current Visit: Yes Status: Acute Code(s): A41.9 - SEPSIS, UNSPECIFIED ORGANISM SNOMED Code(s): 92009132 (2) Pneumonia Current Visit: Yes Status: Acute Code(s): J18.9 - PNEUMONIA, UNSPECIFIED ORGANISM SNOMED Code(s): 054559490 (3) Allergy to sulfa drugs Current Visit: Yes Status: Acute Code(s): Z88.2 - ALLERGY STATUS TO SULFONAMIDES SNOMED Code(s): 02120817 Plan: 1patient presented to hospital with sepsis in this patient noted to have fever tachycardia elevated white count meeting criteria for SIRS source is likely pneumonia in this patient who recently did have a influenza A but not treated with evidence of bibasilar and right middle lung airspace opacity concerning for pneumonia will need to cover for Staph aureus that is commonly associated post influenza pneumonia 2-blood culture has been positive for MSSA sputum culture has not been collected, blood culture has been and so far 3-patient currently being treated with cefazolin 2 g every 8 hours and monitor clinical course closely Dictation was produced using [employer] dictation software. please excuse any grammatical, word or spelling errors. Time with Patient: Less than 30
--- NOTE | 2024-04-23 15:03 | P.PN ---
Subjective Progress Note Date: 04/23/24 Principal diagnosis: Reason for follow-up is pneumonia and bacteremia Patient is a 58-year-old female with a past medical history significant for COPD diabetes mellitus osteoarthritis and seizure disorder has been diagnosed with influenza A about a week and a half before presentation to the hospital subsequently presented to the hospital with increasing shortness of breath and cough has been diagnosed with pneumonia blood culture positive for MSSA. On today's evaluation that is 04/24/2023 the patient continues to be afebrile breathing slightly comfortably is currently on 3 L current oxygen, denies chest pain continue to have a cough but no worsening or any sputum production abdominal pain or diarrhea. Patient white count is 15.5 creatinine 0.53, blood culture repeat has been negative so far Objective - Vital Signs Vital signs: Vital Signs Temp 98.3 F 04/23/24 12:00 Pulse 92 04/23/24 12:30 Resp 18 04/23/24 12:00 BP 124/78 04/23/24 12:00 Pulse Ox 93 L 04/23/24 12:00 FiO2 Intake & Output 04/22/24 04/23/24 04/23/24 17:59 06:59 18:59 Intake Total 480 Output Total 0 Balance 480 Weight Intake: Oral 480 Output: Gastric Drainage Urine Stool 0 Urine/Stool Mix Emesis Oral Regurgitation Other Other: Voiding Method Toilet Bedside Commode Diaper # Voids # Bowel Movements - Exam GENERAL DESCRIPTION: Middle-age female up in bed in no distress RESPIRATORY SYSTEM: Unlabored breathing , coarse breath sounds bilaterally HEART: S1 S2 regular rate and rhythm , ABDOMEN: Soft , no tenderness EXTREMITIES: No edema feet - Labs CBC & Chem 7: 04/23/24 07:34 04/23/24 07:34 Labs: Abnormal Lab Results - Last 24 Hours (Table) 04/22/24 04/22/24 04/23/24 Range/Units 16:18 20:25 03:15 WBC (3.8-10.6) k/uL Neutrophils # (1.3-7.7) k/uL Carbon Dioxide (22-30) mmol/L Glucose (74-99) mg/dL POC Glucose (mg/dL) 219 H 145 H 213 H (70-110) mg/dL AST (14-36) U/L ALT (4-34) U/L Alkaline Phosphatase (38-126) U/L Total Protein (6.3-8.2) g/dL Albumin (3.5-5.0) g/dL 04/23/24 04/23/24 04/23/24 Range/Units 06:07 07:34 07:34 WBC 15.5 H (3.8-10.6) k/uL Neutrophils # 13.6 H (1.3-7.7) k/uL Carbon Dioxide 21 L (22-30) mmol/L Glucose 167 H (74-99) mg/dL POC Glucose (mg/dL) 226 H (70-110) mg/dL AST 176 H (14-36) U/L ALT 76 H (4-34) U/L Alkaline Phosphatase 316 H (38-126) U/L Total Protein 5.2 L (6.3-8.2) g/dL Albumin 2.6 L (3.5-5.0) g/dL 04/23/24 Range/Units 11:29 WBC (3.8-10.6) k/uL Neutrophils # (1.3-7.7) k/uL Carbon Dioxide (22-30) mmol/L Glucose (74-99) mg/dL POC Glucose (mg/dL) 147 H (70-110) mg/dL AST (14-36) U/L ALT (4-34) U/L Alkaline Phosphatase (38-126) U/L Total Protein (6.3-8.2) g/dL Albumin (3.5-5.0) g/dL Microbiology - Last 24 Hours (Table) 04/21/24 06:39 Blood Culture - Preliminary Blood 04/19/24 07:06 Blood Culture Gram Stain - Final Blood Blood Culture - Final Staphylococcus aureus Molecular ID Assessment and Plan (1) Sepsis Current Visit: Yes Status: Acute Code(s): A41.9 - SEPSIS, UNSPECIFIED ORGANISM SNOMED Code(s): 83269104 (2) Pneumonia Current Visit: Yes Status: Acute Code(s): J18.9 - PNEUMONIA, UNSPECIFIED ORGANISM SNOMED Code(s): 243076577 (3) Allergy to sulfa drugs Current Visit: Yes Status: Acute Code(s): Z88.2 - ALLERGY STATUS TO SULFONAMIDES SNOMED Code(s): 26615981 Plan: 1patient presented to hospital with sepsis in this patient noted to have fever tachycardia elevated white count meeting criteria for SIRS source is likely pn eumonia in this patient who recently did have a influenza A but not treated with evidence of bibasilar and right middle lung airspace opacity concerning for pneumonia will need to cover for Staph aureus that is commonly associated post influenza pneumonia 2-blood culture has been positive for MSSA sputum culture has not been collected, blood culture has been and so far 3-patient white count is still elevated slightly concerned possible oropharyngeal candidiasis will add Desitin swish and swallow repeat CBC with a.m. lab continue cefazolin Dictation was produced using [employer] dictation software. please excuse any grammatical, word or spelling errors. Time with Patient: Less than 30
[2024-04-23] MEDS: FLUCONAZOLE 100 MG TAB PO ONE (16:10)
[2024-04-23 16:26] LABS: Glucose,Whole Blood 124 mg/dL (70-110)
[2024-04-23] MEDS: NYSTATIN 100,000 UNIT/ML SUSP 500,000 UNIT/5 ML CUP PO SCH (19:04)
[2024-04-23 20:54] LABS: Glucose,Whole Blood 160 mg/dL (70-110)
[2024-04-24 03:38] LABS: Glucose,Whole Blood 185 mg/dL (70-110)
[2024-04-24 06:06] LABS: Glucose,Whole Blood 222 mg/dL (70-110)
[2024-04-24 08:00] LABS: Basophils % (A) 0 %; Eosinophils % (A) 0 %; HCT 39.1 % (34.0-46.0); HGB 12.1 gm/dL (11.4-16.0); Hypochromasia Slight; Lymphocytes # (A) 1.3 k/uL (1.0-4.8); Lymphocytes % (A) 8 %; MCH 27.5 pg (25.0-35.0); MCHC 30.9 g/dL (31.0-37.0); Mean Platelet Volume 8.4; Monocytes # (A) 0.9 k/uL (0-1.0); Monocytes % (A) 5 %; Neutrophils % (A) 86 %; Platelet Count 374 k/uL (150-450); RDW 13.9 % (11.5-15.5); WBC 17.6 k/uL (3.8-10.6)
[2024-04-24 08:25] LABS: ALT 44 U/L (4-34); AST 87 U/L (14-36); African American GFR (CKD) >90 (>60 ml/min/1.73 sqM); Albumin 2.5 g/dL (3.5-5.0); Alkaline Phosphatase 234 U/L (38-126); Anion Gap 13 mmol/L; Blood Urea Nitrogen 17 mg/dL (7-17); Calcium 8.7 mg/dL (8.4-10.2); Carbon Dioxide 22 mmol/L (22-30); Chloride 101 mmol/L (98-107); Glucose 160 mg/dL (74-99); Non-African American GFR(CKD) >90 (>60 ml/min/1.73 sqM); Potassium 3.4 mmol/L (3.5-5.1); Sodium 136 mmol/L (137-145); Total Bilirubin 0.8 mg/dL (0.2-1.3); Total Protein 5.1 g/dL (6.3-8.2)
[2024-04-24 11:11] LABS: Glucose,Whole Blood 154 mg/dL (70-110)
--- NOTE | 2024-04-24 13:33 | P.PN ---
Subjective Progress Note Date: 04/24/24 Principal diagnosis: Reason for follow-up is pneumonia and bacteremia Patient is a 58-year-old female with a past medical history significant for COPD diabetes mellitus osteoarthritis and seizure disorder has been diagnosed with influenza A about a week and a half before presentation to the hospital subsequently presented to the hospital with increasing shortness of breath and cough has been diagnosed with pneumonia blood culture positive for MSSA. On today's evaluation that is 04/24/2024, patient has been afebrile, patient is breathing slightly comfortably and is currently on 2 L, oxygen P denies having any chest pain has been complaining of more cough not bringing up any sputum no nausea vomiting no abdominal pain and no diarrhea. Patient white count is up to 17,000 creatinine 0.40 with enzymes mildly elevated ultrasound did not show any acute abnormality Objective - Vital Signs Vital signs: Vital Signs Temp 98.2 F 04/24/24 08:00 Pulse 100 04/24/24 11:09 Resp 18 04/24/24 08:00 BP 127/77 04/24/24 08:00 Pulse Ox 93 L 04/24/24 08:00 FiO2 Intake & Output 04/23/24 04/24/24 04/24/24 18:59 06:59 18:59 Intake Total 1080 0 Output Total 0 100 300 Balance 1080 -100 -300 Weight 82.5 kg Intake: Oral 1080 0 Output: Urine 100 300 Stool 0 Other: Voiding Method Toilet Toilet Toilet Bedside Commode Bedside Commode Bedside Commode Diaper Diaper Diaper # Voids 300 1 - Exam GENERAL DESCRIPTION: Middle-age female up in bed in no distress RESPIRATORY SYSTEM: Unlabored breathing , coarse breath sounds bilaterally HEART: S1 S2 regular rate and rhythm , ABDOMEN: Soft , no tenderness EXTREMITIES: No edema feet - Labs CBC & Chem 7: 04/24/24 07:00 04/24/24 07:00 Labs: Abnormal Lab Results - Last 24 Hours (Table) 04/23/24 04/23/24 04/23/24 Range/Units 11:29 16:24 20:51 WBC (3.8-10.6) k/uL MCHC (31.0-37.0) g/dL Neutrophils # (1.3-7.7) k/uL Sodium (137-145) mmol/L Potassium (3.5-5.1) mmol/L Creatinine (0.52-1.04) mg/dL Glucose (74-99) mg/dL POC Glucose (mg/dL) 147 H 124 H 160 H (70-110) mg/dL AST (14-36) U/L ALT (4-34) U/L Alkaline Phosphatase (38-126) U/L Total Protein (6.3-8.2) g/dL Albumin (3.5-5.0) g/dL 04/24/24 04/24/24 04/24/24 Range/Units 03:34 06:04 07:00 WBC 17.6 H (3.8-10.6) k/uL MCHC 30.9 L (31.0-37.0) g/dL Neutrophils # 15.0 H (1.3-7.7) k/uL Sodium (137-145) mmol/L Potassium (3.5-5.1) mmol/L Creatinine (0.52-1.04) mg/dL Glucose (74-99) mg/dL POC Glucose (mg/dL) 185 H 222 H (70-110) mg/dL AST (14-36) U/L ALT (4-34) U/L Alkaline Phosphatase (38-126) U/L Total Protein (6.3-8.2) g/dL Albumin (3.5-5.0) g/dL 04/24/24 04/24/24 Range/Units 07:00 11:09 WBC (3.8-10.6) k/uL MCHC (31.0-37.0) g/dL Neutrophils # (1.3-7.7) k/uL Sodium 136 L (137-145) mmol/L Potassium 3.4 L (3.5-5.1) mmol/L Creatinine 0.40 L (0.52-1.04) mg/dL Glucose 160 H (74-99) mg/dL POC Glucose (mg/dL) 154 H (70-110) mg/dL AST 87 H (14-36) U/L ALT 44 H (4-34) U/L Alkaline Phosphatase 234 H (38-126) U/L Total Protein 5.1 L (6.3-8.2) g/dL Albumin 2.5 L (3.5-5.0) g/dL Microbiology - Last 24 Hours (Table) 04/21/24 06:39 Blood Culture - Preliminary Blood Assessment and Plan (1) Sepsis Current Visit: Yes Status: Acute Code(s): A41.9 - SEPSIS, UNSPECIFIED ORGANISM SNOMED Code(s): 63205195 (2) Pneumonia Current Visit: Yes Status: Acute Code(s): J18.9 - PNEUMONIA, UNSPECIFIED ORGANISM SNOMED Code(s): 829325994 (3) Allergy to sulfa drugs Current Visit: Yes Status: Acute Code(s): Z88.2 - ALLERGY STATUS TO SULFONAMIDES SNOMED Code(s): 53633275 Plan: 1patient presented to hospital with sepsis in this patient noted to have fever tachycardia elevated white count meeting criteria for SIRS source is likely pneumonia in this patient who recently did have a influenza A but not treated with evidence of bibasilar and right middle lung airspace opacity concerning for pneumonia will need to cover for Staph aureus that is commonly associated post influenza pneumonia 2-blood culture has been positive for MSSA sputum culture has not been collected, blood culture has been and so far 3-patient did have a worsening of the white count did not respond to the Diflucan or nystatin swish and swallow we will repeat a chest x-ray PA and lateral if any concern for effusion may obtain a CT to make sure not developing any empyema continue with the cefazolin at this point as the patient looks otherwise stable Dictation was produced using [employer] dictation software. please excuse any grammatical, word or spelling errors. Time with Patient: Less than 30
--- NOTE | 2024-04-24 14:46 | XR ---
EXAMINATION TYPE: XR chest 2V DATE OF EXAM: 04/24/2024 2:40 PM COMPARISON: CT, plain film CLINICAL INDICATION: Female, 58 years old with history of Pneumonia follow-up; [facility] TECHNIQUE: XR chest 2V Frontal and lateral views of the chest. FINDINGS: Lungs/Pleura: Left-sided airspace opacities and to lesser extent right-sided opacities better appreci ated on CT. No evidence of pneumothorax. Blunting of the costophrenic angles is present. Pulmonary vascularity: Unremarkable. Heart/mediastinum: Cardiomediastinal silhouette is unremarkable. Musculoskeletal: No acute osseous pathology. IMPRESSION: Bilateral airspace opacities and bilateral pleural effusions as seen on CT 04/19/2024. [facility], , 04/24/2024 2:44 PM
--- NOTE | 2024-04-24 16:03 | P.PN ---
Subjective Progress Note Date: 04/24/24 On 04/24/2024, patient is being seen for a follow-up. The patient is extensive lower lobe pneumonia left more than right with secondary hypoxic respiratory failure. Blood culture was positive for Staph aureus/MSSA. The patient is currently on IV cefazolin. Still feeling weak. She continues to have a c ongested cough. She was offered a flutter valve. She will be also given incentive spirometer. She remains on DuoNeb treatments [id number]. She is also on Perforomist and Pulmicort nebulized treatments twice a day. Rest of the medications remain unchanged. She is on Lantus insulin 10 units daily and sliding scale coverage. She is on heparin subcu for DVT prophylaxis. The b chest x-ray from today shows extensive consolidation in the left upper lobe and the left lower lobe. There is also similar consolidation in the right lung base with possible development of a right-sided pleural effusion. There is a large gastric bubble. Echocardiogram that was done on this patient on 04/20/2024 shows a preserved LV function with an ejection fraction of 50 to 55%. No significant valvular abnormalities. Abdominal ultrasound was also done on 04/23/2024 showing cholecystectomy changes without any hepatic abnormalities. The patient's white cell count at 17.6 which remains quite elevated with a hemoglobin 12.1 and a platelet count of 374. BUN 17 with a creatinine of 0.4. LFTs are improving. AST is down to 87 with an ALT of 44 and alkaline phosphatase of 234. Bilirubin is at 0.5. Objective - Vital Signs Vital signs: Vital Signs Temp 98.2 F 04/24/24 08:00 Pulse 91 04/24/24 12:00 Resp 17 04/24/24 12:00 BP 112/72 04/24/24 12:00 Pulse Ox 93 L 04/24/24 12:00 FiO2 Intake & Output 04/23/24 04/24/24 04/24/24 18:59 06:59 18:59 Intake Total 1080 0 Output Total 0 100 300 Balance 1080 -100 -300 Weight 82.5 kg Intake: Oral 1080 0 Output: Urine 100 300 Stool 0 Other: Voiding Method Toilet Toilet Toilet Bedside Commode Bedside Commode Bedside Commode Diaper Diaper Diaper # Voids 300 1 - Exam No acute distress, oriented 3. Nurse of breath. The patient is currently on 2 L of O2 nasal cannula HEENT examination is grossly unremarkable. Mucous membranes are moist. No oral lesions. Neck supple. Full range of motion. No adenopathy thyromegaly or neck vein distention. Cardiovascular examination reveals regular rhythm rate. S1-S2 normal. No S3 or S4. No discernible murmur noted. Lungs reveal bilateral inspiratory and expiratory rhonchi. Few scattered crackles are noted. No wheezes. Breath sounds are equal bilaterally. Cough is wet and congested sounding. Abdomen soft bowel sounds are heard. No masses or tenderness. Extremities are intact. No cyanosis clubbing or edema. Skin is without rash or lesion. Neurologic examination is brief but nonfocal. - Labs CBC & Chem 7: 04/24/24 07:00 04/24/24 07:00 Labs: Abnormal Lab Results - Last 24 Hours (Table) 04/23/24 04/23/24 04/24/24 Range/Units 16:24 20:51 03:34 WBC (3.8-10.6) k/uL MCHC (31.0-37.0) g/dL Neutrophils # (1.3-7.7) k/uL Sodium (137-145) mmol/L Potassium (3.5-5.1) mmol/L Creatinine (0.52-1.04) mg/dL Glucose (74-99) mg/dL POC Glucose (mg/dL) 124 H 160 H 185 H (70-110) mg/dL AST (14-36) U/L ALT (4-34) U/L Alkaline Phosphatase (38-126) U/L Total Protein (6.3-8.2) g/dL Albumin (3.5-5.0) g/dL 04/24/24 04/24/24 04/24/24 Range/Units 06:04 07:00 07:00 WBC 17.6 H (3.8-10.6) k/uL MCHC 30.9 L (31.0-37.0) g/dL Neutrophils # 15.0 H (1.3-7.7) k/uL Sodium 136 L (137-145) mmol/L Potassium 3.4 L (3.5-5.1) mmol/L Creatinine 0.40 L (0.52-1.04) mg/dL Glucose 160 H (74-99) mg/dL POC Glucose (mg/dL) 222 H (70-110) mg/dL AST 87 H (14-36) U/L ALT 44 H (4-34) U/L Alkaline Phosphatase 234 H (38-126) U/L Total Protein 5.1 L (6.3-8.2) g/dL Albumin 2.5 L (3.5-5.0) g/dL 04/24/24 Range/Units 11:09 WBC (3.8-10.6) k/uL MCHC (31.0-37.0) g/dL Neutrophils # (1.3-7.7) k/uL Sodium (137-145) mmol/L Potassium (3.5-5.1) mmol/L Creatinine (0.52-1.04) mg/dL Glucose (74-99) mg/dL POC Glucose (mg/dL) 154 H (70-110) mg/dL AST (14-36) U/L ALT (4-34) U/L Alkaline Phosphatase (38-126) U/L Total Protein (6.3-8.2) g/dL Albumin (3.5-5.0) g/dL Microbiology - Last 24 Hours (Table) 04/21/24 06:39 Blood Culture - Preliminary Blood Assessment and Plan Plan: Acute bilateral staphylococcal pneumonia left more than right and the patient continues to have dense consolidation of the left lung and bilateral pleural effusion. The patient remains on IV cefazolin. Methicillin sensitive staphylococcal aureus bacteremia, on IV cefazolin Acute hypoxemic respiratory failure, secondary to above. The patient is currently on 2 L of oxygen by nasal cannula Acute leukocytosis Lactic acidosis, improving. Anion gap metabolic acidosis, improved Mild DKA, resolved. Recent influenza infection. Asthma/COPD. Diabetes mellitus type II. History of hypertension. History of hyperlipidemia . Gastroesophageal reflux disease. Obesity, with a BMI of 32.8 kg/m. Plan: Wean FiO2 to maintain oxygen saturation above 90%, currently on 2 L Continue IV cefazolin Repeat chest x-ray over next 24 hours Provide incentive spirometer and continue using the flutter valve Continue the same bronchodilators Rest of the medication will be kept unchanged. Aggressive pulmonary toileting. Will continue to follow. Time with Patient: Greater than 30
[2024-04-24 16:35] LABS: Glucose,Whole Blood 141 mg/dL (70-110)
[2024-04-24 20:35] LABS: Glucose,Whole Blood 142 mg/dL (70-110)
--- NOTE | 2024-04-24 21:19 | P.PN ---
Progress Note - Text Progress Note Date: 04/24/24 58-year-old female with past medical history significant for type 2 diabetes mellitus, history of COPD/asthma on home inhalers, on 2 L oxygen nightly, hypertension, hyperlipidemia, GERD who presented to ER with a complaint of significant shortness of breath. Patient reported that she had flulike symptoms last Wednesday, went to PCP office on Wednesday and was diagnosed with influenza, patient was outside the window for Tamiflu, was treated with steroid burst taper and cough suppressants. Patient stated that she felt better initially, but her symptoms started to get worse later on. Patient also reported having fever and chills at home. Patient reported productive cough, worsening shortness of breath. Patient denied any headache, chest pain, palpitations, nausea vomiting diarrhea constipation abdominal pain dysuria urgency frequency weakness or numbness to extremities. In the ED patient had a Tmax of 102.1, was initially tachycardic with heart rate in the 130s, tachypneic, blood pressure 10 initially was 112/65, required 2 L oxygen. WBCs 8.0, hemoglobin 14.0, platelet 405. Absolute neutrophils 6.8. VBG showed pH 7.34, pCO2 28, HCO3 15. Sodium 135 potassium 4.3 chloride 101 BUN 19 creatinine 0.64. Lactic acid was 4.2, received fluid boluses, trended down, today 2.2. LFTs were unremarkable except mildly elevated bilirubin 1.6. NT proBNP was 7700. Procalcitonin was 8.68. UA was negative. Viral panel was negative. CT chest showed no PE, showed bilateral pneumonia, small bilateral pleural effusions. 04/20--- patient was seen and examined today. Patient is afebrile, tachycardic, respiratory rate 17, blood pressure 108/68, better as compared to yesterday. Saturating 96% on 5 L. WBCs 12.5, hemoglobin 11.5, platelet 331. BMP is unremarkable. HbA1c is 14.3. Echocardiogram done which showed normal ventricle systolic function, mild MR and TR. No pericardial effusion. Will discontinue IV fluids due to concern of fluid overload, will monitor blood pressure closely. Patient remains on vancomycin Rocephin and doxycycline, infectious disease consulted. Pulmonary following. Will try IV diuresis if blood pressure better. 04/21--patient was seen and examined today. Continues complain of productive cough, shortness of breath, generalized weakness and fatigue. Remained afebrile, still quite tachycardic with heart rate in 110s, respiratory rate 20, blood pressure better 119/79, saturating 93% on 4 L. Blood culture came back positive for Staph aureus, antibiotics changed to cefazolin per infectious disease. Started on low-dose metoprolol for heart rate control. Will try low- dose IV Lasix if blood pressure remains stable. 04/22. Patient seen and examined. Vital signs of this morning showed heart rate 122, respiration 20, blood pressure 111/83, currently on 3 L of oxygen. LFTs were elevated. Patient also complaining of coughing when swallowing. Speech evaluation ordered 04/23. Patient seen and examined. Blood work done this morning showed WBC 15.5, hemoglobin 12.5, platelet count 69, sodium 130, potassium 3.5, BUN 16, creatinine 0.53, glucose 167, AST 176, ALT 76. Continues to have cough, nonproductive. April 24: Up in recliner. Short of breath. Congested cough able unable to expectorate. Patient has a flutter valve. Also humidified oxygen. Home oxygen 2 L. Decreased appetite. Tired. IV cefazolin. Follow-up with pulmonary and ID. Active Medications Acetaminophen (Acetaminophen Tab 325 Mg Tab) 650 mg PO Q6HR PRN PRN Reason: Mild Pain or Fever > 100.5 Last Admin: 04/23/24 21:27 Dose: 650 mg Albuterol/Ipratropium (Ipratropium-Albuterol 3 Ml Neb) 3 ml INHALATION RT-QID [facility] Last Admin: 04/24/24 21:04 Dose: 3 ml Amitriptyline HCl (Amitriptyline Hcl 50 Mg Tab) 150 mg PO [facility] Last Admin: 04/24/24 20:04 Dose: 150 mg Budesonide (Budesonide 1 Mg/2 Ml Nebu) 1 mg INHALATION RT-BID [facility] Last Admin: 04/24/24 21:04 Dose: 1 mg Calcium Carbonate/Glycine (Calcium Carbonate 500 Mg Chewable) 500 mg PO QID PRN PRN Reason: Heartburn Last Admin: 04/24/24 20:04 Dose: 500 mg Cyclobenzaprine HCl (Cyclobenzaprine 10 Mg Tab) 10 mg PO [facility] Last Admin: 04/24/24 20:05 Dose: 10 mg Dextrose/Water (Dextrose 50% Syringe 50 Ml) 25 ml IVP PER PROTOCOL PRN; Protocol PRN Reason: Hypoglycemia Dextrose/Water (Dextrose 50% Syringe 50 Ml) 50 ml IVP PER PROTOCOL PRN; Protocol PRN Reason: Hypoglycemia Formoterol Fumarate (Formoterol Fumarate 20 Mcg/2 Ml Nebu) 20 mcg INHALATION RT-BID [facility] Last Admin: 04/24/24 21:04 Dose: 20 mcg Guaifenesin (Guaifenesin 600 Mg Tablet.Er) 1,200 mg PO Q12HR [facility] Last Admin: 04/24/24 20:05 Dose: 1,200 mg Heparin Sodium (Porcine) (Heparin Sodium,Porcine 5,000 Unit/Ml 1 Ml Vial) 5,000 unit SQ Q12HR [facility] Last Admin: 04/24/24 20:05 Dose: 5,000 unit Cefazolin Sodium 2 gm/ Sodium (Chloride) 50 mls @ 100 mls/hr IVPB Q8HR [facility] Last Admin: 04/24/24 15:40 Dose: 100 mls/hr Insulin Glargine (Insulin Glargine (Lantus) 100 Unit/Ml Syr) 10 unit SQ DAILY@0700 [facility] Last Admin: 04/24/24 08:13 Dose: 10 unit Insulin Human Lispro (Insulin Lispro (Humalog) 100 Unit/Ml 10 Ml Vl) 0 unit SQ ACHS [facility]; Protocol Last Admin: 04/24/24 16:49 Dose: Not Given Metoprolol Tartrate (Metoprolol Tartrate 25 Mg Tab) 25 mg PO BID [facility] Last Admin: 04/24/24 20:05 Dose: 25 mg Miscellaneous Information (Potassium Replacement Protocol 1 Each Misc) 1 each MISCELLANE DAILY PRN; Protocol PRN Reason: Per Protocol Miscellaneous Information (Phosphorus Replacement Protoco 1 Each Misc) 1 each MISCELLANE DAILY PRN; Protocol PRN Reason: Per Protocol Miscellaneous Information (Potassium Replacement Protocol 1 Each Misc) 1 each MISCELLANE DAILY PRN; Protocol PRN Reason: Per Protocol Montelukast Sodium (Montelukast 10 Mg Tab) 10 mg PO HS [facility] Last Admin: 04/24/24 20:05 Dose: 10 mg Morphine Sulfate (Morphine Sulfate 4 Mg/Ml Syringe) 4 mg IV Q4HR PRN PRN Reason: Severe Pain (Scale 7 to 10) Last Admin: 04/24/24 20:06 Dose: 4 mg Naloxone HCl (Naloxone 0.4 Mg/Ml 1 Ml Vial) 0.2 mg IV Q2M PRN PRN Reason: Opioid Reversal Nystatin (Nystatin 100,000 Unit/Ml Susp 500,000 Unit/5 Ml Cup) 500,000 unit PO QID [facility]; Protocol Last Admin: 04/24/24 18:15 Dose: 500,000 unit Ondansetron HCl (Ondansetron 4 Mg/2 Ml Vial) 4 mg IVP Q8HR PRN PRN Reason: Nausea And Vomiting Oxybutynin Chloride (Oxybutynin 15 Mg Tab.Er.24) 30 mg PO DAILY [facility] Last Admin: 04/24/24 08:14 Dose: 30 mg On examination: VITAL SIGNS: [99.4, 100, 18, moderate by 74, 93% on 2 L] GENERAL APPEARANCE: Reclining in a recliner. Tired. Congested cough.. HEENT: Normal external appearance of nose and ear. Oral cavity normal EYES: Pupils equal. Conjunctiva normal. NECK: JVD not raised. Mass not palpable. RESPIRATORY: Respiratory effort increased. Lungs some scattered crackles. CARDIOVASCULAR: First and second sounds normal. No edema. ABDOMEN: Soft. Liver and spleen not palpable. No tenderness. No mass palpable. PSYCHIATRY: Alert and oriented x3. Mood and affect tired INVESTIGATIONS, reviewed in the clinical context: April 24: White count 7.6 hemoglobin 12.1 platelets 374 sodium 136 creatinine 0.4 Blood culture [April 19] Staph aureus. [April 21: Negative] Chest x-ray film personally reviewed by me-[April 24] bilateral infiltrates, pleural effusion 2D echo: EF 50 to 55%. Assessment and plan Severe sepsis: Bilateral pneumonia, with possible parapneumonic effusion: Slow to respond Acute hypoxic respiratory failure from pneumonia/effusion: Slow to respond Chronic hypoxic respiratory failure. On 2 L oxygen at home Staph aureus bacteremia Hypotension: Lactic acidosis: Mild DKA: Resolved Recent influenza A infection Asthma/COPD: Diabetes mellitus: Poorly controlled Hypertension Hyperlipidemia GERD Morbid obesity with BMI of 32.8 Acute transaminitis Continue IV cefazolin. Other medications.
[2024-04-25 01:58] LABS: Glucose,Whole Blood 184 mg/dL (70-110)
[2024-04-25 06:18] LABS: Glucose,Whole Blood 133 mg/dL (70-110)
[2024-04-25 11:34] LABS: Glucose,Whole Blood 161 mg/dL (70-110)
--- NOTE | 2024-04-25 13:31 | XR ---
EXAMINATION TYPE: XR chest 1V DATE OF EXAM: 04/25/2024 1:07 PM COMPARISON: Chest radiographs from 04/24/2024. CLINICAL INDICATION: Female, 58 years old with history of Staphylococcal pneumonia; [facility] TECHNIQUE: XR chest 1V Frontal view of the chest. FINDINGS: Lungs/Pleura: Similar multifocal airspace opacities. No evidence of pneumothorax there is evidence of bilateral pleural effusion. Pulmonary vascularity: Unremarkable. Heart/mediastinum: Cardiomediastinal silhouette is unremarkable. Musculoskeletal: No acute osseous pathology. IMPRESSION: 1. Similar multifocal airspace opacities. 2. Bilateral pleural effusions. [facility], , 04/25/2024 1:28 PM
--- NOTE | 2024-04-25 14:33 | P.PN ---
Subjective Progress Note Date: 04/25/24 Principal diagnosis: Reason for follow-up is pneumonia and bacteremia Patient is a 58-year-old female with a past medical history significant for COPD diabetes mellitus osteoarthritis and seizure disorder has been diagnosed with influenza A about a week and a half before presentation to the hospital subsequently presented to the hospital with increasing shortness of breath and cough has been diagnosed with pneumonia blood culture positive for MSSA. On today's evaluation that is 04/25/2024, Patient is afebrile this morning patient seem to be more sleepy today she is currently on 2 L nasal oxygen and have a congested cough no vomiting diarrhea and the changes reported by the nursing staff. No CBC was done today blood culture repeat has been negative chest x-ray with bilateral multifocal infiltrate and effusion Objective - Vital Signs Vital signs: Vital Signs Temp 98.1 F 04/25/24 08:30 Pulse 96 04/25/24 11:55 Resp 18 04/25/24 11:55 BP 108/72 04/25/24 11:55 Pulse Ox 93 L 04/25/24 11:55 FiO2 Intake & Output 04/24/24 04/25/24 04/25/24 18:59 06:59 18:59 Intake Total 0 Output Total 500 0 0 Balance -500 0 0 Weight 82.5 kg Intake: Oral 0 Output: Urine 500 0 Stool 0 0 Other: Voiding Method Toilet Toilet Toilet Bedside Commode Bedside Commode Bedside Commode Diaper Diaper Diaper # Voids 1 1 - Exam GENERAL DESCRIPTION: Middle-age female up in bed in no distress RESPIRATORY SYSTEM: Unlabored breathing , coarse breath sounds bilaterally HEART: S1 S2 regular rate and rhythm , ABDOMEN: Soft , no tenderness EXTREMITIES: No edema feet - Labs CBC & Chem 7: 04/24/24 07:00 04/24/24 07:00 Labs: Abnormal Lab Results - Last 24 Hours (Table) 04/24/24 04/24/24 04/25/24 Range/Units 16:31 20:33 01:57 POC Glucose (mg/dL) 141 H 142 H 184 H (70-110) mg/dL 04/25/24 04/25/24 Range/Units 06:15 11:32 POC Glucose (mg/dL) 133 H 161 H (70-110) mg/dL Microbiology - Last 24 Hours (Table) 04/24/24 18:20 Gram Stain - Preliminary Sputum 04/21/24 06:39 Blood Culture - Preliminary Blood Assessment and Plan (1) Sepsis Current Visit: Yes Status: Acute Code(s): A41.9 - SEPSIS, UNSPECIFIED ORGANISM SNOMED Code(s): 01798691 (2) Pneumonia Current Visit: Yes Status: Acute Code(s): J18.9 - PNEUMONIA, UNSPECIFIED ORGANISM SNOMED Code(s): 320715565 (3) Allergy to sulfa drugs Current Visit: Yes Status: Acute Code(s): Z88.2 - ALLERGY STATUS TO SULFONAMIDES SNOMED Code(s): 41223859 Plan: 1patient presented to hospital with sepsis in this patient noted to have fever tachycardia elevated white count meeting criteria for SIRS source is likely pneumonia in this patient who recently did have a influenza A but not treated with evidence of bibasilar and right middle lung airspace opacity concerning for pneumonia will need to cover for Staph aureus that is commonly associated post influenza pneumonia 2-blood culture has been positive for MSSA sputum culture has not been collected, blood culture has been and so far 3-patient chest x-ray suggestive of bilateral multifocal infiltrate and effusion we will repeat his CBC with a.m. lab if any further worsening of the white count check a CT of the chest for now continue cefazolin Dictation was produced using [employer] dictation software. please excuse any grammatical, word or spelling errors. Time with Patient: Less than 30
[2024-04-25 16:25] LABS: Glucose,Whole Blood 127 mg/dL (70-110)
--- NOTE | 2024-04-25 16:58 | P.PN ---
Subjective Progress Note Date: 04/25/24 On 04/24/2024, patient is being seen for a follow-up. The patient is extensive lower lobe pneumonia left more than right with secondary hypoxic respiratory failure. Blood culture was positive for Staph aureus/MSSA. The patient is currently on IV cefazolin. Still feeling weak. She continues to have a c ongested cough. She was offered a flutter valve. She will be also given incentive spirometer. She remains on DuoNeb treatments [id number]. She is also on Perforomist and Pulmicort nebulized treatments twice a day. Rest of the medications remain unchanged. She is on Lantus insulin 10 units daily and sliding scale coverage. She is on heparin subcu for DVT prophylaxis. The b chest x-ray from today shows extensive consolidation in the left upper lobe and the left lower lobe. There is also similar consolidation in the right lung base with possible development of a right-sided pleural effusion. There is a large gastric bubble. Echocardiogram that was done on this patient on 04/20/2024 shows a preserved LV function with an ejection fraction of 50 to 55%. No significant valvular abnormalities. Abdominal ultrasound was also done on 04/23/2024 showing cholecystectomy changes without any hepatic abnormalities. The patient's white cell count at 17.6 which remains quite elevated with a hemoglobin 12.1 and a platelet count of 374. BUN 17 with a creatinine of 0.4. LFTs are improving. AST is down to 87 with an ALT of 44 and alkaline phosphatase of 234. Bilirubin is at 0.5. 04/25/2024, the patient is on 2 L of oxygen by nasal cannula. Has a congested cough. Unable to bring up much of sputum. Her cough is weak and she is unable to perform adequate pulmonary toileting. A repeat chest x-ray was done and it showed similar multifocal airspace disease and bilateral pleural effusions. The patient remains on IV antibiotics. The patient remains on IV cefazolin for MSSA pneumonia and secondary bacteremia. Rest of the medication remains unchanged. She remains on DuoNeb. She remains on Perforomist and Pulmicort nebulized treatments twice a day. Her blood work shows a white cell count of 17.6 from yesterday. BUN 17 with a creatinine of 0.4. Mild transaminitis with elevation of the LFTs which is also improving. Provided flutter valve. Provide incentive spirometer. Discussed the case with the primary care team and ID. Will do a bronchoscopy for therapeutic airway suctioning in a.m. Objective - Vital Signs Vital signs: Vital Signs Temp 98.1 F 04/25/24 08:30 Pulse 108 H 04/25/24 11:06 Resp 17 04/25/24 08:30 BP 131/81 04/25/24 08:30 Pulse Ox 90 L 04/25/24 08:30 FiO2 Intake & Output 04/24/24 04/25/24 04/25/24 18:59 06:59 18:59 Intake Total 0 Output Total 500 0 0 Balance -500 0 0 Weight 82.5 kg Intake: Oral 0 Output: Urine 500 0 Stool 0 0 Other: Voiding Method Toilet Toilet Toilet Bedside Commode Bedside Commode Bedside Commode Diaper Diaper Diaper # Voids 1 1 - Exam No acute distress, oriented 3. Nurse of breath. The patient is currently on 2 L of O2 nasal cannula HEENT examination is grossly unremarkable. Mucous membranes are moist. No oral lesions. Neck supple. Full range of motion. No adenopathy thyromegaly or neck vein distention. Cardiovascular examination reveals regular rhythm rate. S1-S2 normal. No S3 or S4. No discernible murmur noted. Lungs reveal bilateral inspiratory and expiratory rhonchi. Few scattered crackles are noted. No wheezes. Breath sounds are equal bilaterally. Cough is wet and congested sounding. Abdomen soft bowel sounds are heard. No masses or tenderness. Extremities are intact. No cyanosis clubbing or edema. Skin is without rash or lesion. Neurologic examination is brief but nonfocal. - Labs CBC & Chem 7: 04/24/24 07:00 04/24/24 07:00 Labs: Abnormal Lab Results - Last 24 Hours (Table) 04/24/24 04/24/24 04/25/24 Range/Units 16:31 20:33 01:57 POC Glucose (mg/dL) 141 H 142 H 184 H (70-110) mg/dL 04/25/24 Range/Units 06:15 POC Glucose (mg/dL) 133 H (70-110) mg/dL Microbiology - Last 24 Hours (Table) 04/24/24 18:20 Gram Stain - Preliminary Sputum 04/21/24 06:39 Blood Culture - Preliminary Blood Assessment and Plan Plan: Acute bilateral staphylococcal pneumonia left more than right and the patient continues to have dense consolidation of the left lung and bilateral pleural effusion. The patient remains on IV cefazolin. Repeat chest x-ray from today shows multifocal airspace disease along with bilateral pleural effusions Methicillin sensitive staphylococcal aureus bacteremia, on IV cefazolin Acute hypoxemic respiratory failure, secondary to above. The patient is currently on 2 L of oxygen by nasal cannula Acute leukocytosis Lactic acidosis, improving. Anion gap metabolic acidosis, improved Mild DKA, resolved. Recent influenza infection. Asthma/COPD. Diabetes mellitus type II. History of hypertension. History of hyperlipidemia . Gastroesophageal reflux disease. Obesity, with a BMI of 32.8 kg/m. Plan: Wean FiO2 to maintain oxygen saturation above 90%, currently on 2 L Continue IV cefazolin Repeat chest x-ray from today was noted Provide incentive spirometer and continue using the flutter valve Continue the same bronchodilators Keep n.p.o. after midnight and the patient will have a bronchoscopy tomorrow for therapeutic airway suctioning Start Lasix 20 mg IV every 12 hours Repeat chest x-ray in the morning Rest of the medication will be kept unchanged. Aggressive pulmonary toileting. Will continue to follow. Time with Patient: Greater than 30
--- NOTE | 2024-04-25 17:09 | P.PN ---
Progress Note - Text Progress Note Date: 04/25/24 58-year-old female with past medical history significant for type 2 diabetes mellitus, history of COPD/asthma on home inhalers, on 2 L oxygen nightly, hypertension, hyperlipidemia, GERD who presented to ER with a complaint of significant shortness of breath. Patient reported that she had flulike symptoms last Wednesday, went to PCP office on Wednesday and was diagnosed with influenza, patient was outside the window for Tamiflu, was treated with steroid burst taper and cough suppressants. Patient stated that she felt better initially, but her symptoms started to get worse later on. Patient also reported having fever and chills at home. Patient reported productive cough, worsening shortness of breath. Patient denied any headache, chest pain, palpitations, nausea vomiting diarrhea constipation abdominal pain dysuria urgency frequency weakness or numbness to extremities. In the ED patient had a Tmax of 102.1, was initially tachycardic with heart rate in the 130s, tachypneic, blood pressure 10 initially was 112/65, required 2 L oxygen. WBCs 8.0, hemoglobin 14.0, platelet 405. Absolute neutrophils 6.8. VBG showed pH 7.34, pCO2 28, HCO3 15. Sodium 135 potassium 4.3 chloride 101 BUN 19 creatinine 0.64. Lactic acid was 4.2, received fluid boluses, trended down, today 2.2. LFTs were unremarkable except mildly elevated bilirubin 1.6. NT proBNP was 7700. Procalcitonin was 8.68. UA was negative. Viral panel was negative. CT chest showed no PE, showed bilateral pneumonia, small bilateral pleural effusions. 04/20--- patient was seen and examined today. Patient is afebrile, tachycardic, respiratory rate 17, blood pressure 108/68, better as compared to yesterday. Saturating 96% on 5 L. WBCs 12.5, hemoglobin 11.5, platelet 331. BMP is unremarkable. HbA1c is 14.3. Echocardiogram done which showed normal ventricle systolic function, mild MR and TR. No pericardial effusion. Will discontinue IV fluids due to concern of fluid overload, will monitor blood pressure closely. Patient remains on vancomycin Rocephin and doxycycline, infectious disease consulted. Pulmonary following. Will try IV diuresis if blood pressure better. 04/21--patient was seen and examined today. Continues complain of productive cough, shortness of breath, generalized weakness and fatigue. Remained afebrile, still quite tachycardic with heart rate in 110s, respiratory rate 20, blood pressure better 119/79, saturating 93% on 4 L. Blood culture came back positive for Staph aureus, antibiotics changed to cefazolin per infectious disease. Started on low-dose metoprolol for heart rate control. Will try low- dose IV Lasix if blood pressure remains stable. 04/22. Patient seen and examined. Vital signs of this morning showed heart rate 122, respiration 20, blood pressure 111/83, currently on 3 L of oxygen. LFTs were elevated. Patient also complaining of coughing when swallowing. Speech evaluation ordered 04/23. Patient seen and examined. Blood work done this morning showed WBC 15.5, hemoglobin 12.5, platelet count 69, sodium 130, potassium 3.5, BUN 16, creatinine 0.53, glucose 167, AST 176, ALT 76. Continues to have cough, nonproductive. April 24: Up in recliner. Short of breath. Congested cough able unable to expectorate. Patient has a flutter valve. Also humidified oxygen. Home oxygen 2 L. Decreased appetite. Tired. IV cefazolin. Follow-up with pulmonary and ID. April 25: Reclining in bed. Congested chest. Not able to expectorate. Humidified oxygen. 2 L. Poor appetite. Discussed with Dr. Mireles. Planning for bronchoscopy with lavage tomorrow. IV cefazolin. Active Medications Acetaminophen (Acetaminophen Tab 325 Mg Tab) 650 mg PO Q6HR PRN PRN Reason: Mild Pain or Fever > 100.5 Last Admin: 04/23/24 21:27 Dose: 650 mg Albuterol/Ipratropium (Ipratropium-Albuterol 3 Ml Neb) 3 ml INHALATION RT-QID [facility] Last Admin: 04/25/24 14:48 Dose: 3 ml Amitriptyline HCl (Amitriptyline Hcl 50 Mg Tab) 150 mg PO HS [facility] Last Admin: 04/24/24 20:04 Dose: 150 mg Budesonide (Budesonide 1 Mg/2 Ml Nebu) 1 mg INHALATION RT-BID [facility] Last Admin: 04/25/24 07:39 Dose: 1 mg Calcium Carbonate/Glycine (Calcium Carbonate 500 Mg Chewable) 500 mg PO QID PRN PRN Reason: Heartburn Last Admin: 04/24/24 20:04 Dose: 500 mg Cyclobenzaprine HCl (Cyclobenzaprine 10 Mg Tab) 10 mg PO [facility] Last Admin: 04/24/24 20:05 Dose: 10 mg Dextrose/Water (Dextrose 50% Syringe 50 Ml) 25 ml IVP PER PROTOCOL PRN; Protocol PRN Reason: Hypoglycemia Dextrose/Water (Dextrose 50% Syringe 50 Ml) 50 ml IVP PER PROTOCOL PRN; Protocol PRN Reason: Hypoglycemia Formoterol Fumarate (Formoterol Fumarate 20 Mcg/2 Ml Nebu) 20 mcg INHALATION RT-BID [facility] Last Admin: 04/25/24 07:39 Dose: 20 mcg Furosemide (Furosemide 10 Mg/Ml 2 Ml Vial) 20 mg IV Q12HR [facility] Guaifenesin (Guaifenesin 600 Mg Tablet.Er) 1,200 mg PO Q12HR [facility] Last Admin: 04/25/24 08:35 Dose: 1,200 mg Cefazolin Sodium 2 gm/ Sodium (Chloride) 50 mls @ 100 mls/hr IVPB Q8HR [facility] Last Admin: 04/25/24 15:48 Dose: 100 mls/hr Insulin Glargine (Insulin Glargine (Lantus) 100 Unit/Ml Syr) 10 unit SQ DAILY@0700 [facility] Last Admin: 04/25/24 06:27 Dose: 10 unit Insulin Human Lispro (Insulin Lispro (Humalog) 100 Unit/Ml 10 Ml Vl) 0 unit SQ ACHS [facility]; Protocol Last Admin: 04/25/24 16:42 Dose: Not Given Metoprolol Tartrate (Metoprolol Tartrate 25 Mg Tab) 25 mg PO BID [facility] Last Admin: 04/25/24 08:35 Dose: 25 mg Miscellaneous Information (Potassium Replacement Protocol 1 Each Misc) 1 each MISCELLANE DAILY PRN; Protocol PRN Reason: Per Protocol Miscellaneous Information (Phosphorus Replacement Protoco 1 Each Misc) 1 each MISCELLANE DAILY PRN; Protocol PRN Reason: Per Protocol Miscellaneous Information (Potassium Replacement Protocol 1 Each Misc) 1 each MISCELLANE DAILY PRN; Protocol PRN Reason: Per Protocol Montelukast Sodium (Montelukast 10 Mg Tab) 10 mg PO [facility] Last Admin: 04/24/24 20:05 Dose: 10 mg Morphine Sulfate (Morphine Sulfate 4 Mg/Ml Syringe) 4 mg IV Q4HR PRN PRN Reason: Severe Pain (Scale 7 to 10) Last Admin: 04/25/24 03:36 Dose: 4 mg Naloxone HCl (Naloxone 0.4 Mg/Ml 1 Ml Vial) 0.2 mg IV Q2M PRN PRN Reason: Opioid Reversal Nystatin (Nystatin 100,000 Unit/Ml Susp 500,000 Unit/5 Ml Cup) 500,000 unit PO QID [facility]; Protocol Last Admin: 04/25/24 11:54 Dose: 500,000 unit Ondansetron HCl (Ondansetron 4 Mg/2 Ml Vial) 4 mg IVP Q8HR PRN PRN Reason: Nausea And Vomiting Oxybutynin Chloride (Oxybutynin 15 Mg Tab.Er.24) 30 mg PO DAILY [facility] Last Admin: 04/25/24 08:35 Dose: 30 mg On examination: VITAL SIGNS: 98.1, 108, 17, 138 x 81, 90% on 2 L GENERAL APPEARANCE: In bed. Tired. Congested wet cough.. HEENT: Normal external appearance of nose and ear. Oral cavity normal EYES: Pupils equal. Conjunctiva normal. NECK: JVD not raised. Mass not palpable. RESPIRATORY: Respiratory effort increased. Lungs inspiratory and expiratory scattered crackles. CARDIOVASCULAR: First and second sounds normal. No edema. ABDOMEN: Soft. Liver and spleen not palpable. No tenderness. No mass palpable. PSYCHIATRY: Alert and oriented x3. Mood and affect tired INVESTIGATIONS, reviewed in the clinical context: April 24: White count 7.6 hemoglobin 12.1 platelets 374 sodium 136 creatinine 0.4 Blood culture [April 19] Staph aureus. [April 21: Negative] Chest x-ray film personally reviewed by me-[April 24] bilateral infiltrates, pleural effusion 2D echo: EF 50 to 55%. Assessment and plan Severe sepsis: Bilateral pneumonia, with possible parapneumonic effusion: Slow to respond Acute hypoxic respiratory failure from pneumonia/effusion: Slow to respond Chronic hypoxic respiratory failure. On 2 L oxygen at home Staph aureus bacteremia Hypotension: Lactic acidosis: Mild DKA: Resolved Recent influenza A infection Asthma/COPD: Diabetes mellitus: Type II, chronically on insulin Essential hypertension Hyperlipidemia GERD obesity with BMI of 32.8 Acute transaminitis Continue IV cefazolin. Discussed with Dr. Mireles from pulmonary. For bronchoscopy with lavage tomorrow.
[2024-04-25] MEDS: ENOXAPARIN 40 MG/0.4 ML SYRINGE SQ SCH (17:31)
[2024-04-25 20:06] LABS: Glucose,Whole Blood 148 mg/dL (70-110)
[2024-04-25] MEDS: FUROSEMIDE 10 MG/ML 2 ML VIAL IV SCH (20:30)
[2024-04-26 06:43] LABS: Glucose,Whole Blood 177 mg/dL (70-110)
[2024-04-26 07:32] LABS: ALT 23 U/L (4-34); AST 38 U/L (14-36); African American GFR (CKD) >90 (>60 ml/min/1.73 sqM); Albumin 2.3 g/dL (3.5-5.0); Alkaline Phosphatase 157 U/L (38-126); Anion Gap 13 mmol/L; Blood Urea Nitrogen 23 mg/dL (7-17); Calcium 8.5 mg/dL (8.4-10.2); Carbon Dioxide 24 mmol/L (22-30); Chloride 100 mmol/L (98-107); Glucose 192 mg/dL (74-99); Non-African American GFR(CKD) >90 (>60 ml/min/1.73 sqM); Potassium 2.9 mmol/L (3.5-5.1); Sodium 137 mmol/L (137-145); Total Bilirubin 0.6 mg/dL (0.2-1.3); Total Protein 4.8 g/dL (6.3-8.2)
[2024-04-26 07:37] LABS: Basophils # (A) 0.1 k/uL (0-0.2); Basophils % (A) 0 %; Eosinophils % (A) 0 %; HGB 11.3 gm/dL (11.4-16.0); Hypochromasia Slight; Lymphocytes # (A) 1.4 k/uL (1.0-4.8); Lymphocytes % (A) 6 %; MCH 28.3 pg (25.0-35.0); MCHC 31.5 g/dL (31.0-37.0); MCV 90.1 fL (80.0-100.0); Mean Platelet Volume 8.9; Monocytes # (A) 1.4 k/uL (0-1.0); Monocytes % (A) 5 %; Neutrophils # (A) 22.5 k/uL (1.3-7.7); Neutrophils % (A) 88 %; Platelet Count 413 k/uL (150-450); RDW 13.9 % (11.5-15.5); WBC 25.7 k/uL (3.8-10.6)
[2024-04-26] MEDS ORDERED: RX INFO: IV CONTRAST WAS GIVEN 1 EACH MISC MISCELLANE PRN (11:23)
[2024-04-26 11:29] LABS: Glucose,Whole Blood 234 mg/dL (70-110)
[2024-04-26] MEDS ORDERED: LIDOCAINE 1% INJ 10MG/ML (20 ML MDV) ONE (13:55)
[2024-04-26] MEDS ORDERED: SUCCINYLCHOLINE CHLORIDE 200 MG/10 ML VIAL IV ONE (13:55)
[2024-04-26] MEDS ORDERED: PHENYLEPHRINE 10 MG/ML VIAL ONE (13:55)
[2024-04-26] MEDS ORDERED: PROPOFOL 10 MG/ML 20 ML VIAL IV ONE (13:55)
[2024-04-26] MEDS: LACTATED RINGERS 1,000 ML IV ONE (14:01)
[2024-04-26] MEDS: OXYMETAZOLINE 0.05% NASL SPRAY 1 SPRAY BOTTLE NASAL ONE (14:20)
[2024-04-26] MEDS: SODIUM CHLORIDE 0.9% 500 ML 500 ML IV ONE (14:24)
[2024-04-26 16:24] LABS: Glucose,Whole Blood 209 mg/dL (70-110)
[2024-04-26] MEDS: POTASSIUM CHLORIDE ER 20 MEQ TAB.ER PO SCH (16:49)
--- NOTE | 2024-04-26 17:19 | P.PN ---
Subjective Progress Note Date: 04/26/24 Principal diagnosis: Reason for follow-up is pneumonia and bacteremia Patient is a 58-year-old female with a past medical history significant for COPD diabetes mellitus osteoarthritis and seizure disorder has been diagnosed with influenza A about a week and a half before presentation to the hospital subsequently presented to the hospital with increasing shortness of breath and cough has been diagnosed with pneumonia blood culture positive for MSSA. On today's evaluation that is 04/26/2024,the patient denies any fever or any chills, patient is breathing slightly comfortably on 4 L nasal cannula oxygen still having a congested cough not bringing up any sputum no abdominal pain or diarrhea. Patient white count is up to 25.7, creatinine 0.45 blood culture repeat has been negative Objective - Vital Signs Vital signs: Vital Signs Temp 97.9 F 04/26/24 08:00 Pulse 104 H 04/26/24 11:17 Resp 22 04/26/24 08:00 BP 122/76 04/26/24 08:00 Pulse Ox 92 L 04/26/24 08:00 FiO2 Intake & Output 04/25/24 04/26/24 04/26/24 18:59 06:59 18:59 Intake Total 180 Output Total 0 1300 Balance 180 -1300 Weight 82.5 kg 81 kg Intake: Oral 180 Output: Urine 1300 Stool 0 0 Other: Voiding Method Toilet Toilet Bedside Commode Bedside Commode Diaper Diaper # Voids 1 - Exam GENERAL DESCRIPTION: Middle-age female up in bed in no distress RESPIRATORY SYSTEM: Unlabored breathing , coarse breath sounds bilaterally HEART: S1 S2 regular rate and rhythm , ABDOMEN: Soft , no tenderness EXTREMITIES: No edema feet - Labs CBC & Chem 7: 04/26/24 06:20 04/26/24 06:20 Labs: Abnormal Lab Results - Last 24 Hours (Table) 04/25/24 04/25/24 04/25/24 Range/Units 11:32 16:24 20:05 WBC (3.8-10.6) k/uL Hgb (11.4-16.0) gm/dL Neutrophils # (1.3-7.7) k/uL Monocytes # (0-1.0) k/uL Potassium (3.5-5.1) mmol/L BUN (7-17) mg/dL Creatinine (0.52-1.04) mg/dL Glucose (74-99) mg/dL POC Glucose (mg/dL) 161 H 127 H 148 H (70-110) mg/dL AST (14-36) U/L Alkaline Phosphatase (38-126) U/L C-Reactive Protein (<1.0) mg/dL Total Protein (6.3-8.2) g/dL Albumin (3.5-5.0) g/dL 04/26/24 04/26/24 04/26/24 Range/Units 06:20 06:20 06:42 WBC 25.7 H (3.8-10.6) k/uL Hgb 11.3 L (11.4-16.0) gm/dL Neutrophils # 22.5 H (1.3-7.7) k/uL Monocytes # 1.4 H (0-1.0) k/uL Potassium 2.9 L (3.5-5.1) mmol/L BUN 23 H (7-17) mg/dL Creatinine 0.45 L (0.52-1.04) mg/dL Glucose 192 H (74-99) mg/dL POC Glucose (mg/dL) 177 H (70-110) mg/dL AST 38 H (14-36) U/L Alkaline Phosphatase 157 H (38-126) U/L C-Reactive Protein 34.0 H (<1.0) mg/dL Total Protein 4.8 L (6.3-8.2) g/dL Albumin 2.3 L (3.5-5.0) g/dL Assessment and Plan (1) Sepsis Current Visit: Yes Status: Acute Code(s): A41.9 - SEPSIS, UNSPECIFIED ORGANISM SNOMED Code(s): 33958405 (2) Pneumonia Current Visit: Yes Status: Acute Code(s): J18.9 - PNEUMONIA, UNSPECIFIED ORGANISM SNOMED Code(s): 199384473 (3) Allergy to sulfa drugs Current Visit: Yes Status: Acute Code(s): Z88.2 - ALLERGY STATUS TO SULFONAMIDES SNOMED Code(s): 44282841 Plan: 1patient presented to hospital with sepsis in this patient noted to have fever tachycardia elevated white count meeting criteria for SIRS source is likely pneumonia in this patient who recently did have a influenza A but not treated with evidence of bibasilar and right middle lung airspace opacity concerning for pneumonia will need to cover for Staph aureus that is commonly associated post influenza pneumonia 2-blood culture has been positive for MSSA sputum culture has not been collected, blood culture has been and so far 3-patient chest x-ray suggestive of bilateral multifocal infiltrate and effusion, patient apparently scheduled for a bronchoscopy lavage this afternoon by pulmonary as per discussion with admitting physician if the patient did not have improvement after the lavage may need to have a repeat CT for now continue with the cefazolin Dictation was produced using [employer] dictation software. please excuse any gra mmatical, word or spelling errors. Time with Patient: Less than 30
--- NOTE | 2024-04-26 17:32 | P.PN ---
Progress Note - Text Progress Note Date: 04/26/24 58-year-old female with past medical history significant for type 2 diabetes mellitus, history of COPD/asthma on home inhalers, on 2 L oxygen nightly, hypertension, hyperlipidemia, GERD who presented to ER with a complaint of significant shortness of breath. Patient reported that she had flulike symptoms last Wednesday, went to PCP office on Wednesday and was diagnosed with influenza, patient was outside the window for Tamiflu, was treated with steroid burst taper and cough suppressants. Patient stated that she felt better initially, but her symptoms started to get worse later on. Patient also reported having fever and chills at home. Patient reported productive cough, worsening shortness of breath. Patient denied any headache, chest pain, palpitations, nausea vomiting diarrhea constipation abdominal pain dysuria urgency frequency weakness or numbness to extremities. In the ED patient had a Tmax of 102.1, was initially tachycardic with heart rate in the 130s, tachypneic, blood pressure 10 initially was 112/65, required 2 L oxygen. WBCs 8.0, hemoglobin 14.0, platelet 405. Absolute neutrophils 6.8. VBG showed pH 7.34, pCO2 28, HCO3 15. Sodium 135 potassium 4.3 chloride 101 BUN 19 creatinine 0.64. Lactic acid was 4.2, received fluid boluses, trended down, today 2.2. LFTs were unremarkable except mildly elevated bilirubin 1.6. NT proBNP was 7700. Procalcitonin was 8.68. UA was negative. Viral panel was negative. CT chest showed no PE, showed bilateral pneumonia, small bilateral pleural effusions. 04/20--- patient was seen and examined today. Patient is afebrile, tachycardic, respiratory rate 17, blood pressure 108/68, better as compared to yesterday. Saturating 96% on 5 L. WBCs 12.5, hemoglobin 11.5, platelet 331. BMP is unremarkable. HbA1c is 14.3. Echocardiogram done which showed normal ventricle systolic function, mild MR and TR. No pericardial effusion. Will discontinue IV fluids due to concern of fluid overload, will monitor blood pressure closely. Patient remains on vancomycin Rocephin and doxycycline, infectious disease consulted. Pulmonary following. Will try IV diuresis if blood pressure better. 04/21--patient was seen and examined today. Continues complain of productive cough, shortness of breath, generalized weakness and fatigue. Remained afebrile, still quite tachycardic with heart rate in 110s, respiratory rate 20, blood pressure better 119/79, saturating 93% on 4 L. Blood culture came back positive for Staph aureus, antibiotics changed to cefazolin per infectious disease. Started on low-dose metoprolol for heart rate control. Will try low- dose IV Lasix if blood pressure remains stable. 04/22. Patient seen and examined. Vital signs of this morning showed heart rate 122, respiration 20, blood pressure 111/83, currently on 3 L of oxygen. LFTs were elevated. Patient also complaining of coughing when swallowing. Speech evaluation ordered 04/23. Patient seen and examined. Blood work done this morning showed WBC 15.5, hemoglobin 12.5, platelet count 69, sodium 130, potassium 3.5, BUN 16, creatinine 0.53, glucose 167, AST 176, ALT 76. Continues to have cough, nonproductive. April 24: Up in recliner. Short of breath. Congested cough able unable to expectorate. Patient has a flutter valve. Also humidified oxygen. Home oxygen 2 L. Decreased appetite. Tired. IV cefazolin. Follow-up with pulmonary and ID. April 25: Reclining in bed. Congested chest. Not able to expectorate. Humidified oxygen. 2 L. Poor appetite. Discussed with Dr. Mireles. Planning for bronchoscopy with lavage tomorrow. IV cefazolin. April 26: Patient seen this morning. Reclining bed. Remains to have very congested chest. Not able to expectorate. Scheduled for bronchoscopy lavage this afternoon. Remains on IV cefazolin. Short of breath. NPO. Active Medications Acetaminophen (Acetaminophen Tab 325 Mg Tab) 650 mg PO Q6HR PRN PRN Reason: Mild Pain or Fever > 100.5 Last Admin: 04/23/24 21:27 Dose: 650 mg Albuterol/Ipratropium (Ipratropium-Albuterol 3 Ml Neb) 3 ml INHALATION RT-QID [facility] Last Admin: 04/26/24 15:33 Dose: 3 ml Amitriptyline HCl (Amitriptyline Hcl 50 Mg Tab) 150 mg PO HS [facility] Last Admin: 04/25/24 20:29 Dose: 150 mg Budesonide (Budesonide 1 Mg/2 Ml Nebu) 1 mg INHALATION RT-BID [facility] Last Admin: 04/26/24 07:37 Dose: 1 mg Calcium Carbonate/Glycine (Calcium Carbonate 500 Mg Chewable) 500 mg PO QID PRN PRN Reason: Heartburn Last Admin: 04/24/24 20:04 Dose: 500 mg Cyclobenzaprine HCl (Cyclobenzaprine 10 Mg Tab) 10 mg PO HS [facility] Last Admin: 04/25/24 20:30 Dose: 10 mg Dextrose/Water (Dextrose 50% Syringe 50 Ml) 25 ml IVP PER PROTOCOL PRN; Protocol PRN Reason: Hypoglycemia Dextrose/Water (Dextrose 50% Syringe 50 Ml) 50 ml IVP PER PROTOCOL PRN; Protocol PRN Reason: Hypoglycemia Enoxaparin Sodium (Enoxaparin 40 Mg/0.4 Ml Syringe) 40 mg SQ DAILY [facility] Last Admin: 04/26/24 09:08 Dose: 40 mg Formoterol Fumarate (Formoterol Fumarate 20 Mcg/2 Ml Nebu) 20 mcg INHALATION RT-BID [facility] Last Admin: 04/26/24 07:36 Dose: 20 mcg Furosemide (Furosemide 10 Mg/Ml 2 Ml Vial) 20 mg IV Q12HR [facility] Last Admin: 04/26/24 09:06 Dose: 20 mg Guaifenesin (Guaifenesin 600 Mg Tablet.Er) 1,200 mg PO Q12HR [facility] Last Admin: 04/26/24 09:07 Dose: 1,200 mg Cefazolin Sodium 2 gm/ Sodium (Chloride) 50 mls @ 100 mls/hr IVPB Q8HR [facility] Last Admin: 04/26/24 16:48 Dose: 100 mls/hr Insulin Glargine (Insulin Glargine (Lantus) 100 Unit/Ml Syr) 10 unit SQ DAILY@0700 [facility] Last Admin: 04/26/24 08:49 Dose: Not Given Insulin Human Lispro (Insulin Lispro (Humalog) 100 Unit/Ml 10 Ml Vl) [address] [facility]; Protocol Last Admin: 04/26/24 16:49 Dose: 6 unit Metoprolol Tartrate (Metoprolol Tartrate 25 Mg Tab) 25 mg PO BID [facility] Last Admin: 04/26/24 09:07 Dose: 25 mg Miscellaneous Information (Potassium Replacement Protocol 1 Each Misc) 1 each MISCELLANE DAILY PRN; Protocol PRN Reason: Per Protocol Miscellaneous Information (Phosphorus Replacement Protoco 1 Each Misc) 1 each MISCELLANE DAILY PRN; Protocol PRN Reason: Per Protocol Miscellaneous Information (Potassium Replacement Protocol 1 Each Misc) 1 each MISCELLANE DAILY PRN; Protocol PRN Reason: Per Protocol Miscellaneous Information (Rx Info: Iv Contrast Was Given 1 Each Misc) 1 each MISCELLANE DAILY PRN PRN Reason: Per Protocol Stop: 04/28/24 11:23 Montelukast Sodium (Montelukast 10 Mg Tab) 10 mg PO HS [facility] Last Admin: 04/25/24 20:29 Dose: 10 mg Morphine Sulfate (Morphine Sulfate 4 Mg/Ml Syringe) 4 mg IV Q4HR PRN PRN Reason: Severe Pain (Scale 7 to 10) Last Admin: 04/26/24 16:53 Dose: 4 mg Naloxone HCl (Naloxone 0.4 Mg/Ml 1 Ml Vial) 0.2 mg IV Q2M PRN PRN Reason: Opioid Reversal Nystatin (Nystatin 100,000 Unit/Ml Susp 500,000 Unit/5 Ml Cup) 500,000 unit PO QID [facility]; Protocol Last Admin: 04/26/24 12:40 Dose: Not Given Ondansetron HCl (Ondansetron 4 Mg/2 Ml Vial) 4 mg IVP Q8HR PRN PRN Reason: Nausea And Vomiting Oxybutynin Chloride (Oxybutynin 15 Mg Tab.Er.24) 30 mg PO DAILY [facility] Last Admin: 04/26/24 09:07 Dose: 30 mg Potassium Chloride (Potassium Chloride Er 20 Meq Tab.Er) 20 meq PO Q1HR [facility]; Protocol Stop: 04/26/24 19:01 Last Admin: 04/26/24 16:49 Dose: 20 meq On examination: VITAL SIGNS: 98, 110, 20, 119 x 72, 93% on 2 L GENERAL APPEARANCE: In bed. Tired. Congested wet cough.. HEENT: Normal external appearance of nose and ear. Oral cavity normal EYES: Pupils equal. Conjunctiva normal. NECK: JVD not raised. Mass not palpable. RESPIRATORY: Respiratory effort increased. Lungs inspiratory and expiratory scattered crackles. CARDIOVASCULAR: First and second sounds normal. No edema. ABDOMEN: Soft. Liver and spleen not palpable. No tenderness. No mass palpable. PSYCHIATRY: Alert and oriented x3. Mood and affect tired INVESTIGATIONS, reviewed in the clinical context: April 26: White count 25.7 hemoglobin 11.3 platelets 1 3 April 24: White count 7.6 hemoglobin 12.1 platelets 374 sodium 136 creatinine 0.4 Blood culture [April 19] Staph aureus. [April 21: Negative] Chest x-ray film personally reviewed by me-[April 24] bilateral infiltrates, pleural effusion 2D echo: EF 50 to 55%. Assessment and plan -Severe sepsis, secondary to pneumonia with blood cultures positive for Staph aureus: Not improving : -Bilateral pneumonia, with possible parapneumonic effusion: Slow to respond IV cefazolin, not improving -Acute hypoxic respiratory failure from pneumonia/effusion: Slow to respond Patient scheduled for bronchoscopy with lavage today -Chronic hypoxic respiratory failure. On 2 L oxygen at home -Lactic acidosis: Secondary to sepsis Received fluids -Mild DKA: Resolved -Recent influenza A infection -Acute asthma exacerbation DuoNeb. Nebulized Pulmicort. Add Solu-Medrol 40 mg every 8 -Diabetes mellitus: Type II, chronically on insulin Follow Accu-Cheks sliding scale -Essential hypertension Lopressor -Hyperlipidemia Lipitor GERD -Obesity with BMI of 32.8 -Acute transaminitis, likely from sepsis: Improved Resume at a lower dose Lipitor Slow to respond. Due for bronchoscopy with lavage today. Resume Lipitor. Add Solu-Medrol. Follow-up with pulmonary ID
[2024-04-26] MEDS: methylPREDNISolone SOD SUCCI 40 MG/ML 1 ML VIAL IV SCH (18:03)
--- NOTE | 2024-04-26 19:01 | P.PN ---
Subjective Progress Note Date: 04/26/24 On 04/24/2024, patient is being seen for a follow-up. The patient is extensive lower lobe pneumonia left more than right with secondary hypoxic respiratory failure. Blood culture was positive for Staph aureus/MSSA. The patient is currently on IV cefazolin. Still feeling weak. She continues to have a c ongested cough. She was offered a flutter valve. She will be also given incentive spirometer. She remains on DuoNeb treatments [id number]. She is also on Perforomist and Pulmicort nebulized treatments twice a day. Rest of the medications remain unchanged. She is on Lantus insulin 10 units daily and sliding scale coverage. She is on heparin subcu for DVT prophylaxis. The b chest x-ray from today shows extensive consolidation in the left upper lobe and the left lower lobe. There is also similar consolidation in the right lung base with possible development of a right-sided pleural effusion. There is a large gastric bubble. Echocardiogram that was done on this patient on 04/20/2024 shows a preserved LV function with an ejection fraction of 50 to 55%. No significant valvular abnormalities. Abdominal ultrasound was also done on 04/23/2024 showing cholecystectomy changes without any hepatic abnormalities. The patient's white cell count at 17.6 which remains quite elevated with a hemoglobin 12.1 and a platelet count of 374. BUN 17 with a creatinine of 0.4. LFTs are improving. AST is down to 87 with an ALT of 44 and alkaline phosphatase of 234. Bilirubin is at 0.5. 04/25/2024, the patient is on 2 L of oxygen by nasal cannula. Has a congested cough. Unable to bring up much of sputum. Her cough is weak and she is unable to perform adequate pulmonary toileting. A repeat chest x-ray was done and it showed similar multifocal airspace disease and bilateral pleural effusions. The patient remains on IV antibiotics. The patient remains on IV cefazolin for MSSA pneumonia and secondary bacteremia. Rest of the medication remains unchanged. She remains on DuoNeb. She remains on Perforomist and Pulmicort nebulized treatments twice a day. Her blood work shows a white cell count of 17.6 from yesterday. BUN 17 with a creatinine of 0.4. Mild transaminitis with elevation of the LFTs which is also improving. Provided flutter valve. Provide incentive spirometer. Discussed the case with the primary care team and ID. Will do a bronchoscopy for therapeutic airway suctioning in a.m. On today's evaluation of 04/26/2024, the patient is being seen for a follow-up. The patient is being treated for bilateral pneumonia, attributed to staph. The patient was not showing adequate recovery. She continues to have congested cough. Unable to bring up much of sputum. Her coughing mechanism is quite weak. She is afebrile. She is on 4 L of oxygen by nasal cannula with a pulse ox of 92%. Based on further discussions, I decided to proceed with bronchoscopy and I performed this procedure earlier today. The patient was found to have copious amount of respiratory secretions and mucous plugging and therapeutic airway suctioning was done and another BAL of the right lower lobe was done. I cleared upper and lower airway secretions. This was done and the endoscopy suite. The patient remains on IV cefazolin. The patient remains on DuoNeb treatments [id number]. The patient remains on a combination performance of Pulmicort nebulized treatment twice a day. The patient remains on IV Solu- Medrol 40 mg every 8 hours. Following the procedure, the patient seemed to be more comfortable and there was some interval improvement in oxygenation. The white cell count is 25.7 with hemoglobin 0.8 and platelet count of 413. BUN is 23 with a creatinine of 0.4. Electrolytes are all within normal limits. Case was also discussed with her family. Objective - Vital Signs Vital signs: Vital Signs Temp 97.9 F 04/26/24 08:00 Pulse 111 H 04/26/24 08:00 Resp 22 04/26/24 08:00 BP 122/76 04/26/24 08:00 Pulse Ox 92 L 04/26/24 08:00 FiO2 Intake & Output 04/25/24 04/26/24 04/26/24 18:59 06:59 18:59 Intake Total 180 Output Total 0 1300 Balance 180 -1300 Weight 82.5 kg 81 kg Intake: Oral 180 Output: Urine 1300 Stool 0 0 Other: Voiding Method Toilet Toilet Bedside Commode Bedside Commode Diaper Diaper # Voids 1 - Exam No acute distress, oriented 3. Nurse of breath. The patient is currently on 2 L of O2 nasal cannula HEENT examination is grossly unremarkable. Mucous membranes are moist. No oral lesions. Neck supple. Full range of motion. No adenopathy thyromegaly or neck vein distention. Cardiovascular examination reveals regular rhythm rate. S1-S2 normal. No S3 or S4. No discernible murmur noted. Lungs reveal bilateral inspiratory and expiratory rhonchi, and air entry improved significantly following the bronchoscopy. Abdomen soft bowel sounds are heard. No masses or tenderness. Extremities are intact. No cyanosis clubbing or edema. Skin is without rash or lesion. Neurologic examination is brief but nonfocal. - Labs CBC & Chem 7: 04/26/24 06:20 04/26/24 06:20 Labs: Abnormal Lab Results - Last 24 Hours (Table) 04/25/24 04/25/24 04/25/24 Range/Units 11:32 16:24 20:05 WBC (3.8-10.6) k/uL Hgb (11.4-16.0) gm/dL Neutrophils # (1.3-7.7) k/uL Monocytes # (0-1.0) k/uL Potassium (3.5-5.1) mmol/L BUN (7-17) mg/dL Creatinine (0.52-1.04) mg/dL Glucose (74-99) mg/dL POC Glucose (mg/dL) 161 H 127 H 148 H (70-110) mg/dL AST (14-36) U/L Alkaline Phosphatase (38-126) U/L C-Reactive Protein (<1.0) mg/dL Total Protein (6.3-8.2) g/dL Albumin (3.5-5.0) g/dL 04/26/24 04/26/24 04/26/24 Range/Units 06:20 06:20 06:42 WBC 25.7 H (3.8-10.6) k/uL Hgb 11.3 L (11.4-16.0) gm/dL Neutrophils # 22.5 H (1.3-7.7) k/uL Monocytes # 1.4 H (0-1.0) k/uL Potassium 2.9 L (3.5-5.1) mmol/L BUN 23 H (7-17) mg/dL Creatinine 0.45 L (0.52-1.04) mg/dL Glucose 192 H (74-99) mg/dL POC Glucose (mg/dL) 177 H (70-110) mg/dL AST 38 H (14-36) U/L Alkaline Phosphatase 157 H (38-126) U/L C-Reactive Protein 34.0 H (<1.0) mg/dL Total Protein 4.8 L (6.3-8.2) g/dL Albumin 2.3 L (3.5-5.0) g/dL Assessment and Plan Plan: Acute bilateral staphylococcal pneumonia left more than right and the patient c ontinues to have dense consolidation of the left lung and bilateral pleural effusion. The patient remains on IV cefazolin. The patient has multifocal airspace disease with bilateral pleural effusions. The patient underwent bronchoscopy and therapeutic airway suctioning was done and copious amount of respiratory secretions and mucous plugs was removed from the upper and lower airways. Shortness of breath secondary to above Methicillin sensitive staphylococcal aureus bacteremia, on IV cefazolin Acute hypoxemic respiratory failure, secondary to above. The patient is currently on 2 L of oxygen by nasal cannula Acute leukocytosis, white cell count remains elevated. Lactic acidosis, improving. Anion gap metabolic acidosis, improved Mild DKA, resolved. Recent influenza infection. Asthma/COPD. Diabetes mellitus type II. History of hypertension. History of hyperlipidemia . Gastroesophageal reflux disease. Obesity, with a BMI of 32.8 kg/m. Plan: Bronchoscopy and therapeutic airway suctioning was performed Wean FiO2 to maintain oxygen saturation above 90%, currently on 2 L Continue IV cefazolin Repeat chest x-ray in a.m. Provide incentive spirometer and continue using the flutter valve Continue the same bronchodilators Keep n.p.o. after midnight and the patient will have a bronchoscopy tomorrow for therapeutic airway suctioning Monitor white cell count Continue Lasix 20 mg IV every 12 hours Rest of the medication will be kept unchanged. Aggressive pulmonary toileting. Will continue to follow. Time with Patient: Greater than 30
--- NOTE | 2024-04-26 19:05 | P.PCN ---
Date of Procedure: 04/26/24 Preoperative Diagnosis: Bilateral staphylococcal pneumonia Postoperative Diagnosis: Bilateral staphylococcal pneumonia with copious amount of respiratory secretions and mucous plugs bilaterally more so in the lower lobes Procedure(s) Performed: Flexible bronchoscopy Therapeutic airway suctioning and removal of mucous plugs Bronchioloalveolar lavage of the right lower lobe Anesthesia: CHELI Surgeon: Jayshree Mireles Estimated Blood Loss (ml): 0 Pathology: other Condition: stable Disposition: floor Operative Findings: This procedure was done in the endoscopy suite. The consent was signed. A timeout was performed. Following that, the patient was intubated and placed on mechanical ventilator and intubation process was performed by anesthesia Following intubation, the flex bronchoscope was introduced through the orotracheal tube and interval expection was done. There was copious amount of thick purulent respiratory secretions that were very difficult to suction throughout the airways. Secretions started in the lower trachea and extended into the bilateral mainstem bronchi and occupied the lower lobes more so on the right. There was also similar secretions in the right upper lobe. Therapeutic airway suctioning was done. The respiratory secretions were all removed without any major difficulty and patency of the airways was resumed. The airway inspection included the bilateral mainstem bronchi, right upper lobe bronchus, bronchus intermedius, right middle lobe and right lower lobe bronchi and the various 10 segments on the right and examination of the left side include left mainstem bronchus, left upper lobe and left lower lobe bronchus and the various 8 segments on the left. No endobronchial tumors or lesions identified. A BAL of the right lower lobe was done with a total of 40 cc of saline was infused and 20 cc was aspirated. Following that, the patient was extubated. Postextubation, an examination of the upper airway was done. Bilateral nostrils were plugged with thick and dried mucus and those were aspirated. The bronchoscope was then extended to the hypopharynx into the larynx and epiglottis was visualized. The voicebox and between the false vocal cords were then inspected. Secretions were noted and those were suctioned out. Following that, extend the bronchus into the subglottic trachea and the upper and the mid trachea was then inspected. There was some residual respiratory secretions that were easily suctioned out without any major difficulties. The patient remained stable and the following that the patient was transferred to recovery in stable condition.
[2024-04-26 20:11] LABS: Glucose,Whole Blood 267 mg/dL (70-110)
[2024-04-26] MEDS: ATORVASTATIN 40 MG TAB PO SCH (20:29)
[2024-04-27 06:27] LABS: Glucose,Whole Blood 358 mg/dL (70-110)
[2024-04-27 10:37] LABS: Basophils % (A) 0 %; Eosinophils % (A) 0 %; HCT 38.6 % (34.0-46.0); HGB 11.6 gm/dL (11.4-16.0); Hypochromasia Moderate; Lymphocytes # (A) 0.9 k/uL (1.0-4.8); Lymphocytes % (A) 4 %; MCH 27.2 pg (25.0-35.0); MCV 90.6 fL (80.0-100.0); Mean Platelet Volume 7.3; Monocytes % (A) 4 %; Neutrophils # (A) 21.1 k/uL (1.3-7.7); Neutrophils % (A) 91 %; Platelet Count 606 k/uL (150-450); RBC 4.26 m/uL (3.80-5.40); RDW 13.8 % (11.5-15.5); WBC 23.3 k/uL (3.8-10.6)
[2024-04-27 11:10] LABS: ALT 29 U/L (4-34); African American GFR (CKD) >90 (>60 ml/min/1.73 sqM); Albumin 2.9 g/dL (3.5-5.0); Blood Urea Nitrogen 31 mg/dL (7-17); Calcium 8.6 mg/dL (8.4-10.2); Carbon Dioxide 23 mmol/L (22-30); Chloride 96 mmol/L (98-107); Glucose 303 mg/dL (74-99); Non-African American GFR(CKD) >90 (>60 ml/min/1.73 sqM); Total Protein 6.2 g/dL (6.3-8.2)
[2024-04-27 11:24] LABS: Glucose,Whole Blood 304 mg/dL (70-110)
[2024-04-27 11:43] LABS: Anion Gap 19 mmol/L; Sodium 138 mmol/L (137-145)
[2024-04-27 11:44] LABS: AST 53 U/L (14-36); Alkaline Phosphatase 174 U/L (38-126); Potassium 3.9 mmol/L (3.5-5.1)
--- NOTE | 2024-04-27 12:10 | XR ---
EXAMINATION TYPE: XR chest 1V DATE OF EXAM: 04/27/2024 11:18 AM COMPARISON: Chest radiographs from 04/25/2024 CLINICAL INDICATION: Female, 58 years old with history of Bilateral pneumonia; TECHNIQUE: XR chest 1V Frontal view of the chest. FINDINGS: Lungs/Pleura: Multifocal airspace opacities. No evidence of pneumothorax or pleural effusion. Pulmonary vascularity: Unremarkable. Heart/mediastinum: Cardiomediastinal silhouette is unremarkable. Musculoskeletal: No acute osseous pathology. IMPRESSION: 1. Moderate right pleural effusion given evidence of infection this could be a parapneumonic effusio n. 2. Multifocal airspace opacities [facility], , 04/27/2024 12:08 PM
--- NOTE | 2024-04-27 15:46 | P.PN ---
Subjective Progress Note Date: 04/27/24 Principal diagnosis: Reason for follow-up is pneumonia and bacteremia Patient is a 58-year-old female with a past medical history significant for COPD diabetes mellitus osteoarthritis and seizure disorder has been diagnosed with influenza A about a week and a half before presentation to the hospital subsequently presented to the hospital with increasing shortness of breath and cough has been diagnosed with pneumonia blood culture positive for MSSA. On today's evaluation that is 04/27/2024,the patient remains to be afebrile, patient is on 2 L nasal cannula supplemental oxygen and denies any shortness of breath no chest pain and cough is decreased intensity.Patient denies having any nausea or vomiting, no abdominal pain and no diarrhea has been reported Patient white count of 23.3, creatinine 0.43 BAL culture pending Objective - Vital Signs Vital signs: Vital Signs Temp 98.0 F 04/27/24 08:00 Pulse 85 04/27/24 14:00 Resp 20 04/27/24 14:00 BP 111/74 04/27/24 12:00 Pulse Ox 95 04/27/24 12:00 FiO2 Intake & Output 04/26/24 04/27/24 04/27/24 18:59 06:59 18:59 Intake Total 200 420 Output Total 1200 1800 Balance -1000 -1800 420 Weight 81 kg Intake: IV 200 Oral 420 Output: Urine 1200 1800 Stool 0 Other: Voiding Method Toilet Bedside Commode Diaper # Voids 1 - Exam GENERAL DESCRIPTION: Middle-age female up in bed in no distress RESPIRATORY SYSTEM: Unlabored breathing , coarse breath sounds bilaterally HEART: S1 S2 regular rate and rhythm , ABDOMEN: Soft , no tenderness EXTREMITIES: No edema feet - Labs CBC & Chem 7: 04/27/24 10:16 04/27/24 10:16 Labs: Abnormal Lab Results - Last 24 Hours (Table) 04/26/24 04/26/24 04/27/24 Range/Units 16:22 20:09 06:21 WBC (3.8-10.6) k/uL MCHC (31.0-37.0) g/dL Plt Count (150-450) k/uL Neutrophils # (1.3-7.7) k/uL Lymphocytes # (1.0-4.8) k/uL Chloride (98-107) mmol/L BUN (7-17) mg/dL Creatinine (0.52-1.04) mg/dL Glucose (74-99) mg/dL POC Glucose (mg/dL) 209 H 267 H 358 H (70-110) mg/dL AST (14-36) U/L Alkaline Phosphatase (38-126) U/L Total Protein (6.3-8.2) g/dL Albumin (3.5-5.0) g/dL 04/27/24 04/27/24 04/27/24 Range/Units 10:16 10:16 11:22 WBC 23.3 H (3.8-10.6) k/uL MCHC 30.0 L (31.0-37.0) g/dL Plt Count 606 H (150-450) k/uL Neutrophils # 21.1 H (1.3-7.7) k/uL Lymphocytes # 0.9 L (1.0-4.8) k/uL Chloride 96 L (98-107) mmol/L BUN 31 H (7-17) mg/dL Creatinine 0.43 L (0.52-1.04) mg/dL Glucose 303 H (74-99) mg/dL POC Glucose (mg/dL) 304 H (70-110) mg/dL AST 53 H (14-36) U/L Alkaline Phosphatase 174 H (38-126) U/L Total Protein 6.2 L (6.3-8.2) g/dL Albumin 2.9 L (3.5-5.0) g/dL Microbiology - Last 24 Hours (Table) 04/24/24 18:20 Gram Stain - Final Sputum Sputum Culture - Final Staphylococcus aureus 04/26/24 14:46 Gram Stain - Preliminary Bronchoalviolar Lavage - Left 04/21/24 06:39 Blood Culture - Final Blood Assessment and Plan (1) Sepsis Current Visit: Yes Status: Acute Code(s): A41.9 - SEPSIS, UNSPECIFIED ORGANISM SNOMED Code(s): 67574728 (2) Pneumonia Current Visit: Yes Status: Acute Code(s): J18.9 - PNEUMONIA, UNSPECIFIED ORGANISM SNOMED Code(s): 677659388 (3) Allergy to sulfa drugs Current Visit: Yes Status: Acute Code(s): Z88.2 - ALLERGY STATUS TO SULFONAMIDES SNOMED Code(s): 62909450 Plan: 1patient presented to hospital with sepsis in this patient noted to have fever tachycardia elevated white count meeting criteria for SIRS source is likely pneumonia in this patient who recently did have a influenza A but not treated with evidence of bibasilar and right middle lung airspace opacity concerning for pneumonia will need to cover for Staph aureus that is commonly associated post influenza pneumonia 2-blood culture has been positive for MSSA sputum culture has not been collected, blood culture has been and so far 3-patient chest x-ray suggestive of bilateral multifocal infiltrate and effusion, patient is status post bronchoscopy and lavage completed on 04/26/2024 and did have some improvement in her respiratory symptoms, white count is also trending down continue with the cefazolin and monitor clinical course closely Dictation was produced using [employer] dictation software. please excuse any grammatical, word or spelling errors. Time with Patient: Less than 30
[2024-04-27 16:24] LABS: Glucose,Whole Blood 308 mg/dL (70-110)
--- NOTE | 2024-04-27 19:17 | P.PN ---
Subjective Progress Note Date: 04/27/24 On 04/24/2024, patient is being seen for a follow-up. The patient is extensive lower lobe pneumonia left more than right with secondary hypoxic respiratory failure. Blood culture was positive for Staph aureus/MSSA. The patient is currently on IV cefazolin. Still feeling weak. She continues to have a c ongested cough. She was offered a flutter valve. She will be also given incentive spirometer. She remains on DuoNeb treatments [id number]. She is also on Perforomist and Pulmicort nebulized treatments twice a day. Rest of the medications remain unchanged. She is on Lantus insulin 10 units daily and sliding scale coverage. She is on heparin subcu for DVT prophylaxis. The b chest x-ray from today shows extensive consolidation in the left upper lobe and the left lower lobe. There is also similar consolidation in the right lung base with possible development of a right-sided pleural effusion. There is a large gastric bubble. Echocardiogram that was done on this patient on 04/20/2024 shows a preserved LV function with an ejection fraction of 50 to 55%. No significant valvular abnormalities. Abdominal ultrasound was also done on 04/23/2024 showing cholecystectomy changes without any hepatic abnormalities. The patient's white cell count at 17.6 which remains quite elevated with a hemoglobin 12.1 and a platelet count of 374. BUN 17 with a creatinine of 0.4. LFTs are improving. AST is down to 87 with an ALT of 44 and alkaline phosphatase of 234. Bilirubin is at 0.5. 04/25/2024, the patient is on 2 L of oxygen by nasal cannula. Has a congested cough. Unable to bring up much of sputum. Her cough is weak and she is unable to perform adequate pulmonary toileting. A repeat chest x-ray was done and it showed similar multifocal airspace disease and bilateral pleural effusions. The patient remains on IV antibiotics. The patient remains on IV cefazolin for MSSA pneumonia and secondary bacteremia. Rest of the medication remains unchanged. She remains on DuoNeb. She remains on Perforomist and Pulmicort nebulized treatments twice a day. Her blood work shows a white cell count of 17.6 from yesterday. BUN 17 with a creatinine of 0.4. Mild transaminitis with elevation of the LFTs which is also improving. Provided flutter valve. Provide incentive spirometer. Discussed the case with the primary care team and ID. Will do a bronchoscopy for therapeutic airway suctioning in a.m. On today's evaluation of 04/26/2024, the patient is being seen for a follow-up. The patient is being treated for bilateral pneumonia, attributed to staph. The patient was not showing adequate recovery. She continues to have congested cough. Unable to bring up much of sputum. Her coughing mechanism is quite weak. She is afebrile. She is on 4 L of oxygen by nasal cannula with a pulse ox of 92%. Based on further discussions, I decided to proceed with bronchoscopy and I performed this procedure earlier today. The patient was found to have copious amount of respiratory secretions and mucous plugging and therapeutic airway suctioning was done and another BAL of the right lower lobe was done. I cleared upper and lower airway secretions. This was done and the endoscopy suite. The patient remains on IV cefazolin. The patient remains on DuoNeb treatments [id number]. The patient remains on a combination performance of Pulmicort nebulized treatment twice a day. The patient remains on IV Solu- Medrol 40 mg every 8 hours. Following the procedure, the patient seemed to be more comfortable and there was some interval improvement in oxygenation. The white cell count is 25.7 with hemoglobin 0.8 and platelet count of 413. BUN is 23 with a creatinine of 0.4. Electrolytes are all within normal limits. Case was also discussed with her family. On 04/27/2024, the patient is being seen for a follow-up. The patient is improved compared to yesterday. She underwent a bronchoscopy and therapeutic airway suctioning and removal of mucous plugs. Since then, she is breathing easier and she is currently on 2 L of oxygen by nasal cannula with pulse ox of 94%. She continues to use the flutter valve and incentive spirometer. Follow- up chest x-ray from today shows a moderate-sized right-sided pleural effusion which seems to be somewhat loculated and there is also multifocal airspace opacities bilaterally more so in the lower lobes. The results of the BAL are still pending for now. The patient has Staph aureus and the patient is currently on IV cefazolin. She remains on bronchodilators. She remains on steroids. She is also on IV Lasix 20 mg IV push every 12 hours. Fluid balance is -2.8 L over the past 24 hours. Communicating and she seems to be much more arousable compared to yesterday. Objective - Vital Signs Vital signs: Vital Signs Temp 98.0 F 04/27/24 08:00 Pulse 100 04/27/24 11:25 Resp 18 04/27/24 08:00 BP 123/76 04/27/24 08:00 Pulse Ox 95 04/27/24 08:00 FiO2 Intake & Output 04/26/24 04/27/24 04/27/24 18:59 06:59 18:59 Intake Total 200 240 Output Total 1200 1800 Balance -1000 -1800 240 Weight 81 kg Intake: IV 200 Oral 240 Output: Urine 1200 1800 Stool 0 Other: Voiding Method Toilet Bedside Commode Diaper # Voids 1 - Exam No acute distress, oriented 3. Nurse of breath. The patient is currently on 2 L of O2 nasal cannula HEENT examination is grossly unremarkable. Mucous membranes are moist. No oral lesions. Neck supple. Full range of motion. No adenopathy thyromegaly or neck vein distention. Cardiovascular examination reveals regular rhythm rate. S1-S2 normal. No S3 or S4. No discernible murmur noted. Lungs reveal bilateral inspiratory and expiratory rhonchi, and air entry improved significantly following the bronchoscopy. Abdomen soft bowel sounds are heard. No masses or tenderness. Extremities are intact. No cyanosis clubbing or edema. Skin is without rash or lesion. Neurologic examination is brief but nonfocal. - Labs CBC & Chem 7: 04/27/24 10:16 04/27/24 10:16 Labs: Abnormal Lab Results - Last 24 Hours (Table) 04/26/24 04/26/24 04/27/24 Range/Units 16:22 20:09 06:21 WBC (3.8-10.6) k/uL MCHC (31.0-37.0) g/dL Plt Count (150-450) k/uL Neutrophils # (1.3-7.7) k/uL Lymphocytes # (1.0-4.8) k/uL Chloride (98-107) mmol/L BUN (7-17) mg/dL Creatinine (0.52-1.04) mg/dL Glucose (74-99) mg/dL POC Glucose (mg/dL) 209 H 267 H 358 H (70-110) mg/dL Total Protein (6.3-8.2) g/dL Albumin (3.5-5.0) g/dL 04/27/24 04/27/24 04/27/24 Range/Units 10:16 10:16 11:22 WBC 23.3 H (3.8-10.6) k/uL MCHC 30.0 L (31.0-37.0) g/dL Plt Count 606 H (150-450) k/uL Neutrophils # 21.1 H (1.3-7.7) k/uL Lymphocytes # 0.9 L (1.0-4.8) k/uL Chloride 96 L (98-107) mmol/L BUN 31 H (7-17) mg/dL Creatinine 0.43 L (0.52-1.04) mg/dL Glucose 303 H (74-99) mg/dL POC Glucose (mg/dL) 304 H (70-110) mg/dL Total Protein 6.2 L (6.3-8.2) g/dL Albumin 2.9 L (3.5-5.0) g/dL Microbiology - Last 24 Hours (Table) 04/24/24 18:20 Gram Stain - Final Sputum Sputum Culture - Final Staphylococcus aureus 04/26/24 14:46 Gram Stain - Preliminary Bronchoalviolar Lavage - Left 04/21/24 06:39 Blood Culture - Final Blood Assessment and Plan Plan: Acute bilateral staphylococcal pneumonia left more than right and the patient continues to have dense consolidation of the left lung and bilateral pleural effusion. The patient remains on IV cefazolin. The patient has multifocal airspace disease with bilateral pleural effusions. The patient underwent bronchoscopy and therapeutic airway suctioning was done and copious amount of respiratory secretions and mucous plugs was removed from the upper and lower airways. Awaiting the results of the BAL Bilateral pleural effusion, effusion on the right is somewhat loculated. The patient is on IV Lasix with a negative fluid balance Shortness of breath secondary to above, improved post bronchoscopy Methicillin sensitive staphylococcal aureus bacteremia, on IV cefazolin Acute hypoxemic respiratory failure, secondary to above. The patient is currently on 2 L of oxygen by nasal cannula Acute leukocytosis, white cell count remains elevated. Lactic acidosis, improving. Anion gap metabolic acidosis, improved Mild DKA, resolved. Recent influenza infection. Asthma/COPD. Diabetes mellitus type II. History of hypertension. History of hyperlipidemia . Gastroesophageal reflux disease. Obesity, with a BMI of 32.8 kg/m. Plan: Bronchoscopy and therapeutic airway suctioning was performed on 04/26/2024 Wean FiO2 to maintain oxygen saturation above 90%, currently on 2 L Continue IV cefazolin Continue IV Lasix Continue bronchodilators Continue steroids Repeat chest x-ray in a.m. Provide incentive spirometer and continue using the flutter valve Continue the same bronchodilators Aggressive pulmonary toileting. Will continue to follow. Time with Patient: Greater than 30
--- NOTE | 2024-04-27 19:58 | P.PN ---
Progress Note - Text Progress Note Date: 04/27/24 58-year-old female with past medical history significant for type 2 diabetes mellitus, history of COPD/asthma on home inhalers, on 2 L oxygen nightly, hypertension, hyperlipidemia, GERD who presented to ER with a complaint of significant shortness of breath. Patient reported that she had flulike symptoms last Wednesday, went to PCP office on Wednesday and was diagnosed with influenza, patient was outside the window for Tamiflu, was treated with steroid burst taper and cough suppressants. Patient stated that she felt better initially, but her symptoms started to get worse later on. Patient also reported having fever and chills at home. Patient reported productive cough, worsening shortness of breath. Patient denied any headache, chest pain, palpitations, nausea vomiting diarrhea constipation abdominal pain dysuria urgency frequency weakness or numbness to extremities. In the ED patient had a Tmax of 102.1, was initially tachycardic with heart rate in the 130s, tachypneic, blood pressure 10 initially was 112/65, required 2 L oxygen. WBCs 8.0, hemoglobin 14.0, platelet 405. Absolute neutrophils 6.8. VBG showed pH 7.34, pCO2 28, HCO3 15. Sodium 135 potassium 4.3 chloride 101 BUN 19 creatinine 0.64. Lactic acid was 4.2, received fluid boluses, trended down, today 2.2. LFTs were unremarkable except mildly elevated bilirubin 1.6. NT proBNP was 7700. Procalcitonin was 8.68. UA was negative. Viral panel was negative. CT chest showed no PE, showed bilateral pneumonia, small bilateral pleural effusions. 04/20--- patient was seen and examined today. Patient is afebrile, tachycardic, respiratory rate 17, blood pressure 108/68, better as compared to yesterday. Saturating 96% on 5 L. WBCs 12.5, hemoglobin 11.5, platelet 331. BMP is unremarkable. HbA1c is 14.3. Echocardiogram done which showed normal ventricle systolic function, mild MR and TR. No pericardial effusion. Will discontinue IV fluids due to concern of fluid overload, will monitor blood pressure closely. Patient remains on vancomycin Rocephin and doxycycline, infectious disease consulted. Pulmonary following. Will try IV diuresis if blood pressure better. 04/21--patient was seen and examined today. Continues complain of productive cough, shortness of breath, generalized weakness and fatigue. Remained afebrile, still quite tachycardic with heart rate in 110s, respiratory rate 20, blood pressure better 119/79, saturating 93% on 4 L. Blood culture came back positive for Staph aureus, antibiotics changed to cefazolin per infectious disease. Started on low-dose metoprolol for heart rate control. Will try low- dose IV Lasix if blood pressure remains stable. 04/22. Patient seen and examined. Vital signs of this morning showed heart rate 122, respiration 20, blood pressure 111/83, currently on 3 L of oxygen. LFTs were elevated. Patient also complaining of coughing when swallowing. Speech evaluation ordered 04/23. Patient seen and examined. Blood work done this morning showed WBC 15.5, hemoglobin 12.5, platelet count 69, sodium 130, potassium 3.5, BUN 16, creatinine 0.53, glucose 167, AST 176, ALT 76. Continues to have cough, nonproductive. April 24: Up in recliner. Short of breath. Congested cough able unable to expectorate. Patient has a flutter valve. Also humidified oxygen. Home oxygen 2 L. Decreased appetite. Tired. IV cefazolin. Follow-up with pulmonary and ID. April 25: Reclining in bed. Congested chest. Not able to expectorate. Humidified oxygen. 2 L. Poor appetite. Discussed with Dr. Mireles. Planning for bronchoscopy with lavage tomorrow. IV cefazolin. April 26: Patient seen this morning. Reclining bed. Remains to have very congested chest. Not able to expectorate. Scheduled for bronchoscopy lavage this afternoon. Remains on IV cefazolin. Short of breath. NPO. April 27: Patient had been bronchoscopy yesterday a lot of secretions obtained. Breathing better. Today up in a chair. On 3 L nasal cannula. Had about 50% of her lunch. Reminded to use incentive spirometry. Cultures pending from lavage. All cultures still now showing MSSA. On IV cefazolin. Chest x-ray from today reviewed by me shows multiple infiltrates. Moderate right pleural effusion. Active Medications Acetaminophen (Acetaminophen Tab 325 Mg Tab) 650 mg PO Q6HR PRN PRN Reason: Mild Pain or Fever > 100.5 Last Admin: 04/23/24 21:27 Dose: 650 mg Albuterol/Ipratropium (Ipratropium-Albuterol 3 Ml Neb) 3 ml INHALATION RT-QID [facility] Last Admin: 04/27/24 15:46 Dose: 3 ml Amitriptyline HCl (Amitriptyline Hcl 50 Mg Tab) 150 mg PO [facility] Last Admin: 04/26/24 20:29 Dose: 150 mg Atorvastatin Calcium (Atorvastatin 40 Mg Tab) 40 mg PO [facility] Last Admin: 04/26/24 20:29 Dose: 40 mg Budesonide (Budesonide 1 Mg/2 Ml Nebu) 1 mg INHALATION RT-BID [facility] Last Admin: 04/27/24 07:58 Dose: 1 mg Calcium Carbonate/Glycine (Calcium Carbonate 500 Mg Chewable) 500 mg PO QID PRN PRN Reason: Heartburn Last Admin: 04/24/24 20:04 Dose: 500 mg Cyclobenzaprine HCl (Cyclobenzaprine 10 Mg Tab) 10 mg PO [facility] Last Admin: 04/26/24 20:29 Dose: 10 mg Dextrose/Water (Dextrose 50% Syringe 50 Ml) 25 ml IVP PER PROTOCOL PRN; Protocol PRN Reason: Hypoglycemia Dextrose/Water (Dextrose 50% Syringe 50 Ml) 50 ml IVP PER PROTOCOL PRN; Protocol PRN Reason: Hypoglycemia Enoxaparin Sodium (Enoxaparin 40 Mg/0.4 Ml Syringe) 40 mg SQ DAILY [facility] Last Admin: 04/27/24 09:11 Dose: 40 mg Formoterol Fumarate (Formoterol Fumarate 20 Mcg/2 Ml Nebu) 20 mcg INHALATION RT-BID [facility] Last Admin: 04/27/24 07:58 Dose: 20 mcg Furosemide (Furosemide 10 Mg/Ml 2 Ml Vial) 20 mg IV Q12HR [facility] Last Admin: 04/27/24 09:10 Dose: 20 mg Guaifenesin (Guaifenesin 600 Mg Tablet.Er) 1,200 mg PO Q12HR [facility] Last Admin: 04/27/24 09:11 Dose: 1,200 mg Cefazolin Sodium 2 gm/ Sodium (Chloride) 50 mls @ 100 mls/hr IVPB Q8HR [facility] Last Admin: 04/27/24 17:04 Dose: 100 mls/hr Insulin Glargine (Insulin Glargine (Lantus) 100 Unit/Ml Syr) 10 unit SQ DAILY@0700 [facility] Last Admin: 04/27/24 06:36 Dose: 10 unit Insulin Human Lispro (Insulin Lispro (Humalog) 100 Unit/Ml 10 Ml Vl) 0 unit SQ ACHS [facility]; Protocol Last Admin: 04/27/24 17:03 Dose: 12 unit Methylprednisolone Sodium Succinate (Methylprednisolone Sod Succi 40 Mg/Ml 1 Ml Vial) 40 mg IV Q8HR [facility] Last Admin: 04/27/24 17:04 Dose: 40 mg Metoprolol Tartrate (Metoprolol Tartrate 25 Mg Tab) 25 mg PO BID [facility] Last Admin: 04/27/24 09:11 Dose: 25 mg Miscellaneous Information (Phosphorus Replacement Protoco 1 Each Misc) 1 each MISCELLANE DAILY PRN; Protocol PRN Reason: Per Protocol Miscellaneous Information (Potassium Replacement Protocol 1 Each Misc) 1 each MISCELLANE DAILY PRN; Protocol PRN Reason: Per Protocol Miscellaneous Information (Rx Info: Iv Contrast Was Given 1 Each Misc) 1 each MISCELLANE DAILY PRN PRN Reason: Per Protocol Stop: 04/28/24 11:23 Montelukast Sodium (Montelukast 10 Mg Tab) 10 mg PO HS [facility] Last Admin: 04/26/24 20:29 Dose: 10 mg Morphine Sulfate (Morphine Sulfate 4 Mg/Ml Syringe) 4 mg IV Q4HR PRN PRN Reason: Severe Pain (Scale 7 to 10) Last Admin: 04/27/24 17:10 Dose: 4 mg Naloxone HCl (Naloxone 0.4 Mg/Ml 1 Ml Vial) 0.2 mg IV Q2M PRN PRN Reason: Opioid Reversal Nystatin (Nystatin 100,000 Unit/Ml Susp 500,000 Unit/5 Ml Cup) 500,000 unit PO QID [facility]; Protocol Last Admin: 04/27/24 17:04 Dose: Not Given Ondansetron HCl (Ondansetron 4 Mg/2 Ml Vial) 4 mg IVP Q8HR PRN PRN Reason: Nausea And Vomiting Oxybutynin Chloride (Oxybutynin 15 Mg Tab.Er.24) 30 mg PO DAILY [facility] Last Admin: 04/27/24 09:11 Dose: 30 mg On examination: VITAL SIGNS: 97.8, 98, 20, 100/66, 94% 2 L GENERAL APPEARANCE: Up in a recliner. A bit better.. HEENT: Normal external appearance of nose and ear. Oral cavity normal EYES: Pupils equal. Conjunctiva normal. NECK: JVD not raised. Mass not palpable. RESPIRATORY: Respiratory effort increased. Lungs decreased breath sounds CARDIOVASCULAR: First and second sounds normal. No edema. ABDOMEN: Soft. Liver and spleen not palpable. No tenderness. No mass palpable. PSYCHIATRY: Alert and oriented x3. Mood and affect tired INVESTIGATIONS, reviewed in the clinical context: April 27: White count 23.3 hemoglobin 11.6 platelets 606 potassium 3.9 creatinin e 0.43 April 26: White count 25.7 hemoglobin 11.3 platelets 1 3 April 24: White count 7.6 hemoglobin 12.1 platelets 374 sodium 136 creatinine 0.4 Blood culture [April 19] Staph aureus. [April 21: Negative] Chest x-ray film personally reviewed by me-[April 24] bilateral infiltrates, pleural effusion 2D echo: EF 50 to 55%. Assessment and plan -Severe sepsis, secondary to pneumonia with blood cultures positive for MSSA: Some improvement : -Bilateral pneumonia, with possible parapneumonic effusion: Some improvement IV cefazolin, Bronchoscopy with successful lavage done April 26. -Acute hypoxic respiratory failure from pneumonia/effusion: Some improvement Patient scheduled for bronchoscopy with lavage today -Chronic hypoxic respiratory failure. On 2 L oxygen at home -Lactic acidosis: Secondary to sepsis Received fluids -Mild DKA: Resolved -Recent influenza A infection -Acute asthma exacerbation DuoNeb. Nebulized Pulmicort. Add Solu-Medrol 40 mg every 8 -Diabetes mellitus: Type II, chronically on insulin Follow Accu-Cheks sliding scale -Essential hypertension Lopressor -Hyperlipidemia Lipitor GERD -Obesity with BMI of 32.8 -Acute transaminitis, likely from sepsis: Improved Resume at a lower dose Lipitor Cultures from lavage pending. Continue current medication treatment plan. Incentive spirometry.
[2024-04-27 20:09] LABS: Glucose,Whole Blood 245 mg/dL (70-110)
--- NOTE | 2024-04-27 21:27 | US ---
EXAMINATION TYPE: US chest DATE OF EXAM: 04/27/2024 COMPARISON: Chest x-ray earlier today CLINICAL INDICATION: Female, 58 years old with history of Right chest for thoracentesis marking; Pleu ral effusion TECHNIQUE: Grayscale imaging of the chest. Targeted ultrasound of the posterior lower bilateral cristy thoraces FINDINGS: EXAM MEASUREMENTS: Right Pleural Effusion pocket size: 3.7 cm Right skin surface to fluid distance: 2.7 cm Left Pleural Effusion pocket size: 7.4 cm Left skin surface to fluid distance: 3.0 cm Right side marked for possible thoracentesis outside the dept. Left side marked for possible thoracentesis outside the dept. Pulmonologists are able to review the images in the patient?s EMR. IMPRESSIONS: Small to borderline moderate size bilateral pleural effusions on images obtained does no t exactly correlate with the most recent x-ray X-Ray Promise Alfredo, , 04/27/2024 9:25 PM
[2024-04-28 06:18] LABS: Glucose,Whole Blood 288 mg/dL (70-110)
[2024-04-28 11:37] LABS: Glucose,Whole Blood 459 mg/dL (70-110)
[2024-04-28 12:40] VITALS: BMI 34.9
--- NOTE | 2024-04-28 15:33 | CT ---
EXAMINATION TYPE: CT chest wo con CT DLP: 337.1 mGycm, Automated exposure control for dose reduction was used. DATE OF EXAM: 04/28/2024 3:13 PM COMPARISON: Ultrasound chest 04/27/2024 multiple radiographs most recent 04/27/2024, CTA chest 04/19/2024 CLINICAL INDICATION:Female, 58 years old with history of fluid; PHH, Difficulty breathing. TECHNIQUE: Multiple axial images were obtained through the chest without IV contrast. Lack of IV or o ral contrast limits evaluation of solid and hollow organ viscera. . Coronal and sagittal reformats re viewed. FINDINGS: LUNGS/ PLEURA: Moderate size right pleural effusion with associated atelectasis of the right lower lo be. Small left pleural effusion with associated atelectasis. Multiple patchy consolidative opacities with cavitation some lucencies throughout the lungs involving the right lower lobe and right middle l obe infrahilar region. Additional regions are demonstrated throughout the left lung. Largest was in t he inferior right lower lobe measuring 5.2 x 3.5 cm (series 205, image 36). These have decreased in size from previously seen groundglass airspace opacities with consolidation. No pneumothorax. AIRWAY: Patent and unremarkable.. HEART: Cardiomegaly is demonstrated.Trace pericardial effusion Mild to moderate coronary artery calci fications present. Most pronounced within the LAD. MEDIASTINUM: No gross evidence of adenopathy. VASCULATURE: No aortic aneurysm. MUSCULOSKELETAL: Moderate disc degeneration changes are present throughout the thoracolumbar spine. N o acute osseous abnormality. SOFT TISSUES/LYMPH NODES: There are hypodense nodules within the right thyroid lobe with macrocalcifi cation. LOWER NECK: No significant findings. UPPER ABDOMEN: Gallbladder is surgical absent. Fluid is identified within the distal esophagus. IMPRESSION: 1. Patchy consolidative opacities from prior CT have slightly decreased in size with more cavitary co nsolidative appearance. Findings suggest cavitating pneumonia versus other etiologies including autoi mmune, vascular, versus other. 2. Moderate right and small left pleural effusions associated atelectasis. [facility], , 04/28/2024 3:30 PM
--- NOTE | 2024-04-28 15:56 | P.PN ---
Subjective Progress Note Date: 04/28/24 Principal diagnosis: Reason for follow-up is pneumonia and bacteremia Patient is a 58-year-old female with a past medical history significant for COPD diabetes mellitus osteoarthritis and seizure disorder has been diagnosed with influenza A about a week and a half before presentation to the hospital subsequently presented to the hospital with increasing shortness of breath and cough has been diagnosed with pneumonia blood culture positive for MSSA. On today's evaluation that is 04/28/2024, the patient continues to be afebrile, the patient is on 3 L nasal oxygen and breathing comfortably, the Pt denies having any chest pain or any worsening cough, the patient denies having any abdominal pain no vomiting or any diarrhea mention feeling slightly better No CBC was done today BAL culture growing Staph aureus Objective - Vital Signs Vital signs: Vital Signs Temp 97.8 F 04/28/24 08:00 Pulse 95 04/28/24 10:12 Resp 18 04/28/24 08:00 BP 98/65 04/28/24 08:00 Pulse Ox 95 04/28/24 09:54 FiO2 Intake & Output 04/27/24 04/28/24 04/28/24 18:59 06:59 18:59 Intake Total 600 360 Output Total 0 Balance 600 360 Weight 81.2 kg Intake: Oral 600 360 Output: Stool 0 Other: Voiding Method Toilet Bedside Commode Diaper # Voids 3 2 - Exam GENERAL DESCRIPTION: Middle-age female up in bed in no distress RESPIRATORY SYSTEM: Unlabored breathing , coarse breath sounds bilaterally HEART: S1 S2 regular rate and rhythm , ABDOMEN: Soft , no tenderness EXTREMITIES: No edema feet - Labs CBC & Chem 7: 04/27/24 10:16 04/27/24 10:16 Labs: Abnormal Lab Results - Last 24 Hours (Table) 04/27/24 04/27/24 04/27/24 Range/Units 10:16 16:23 20:07 POC Glucose (mg/dL) 308 H 245 H (70-110) mg/dL AST 53 H (14-36) U/L Alkaline Phosphatase 174 H (38-126) U/L 04/28/24 Range/Units 06:16 POC Glucose (mg/dL) 288 H (70-110) mg/dL AST (14-36) U/L Alkaline Phosphatase (38-126) U/L Microbiology - Last 24 Hours (Table) 04/24/24 18:20 Gram Stain - Final Sputum Sputum Culture - Final Staphylococcus aureus 04/26/24 14:46 Gram Stain - Preliminary Bronchoalviolar Lavage - Left Assessment and Plan (1) Sepsis Current Visit: Yes Status: Acute Code(s): A41.9 - SEPSIS, UNSPECIFIED ORGANISM SNOMED Code(s): 21466752 (2) Pneumonia Current Visit: Yes Status: Acute Code(s): J18.9 - PNEUMONIA, UNSPECIFIED ORGANISM SNOMED Code(s): 316652742 (3) Allergy to sulfa drugs Current Visit: Yes Status: Acute Code(s): Z88.2 - ALLERGY STATUS TO SULFONAMIDES SNOMED Code(s): 41455412 Plan: 1patient presented to hospital with sepsis in this patient noted to have fever tachycardia elevated white count meeting criteria for SIRS source is likely pneumonia in this patient who recently did have a influenza A but not treated with evidence of bibasilar and right middle lung airspace opacity concerning for pneumonia will need to cover for Staph aureus that is commonly associated post influenza pneumonia 2-blood culture has been positive for MSSA sputum culture has not been collected, blood culture has been and so far 3-patient chest x-ray suggestive of bilateral multifocal infiltrate and effusion, patient is status post bronchoscopy and lavage completed on 04/26/2024 and culture now growing Staph aureus 4patient to be treated with cefazolin and will monitor clinical course closely Dictation was produced using Meridian dictation software. please excuse any grammatical, word or spelling errors. Time with Patient: Less than 30
[2024-04-28 16:32] LABS: Glucose,Whole Blood 352 mg/dL (70-110)
--- NOTE | 2024-04-28 17:19 | P.PN ---
Progress Note - Text Progress Note Date: 04/28/24 58-year-old female with past medical history significant for type 2 diabetes mellitus, history of COPD/asthma on home inhalers, on 2 L oxygen nightly, hypertension, hyperlipidemia, GERD who presented to ER with a complaint of significant shortness of breath. Patient reported that she had flulike symptoms last Wednesday, went to PCP office on Wednesday and was diagnosed with influenza, patient was outside the window for Tamiflu, was treated with steroid burst taper and cough suppressants. Patient stated that she felt better initially, but her symptoms started to get worse later on. Patient also reported having fever and chills at home. Patient reported productive cough, worsening shortness of breath. Patient denied any headache, chest pain, palpitations, nausea vomiting diarrhea constipation abdominal pain dysuria urgency frequency weakness or numbness to extremities. In the ED patient had a Tmax of 102.1, was initially tachycardic with heart rate in the 130s, tachypneic, blood pressure 10 initially was 112/65, required 2 L oxygen. WBCs 8.0, hemoglobin 14.0, platelet 405. Absolute neutrophils 6.8. VBG showed pH 7.34, pCO2 28, HCO3 15. Sodium 135 potassium 4.3 chloride 101 BUN 19 creatinine 0.64. Lactic acid was 4.2, received fluid boluses, trended down, today 2.2. LFTs were unremarkable except mildly elevated bilirubin 1.6. NT proBNP was 7700. Procalcitonin was 8.68. UA was negative. Viral panel was negative. CT chest showed no PE, showed bilateral pneumonia, small bilateral pleural effusions. 04/20--- patient was seen and examined today. Patient is afebrile, tachycardic, respiratory rate 17, blood pressure 108/68, better as compared to yesterday. Saturating 96% on 5 L. WBCs 12.5, hemoglobin 11.5, platelet 331. BMP is unremarkable. HbA1c is 14.3. Echocardiogram done which showed normal ventricle systolic function, mild MR and TR. No pericardial effusion. Will discontinue IV fluids due to concern of fluid overload, will monitor blood pressure closely. Patient remains on vancomycin Rocephin and doxycycline, infectious disease consulted. Pulmonary following. Will try IV diuresis if blood pressure better. 04/21--patient was seen and examined today. Continues complain of productive cough, shortness of breath, generalized weakness and fatigue. Remained afebrile, still quite tachycardic with heart rate in 110s, respiratory rate 20, blood pressure better 119/79, saturating 93% on 4 L. Blood culture came back positive for Staph aureus, antibiotics changed to cefazolin per infectious disease. Started on low-dose metoprolol for heart rate control. Will try low- dose IV Lasix if blood pressure remains stable. 04/22. Patient seen and examined. Vital signs of this morning showed heart rate 122, respiration 20, blood pressure 111/83, currently on 3 L of oxygen. LFTs were elevated. Patient also complaining of coughing when swallowing. Speech evaluation ordered 04/23. Patient seen and examined. Blood work done this morning showed WBC 15.5, hemoglobin 12.5, platelet count 69, sodium 130, potassium 3.5, BUN 16, creatinine 0.53, glucose 167, AST 176, ALT 76. Continues to have cough, nonproductive. April 24: Up in recliner. Short of breath. Congested cough able unable to expectorate. Patient has a flutter valve. Also humidified oxygen. Home oxygen 2 L. Decreased appetite. Tired. IV cefazolin. Follow-up with pulmonary and ID. April 25: Reclining in bed. Congested chest. Not able to expectorate. Humidified oxygen. 2 L. Poor appetite. Discussed with Dr. Mireles. Planning for bronchoscopy with lavage tomorrow. IV cefazolin. April 26: Patient seen this morning. Reclining bed. Remains to have very congested chest. Not able to expectorate. Scheduled for bronchoscopy lavage this afternoon. Remains on IV cefazolin. Short of breath. NPO. April 27: Patient had been bronchoscopy yesterday a lot of secretions obtained. Breathing better. Today up in a chair. On 3 L nasal cannula. Had about 50% of her lunch. Reminded to use incentive spirometry. Cultures pending from lavage. All cultures still now showing MSSA. On IV cefazolin. Chest x-ray from today reviewed by me shows multiple infiltrates. Moderate right pleural effusion. April 28: Up in the chair. Shallow breathing. Not able to take deep breaths. Feels better. On 3 L nasal cannula. Ultrasound done for possible thoracentesis. CT chest done today. Patchy consolidative opacities slight decrease in size. With more cavitary consolidative appearance. Moderate right and small left pleural effusion. Dr. Mireles following. Accu-Cheks running high. Increase Lantus to 26 units nightly: Discussed with Dr. Mireles about possible right-sided thoracentesis. Antibiotics discussed with ID. Active Medications Acetaminophen (Acetaminophen Tab 325 Mg Tab) 650 mg PO Q6HR PRN PRN Reason: Mild Pain or Fever > 100.5 Last Admin: 04/23/24 21:27 Dose: 650 mg Albuterol/Ipratropium (Ipratropium-Albuterol 3 Ml Neb) 3 ml INHALATION RT-QID [facility] Last Admin: 04/28/24 16:33 Dose: Not Given Amitriptyline HCl (Amitriptyline Hcl 50 Mg Tab) 150 mg PO HS [facility] Last Admin: 04/27/24 20:21 Dose: 150 mg Atorvastatin Calcium (Atorvastatin 40 Mg Tab) 40 mg PO [facility] Last Admin: 04/27/24 20:22 Dose: 40 mg Budesonide (Budesonide 1 Mg/2 Ml Nebu) 1 mg INHALATION RT-BID [facility] Last Admin: 04/28/24 09:51 Dose: Not Given Calcium Carbonate/Glycine (Calcium Carbonate 500 Mg Chewable) 500 mg PO QID PRN PRN Reason: Heartburn Last Admin: 04/24/24 20:04 Dose: 500 mg Cyclobenzaprine HCl (Cyclobenzaprine 10 Mg Tab) 10 mg PO HS [facility] Last Admin: 04/27/24 20:21 Dose: 10 mg Dextrose/Water (Dextrose 50% Syringe 50 Ml) 25 ml IVP PER PROTOCOL PRN; Protocol PRN Reason: Hypoglycemia Dextrose/Water (Dextrose 50% Syringe 50 Ml) 50 ml IVP PER PROTOCOL PRN; Protocol PRN Reason: Hypoglycemia Enoxaparin Sodium (Enoxaparin 40 Mg/0.4 Ml Syringe) 40 mg SQ DAILY [facility] Last Admin: 04/28/24 08:51 Dose: 40 mg Formoterol Fumarate (Formoterol Fumarate 20 Mcg/2 Ml Nebu) 20 mcg INHALATION RT-BID [facility] Last Admin: 04/28/24 09:54 Dose: 20 mcg Furosemide (Furosemide 10 Mg/Ml 2 Ml Vial) 20 mg IV DAILY [facility] Guaifenesin (Guaifenesin 600 Mg Tablet.Er) 1,200 mg PO Q12HR [facility] Last Admin: 04/28/24 08:51 Dose: 1,200 mg Cefazolin Sodium 2 gm/ Sodium (Chloride) 50 mls @ 100 mls/hr IVPB Q8HR [facility] Last Admin: 04/28/24 16:51 Dose: 100 mls/hr Insulin Glargine (Insulin Glargine (Lantus) 100 Unit/Ml Syr) 10 unit SQ DAILY@0700 [facility] Last Admin: 04/28/24 06:34 Dose: 10 unit Insulin Human Lispro (Insulin Lispro (Humalog) 100 Unit/Ml 10 Ml Vl) 0 unit SQ ACHS [facility]; Protocol Last Admin: 04/28/24 16:51 Dose: 15 unit Methylprednisolone Sodium Succinate (Methylprednisolone Sod Succi 40 Mg/Ml 1 Ml Vial) 40 mg IV Q8HR [facility] Last Admin: 04/28/24 16:51 Dose: 40 mg Metoprolol Tartrate (Metoprolol Tartrate 25 Mg Tab) 25 mg PO BID [facility] Last Admin: 04/28/24 08:51 Dose: 25 mg Miscellaneous Information (Phosphorus Replacement Protoco 1 Each Misc) 1 each MISCELLANE DAILY PRN; Protocol PRN Reason: Per Protocol Miscellaneous Information (Potassium Replacement Protocol 1 Each Misc) 1 each MISCELLANE DAILY PRN; Protocol PRN Reason: Per Protocol Montelukast Sodium (Montelukast 10 Mg Tab) 10 mg PO HS [facility] Last Admin: 04/27/24 20:21 Dose: 10 mg Morphine Sulfate (Morphine Sulfate 4 Mg/Ml Syringe) 4 mg IV Q4HR PRN PRN Reason: Severe Pain (Scale 7 to 10) Last Admin: 04/28/24 12:21 Dose: 4 mg Naloxone HCl (Naloxone 0.4 Mg/Ml 1 Ml Vial) 0.2 mg IV Q2M PRN PRN Reason: Opioid Reversal Nystatin (Nystatin 100,000 Unit/Ml Susp 500,000 Unit/5 Ml Cup) 500,000 unit PO QID [facility]; Protocol Last Admin: 04/28/24 13:22 Dose: 500,000 unit Ondansetron HCl (Ondansetron 4 Mg/2 Ml Vial) 4 mg IVP Q8HR PRN PRN Reason: Nausea And Vomiting Oxybutynin Chloride (Oxybutynin 15 Mg Tab.Er.24) 30 mg PO DAILY [facility] Last Admin: 04/28/24 08:51 Dose: 30 mg On examination: VITAL SIGNS: 97.4, 101, 22, 94 x 61, 95% on 3 L GENERAL APPEARANCE: Up in a recliner. Breathing a bit better HEENT: Normal external appearance of nose and ear. Oral cavity normal EYES: Pupils equal. Conjunctiva normal. NECK: JVD not raised. Mass not palpable. RESPIRATORY: Respiratory effort increased. Lung sounds diminished at the bases specially right side CARDIOVASCULAR: First and second sounds normal. No edema. ABDOMEN: Soft. Liver and spleen not palpable. No tenderness. No mass palpable. PSYCHIATRY: Alert and oriented x3. Mood and affect tired INVESTIGATIONS, reviewed in the clinical context: CT chest [April 28] patchy consolidative opacities slight decrease in size. With more cavitary consolidative appearance. Moderate right and small left pleural effusion. April 27: White count 23.3 hemoglobin 11.6 platelets 606 potassium 3.9 creatinine 0.43 April 26: White count 25.7 hemoglobin 11.3 platelets 1 3 April 24: White count 7.6 hemoglobin 12.1 platelets 374 sodium 136 creatinine 0.4 Blood culture [April 19] Staph aureus. [April 21: Negative] Chest x-ray film personally reviewed by me-[April 24] bilateral infiltrates, pleural effusion 2D echo: EF 50 to 55%. Assessment and plan -Severe sepsis, secondary to pneumonia with blood cultures positive for MSSA: Some improvement : -Bilateral cavitary pneumonia, with possible parapneumonic effusion: Slow to respond IV cefazolin, CT chest showing cavitary pneumonia Bronchoscopy with successful lavage done April 26. -Acute hypoxic respiratory failure from pneumonia/effusion: Some improvement On 3 L nasal cannula Status post bronchoscopy with lavage Incentive spirometry -Chronic hypoxic respiratory failure. On 2 L oxygen at home -Lactic acidosis: Secondary to sepsis Received fluids -Mild DKA: Resolved -Recent influenza A infection -Acute asthma exacerbation DuoNeb. Nebulized Pulmicort. Solu-Medrol 40 mg every 8 -Diabetes mellitus: Type II, chronically on insulin, uncontrolled with hyperglycemia secondary steroids and infection Follow Accu-Cheks sliding scale Increase Lantus to 26 units subcu nightly -Essential hypertension Lopressor -Hyperlipidemia Lipitor GERD -Obesity with BMI of 32.8 -Acute transaminitis, likely from sepsis: Improved Lipitor 40 resume Increase Lantus to 26 units at night. Repeat labs in the morning. Incentive spirometry. CT scan results noted. Possible thoracentesis discussed with Dr. Mireles. Discussed with
--- NOTE | 2024-04-28 17:20 | P.PN ---
Subjective Progress Note Date: 04/28/24 On 04/24/2024, patient is being seen for a follow-up. The patient is extensive lower lobe pneumonia left more than right with secondary hypoxic respiratory failure. Blood culture was positive for Staph aureus/MSSA. The patient is currently on IV cefazolin. Still feeling weak. She continues to have a c ongested cough. She was offered a flutter valve. She will be also given incentive spirometer. She remains on DuoNeb treatments [id number]. She is also on Perforomist and Pulmicort nebulized treatments twice a day. Rest of the medications remain unchanged. She is on Lantus insulin 10 units daily and sliding scale coverage. She is on heparin subcu for DVT prophylaxis. The b chest x-ray from today shows extensive consolidation in the left upper lobe and the left lower lobe. There is also similar consolidation in the right lung base with possible development of a right-sided pleural effusion. There is a large gastric bubble. Echocardiogram that was done on this patient on 04/20/2024 shows a preserved LV function with an ejection fraction of 50 to 55%. No significant valvular abnormalities. Abdominal ultrasound was also done on 04/23/2024 showing cholecystectomy changes without any hepatic abnormalities. The patient's white cell count at 17.6 which remains quite elevated with a hemoglobin 12.1 and a platelet count of 374. BUN 17 with a creatinine of 0.4. LFTs are improving. AST is down to 87 with an ALT of 44 and alkaline phosphatase of 234. Bilirubin is at 0.5. 04/25/2024, the patient is on 2 L of oxygen by nasal cannula. Has a congested cough. Unable to bring up much of sputum. Her cough is weak and she is unable to perform adequate pulmonary toileting. A repeat chest x-ray was done and it showed similar multifocal airspace disease and bilateral pleural effusions. The patient remains on IV antibiotics. The patient remains on IV cefazolin for MSSA pneumonia and secondary bacteremia. Rest of the medication remains unchanged. She remains on DuoNeb. She remains on Perforomist and Pulmicort nebulized treatments twice a day. Her blood work shows a white cell count of 17.6 from yesterday. BUN 17 with a creatinine of 0.4. Mild transaminitis with elevation of the LFTs which is also improving. Provided flutter valve. Provide incentive spirometer. Discussed the case with the primary care team and ID. Will do a bronchoscopy for therapeutic airway suctioning in a.m. On today's evaluation of 04/26/2024, the patient is being seen for a follow-up. The patient is being treated for bilateral pneumonia, attributed to staph. The patient was not showing adequate recovery. She continues to have congested cough. Unable to bring up much of sputum. Her coughing mechanism is quite weak. She is afebrile. She is on 4 L of oxygen by nasal cannula with a pulse ox of 92%. Based on further discussions, I decided to proceed with bronchoscopy and I performed this procedure earlier today. The patient was found to have copious amount of respiratory secretions and mucous plugging and therapeutic airway suctioning was done and another BAL of the right lower lobe was done. I cleared upper and lower airway secretions. This was done and the endoscopy suite. The patient remains on IV cefazolin. The patient remains on DuoNeb treatments [id number]. The patient remains on a combination performance of Pulmicort nebulized treatment twice a day. The patient remains on IV Solu- Medrol 40 mg every 8 hours. Following the procedure, the patient seemed to be more comfortable and there was some interval improvement in oxygenation. The white cell count is 25.7 with hemoglobin 0.8 and platelet count of 413. BUN is 23 with a creatinine of 0.4. Electrolytes are all within normal limits. Case was also discussed with her family. On 04/27/2024, the patient is being seen for a follow-up. The patient is improved compared to yesterday. She underwent a bronchoscopy and therapeutic airway suctioning and removal of mucous plugs. Since then, she is breathing easier and she is currently on 2 L of oxygen by nasal cannula with pulse ox of 94%. She continues to use the flutter valve and incentive spirometer. Follow- up chest x-ray from today shows a moderate-sized right-sided pleural effusion which seems to be somewhat loculated and there is also multifocal airspace opacities bilaterally more so in the lower lobes. The results of the BAL are still pending for now. The patient has Staph aureus and the patient is currently on IV cefazolin. She remains on bronchodilators. She remains on steroids. She is also on IV Lasix 20 mg IV push every 12 hours. Fluid balance is -2.8 L over the past 24 hours. Communicating and she seems to be much more arousable compared to yesterday. On 04/28/2024, the patient is being seen for a follow-up. Shortness of breath is gradually improving although the patient continues to have difficulties with cough and congestion and ongoing dyspnea. The patient is being treated for a staphylococcal pneumonia that was complicated with significant mucous plugging is in the patient underwent a bronchoscopy with therapeutic airway suctioning and removal of mucous plugs and the BAL is still positive for MSSA. The patient remains on IV cefazolin. Meanwhile, the follow-up chest x-ray showed bilateral pleural effusions. A repeat chest x-ray was done this morning and the patient was found to have bilateral pleural effusion and the fluid seems to be somewhat loculated on the right. Thoracentesis to be considered and based on that, prior to this procedure, I ordered a noncontrast CAT scan of the chest as the fluid that is on the right is slightly loculated. Contemplating a thoracentesis based on the CAT scan results. No new labs are available from today. The white cell count was still elevated from yesterday. The patient remains on IV cefazolin. The patient is also on IV Lasix 20 mg every 24 hours. Fluid balance has been negative over the past 24 hours in the order of 2.8 L. Objective - Vital Signs Vital signs: Vital Signs Temp 97.4 F L 04/28/24 12:46 Pulse 101 H 04/28/24 12:46 Resp 18 04/28/24 12:46 BP 94/61 04/28/24 12:46 Pulse Ox 95 04/28/24 12:46 FiO2 Intake & Output 04/27/24 04/28/24 04/28/24 18:59 06:59 18:59 Intake Total 600 360 Output Total 0 Balance 600 360 Weight 81.2 kg 81.2 kg Intake: Oral 600 360 Output: Stool 0 Other: Voiding Method Toilet Bedside Commode Diaper # Voids 3 2 - Exam No acute distress, oriented 3. Nurse of breath. The patient is currently on 2 L of O2 nasal cannula HEENT examination is grossly unremarkable. Mucous membranes are moist. No oral lesions. Neck supple. Full range of motion. No adenopathy thyromegaly or neck vein distention. Cardiovascular examination reveals regular rhythm rate. S1-S2 normal. No S3 or S4. No discernible murmur noted. Lungs reveal bilateral inspiratory and expiratory rhonchi, and air entry improved significantly following the bronchoscopy. Abdomen soft bowel sounds are heard. No masses or tenderness. Extremities are intact. No cyanosis clubbing or edema. Skin is without rash or lesion. Neurologic examination is brief but nonfocal. - Labs CBC & Chem 7: 04/27/24 10:16 04/27/24 10:16 Labs: Abnormal Lab Results - Last 24 Hours (Table) 04/27/24 04/27/24 04/28/24 Range/Units 16:23 20:07 06:16 POC Glucose (mg/dL) 308 H 245 H 288 H (70-110) mg/dL 04/28/24 Range/Units 11:34 POC Glucose (mg/dL) 459 H (70-110) mg/dL Microbiology - Last 24 Hours (Table) 04/24/24 18:20 Gram Stain - Final Sputum Sputum Culture - Final Staphylococcus aureus Assessment and Plan Plan: Acute bilateral staphylococcal pneumonia left more than right and the patient continues to have dense consolidation of the left lung and bilateral pleural effusion. The patient remains on IV cefazolin. The patient has multifocal airspace disease with bilateral pleural effusions. The patient underwent bronchoscopy and therapeutic airway suctioning was done and copious amount of respiratory secretions and mucous plugs was removed from the upper and lower airways. The BAL is showing MSSA. Bilateral pleural effusion, effusion on the right is somewhat loculated. The patient is on IV Lasix with a negative fluid balance Shortness of breath secondary to above, improved post bronchoscopy Methicillin sensitive staphylococcal aureus bacteremia, on IV cefazolin Acute hypoxemic respiratory failure, secondary to above. The patient is currently on 2 L of oxygen by nasal cannula Acute leukocytosis, white cell count remains elevated. Lactic acidosis, improving. Anion gap metabolic acidosis, improved Mild DKA, resolved. Recent influenza infection. Asthma/COPD. Diabetes mellitus type II. History of hypertension. History of hyperlipidemia . Gastroesophageal reflux disease. Obesity, with a BMI of 32.8 kg/m. Plan: Bronchoscopy and therapeutic airway suctioning was performed on 04/26/2024 Wean FiO2 to maintain oxygen saturation above 90%, currently on 2 L Continue IV cefazolin Continue IV Lasix Continue bronchodilators Continue steroids Noncontrast CAT scan of the chest. If there is sizable effusion, we will proceed with thoracentesis of the right lung. Provide incentive spirometer and continue using the flutter valve Continue the same bronchodilators Aggressive pulmonary toileting. Will continue to follow. Time with Patient: Greater than 30
[2024-04-28 20:00] LABS: Glucose,Whole Blood 262 mg/dL (70-110)
[2024-04-28] MEDS: INSULIN GLARGINE (LANTUS) 100 UNIT/ML SYR SQ SCH (20:08)
[2024-04-28] MEDS: NAFCILLIN 2 GM in DEXTROSE 5% IN WATER 100 ML IVPB SCH (20:08)
[2024-04-29 06:40] LABS: Glucose,Whole Blood 290 mg/dL (70-110)
[2024-04-29 07:33] LABS: Basophils % (A) 0 %; Eosinophils % (A) 0 %; HCT 25.6 % (34.0-46.0); Lymphocytes # (A) 1.2 k/uL (1.0-4.8); Lymphocytes % (A) 7 %; MCV 87.5 fL (80.0-100.0); Mean Platelet Volume 7.4; Monocytes # (A) 0.5 k/uL (0-1.0); Monocytes % (A) 3 %; Neutrophils # (A) 15.7 k/uL (1.3-7.7); Neutrophils % (A) 89 %; Platelet Count 656 k/uL (150-450); RBC 2.92 m/uL (3.80-5.40); RDW 14.3 % (11.5-15.5); WBC 17.6 k/uL (3.8-10.6)
[2024-04-29 07:41] LABS: HGB 8.2 gm/dL (11.4-16.0)
[2024-04-29 07:51] LABS: ALT 25 U/L (4-34); AST 51 U/L (14-36); African American GFR (CKD) >90 (>60 ml/min/1.73 sqM); Albumin 2.3 g/dL (3.5-5.0); Alkaline Phosphatase 115 U/L (38-126); Anion Gap 3 mmol/L; Blood Urea Nitrogen 28 mg/dL (7-17); Calcium 7.9 mg/dL (8.4-10.2); Carbon Dioxide 39 mmol/L (22-30); Chloride 90 mmol/L (98-107); Glucose 243 mg/dL (74-99); Non-African American GFR(CKD) >90 (>60 ml/min/1.73 sqM); Potassium 3.3 mmol/L (3.5-5.1); Sodium 132 mmol/L (137-145); Total Bilirubin 0.8 mg/dL (0.2-1.3); Total Protein 5.1 g/dL (6.3-8.2)
[2024-04-29] MEDS: POTASSIUM CHLORIDE ER 20 MEQ TAB.ER PO SCH (08:07)
[2024-04-29] MEDS: FUROSEMIDE 10 MG/ML 2 ML VIAL IV SCH (08:08)
--- NOTE | 2024-04-29 11:23 | XR ---
EXAMINATION TYPE: XR chest 1V portable DATE OF EXAM: 04/29/2024 11:17 AM COMPARISON: Chest radiographs from 04/27/2024, CT chest 04/28/2024 TECHNIQUE: XR chest 1V portable Portable AP radiograph of the chest. CLINICAL INDICATION:Female, 58 years old with history of Evaluate pleural effusion; FINDINGS: Lungs/Pleura: Small to moderate size right pleural effusion redemonstrated. Small left pleural effusi on redemonstrated. No pneumothorax. Patchy opacities right lower lung opacities with additional patch y left mid and lower lung opacities corresponding to cavitary consolidative opacities on recent CT ch est. Overall similar to prior exam. Pulmonary vascularity: Unremarkable. Heart/mediastinum: Cardiomediastinal silhouette is enlarged and stable. Musculoskeletal: No acute osseous pathology. IMPRESSION: 1. Small to moderate size right pleural effusion with small left pleural effusion. 2. Similar patchy right lower lung and left mid and lower lung consolidative opacities corresponding to recent CT. [facility], , 04/29/2024 11:21 AM
[2024-04-29 11:46] LABS: Glucose,Whole Blood 309 mg/dL (70-110)
--- NOTE | 2024-04-29 13:47 | P.PN ---
Subjective Progress Note Date: 04/29/24 On 04/24/2024, patient is being seen for a follow-up. The patient is extensive lower lobe pneumonia left more than right with secondary hypoxic respiratory failure. Blood culture was positive for Staph aureus/MSSA. The patient is currently on IV cefazolin. Still feeling weak. She continues to have a c ongested cough. She was offered a flutter valve. She will be also given incentive spirometer. She remains on DuoNeb treatments [id number]. She is also on Perforomist and Pulmicort nebulized treatments twice a day. Rest of the medications remain unchanged. She is on Lantus insulin 10 units daily and sliding scale coverage. She is on heparin subcu for DVT prophylaxis. The b chest x-ray from today shows extensive consolidation in the left upper lobe and the left lower lobe. There is also similar consolidation in the right lung base with possible development of a right-sided pleural effusion. There is a large gastric bubble. Echocardiogram that was done on this patient on 04/20/2024 shows a preserved LV function with an ejection fraction of 50 to 55%. No significant valvular abnormalities. Abdominal ultrasound was also done on 04/23/2024 showing cholecystectomy changes without any hepatic abnormalities. The patient's white cell count at 17.6 which remains quite elevated with a hemoglobin 12.1 and a platelet count of 374. BUN 17 with a creatinine of 0.4. LFTs are improving. AST is down to 87 with an ALT of 44 and alkaline phosphatase of 234. Bilirubin is at 0.5. 04/25/2024, the patient is on 2 L of oxygen by nasal cannula. Has a congested cough. Unable to bring up much of sputum. Her cough is weak and she is unable to perform adequate pulmonary toileting. A repeat chest x-ray was done and it showed similar multifocal airspace disease and bilateral pleural effusions. The patient remains on IV antibiotics. The patient remains on IV cefazolin for MSSA pneumonia and secondary bacteremia. Rest of the medication remains unchanged. She remains on DuoNeb. She remains on Perforomist and Pulmicort nebulized treatments twice a day. Her blood work shows a white cell count of 17.6 from yesterday. BUN 17 with a creatinine of 0.4. Mild transaminitis with elevation of the LFTs which is also improving. Provided flutter valve. Provide incentive spirometer. Discussed the case with the primary care team and ID. Will do a bronchoscopy for therapeutic airway suctioning in a.m. On today's evaluation of 04/26/2024, the patient is being seen for a follow-up. The patient is being treated for bilateral pneumonia, attributed to staph. The patient was not showing adequate recovery. She continues to have congested cough. Unable to bring up much of sputum. Her coughing mechanism is quite weak. She is afebrile. She is on 4 L of oxygen by nasal cannula with a pulse ox of 92%. Based on further discussions, I decided to proceed with bronchoscopy and I performed this procedure earlier today. The patient was found to have copious amount of respiratory secretions and mucous plugging and therapeutic airway suctioning was done and another BAL of the right lower lobe was done. I cleared upper and lower airway secretions. This was done and the endoscopy suite. The patient remains on IV cefazolin. The patient remains on DuoNeb treatments [id number]. The patient remains on a combination performance of Pulmicort nebulized treatment twice a day. The patient remains on IV Solu- Medrol 40 mg every 8 hours. Following the procedure, the patient seemed to be more comfortable and there was some interval improvement in oxygenation. The white cell count is 25.7 with hemoglobin 0.8 and platelet count of 413. BUN is 23 with a creatinine of 0.4. Electrolytes are all within normal limits. Case was also discussed with her family. On 04/27/2024, the patient is being seen for a follow-up. The patient is improved compared to yesterday. She underwent a bronchoscopy and therapeutic airway suctioning and removal of mucous plugs. Since then, she is breathing easier and she is currently on 2 L of oxygen by nasal cannula with pulse ox of 94%. She continues to use the flutter valve and incentive spirometer. Follow- up chest x-ray from today shows a moderate-sized right-sided pleural effusion which seems to be somewhat loculated and there is also multifocal airspace opacities bilaterally more so in the lower lobes. The results of the BAL are still pending for now. The patient has Staph aureus and the patient is currently on IV cefazolin. She remains on bronchodilators. She remains on steroids. She is also on IV Lasix 20 mg IV push every 12 hours. Fluid balance is -2.8 L over the past 24 hours. Communicating and she seems to be much more arousable compared to yesterday. On 04/28/2024, the patient is being seen for a follow-up. Shortness of breath is gradually improving although the patient continues to have difficulties with cough and congestion and ongoing dyspnea. The patient is being treated for a staphylococcal pneumonia that was complicated with significant mucous plugging is in the patient underwent a bronchoscopy with therapeutic airway suctioning and removal of mucous plugs and the BAL is still positive for MSSA. The patient remains on IV cefazolin. Meanwhile, the follow-up chest x-ray showed bilateral pleural effusions. A repeat chest x-ray was done this morning and the patient was found to have bilateral pleural effusion and the fluid seems to be somewhat loculated on the right. Thoracentesis to be considered and based on that, prior to this procedure, I ordered a noncontrast CAT scan of the chest as the fluid that is on the right is slightly loculated. Contemplating a thoracentesis based on the CAT scan results. No new labs are available from today. The white cell count was still elevated from yesterday. The patient remains on IV cefazolin. The patient is also on IV Lasix 20 mg every 24 hours. Fluid balance has been negative over the past 24 hours in the order of 2.8 L. On 04/29/2024, the patient is being seen for a follow-up. A CAT scan of the chest was completed yesterday patient had a small to moderate-sized loculated right-sided pleural effusion along with compressive atelectatic change in lung base and the patient had multiple patchy areas of consolidation. I attempted a thoracentesis of the right lung today and I was unable to aspirate any fluid. A repeat chest x-ray was done and findings were essentially stable with a small right-sided and left-sided pleural effusion. The pleural fluid is on the right is somewhat loculated. Clinically, the patient is doing well. Denies having any specific complaints. She remains on oxygen 2 L/min nasal cannula. Remains on bronchodilators and steroids. She remains on IV nafcillin. Meanwhile, the patient continues to diurese with IV Lasix. Her fluid balance is negative and the patient remains on IV Lasix 20 mg every 12 hours. She remains on IV Solu- Medrol 40 mg every 8 hours. Objective - Vital Signs Vital signs: Vital Signs Temp 97.7 F 04/29/24 07:57 Pulse 104 H 04/29/24 09:15 Resp 24 04/29/24 07:57 BP 105/68 04/29/24 07:57 Pulse Ox 97 04/29/24 08:49 FiO2 Intake & Output 04/28/24 04/29/24 04/29/24 18:59 06:59 18:59 Intake Total 200 118 Balance 200 118 Weight 81.2 kg 81.1 kg Intake: IV 150 .9 150 Intake, IV Titration 50 Amount ceFAZolin 2 gm In Sodium 50 Chloride 0.9% 50 ml @ 100 mls/hr IVPB Q8HR [facility] Rx# :[id number] Oral 118 Other: Voiding Method Toilet Toilet Bedside Commode External Catheter Diaper - Exam No acute distress, oriented 3. Nurse of breath. The patient is currently on 2 L of O2 nasal cannula HEENT examination is grossly unremarkable. Mucous membranes are moist. No oral lesions. Neck supple. Full range of motion. No adenopathy thyromegaly or neck vein distention. Cardiovascular examination reveals regular rhythm rate. S1-S2 normal. No S3 or S4. No discernible murmur noted. Lungs reveal bilateral inspiratory and expiratory rhonchi, and air entry improved significantly following the bronchoscopy. Abdomen soft bowel sounds are heard. No masses or tenderness. Extremities are intact. No cyanosis clubbing or edema. Skin is without rash or lesion. Neurologic examination is brief but nonfocal. - Labs CBC & Chem 7: 04/29/24 07:04 04/29/24 07:04 Labs: Abnormal Lab Results - Last 24 Hours (Table) 04/28/24 04/28/24 04/28/24 Range/Units 11:34 16:30 19:50 WBC (3.8-10.6) k/uL RBC (3.80-5.40) m/uL Hgb (11.4-16.0) gm/dL Hct (34.0-46.0) % Plt Count (150-450) k/uL Neutrophils # (1.3-7.7) k/uL Sodium (137-145) mmol/L Potassium (3.5-5.1) mmol/L Chloride (98-107) mmol/L Carbon Dioxide (22-30) mmol/L BUN (7-17) mg/dL Creatinine (0.52-1.04) mg/dL Glucose (74-99) mg/dL POC Glucose (mg/dL) 459 H 352 H 262 H (70-110) mg/dL Calcium (8.4-10.2) mg/dL AST (14-36) U/L Total Protein (6.3-8.2) g/dL Albumin (3.5-5.0) g/dL 04/29/24 04/29/24 04/29/24 Range/Units 06:38 07:04 07:04 WBC 17.6 H (3.8-10.6) k/uL RBC 2.92 L (3.80-5.40) m/uL Hgb 8.2 L D (11.4-16.0) gm/dL Hct 25.6 L (34.0-46.0) % Plt Count 656 H (150-450) k/uL Neutrophils # 15.7 H (1.3-7.7) k/uL Sodium 132 L (137-145) mmol/L Potassium 3.3 L (3.5-5.1) mmol/L Chloride 90 L (98-107) mmol/L Carbon Dioxide 39 H (22-30) mmol/L BUN 28 H (7-17) mg/dL Creatinine 0.45 L (0.52-1.04) mg/dL Glucose 243 H (74-99) mg/dL POC Glucose (mg/dL) 290 H (70-110) mg/dL Calcium 7.9 L (8.4-10.2) mg/dL AST 51 H (14-36) U/L Total Protein 5.1 L (6.3-8.2) g/dL Albumin 2.3 L (3.5-5.0) g/dL Microbiology - Last 24 Hours (Table) 04/26/24 14:46 Gram Stain - Final Bronchoalviolar Lavage - Left Bronchial Washings Culture - Final Staphylococcus aureus Assessment and Plan Plan: Acute bilateral staphylococcal pneumonia left more than right and the patient continues to have dense consolidation of the left lung and bilateral pleural effusion. The patient remains on IV cefazolin. The patient has multifocal airspace disease with bilateral pleural effusions. The patient underwent bronchoscopy and therapeutic airway suctioning was done and copious amount of respiratory secretions and mucous plugs was removed from the upper and lower airways. The BAL is showing MSSA. Bilateral pleural effusion, effusion on the right is somewhat loculated. The patient is on IV Lasix with a negative fluid balance. Attempted thoracentesis and this was not successful. Right-sided pleural effusion is likely loculated. Empyema is felt to be less likely. Shortness of breath secondary to above, improved post bronchoscopy Methicillin sensitive staphylococcal aureus bacteremia, on IV cefazolin Acute hypoxemic respiratory failure, secondary to above. The patient is currently on 2 L of oxygen by nasal cannula Acute leukocytosis, white cell count remains elevated. Lactic acidosis, improving. Anion gap metabolic acidosis, improved Mild DKA, resolved. Recent influenza infection. Asthma/COPD. Diabetes mellitus type II. History of hypertension. History of hyperlipidemia . Gastroesophageal reflux disease. Obesity, with a BMI of 32.8 kg/m. Plan: Reviewed the noncontrast CAT scan of the chest and it shows a loculated right- sided pleural effusion along with some patchy pulmonary infiltrates secondary to MSSA pneumonia and atelectatic changes right lung base Bronchoscopy and therapeutic airway suctioning was performed on 04/26/2024 Thoracentesis of the right lung was attempted on 04/29/2024, unsuccessful. Will continue to monitor and discussed with IR the possibility of an ultrasound- guided thoracentesis of the right lung Wean FiO2 to maintain oxygen saturation above 90%, currently on 2 L Continue IV cefazolin Continue IV Lasix Continue bronchodilators Continue steroids, still on IV Solu-Medrol 40 mg Q8 Provide incentive spirometer and continue using the flutter valve Continue the same bronchodilators Aggressive pulmonary toileting. Will continue to follow. Time with Patient: Greater than 30
[2024-04-29 15:18] LABS: HCT 24.9 % (34.0-46.0); HGB 8.3 gm/dL (11.4-16.0); MCH 28.8 pg (25.0-35.0); MCHC 33.1 g/dL (31.0-37.0); Mean Platelet Volume 7.5; Platelet Count 607 k/uL (150-450); RBC 2.86 m/uL (3.80-5.40); RDW 14.3 % (11.5-15.5); WBC 17.9 k/uL (3.8-10.6)
--- NOTE | 2024-04-29 16:45 | P.PN ---
Subjective Progress Note Date: 04/29/24 Principal diagnosis: Reason for follow-up is pneumonia and bacteremia Patient is a 58-year-old female with a past medical history significant for COPD diabetes mellitus osteoarthritis and seizure disorder has been diagnosed with influenza A about a week and a half before presentation to the hospital subsequently presented to the hospital with increasing shortness of breath and cough has been diagnosed with pneumonia blood culture positive for MSSA. On today's evaluation that is 04/29/2024, patient did not have any fever and denies any chills, patient is breathing slightly comfortably on 3 L nasal oxygen, patient with no chest pain or any worsening cough patient did not have any abdominal pain nausea vomiting or any loose stools. White count is down to 17.6 creatinine 0.45 Objective - Vital Signs Vital signs: Vital Signs Temp 98.4 F 04/29/24 11:09 Pulse 100 04/29/24 12:36 Resp 20 04/29/24 11:09 BP 105/68 04/29/24 11:09 Pulse Ox 92 L 04/29/24 11:09 FiO2 Intake & Output 04/28/24 04/29/24 04/29/24 18:59 06:59 18:59 Intake Total 200 118 Output Total 450 Balance 200 -332 Weight 81.2 kg 81.1 kg Intake: IV 150 .9 150 Intake, IV Titration 50 Amount ceFAZolin 2 gm In Sodium 50 Chloride 0.9% 50 ml @ 100 mls/hr IVPB Q8HR [facility] Rx# :[id number] Oral 118 Output: Urine 450 Other: Voiding Method Toilet Toilet Bedside Commode External Catheter Diaper - Exam GENERAL DESCRIPTION: Middle-age female up in bed in no distress RESPIRATORY SYSTEM: Unlabored breathing , coarse breath sounds bilaterally HEART: S1 S2 regular rate and rhythm , ABDOMEN: Soft , no tenderness EXTREMITIES: No edema feet - Labs CBC & Chem 7: 04/29/24 14:52 04/29/24 07:04 Labs: Abnormal Lab Results - Last 24 Hours (Table) 04/28/24 04/28/24 04/29/24 Range/Units 16:30 19:50 06:38 WBC (3.8-10.6) k/uL RBC (3.80-5.40) m/uL Hgb (11.4-16.0) gm/dL Hct (34.0-46.0) % Plt Count (150-450) k/uL Neutrophils # (1.3-7.7) k/uL Sodium (137-145) mmol/L Potassium (3.5-5.1) mmol/L Chloride (98-107) mmol/L Carbon Dioxide (22-30) mmol/L BUN (7-17) mg/dL Creatinine (0.52-1.04) mg/dL Glucose (74-99) mg/dL POC Glucose (mg/dL) 352 H 262 H 290 H (70-110) mg/dL Calcium (8.4-10.2) mg/dL AST (14-36) U/L Total Protein (6.3-8.2) g/dL Albumin (3.5-5.0) g/dL 04/29/24 04/29/24 04/29/24 Range/Units 07:04 07:04 11:45 WBC 17.6 H (3.8-10.6) k/uL RBC 2.92 L (3.80-5.40) m/uL Hgb 8.2 L D (11.4-16.0) gm/dL Hct 25.6 L (34.0-46.0) % Plt Count 656 H (150-450) k/uL Neutrophils # 15.7 H (1.3-7.7) k/uL Sodium 132 L (137-145) mmol/L Potassium 3.3 L (3.5-5.1) mmol/L Chloride 90 L (98-107) mmol/L Carbon Dioxide 39 H (22-30) mmol/L BUN 28 H (7-17) mg/dL Creatinine 0.45 L (0.52-1.04) mg/dL Glucose 243 H (74-99) mg/dL POC Glucose (mg/dL) 309 H (70-110) mg/dL Calcium 7.9 L (8.4-10.2) mg/dL AST 51 H (14-36) U/L Total Protein 5.1 L (6.3-8.2) g/dL Albumin 2.3 L (3.5-5.0) g/dL Microbiology - Last 24 Hours (Table) 04/26/24 14:46 Gram Stain - Final Bronchoalviolar Lavage - Left Bronchial Washings Culture - Final Staphylococcus aureus Assessment and Plan (1) Sepsis Current Visit: Yes Status: Acute Code(s): A41.9 - SEPSIS, UNSPECIFIED ORGANISM SNOMED Code(s): 61018544 (2) Pneumonia Current Visit: Yes Status: Acute Code(s): J18.9 - PNEUMONIA, UNSPECIFIED ORGANISM SNOMED Code(s): 928665188 (3) Allergy to sulfa drugs Current Visit: Yes Status: Acute Code(s): Z88.2 - ALLERGY STATUS TO SULFONAMIDES SNOMED Code(s): 67274599 Plan: 1patient presented to hospital with sepsis in this patient noted to have fever tachycardia elevated white count meeting criteria for SIRS source is likely pneumonia in this patient who recently did have a influenza A but not treated with evidence of bibasilar and right middle lung airspace opacity concerning for pneumonia will need to cover for Staph aureus that is commonly associated post influenza pneumonia 2-blood culture has been positive for MSSA sputum culture has not been collected, blood culture has been and so far 3-patient chest x-ray suggestive of bilateral multifocal infiltrate and effusion, patient is status post bronchoscopy and lavage completed on 04/26/2024 and culture now growing Staph aureus 4patient antibiotic was switched over to Naficillin and the patient white count is trending down, will monitor clinical course closely Dictation was produced using [employer] dictation software. please excuse any grammatical, word or spelling errors. Time with Patient: Less than 30
[2024-04-29 16:51] LABS: Glucose,Whole Blood 248 mg/dL (70-110)
[2024-04-29] MEDS: CALCIUM CARBONATE 500 MG CHEWABLE PO SCH (17:20)
--- NOTE | 2024-04-29 18:28 | P.PN ---
Progress Note - Text Progress Note Date: 04/29/24 58-year-old female with past medical history significant for type 2 diabetes mellitus, history of COPD/asthma on home inhalers, on 2 L oxygen nightly, hypertension, hyperlipidemia, GERD who presented to ER with a complaint of significant shortness of breath. Patient reported that she had flulike symptoms last Wednesday, went to PCP office on Wednesday and was diagnosed with influenza, patient was outside the window for Tamiflu, was treated with steroid burst taper and cough suppressants. Patient stated that she felt better initially, but her symptoms started to get worse later on. Patient also reported having fever and chills at home. Patient reported productive cough, worsening shortness of breath. Patient denied any headache, chest pain, palpitations, nausea vomiting diarrhea constipation abdominal pain dysuria urgency frequency weakness or numbness to extremities. In the ED patient had a Tmax of 102.1, was initially tachycardic with heart rate in the 130s, tachypneic, blood pressure 10 initially was 112/65, required 2 L oxygen. WBCs 8.0, hemoglobin 14.0, platelet 405. Absolute neutrophils 6.8. VBG showed pH 7.34, pCO2 28, HCO3 15. Sodium 135 potassium 4.3 chloride 101 BUN 19 creatinine 0.64. Lactic acid was 4.2, received fluid boluses, trended down, today 2.2. LFTs were unremarkable except mildly elevated bilirubin 1.6. NT proBNP was 7700. Procalcitonin was 8.68. UA was negative. Viral panel was negative. CT chest showed no PE, showed bilateral pneumonia, small bilateral pleural effusions. 04/20--- patient was seen and examined today. Patient is afebrile, tachycardic, respiratory rate 17, blood pressure 108/68, better as compared to yesterday. Saturating 96% on 5 L. WBCs 12.5, hemoglobin 11.5, platelet 331. BMP is unremarkable. HbA1c is 14.3. Echocardiogram done which showed normal ventricle systolic function, mild MR and TR. No pericardial effusion. Will discontinue IV fluids due to concern of fluid overload, will monitor blood pressure closely. Patient remains on vancomycin Rocephin and doxycycline, infectious disease consulted. Pulmonary following. Will try IV diuresis if blood pressure better. 04/21--patient was seen and examined today. Continues complain of productive cough, shortness of breath, generalized weakness and fatigue. Remained afebrile, still quite tachycardic with heart rate in 110s, respiratory rate 20, blood pressure better 119/79, saturating 93% on 4 L. Blood culture came back positive for Staph aureus, antibiotics changed to cefazolin per infectious disease. Started on low-dose metoprolol for heart rate control. Will try low- dose IV Lasix if blood pressure remains stable. 04/22. Patient seen and examined. Vital signs of this morning showed heart rate 122, respiration 20, blood pressure 111/83, currently on 3 L of oxygen. LFTs were elevated. Patient also complaining of coughing when swallowing. Speech evaluation ordered 04/23. Patient seen and examined. Blood work done this morning showed WBC 15.5, hemoglobin 12.5, platelet count 69, sodium 130, potassium 3.5, BUN 16, creatinine 0.53, glucose 167, AST 176, ALT 76. Continues to have cough, nonproductive. April 24: Up in recliner. Short of breath. Congested cough able unable to expectorate. Patient has a flutter valve. Also humidified oxygen. Home oxygen 2 L. Decreased appetite. Tired. IV cefazolin. Follow-up with pulmonary and ID. April 25: Reclining in bed. Congested chest. Not able to expectorate. Humidified oxygen. 2 L. Poor appetite. Discussed with Dr. Mireles. Planning for bronchoscopy with lavage tomorrow. IV cefazolin. April 26: Patient seen this morning. Reclining bed. Remains to have very congested chest. Not able to expectorate. Scheduled for bronchoscopy lavage this afternoon. Remains on IV cefazolin. Short of breath. NPO. April 27: Patient had been bronchoscopy yesterday a lot of secretions obtained. Breathing better. Today up in a chair. On 3 L nasal cannula. Had about 50% of her lunch. Reminded to use incentive spirometry. Cultures pending from lavage. All cultures still now showing MSSA. On IV cefazolin. Chest x-ray from today reviewed by me shows multiple infiltrates. Moderate right pleural effusion. April 28: Up in the chair. Shallow breathing. Not able to take deep breaths. Feels better. On 3 L nasal cannula. Ultrasound done for possible thoracentesis. CT chest done today. Patchy consolidative opacities slight decrease in size. With more cavitary consolidative appearance. Moderate right and small left pleural effusion. Dr. Mireles following. Accu-Cheks running high. Increase Lantus to 26 units nightly: Discussed with Dr. Mireles about possible right-sided thoracentesis. Antibiotics discussed with ID. April 29: Up in a chair. Short of breath. [address] Mireles attempted thoracentesis on the right side. Unable to obtain any fluid. Per ID switched over to IV nafcillin. Received IV Lasix. Congested cough. IV Solu- Medrol. Reminded to use incentive spirometry. Patient rather alkalotic. From IV diuretics. Not much oral intake. Will hold of Lasix. Active Medications Acetaminophen (Acetaminophen Tab 325 Mg Tab) 650 mg PO Q6HR PRN PRN Reason: Mild Pain or Fever > 100.5 Last Admin: 04/23/24 21:27 Dose: 650 mg Albuterol/Ipratropium (Ipratropium-Albuterol 3 Ml Neb) 3 ml INHALATION RT-QID [facility] Last Admin: 04/29/24 15:52 Dose: 3 ml Amitriptyline HCl (Amitriptyline Hcl 50 Mg Tab) 150 mg PO HS [facility] Last Admin: 04/28/24 20:09 Dose: 150 mg Atorvastatin Calcium (Atorvastatin 40 Mg Tab) 40 mg PO HS [facility] Last Admin: 04/28/24 20:09 Dose: 40 mg Budesonide (Budesonide 1 Mg/2 Ml Nebu) 1 mg INHALATION RT-BID [facility] Last Admin: 04/29/24 08:49 Dose: 1 mg Calcium Carbonate/Glycine (Calcium Carbonate 500 Mg Chewable) 500 mg PO ACHS [facility] Last Admin: 04/29/24 17:20 Dose: 500 mg Cyclobenzaprine HCl (Cyclobenzaprine 10 Mg Tab) 10 mg PO HS [facility] Last Admin: 04/28/24 20:09 Dose: 10 mg Dextrose/Water (Dextrose 50% Syringe 50 Ml) 25 ml IVP PER PROTOCOL PRN; Protocol PRN Reason: Hypoglycemia Dextrose/Water (Dextrose 50% Syringe 50 Ml) 50 ml IVP PER PROTOCOL PRN; Protocol PRN Reason: Hypoglycemia Enoxaparin Sodium (Enoxaparin 40 Mg/0.4 Ml Syringe) 40 mg SQ DAILY [facility] Last Admin: 04/29/24 08:08 Dose: 40 mg Formoterol Fumarate (Formoterol Fumarate 20 Mcg/2 Ml Nebu) 20 mcg INHALATION RT-BID [facility] Last Admin: 04/29/24 08:49 Dose: 20 mcg Guaifenesin (Guaifenesin 600 Mg Tablet.Er) 1,200 mg PO Q12HR [facility] Last Admin: 04/29/24 08:08 Dose: 1,200 mg Nafcillin Sodium 2 gm/ (Dextrose/Water) 100 mls @ 50 mls/hr IVPB Q4HR [facility]; Protocol Last Admin: 04/29/24 15:40 Dose: 50 mls/hr Insulin Glargine (Insulin Glargine (Lantus) 100 Unit/Ml Syr) 26 unit SQ [facility] Last Admin: 04/28/24 20:08 Dose: 26 unit Insulin Human Lispro (Insulin Lispro (Humalog) 100 Unit/Ml 10 Ml Vl) 0 unit SQ ACHS [facility]; Protocol Last Admin: 04/29/24 17:20 Dose: 6 unit Methylprednisolone Sodium Succinate (Methylprednisolone Sod Succi 40 Mg/Ml 1 Ml Vial) 40 mg IV Q8HR [facility] Last Admin: 04/29/24 15:41 Dose: 40 mg Metoprolol Tartrate (Metoprolol Tartrate 25 Mg Tab) 25 mg PO BID [facility] Last Admin: 04/29/24 08:07 Dose: 25 mg Miscellaneous Information (Phosphorus Replacement Protoco 1 Each Misc) 1 each MISCELLANE DAILY PRN; Protocol PRN Reason: Per Protocol Miscellaneous Information (Potassium Replacement Protocol 1 Each Misc) 1 each MISCELLANE DAILY PRN; Protocol PRN Reason: Per Protocol Montelukast Sodium (Montelukast 10 Mg Tab) 10 mg PO [facility] Last Admin: 04/28/24 20:09 Dose: 10 mg Morphine Sulfate (Morphine Sulfate 4 Mg/Ml Syringe) 4 mg IV Q4HR PRN PRN Reason: Severe Pain (Scale 7 to 10) Last Admin: 04/29/24 17:20 Dose: 4 mg Naloxone HCl (Naloxone 0.4 Mg/Ml 1 Ml Vial) 0.2 mg IV Q2M PRN PRN Reason: Opioid Reversal Nystatin (Nystatin 100,000 Unit/Ml Susp 500,000 Unit/5 Ml Cup) 500,000 unit PO QID [facility]; Protocol Last Admin: 04/29/24 17:25 Dose: Not Given Ondansetron HCl (Ondansetron 4 Mg/2 Ml Vial) 4 mg IVP Q8HR PRN PRN Reason: Nausea And Vomiting Oxybutynin Chloride (Oxybutynin 15 Mg Tab.Er.24) 30 mg PO DAILY [facility] Last Admin: 04/29/24 08:07 Dose: 30 mg On examination: VITAL SIGNS: 97.8, 95, 20, 104 x 59, 95% 3 L GENERAL APPEARANCE: Up in a recliner. But short of breath HEENT: Normal external appearance of nose and ear. Oral cavity normal EYES: Pupils equal. Conjunctiva normal. NECK: JVD not raised. Mass not palpable. RESPIRATORY: Respiratory effort increased. Lung sounds diminished at the bases CARDIOVASCULAR: First and second sounds normal. No edema. ABDOMEN: Soft. Liver and spleen not palpable. No tenderness. No mass palpable. PSYCHIATRY: Alert and oriented x3. Mood and affect tired INVESTIGATIONS, reviewed in the clinical context: April 29: White count 7.9 hemoglobin 8.3 platelets 607 sodium 132 potassium 3.3 BUN [address] chest [April 28] patchy consolidative opacities slight decrease in size. With more cavitary consolidative appearance. Moderate right and small left pleural effusion. April 27: White count 23.3 hemoglobin 11.6 platelets 606 potassium 3.9 creatinine 0.43 April 26: White count 25.7 hemoglobin 11.3 platelets 1 3 April 24: White count 7.6 hemoglobin 12.1 platelets 374 sodium 136 creatinine 0.4 Blood culture [April 19] Staph aureus. [April 21: Negative] Chest x-ray film personally reviewed by me-[April 24] bilateral infiltrates, p leural effusion 2D echo: EF 50 to 55%. Assessment and plan -Severe sepsis, secondary to pneumonia with blood cultures positive for MSSA: Better : -Bilateral cavitary pneumonia, with possible parapneumonic effusion: Improving IV cefazolin,-changed to IV nafcillin CT chest showing cavitary pneumonia Bronchoscopy with successful lavage done April 26. -Bilateral pleural effusion right greater than left. Attempted thoracentesis right side on April [address] Mireles. No fluid obtained -Acute hypoxic respiratory failure from pneumonia/effusion: Some improvement On 3 L nasal cannula Status post bronchoscopy with lavage Incentive spirometry -Chronic hypoxic respiratory failure. On 2 L oxygen at home -Lactic acidosis: Secondary to sepsis Received fluids -Mild DKA: Resolved -Recent influenza A infection -Acute asthma exacerbation DuoNeb. Nebulized Pulmicort. Solu-Medrol 40 mg every 8 -Diabetes mellitus: Type II, chronically on insulin, uncontrolled with hyperglycemia secondary steroids and infection Follow Accu-Cheks sliding scale Increase Lantus to 34 units subcu nightly -Essential hypertension Lopressor -Hyperlipidemia Lipitor GERD -Obesity with BMI of 32.8 -Acute transaminitis, likely from sepsis: Improved Lipitor 40 resume Increase Lantus to 34 units at night. Reminded about incentive spirometry. Antibiotics switched to IV nafcillin
[2024-04-29 20:01] LABS: Glucose,Whole Blood 292 mg/dL (70-110)
[2024-04-29] MEDS: INSULIN GLARGINE (LANTUS) 100 UNIT/ML SYR SQ SCH (20:27)
[2024-04-30 06:26] LABS: Glucose,Whole Blood 217 mg/dL (70-110)
[2024-04-30 07:58] LABS: African American GFR (CKD) >90 (>60 ml/min/1.73 sqM); Anion Gap 7 mmol/L; Blood Urea Nitrogen 26 mg/dL (7-17); Calcium 8.2 mg/dL (8.4-10.2); Carbon Dioxide 37 mmol/L (22-30); Chloride 87 mmol/L (98-107); Glucose 182 mg/dL (74-99); Non-African American GFR(CKD) >90 (>60 ml/min/1.73 sqM); Potassium 3.9 mmol/L (3.5-5.1); Sodium 131 mmol/L (137-145)
[2024-04-30 08:07] LABS: NT-Pro-B-Type Natriuretic Pept 277 pg/mL
[2024-04-30] MEDS ORDERED: HYDROcodone/APAP 5-325MG 1 EACH TAB PO PRN (10:44)
[2024-04-30 10:48] LABS: Basophils % (A) 0 %; Eosinophils # (A) 0.2 k/uL (0-0.7); Eosinophils % (A) 1 %; HCT 27.5 % (34.0-46.0); HGB 8.6 gm/dL (11.4-16.0); Lymphocytes # (A) 1.5 k/uL (1.0-4.8); Lymphocytes % (A) 8 %; MCH 27.5 pg (25.0-35.0); MCHC 31.1 g/dL (31.0-37.0); MCV 88.3 fL (80.0-100.0); Mean Platelet Volume 7.2; Monocytes # (A) 0.5 k/uL (0-1.0); Monocytes % (A) 3 %; Neutrophils # (A) 15.9 k/uL (1.3-7.7); Neutrophils % (A) 87 %; Platelet Count 750 k/uL (150-450); RBC 3.12 m/uL (3.80-5.40); RDW 14.9 % (11.5-15.5); WBC 18.2 k/uL (3.8-10.6)
[2024-04-30 11:31] LABS: Glucose,Whole Blood 237 mg/dL (70-110)
--- NOTE | 2024-04-30 12:56 | P.PN ---
Progress Note - Text Progress Note Date: 04/30/24 58-year-old female with past medical history significant for type 2 diabetes mellitus, history of COPD/asthma on home inhalers, on 2 L oxygen nightly, hypertension, hyperlipidemia, GERD who presented to ER with a complaint of significant shortness of breath. Patient reported that she had flulike symptoms last Wednesday, went to PCP office on Wednesday and was diagnosed with influenza, patient was outside the window for Tamiflu, was treated with steroid burst taper and cough suppressants. Patient stated that she felt better initially, but her symptoms started to get worse later on. Patient also reported having fever and chills at home. Patient reported productive cough, worsening shortness of breath. Patient denied any headache, chest pain, palpitations, nausea vomiting diarrhea constipation abdominal pain dysuria urgency frequency weakness or numbness to extremities. In the ED patient had a Tmax of 102.1, was initially tachycardic with heart rate in the 130s, tachypneic, blood pressure 10 initially was 112/65, required 2 L oxygen. WBCs 8.0, hemoglobin 14.0, platelet 405. Absolute neutrophils 6.8. VBG showed pH 7.34, pCO2 28, HCO3 15. Sodium 135 potassium 4.3 chloride 101 BUN 19 creatinine 0.64. Lactic acid was 4.2, received fluid boluses, trended down, today 2.2. LFTs were unremarkable except mildly elevated bilirubin 1.6. NT proBNP was 7700. Procalcitonin was 8.68. UA was negative. Viral panel was negative. CT chest showed no PE, showed bilateral pneumonia, small bilateral pleural effusions. 04/20--- patient was seen and examined today. Patient is afebrile, tachycardic, respiratory rate 17, blood pressure 108/68, better as compared to yesterday. Saturating 96% on 5 L. WBCs 12.5, hemoglobin 11.5, platelet 331. BMP is unremarkable. HbA1c is 14.3. Echocardiogram done which showed normal ventricle systolic function, mild MR and TR. No pericardial effusion. Will discontinue IV fluids due to concern of fluid overload, will monitor blood pressure closely. Patient remains on vancomycin Rocephin and doxycycline, infectious disease consulted. Pulmonary following. Will try IV diuresis if blood pressure better. 04/21--patient was seen and examined today. Continues complain of productive cough, shortness of breath, generalized weakness and fatigue. Remained afebrile, still quite tachycardic with heart rate in 110s, respiratory rate 20, blood pressure better 119/79, saturating 93% on 4 L. Blood culture came back positive for Staph aureus, antibiotics changed to cefazolin per infectious disease. Started on low-dose metoprolol for heart rate control. Will try low- dose IV Lasix if blood pressure remains stable. 04/22. Patient seen and examined. Vital signs of this morning showed heart rate 122, respiration 20, blood pressure 111/83, currently on 3 L of oxygen. LFTs were elevated. Patient also complaining of coughing when swallowing. Speech evaluation ordered 04/23. Patient seen and examined. Blood work done this morning showed WBC 15.5, hemoglobin 12.5, platelet count 69, sodium 130, potassium 3.5, BUN 16, creatinine 0.53, glucose 167, AST 176, ALT 76. Continues to have cough, nonproductive. April 24: Up in recliner. Short of breath. Congested cough able unable to expectorate. Patient has a flutter valve. Also humidified oxygen. Home oxygen 2 L. Decreased appetite. Tired. IV cefazolin. Follow-up with pulmonary and ID. April 25: Reclining in bed. Congested chest. Not able to expectorate. Humidified oxygen. 2 L. Poor appetite. Discussed with Dr. Mireles. Planning for bronchoscopy with lavage tomorrow. IV cefazolin. April 26: Patient seen this morning. Reclining bed. Remains to have very congested chest. Not able to expectorate. Scheduled for bronchoscopy lavage this afternoon. Remains on IV cefazolin. Short of breath. NPO. April 27: Patient had been bronchoscopy yesterday a lot of secretions obtained. Breathing better. Today up in a chair. On 3 L nasal cannula. Had about 50% of her lunch. Reminded to use incentive spirometry. Cultures pending from lavage. All cultures still now showing MSSA. On IV cefazolin. Chest x-ray from today reviewed by me shows multiple infiltrates. Moderate right pleural effusion. April 28: Up in the chair. Shallow breathing. Not able to take deep breaths. Feels better. On 3 L nasal cannula. Ultrasound done for possible thoracentesis. CT chest done today. Patchy consolidative opacities slight decrease in size. With more cavitary consolidative appearance. Moderate right and small left pleural effusion. Dr. Mireles following. Accu-Cheks running high. Increase Lantus to 26 units nightly: Discussed with Dr. Mireles about possible right-sided thoracentesis. Antibiotics discussed with ID. April 29: Up in a chair. Short of breath. [address] Mireles attempted thoracentesis on the right side. Unable to obtain any fluid. Per ID switched over to IV nafcillin. Received IV Lasix. Congested cough. IV Solu- Medrol. Reminded to use incentive spirometry. Patient rather alkalotic. From IV diuretics. Not much oral intake. Will hold of Lasix. April 30: Up in recliner. Some short of breath. On 2 L nasal cannula. at the bedside. He did discuss about continue incentive spirometry. On IV nafcillin. IV Solu-Medrol. Lasix was discontinued yesterday. Discussed with Dr. Mireles. Repeat x-ray and may consider thoracentesis by interventional radiology. A lot of it looks consolidated lung tissue. Spoke to the and patient. Would consider going home with possible therapy if needed. Patient been up to the bathroom. Increase activity. Active Medications Acetaminophen (Acetaminophen Tab 325 Mg Tab) 650 mg PO Q6HR PRN PRN Reason: Mild Pain or Fever > 100.5 Last Admin: 04/23/24 21:27 Dose: 650 mg Hydrocodone Bitart/Acetaminophen (Hydrocodone/Apap 5-325mg 1 Each Tab) 1 each PO Q6HR PRN PRN Reason: Pain Albuterol/Ipratropium (Ipratropium-Albuterol 3 Ml Neb) 3 ml INHALATION RT-QID [facility] Last Admin: 04/30/24 12:11 Dose: Not Given Amitriptyline HCl (Amitriptyline Hcl 50 Mg Tab) 150 mg PO [facility] Last Admin: 04/29/24 20:28 Dose: 150 mg Atorvastatin Calcium (Atorvastatin 40 Mg Tab) 40 mg PO [facility] Last Admin: 04/29/24 20:29 Dose: 40 mg Budesonide (Budesonide 1 Mg/2 Ml Nebu) 1 mg INHALATION RT-BID [facility] Last Admin: 04/30/24 09:31 Dose: 1 mg Calcium Carbonate/Glycine (Calcium Carbonate 500 Mg Chewable) [address] [facility] Last Admin: 04/30/24 12:32 Dose: 500 mg Cyclobenzaprine HCl (Cyclobenzaprine 10 Mg Tab) 10 mg PO [facility] Last Admin: 04/29/24 20:28 Dose: 10 mg Dextrose/Water (Dextrose 50% Syringe 50 Ml) 25 ml IVP PER PROTOCOL PRN; Protocol PRN Reason: Hypoglycemia Dextrose/Water (Dextrose 50% Syringe 50 Ml) 50 ml IVP PER PROTOCOL PRN; Protocol PRN Reason: Hypoglycemia Enoxaparin Sodium (Enoxaparin 40 Mg/0.4 Ml Syringe) 40 mg SQ DAILY [facility] Last Admin: 04/30/24 07:39 Dose: 40 mg Formoterol Fumarate (Formoterol Fumarate 20 Mcg/2 Ml Nebu) 20 mcg INHALATION RT-BID [facility] Last Admin: 04/30/24 09:31 Dose: 20 mcg Guaifenesin (Guaifenesin 600 Mg Tablet.Er) 1,200 mg PO Q12HR [facility] Last Admin: 04/30/24 07:39 Dose: 1,200 mg Nafcillin Sodium 2 gm/ (Dextrose/Water) 100 mls @ 50 mls/hr IVPB Q4HR [facility]; Protocol Last Admin: 04/30/24 07:39 Dose: 50 mls/hr Insulin Glargine (Insulin Glargine (Lantus) 100 Unit/Ml Syr) 34 unit SQ [facility] Last Admin: 04/29/24 20:27 Dose: 34 unit Insulin Human Lispro (Insulin Lispro (Humalog) 100 Unit/Ml 10 Ml Vl) 0 unit SQ [facility]; Protocol Last Admin: 04/30/24 12:32 Dose: 6 unit Methylprednisolone Sodium Succinate (Methylprednisolone Sod Succi 40 Mg/Ml 1 Ml Vial) 40 mg IV Q8HR [facility] Last Admin: 04/30/24 07:39 Dose: 40 mg Metoprolol Tartrate (Metoprolol Tartrate 25 Mg Tab) 25 mg PO BID [facility] Last Admin: 04/30/24 07:40 Dose: 25 mg Miscellaneous Information (Phosphorus Replacement Protoco 1 Each Misc) 1 each MISCELLANE DAILY PRN; Protocol PRN Reason: Per Protocol Miscellaneous Information (Potassium Replacement Protocol 1 Each Misc) 1 each MISCELLANE DAILY PRN; Protocol PRN Reason: Per Protocol Montelukast Sodium (Montelukast 10 Mg Tab) 10 mg PO HS [facility] Last Admin: 04/29/24 20:28 Dose: 10 mg Morphine Sulfate (Morphine Sulfate 4 Mg/Ml Syringe) 4 mg IV Q4HR PRN PRN Reason: Severe Pain (Scale 7 to 10) Last Admin: 04/30/24 07:40 Dose: 4 mg Naloxone HCl (Naloxone 0.4 Mg/Ml 1 Ml Vial) 0.2 mg IV Q2M PRN PRN Reason: Opioid Reversal Nystatin (Nystatin 100,000 Unit/Ml Susp 500,000 Unit/5 Ml Cup) 500,000 unit PO QID [facility]; Protocol Last Admin: 04/30/24 12:30 Dose: Not Given Ondansetron HCl (Ondansetron 4 Mg/2 Ml Vial) 4 mg IVP Q8HR PRN PRN Reason: Nausea And Vomiting Oxybutynin Chloride (Oxybutynin 15 Mg Tab.Er.24) 30 mg PO DAILY [facility] Last Admin: 04/30/24 07:39 Dose: 30 mg On examination: VITAL SIGNS: 98.1, 86, 20, 92 x 56, 96% on 2 L GENERAL APPEARANCE: Up in a recliner. Some shortness of breath. Bit congested cough HEENT: Normal external appearance of nose and ear. Oral cavity normal EYES: Pupils equal. Conjunctiva normal. NECK: JVD not raised. Mass not palpable. RESPIRATORY: Respiratory effort increased. Lung diminished breath sounds CARDIOVASCULAR: First and second sounds normal. No edema. ABDOMEN: Soft. Liver and spleen not palpable. No tenderness. No mass palpable. PSYCHIATRY: Alert and oriented x3. Mood and affect tired INVESTIGATIONS, reviewed in the clinical context: April 30: White count 18.2 hemoglobin 8.6 potassium 3.9 BUN 26 creatinine 0.45 bicarb 37 April 29: White count 7.9 hemoglobin 8.3 platelets 607 sodium 132 potassium 3.3 BUN [address] chest [April 28] patchy consolidative opacities slight decrease in size. With more cavitary consolidative appearance. Moderate right and small left pleural effusion. April 27: White count 23.3 hemoglobin 11.6 platelets 606 potassium 3.9 creatinine 0.43 April 26: White count 25.7 hemoglobin 11.3 platelets 1 3 April 24: White count 7.6 hemoglobin 12.1 platelets 374 sodium 136 creatinine 0.4 Blood culture [April 19] Staph aureus. [April 21: Negative] Chest x-ray film personally reviewed by me-[April 24] bilateral infiltrates, pleural effusion 2D echo: EF 50 to 55%. Assessment and plan -Severe sepsis, secondary to pneumonia with blood cultures positive for MSSA: Better : -Bilateral cavitary pneumonia, with possible parapneumonic effusion: Improving IV cefazolin,-changed to IV nafcillin CT chest showing cavitary pneumonia Bronchoscopy with successful lavage done April 26. -Bilateral pleural effusion right greater than left. Attempted thoracentesis right side on April [address] Mireles. No fluid obtained -Acute hypoxic respiratory failure from pneumonia/effusion: Some improvement On 2 L nasal cannula Status post bronchoscopy with lavage Incentive spirometry -Chronic hypoxic respiratory failure. On 2 L oxygen at home -Lactic acidosis: Secondary to sepsis Received fluids -Mild DKA: Resolved -Recent influenza A infection -Acute asthma exacerbation DuoNeb. Nebulized Pulmicort. Solu-Medrol 40 mg every 8 -Diabetes mellitus: Type II, chronically on insulin, uncontrolled with hyperglycemia secondary steroids and infection Follow Accu-Cheks sliding scale Lantus 34 units at night. -Essential hypertension Lopressor -Hyperlipidemia Lipitor GERD -Obesity with BMI of 32.8 -Acute transaminitis, likely from sepsis: Improved Lipitor 40 resume Cut back Solu-Medrol to every 12. antibiotics to continue. PT OT. Hopefully plan for home by Wednesday. With possible outpatient therapy.
--- NOTE | 2024-04-30 13:39 | P.PN ---
Subjective Progress Note Date: 04/30/24 On 04/24/2024, patient is being seen for a follow-up. The patient is extensive lower lobe pneumonia left more than right with secondary hypoxic respiratory failure. Blood culture was positive for Staph aureus/MSSA. The patient is currently on IV cefazolin. Still feeling weak. She continues to have a c ongested cough. She was offered a flutter valve. She will be also given incentive spirometer. She remains on DuoNeb treatments [id number]. She is also on Perforomist and Pulmicort nebulized treatments twice a day. Rest of the medications remain unchanged. She is on Lantus insulin 10 units daily and sliding scale coverage. She is on heparin subcu for DVT prophylaxis. The b chest x-ray from today shows extensive consolidation in the left upper lobe and the left lower lobe. There is also similar consolidation in the right lung base with possible development of a right-sided pleural effusion. There is a large gastric bubble. Echocardiogram that was done on this patient on 04/20/2024 shows a preserved LV function with an ejection fraction of 50 to 55%. No significant valvular abnormalities. Abdominal ultrasound was also done on 04/23/2024 showing cholecystectomy changes without any hepatic abnormalities. The patient's white cell count at 17.6 which remains quite elevated with a hemoglobin 12.1 and a platelet count of 374. BUN 17 with a creatinine of 0.4. LFTs are improving. AST is down to 87 with an ALT of 44 and alkaline phosphatase of 234. Bilirubin is at 0.5. 04/25/2024, the patient is on 2 L of oxygen by nasal cannula. Has a congested cough. Unable to bring up much of sputum. Her cough is weak and she is unable to perform adequate pulmonary toileting. A repeat chest x-ray was done and it showed similar multifocal airspace disease and bilateral pleural effusions. The patient remains on IV antibiotics. The patient remains on IV cefazolin for MSSA pneumonia and secondary bacteremia. Rest of the medication remains unchanged. She remains on DuoNeb. She remains on Perforomist and Pulmicort nebulized treatments twice a day. Her blood work shows a white cell count of 17.6 from yesterday. BUN 17 with a creatinine of 0.4. Mild transaminitis with elevation of the LFTs which is also improving. Provided flutter valve. Provide incentive spirometer. Discussed the case with the primary care team and ID. Will do a bronchoscopy for therapeutic airway suctioning in a.m. On today's evaluation of 04/26/2024, the patient is being seen for a follow-up. The patient is being treated for bilateral pneumonia, attributed to staph. The patient was not showing adequate recovery. She continues to have congested cough. Unable to bring up much of sputum. Her coughing mechanism is quite weak. She is afebrile. She is on 4 L of oxygen by nasal cannula with a pulse ox of 92%. Based on further discussions, I decided to proceed with bronchoscopy and I performed this procedure earlier today. The patient was found to have copious amount of respiratory secretions and mucous plugging and therapeutic airway suctioning was done and another BAL of the right lower lobe was done. I cleared upper and lower airway secretions. This was done and the endoscopy suite. The patient remains on IV cefazolin. The patient remains on DuoNeb treatments [id number]. The patient remains on a combination performance of Pulmicort nebulized treatment twice a day. The patient remains on IV Solu- Medrol 40 mg every 8 hours. Following the procedure, the patient seemed to be more comfortable and there was some interval improvement in oxygenation. The white cell count is 25.7 with hemoglobin 0.8 and platelet count of 413. BUN is 23 with a creatinine of 0.4. Electrolytes are all within normal limits. Case was also discussed with her family. On 04/27/2024, the patient is being seen for a follow-up. The patient is improved compared to yesterday. She underwent a bronchoscopy and therapeutic airway suctioning and removal of mucous plugs. Since then, she is breathing easier and she is currently on 2 L of oxygen by nasal cannula with pulse ox of 94%. She continues to use the flutter valve and incentive spirometer. Follow- up chest x-ray from today shows a moderate-sized right-sided pleural effusion which seems to be somewhat loculated and there is also multifocal airspace opacities bilaterally more so in the lower lobes. The results of the BAL are still pending for now. The patient has Staph aureus and the patient is currently on IV cefazolin. She remains on bronchodilators. She remains on steroids. She is also on IV Lasix 20 mg IV push every 12 hours. Fluid balance is -2.8 L over the past 24 hours. Communicating and she seems to be much more arousable compared to yesterday. On 04/28/2024, the patient is being seen for a follow-up. Shortness of breath is gradually improving although the patient continues to have difficulties with cough and congestion and ongoing dyspnea. The patient is being treated for a staphylococcal pneumonia that was complicated with significant mucous plugging is in the patient underwent a bronchoscopy with therapeutic airway suctioning and removal of mucous plugs and the BAL is still positive for MSSA. The patient remains on IV cefazolin. Meanwhile, the follow-up chest x-ray showed bilateral pleural effusions. A repeat chest x-ray was done this morning and the patient was found to have bilateral pleural effusion and the fluid seems to be somewhat loculated on the right. Thoracentesis to be considered and based on that, prior to this procedure, I ordered a noncontrast CAT scan of the chest as the fluid that is on the right is slightly loculated. Contemplating a thoracentesis based on the CAT scan results. No new labs are available from today. The white cell count was still elevated from yesterday. The patient remains on IV cefazolin. The patient is also on IV Lasix 20 mg every 24 hours. Fluid balance has been negative over the past 24 hours in the order of 2.8 L. On 04/29/2024, the patient is being seen for a follow-up. A CAT scan of the chest was completed yesterday patient had a small to moderate-sized loculated right-sided pleural effusion along with compressive atelectatic change in lung base and the patient had multiple patchy areas of consolidation. I attempted a thoracentesis of the right lung today and I was unable to aspirate any fluid. A repeat chest x-ray was done and findings were essentially stable with a small right-sided and left-sided pleural effusion. The pleural fluid is on the right is somewhat loculated. Clinically, the patient is doing well. Denies having any specific complaints. She remains on oxygen 2 L/min nasal cannula. Remains on bronchodilators and steroids. She remains on IV nafcillin. Meanwhile, the patient continues to diurese with IV Lasix. Her fluid balance is negative and the patient remains on IV Lasix 20 mg every 12 hours. She remains on IV Solu- Medrol 40 mg every 8 hours. On 04/30/2024, the patient's condition is stable on 2 L of oxygen by nasal cannula and she is using incentive spirometer and she is pulling approximately thousand on her incentive spirometer. I failed to evacuate the right-sided pleural effusion. I performed thoracentesis and after 2 separate pokes, no significant effusion was obtained. Repeat chest x-ray was done and showed a small to moderate-sized right-sided pleural effusion. Loculated. There is also a small left-sided pleural effusion also. Clinically, the patient is doing well. Her white cell count is at 18 with a hemoglobin 8.6 and a platelet count of 750. Sodium is at 131, BUN 26 and a creatinine 0.45. The patient remains on IV antibiotics and the patient remains on IV nafcillin. She has MSSA pneumonia. She is also on bronchodilators. She remains on IV Solu-Medrol. Diuretics have been discontinued. She remains on Lovenox for DVT prophylaxis. Rest of medications remain unchanged. Objective - Vital Signs Vital signs: Vital Signs Temp 98.1 F 04/30/24 11:11 Pulse 86 04/30/24 11:11 Resp 20 04/30/24 11:11 BP 92/56 04/30/24 12:02 Pulse Ox 96 04/30/24 11:11 FiO2 Intake & Output 04/29/24 04/30/24 04/30/24 18:59 06:59 18:59 Intake Total 236 Output Total 1200 0 Balance -964 0 Weight 81.3 kg Intake: Oral 236 Output: Urine 1200 Stool 0 Other: Voiding Method Toilet Toilet Toilet External Catheter External Catheter Diaper # Voids 1 1 # Bowel Movements 0 - Exam No acute distress, oriented 3. Nurse of breath. The patient is currently on 2 L of O2 nasal cannula HEENT examination is grossly unremarkable. Mucous membranes are moist. No oral lesions. Neck supple. Full range of motion. No adenopathy thyromegaly or neck vein distention. Cardiovascular examination reveals regular rhythm rate. S1-S2 normal. No S3 or S4. No discernible murmur noted. Lungs reveal bilateral inspiratory and expiratory rhonchi, and air entry improved significantly following the bronchoscopy. Abdomen soft bowel sounds are heard. No masses or tenderness. Extremities are intact. No cyanosis clubbing or edema. Skin is without rash or lesion. Neurologic examination is brief but nonfocal. - Labs CBC & Chem 7: 04/30/24 10:34 04/30/24 06:53 Labs: Abnormal Lab Results - Last 24 Hours (Table) 04/29/24 04/29/24 04/29/24 Range/Units 14:52 16:50 19:58 WBC 17.9 H (3.8-10.6) k/uL RBC 2.86 L (3.80-5.40) m/uL Hgb 8.3 L (11.4-16.0) gm/dL Hct 24.9 L (34.0-46.0) % Plt Count 607 H (150-450) k/uL Neutrophils # (1.3-7.7) k/uL Sodium (137-145) mmol/L Chloride (98-107) mmol/L Carbon Dioxide (22-30) mmol/L BUN (7-17) mg/dL Creatinine (0.52-1.04) mg/dL Glucose (74-99) mg/dL POC Glucose (mg/dL) 248 H 292 H (70-110) mg/dL Calcium (8.4-10.2) mg/dL 04/30/24 04/30/24 04/30/24 Range/Units 06:23 06:53 10:34 WBC 18.2 H (3.8-10.6) k/uL RBC 3.12 L (3.80-5.40) m/uL Hgb 8.6 L (11.4-16.0) gm/dL Hct 27.5 L (34.0-46.0) % Plt Count 750 H (150-450) k/uL Neutrophils # 15.9 H (1.3-7.7) k/uL Sodium 131 L (137-145) mmol/L Chloride 87 L (98-107) mmol/L Carbon Dioxide 37 H (22-30) mmol/L BUN 26 H (7-17) mg/dL Creatinine 0.45 L (0.52-1.04) mg/dL Glucose 182 H (74-99) mg/dL POC Glucose (mg/dL) 217 H (70-110) mg/dL Calcium 8.2 L (8.4-10.2) mg/dL 04/30/24 Range/Units 11:26 WBC (3.8-10.6) k/uL RBC (3.80-5.40) m/uL Hgb (11.4-16.0) gm/dL Hct (34.0-46.0) % Plt Count (150-450) k/uL Neutrophils # (1.3-7.7) k/uL Sodium (137-145) mmol/L Chloride (98-107) mmol/L Carbon Dioxide (22-30) mmol/L BUN (7-17) mg/dL Creatinine (0.52-1.04) mg/dL Glucose (74-99) mg/dL POC Glucose (mg/dL) 237 H (70-110) mg/dL Calcium (8.4-10.2) mg/dL Microbiology - Last 24 Hours (Table) 04/26/24 14:46 Gram Stain - Final Bronchoalviolar Lavage - Left Bronchial Washings Culture - Final Staphylococcus aureus Assessment and Plan Plan: Acute bilateral staphylococcal pneumonia left more than right and the patient continues to have dense consolidation of the left lung and bilateral pleural effusion. The patient remains on IV cefazolin. The patient has multifocal airspace disease with bilateral pleural effusions. The patient underwent bronchoscopy and therapeutic airway suctioning was done and copious amount of respiratory secretions and mucous plugs was removed from the upper and lower airways. The BAL is showing MSSA. Bilateral pleural effusion, effusion on the right is somewhat loculated. The patient is on IV Lasix with a negative fluid balance. Attempted thoracentesis and this was not successful. Right-sided pleural effusion is likely loculated. Empyema is felt to be less likely. Shortness of breath secondary to above, improved post bronchoscopy Methicillin sensitive staphylococcal aureus bacteremia, on IV cefazolin Acute hypoxemic respiratory failure, secondary to above. The patient is currently on 2 L of oxygen by nasal cannula Acute leukocytosis, white cell count remains elevated. Lactic acidosis, improving. Anion gap metabolic acidosis, improved Mild DKA, resolved. Recent influenza infection. Asthma/COPD. Diabetes mellitus type II. History of hypertension. History of hyperlipidemia . Gastroesophageal reflux disease. Obesity, with a BMI of 32.8 kg/m. Plan: Reviewed the noncontrast CAT scan of the chest and it shows a loculated right- sided pleural effusion along with some patchy pulmonary infiltrates secondary to MSSA pneumonia and atelectatic changes right lung base Bronchoscopy and therapeutic airway suctioning was performed on 04/26/2024 Thoracentesis of the right lung was attempted on 04/29/2024, unsuccessful. Unable to drain the pleural fluid from the right. Recommending IR guided thoracentesis within the next 24 to 48 hours. Will continue to monitor and discussed with IR the possibility of an ultrasound- guided thoracentesis of the right lung Wean FiO2 to maintain oxygen saturation above 90%, currently on 2 L Continue IV nafcillin Stop diuretics Continue bronchodilators Continue steroids, still on IV Solu-Medrol 40 mg Q8 Provide incentive spirometer and continue using the flutter valve Continue the same bronchodilators Aggressive pulmonary toileting. Will continue to follow. Time with Patient: Greater than 30
--- NOTE | 2024-04-30 16:01 | P.PN ---
Subjective Progress Note Date: 04/30/24 Principal diagnosis: Reason for follow-up is pneumonia and bacteremia Patient is a 58-year-old female with a past medical history significant for COPD diabetes mellitus osteoarthritis and seizure disorder has been diagnosed with influenza A about a week and a half before presentation to the hospital subsequently presented to the hospital with increasing shortness of breath and cough has been diagnosed with pneumonia blood culture positive for MSSA. On today's evaluation that is 04/30/2024, Patient is afebrile patient is currently on 2 L nasal oxygen and seem to be breathing comfortably no worsening of shortness of breath or any changes reported by the at the bedside patient currently sleepy and in no distress. Patient white count is 18.2, creatinine 0.45 Objective - Vital Signs Vital signs: Vital Signs Temp 98.1 F 04/30/24 11:11 Pulse 86 04/30/24 11:11 Resp 20 04/30/24 11:11 BP 92/56 04/30/24 12:02 Pulse Ox 96 04/30/24 11:11 FiO2 Intake & Output 04/29/24 04/30/24 04/30/24 18:59 06:59 18:59 Intake Total 236 Output Total 1200 0 Balance -964 0 Weight 81.3 kg Intake: Oral 236 Output: Urine 1200 Stool 0 Other: Voiding Method Toilet Toilet Toilet External Catheter External Catheter Diaper # Voids 1 1 # Bowel Movements 0 - Exam GENERAL DESCRIPTION: Middle-age female up in bed in no distress RESPIRATORY SYSTEM: Unlabored breathing , coarse breath sounds bilaterally HEART: S1 S2 regular rate and rhythm , ABDOMEN: Soft , no tenderness EXTREMITIES: No edema feet - Labs CBC & Chem 7: 04/30/24 10:34 04/30/24 06:53 Labs: Abnormal Lab Results - Last 24 Hours (Table) 04/29/24 04/29/24 04/29/24 Range/Units 14:52 16:50 19:58 WBC 17.9 H (3.8-10.6) k/uL RBC 2.86 L (3.80-5.40) m/uL Hgb 8.3 L (11.4-16.0) gm/dL Hct 24.9 L (34.0-46.0) % Plt Count 607 H (150-450) k/uL Neutrophils # (1.3-7.7) k/uL Sodium (137-145) mmol/L Chloride (98-107) mmol/L Carbon Dioxide (22-30) mmol/L BUN (7-17) mg/dL Creatinine (0.52-1.04) mg/dL Glucose (74-99) mg/dL POC Glucose (mg/dL) 248 H 292 H (70-110) mg/dL Calcium (8.4-10.2) mg/dL 04/30/24 04/30/24 04/30/24 Range/Units 06:23 06:53 10:34 WBC 18.2 H (3.8-10.6) k/uL RBC 3.12 L (3.80-5.40) m/uL Hgb 8.6 L (11.4-16.0) gm/dL Hct 27.5 L (34.0-46.0) % Plt Count 750 H (150-450) k/uL Neutrophils # 15.9 H (1.3-7.7) k/uL Sodium 131 L (137-145) mmol/L Chloride 87 L (98-107) mmol/L Carbon Dioxide 37 H (22-30) mmol/L BUN 26 H (7-17) mg/dL Creatinine 0.45 L (0.52-1.04) mg/dL Glucose 182 H (74-99) mg/dL POC Glucose (mg/dL) 217 H (70-110) mg/dL Calcium 8.2 L (8.4-10.2) mg/dL 04/30/24 Range/Units 11:26 WBC (3.8-10.6) k/uL RBC (3.80-5.40) m/uL Hgb (11.4-16.0) gm/dL Hct (34.0-46.0) % Plt Count (150-450) k/uL Neutrophils # (1.3-7.7) k/uL Sodium (137-145) mmol/L Chloride (98-107) mmol/L Carbon Dioxide (22-30) mmol/L BUN (7-17) mg/dL Creatinine (0.52-1.04) mg/dL Glucose (74-99) mg/dL POC Glucose (mg/dL) 237 H (70-110) mg/dL Calcium (8.4-10.2) mg/dL Microbiology - Last 24 Hours (Table) 04/26/24 14:46 Gram Stain - Final Bronchoalviolar Lavage - Left Bronchial Washings Culture - Final Staphylococcus aureus Assessment and Plan (1) Sepsis Current Visit: Yes Status: Acute Code(s): A41.9 - SEPSIS, UNSPECIFIED ORGANISM SNOMED Code(s): 39438397 (2) Pneumonia Current Visit: Yes Status: Acute Code(s): J18.9 - PNEUMONIA, UNSPECIFIED ORGANISM SNOMED Code(s): 169107950 (3) Allergy to sulfa drugs Current Visit: Yes Status: Acute Code(s): Z88.2 - ALLERGY STATUS TO SULFONAMIDES SNOMED Code(s): 00381588 Plan: 1patient presented to hospital with sepsis in this patient noted to have fever tachycardia elevated white count meeting criteria for SIRS source is likely pneumonia in this patient who recently did have a influenza A but not treated with evidence of bibasilar and right middle lung airspace opacity concerning for pneumonia will need to cover for Staph aureus that is commonly associated post influenza pneumonia 2-blood culture has been positive for MSSA sputum culture has not been collected, blood culture has been and so far 3-patient chest x-ray suggestive of bilateral multifocal infiltrate and effusion, patient is status post bronchoscopy and lavage completed on 04/26/2024 and culture now growing Staph aureus 4patient did have a right-sided effusion loculated pulmonary was not able to aspirate possible plan for IR aspiration of that fluid for now DVT the patient Naficillin and monitor clinical course closely at the bedside question answered Dictation was produced using [employer] dictation software. please excuse any grammatical, word or spelling errors. Time with Patient: Less than 30
[2024-04-30 16:39] LABS: Glucose,Whole Blood 224 mg/dL (70-110)
[2024-04-30 20:36] LABS: Glucose,Whole Blood 167 mg/dL (70-110)
[2024-05-01 06:23] LABS: Glucose,Whole Blood 159 mg/dL (70-110)
[2024-05-01 11:31] LABS: Glucose,Whole Blood 209 mg/dL (70-110)
[2024-05-01 16:43] LABS: Glucose,Whole Blood 129 mg/dL (70-110)
--- NOTE | 2024-05-01 17:18 | P.PN ---
Subjective Progress Note Date: 05/01/24 Principal diagnosis: Reason for follow-up is pneumonia and bacteremia Patient is a 58-year-old female with a past medical history significant for COPD diabetes mellitus osteoarthritis and seizure disorder has been diagnosed with influenza A about a week and a half before presentation to the hospital subsequently presented to the hospital with increasing shortness of breath and cough has been diagnosed with pneumonia blood culture positive for MSSA. On today's evaluation that is 05/01/2024, patient has been afebrile, patient is breathing comfortably and is currently on 2 L nasal oxygen, patient denies having any chest pain cough decreased intensity no nausea vomiting no abdominal pain or diarrhea. No new lab has been repeated today Objective - Vital Signs Vital signs: Vital Signs Temp 98.3 F 05/01/24 08:20 Pulse 100 05/01/24 11:55 Resp 17 05/01/24 08:20 BP 95/59 05/01/24 08:20 Pulse Ox 93 L 05/01/24 08:20 FiO2 Intake & Output 04/30/24 05/01/24 05/01/24 18:59 06:59 18:59 Intake Total 118 Output Total 400 Balance 118 -400 Weight 79.7 kg Intake: Oral 118 Output: Urine 400 Other: Voiding Method Toilet Toilet Toilet Diaper Diaper Diaper External Catheter External Catheter # Voids 2 # Bowel Movements 0 - Exam GENERAL DESCRIPTION: Middle-age female up in bed in no distress RESPIRATORY SYSTEM: Unlabored breathing , coarse breath sounds bilaterally HEART: S1 S2 regular rate and rhythm , ABDOMEN: Soft , no tenderness EXTREMITIES: No edema feet - Labs CBC & Chem 7: 04/30/24 10:34 04/30/24 06:53 Labs: Abnormal Lab Results - Last 24 Hours (Table) 04/30/24 04/30/24 05/01/24 Range/Units 16:38 20:34 06:22 POC Glucose (mg/dL) 224 H 167 H 159 H (70-110) mg/dL 05/01/24 Range/Units 11:30 POC Glucose (mg/dL) 209 H (70-110) mg/dL Assessment and Plan (1) Sepsis Current Visit: Yes Status: Acute Code(s): A41.9 - SEPSIS, UNSPECIFIED ORGANISM SNOMED Code(s): 76758963 (2) Pneumonia Current Visit: Yes Status: Acute Code(s): J18.9 - PNEUMONIA, UNSPECIFIED ORGANISM SNOMED Code(s): 178932240 (3) Allergy to sulfa drugs Current Visit: Yes Status: Acute Code(s): Z88.2 - ALLERGY STATUS TO SULFONAMIDES SNOMED Code(s): 51894369 Plan: 1patient presented to hospital with sepsis in this patient noted to have fever tachycardia elevated white count meeting criteria for SIRS source is likely pneumonia in this patient who recently did have a influenza A but not treated with evidence of bibasilar and right middle lung airspace opacity concerning for pneumonia will need to cover for Staph aureus that is commonly associated post influenza pneumonia 2-blood culture has been positive for MSSA sputum culture has not been collected, blood culture has been and so far 3-patient chest x-ray suggestive of bilateral multifocal infiltrate and effusion, patient is status post bronchoscopy and lavage completed on 04/26/2024 and culture now growing Staph aureus 4patient did have a right-sided effusion loculated pulmonary was not able to aspirate possible plan for IR aspiration of that fluid 5patient currently being treated with Naficillin and is for PICC line and outpatient IV cefazolin on discharge discussed with admitting physician Dictation was produced using [employer] dictation software. please excuse any grammatical, word or spelling errors. Time with Patient: Less than 30
--- NOTE | 2024-05-01 18:57 | P.PN ---
Subjective Progress Note Date: 05/01/24 Principal diagnosis: Acute bilateral staphylococcal pneumonia and bilateral pleural effusions On 04/24/2024, patient is being seen for a follow-up. The patient is extensive lower lobe pneumonia left more than right with secondary hypoxic respiratory failure. Blood culture was positive for Staph aureus/MSSA. The patient is currently on IV cefazolin. Still feeling weak. She continues to have a congested cough. She was offered a flutter valve. She will be also given zoila ntive spirometer. She remains on DuoNeb treatments [id number]. She is also on Perforomist and Pulmicort nebulized treatments twice a day. Rest of the medications remain unchanged. She is on Lantus insulin 10 units daily and sliding scale coverage. She is on heparin subcu for DVT prophylaxis. The b chest x-ray from today shows extensive consolidation in the left upper lobe and the left lower lobe. There is also similar consolidation in the right lung base with possible development of a right-sided pleural effusion. There is a large gastric bubble. Echocardiogram that was done on this patient on 04/20/2024 shows a preserved LV function with an ejection fraction of 50 to 55%. No significant valvular abnormalities. Abdominal ultrasound was also done on 04/23/2024 showing cholecystectomy changes without any hepatic abnormalities. The patient's white cell count at 17.6 which remains quite elevated with a hemoglobin 12.1 and a platelet count of 374. BUN 17 with a creatinine of 0.4. LFTs are improving. AST is down to 87 with an ALT of 44 and alkaline phosphatase of 234. Bilirubin is at 0.5. 04/25/2024, the patient is on 2 L of oxygen by nasal cannula. Has a congested co ugh. Unable to bring up much of sputum. Her cough is weak and she is unable to perform adequate pulmonary toileting. A repeat chest x-ray was done and it showed similar multifocal airspace disease and bilateral pleural effusions. The patient remains on IV antibiotics. The patient remains on IV cefazolin for MSSA pneumonia and secondary bacteremia. Rest of the medication remains unchanged. She remains on DuoNeb. She remains on Perforomist and Pulmicort nebulized treatments twice a day. Her blood work shows a white cell count of 17.6 from yesterday. BUN 17 with a creatinine of 0.4. Mild transaminitis with elevation of the LFTs which is also improving. Provided flutter valve. Provide incentive spirometer. Discussed the case with the primary care team and ID. Will do a bronchoscopy for therapeutic airway suctioning in a.m. On today's evaluation of 04/26/2024, the patient is being seen for a follow-up. The patient is being treated for bilateral pneumonia, attributed to staph. The patient was not showing adequate recovery. She continues to have congested cough. Unable to bring up much of sputum. Her coughing mechanism is quite weak. She is afebrile. She is on 4 L of oxygen by nasal cannula with a pulse ox of 92%. Based on further discussions, I decided to proceed with bronchoscopy and I performed this procedure earlier today. The patient was found to have copious amount of respiratory secretions and mucous plugging and therapeutic airway suctioning was done and another BAL of the right lower lobe was done. I cleared upper and lower airway secretions. This was done and the endoscopy suite. The patient remains on IV cefazolin. The patient remains on DuoNeb treatments [id number]. The patient remains on a combination performance of Pulmicort nebulized treatment twice a day. The patient remains on IV Solu- Medrol 40 mg every 8 hours. Following the procedure, the patient seemed to be more comfortable and there was some interval improvement in oxygenation. The white cell count is 25.7 with hemoglobin 0.8 and platelet count of 413. BUN is 23 with a creatinine of 0.4. Electrolytes are all within normal limits. Case was also discussed with her family. On 04/27/2024, the patient is being seen for a follow-up. The patient is improved compared to yesterday. She underwent a bronchoscopy and therapeutic airway suctioning and removal of mucous plugs. Since then, she is breathing easier and she is currently on 2 L of oxygen by nasal cannula with pulse ox of 94%. She continues to use the flutter valve and incentive spirometer. Follow- up chest x-ray from today shows a moderate-sized right-sided pleural effusion which seems to be somewhat loculated and there is also multifocal airspace opacities bilaterally more so in the lower lobes. The results of the BAL are still pending for now. The patient has Staph aureus and the patient is currently on IV cefazolin. She remains on bronchodilators. She remains on steroids. She is also on IV Lasix 20 mg IV push every 12 hours. Fluid balance is -2.8 L over the past 24 hours. Communicating and she seems to be much more arousable compared to yesterday. On 04/28/2024, the patient is being seen for a follow-up. Shortness of breath is gradually improving although the patient continues to have difficulties with cough and congestion and ongoing dyspnea. The patient is being treated for a staphylococcal pneumonia that was complicated with significant mucous plugging is in the patient underwent a bronchoscopy with therapeutic airway suctioning and removal of mucous plugs and the BAL is still positive for MSSA. The patient remains on IV cefazolin. Meanwhile, the follow-up chest x-ray showed bilateral pleural effusions. A repeat chest x-ray was done this morning and the patient was found to have bilateral pleural effusion and the fluid seems to be somewhat loculated on the right. Thoracentesis to be considered and based on that, prior to this procedure, I ordered a noncontrast CAT scan of the chest as the fluid that is on the right is slightly loculated. Contemplating a thoracentesis based on the CAT scan results. No new labs are available from today. The white cell count was still elevated from yesterday. The patient remains on IV cefazolin. The patient is also on IV Lasix 20 mg every 24 hours. Fluid balance has been negative over the past 24 hours in the order of 2.8 L. On 04/29/2024, the patient is being seen for a follow-up. A CAT scan of the ches t was completed yesterday patient had a small to moderate-sized loculated right- sided pleural effusion along with compressive atelectatic change in lung base and the patient had multiple patchy areas of consolidation. I attempted a thoracentesis of the right lung today and I was unable to aspirate any fluid. A repeat chest x-ray was done and findings were essentially stable with a small right-sided and left-sided pleural effusion. The pleural fluid is on the right is somewhat loculated. Clinically, the patient is doing well. Denies having any specific complaints. She remains on oxygen 2 L/min nasal cannula. Remains on bronchodilators and steroids. She remains on IV nafcillin. Meanwhile, the patient continues to diurese with IV Lasix. Her fluid balance is negative and the patient remains on IV Lasix 20 mg every 12 hours. She remains on IV Solu- Medrol 40 mg every 8 hours. On 04/30/2024, the patient's condition is stable on 2 L of oxygen by nasal cannula and she is using incentive spirometer and she is pulling approximately thousand on her incentive spirometer. I failed to evacuate the right-sided pleural effusion. I performed thoracentesis and after 2 separate pokes, no significant effusion was obtained. Repeat chest x-ray was done and showed a small to moderate-sized right-sided pleural effusion. Loculated. There is also a small left-sided pleural effusion also. Clinically, the patient is doing well. Her white cell count is at 18 with a hemoglobin 8.6 and a platelet count of 750. Sodium is at 131, BUN 26 and a creatinine 0.45. The patient remains on IV antibiotics and the patient remains on IV nafcillin. She has MSSA pneumonia. She is also on bronchodilators. She remains on IV Solu-Medrol. Diuretics have been discontinued. She remains on Lovenox for DVT prophylaxis. Rest of medications remain unchanged. Patient was seen today on 05/01/2024, seems to be comfortable, in no distress on 2 L nasal cannula, apparently Dr. Valero attempted to perform thoracentesis on this patient, however he felt the fluid was loculated, and could not drain a ny pleural effusion and he clearly felt that this is not an picture of empyema at this is likely a loculated parapneumonic effusion. Patient remains on antibiotics and she is being followed by infectious disease, she had MSSA pneumonia. Remains on bronchodilators and on steroids, clinically the patient is improving but not back to baseline. Continues to have leukocytosis with WBC count yesterday was 18.2 hemoglobin 8.6 electrolytes are normal renal profile is normal chest x-ray from yesterday and CT of the chest were reviewed again I suspect that the patient has loculated small pleural effusions right more so than left. Objective - Vital Signs Vital signs: Vital Signs Temp 98.3 F 05/01/24 08:20 Pulse 93 05/01/24 17:00 Resp 17 05/01/24 17:00 BP 93/60 05/01/24 17:00 Pulse Ox 98 05/01/24 17:00 FiO2 Intake & Output 04/30/24 05/01/24 05/01/24 18:59 06:59 18:59 Intake Total 118 120 Output Total 400 Balance 118 -400 120 Weight 79.7 kg Intake: Oral 118 120 Output: Urine 400 Other: Voiding Method Toilet Toilet Toilet Diaper Diaper Diaper External Catheter External Catheter # Voids 2 1 # Bowel Movements 0 - Exam General: Revealed 58-year-old female in no distress on 2 L nasal cannula Skin: Skin is warm and dry and no rashes or lesions are noted. Eye: Pupils are equal, round and reactive to light, extra-ocular movements are intact; there is normal conjunctiva bilaterally. Ears, nose, mouth and throat: There are moist mucous membranes and no oral lesions. Neck: The neck is supple, there is no tenderness or JVD. Cardiovascular: Distant S1-S2, no S3 gallop. No murmur Respiratory: Diminished breath sound bilaterally no rhonchi no wheezes Gastrointestinal: Soft, non-distended, non-tender abdomen without masses or organomegaly noted. There is no rebound or guarding present. Bowel sounds are unremarkable. Musculoskeletal: Normal ROM, no tenderness, There is no pedal edema. Neurological: CN II-XII intact, Cranial nerves III through XII are intact. No gross focal deficit Psychiatric: Cooperative, appropriate mood & affect, normal judgment. - Labs CBC & Chem 7: 04/30/24 10:34 04/30/24 06:53 Labs: Abnormal Lab Results - Last 24 Hours (Table) 04/30/24 05/01/24 05/01/24 Range/Units 20:34 06:22 11:30 POC Glucose (mg/dL) 167 H 159 H 209 H (70-110) mg/dL 05/01/24 Range/Units 16:41 POC Glucose (mg/dL) 129 H (70-110) mg/dL Assessment and Plan Assessment: Impression: Acute hypoxic respiratory failure Acute bilateral staphylococcal pneumonia, MSSA Parapneumonic pleural effusions MSSA bacteremia, on cefazolin Acute leukocytosis secondary to above Mild DKA secondary to above Anion gap metabolic acidosis, resolved Recent influenza A infection History of underlying COPD/asthma Type 2 diabetes Benign essential hypertension Dyslipidemia GERD without esophagitis Recommendation: Continue antibiotics Will not attempt any further thoracentesis since it was unsuccessful Continue to wean and titrate FiO2 Continue nafcillin Continue bronchodilators Continue Solu-Medrol and transition to prednisone in the next 24 hours Continue incentive spirometry Continue aggressive pulmonary toilet Ambulate Will continue to follow Time with Patient: Less than 30
[2024-05-01 20:42] LABS: Glucose,Whole Blood 183 mg/dL (70-110)
--- NOTE | 2024-05-01 20:59 | P.PN ---
Progress Note - Text Progress Note Date: 05/01/24 58-year-old female with past medical history significant for type 2 diabetes mellitus, history of COPD/asthma on home inhalers, on 2 L oxygen nightly, hypertension, hyperlipidemia, GERD who presented to ER with a complaint of significant shortness of breath. Patient reported that she had flulike symptoms last Wednesday, went to PCP office on Wednesday and was diagnosed with influenza, patient was outside the window for Tamiflu, was treated with steroid burst taper and cough suppressants. Patient stated that she felt better initially, but her symptoms started to get worse later on. Patient also reported having fever and chills at home. Patient reported productive cough, worsening shortness of breath. Patient denied any headache, chest pain, palpitations, nausea vomiting diarrhea constipation abdominal pain dysuria urgency frequency weakness or numbness to extremities. In the ED patient had a Tmax of 102.1, was initially tachycardic with heart rate in the 130s, tachypneic, blood pressure 10 initially was 112/65, required 2 L oxygen. WBCs 8.0, hemoglobin 14.0, platelet 405. Absolute neutrophils 6.8. VBG showed pH 7.34, pCO2 28, HCO3 15. Sodium 135 potassium 4.3 chloride 101 BUN 19 creatinine 0.64. Lactic acid was 4.2, received fluid boluses, trended down, today 2.2. LFTs were unremarkable except mildly elevated bilirubin 1.6. NT proBNP was 7700. Procalcitonin was 8.68. UA was negative. Viral panel was negative. CT chest showed no PE, showed bilateral pneumonia, small bilateral pleural effusions. 04/20--- patient was seen and examined today. Patient is afebrile, tachycardic, respiratory rate 17, blood pressure 108/68, better as compared to yesterday. Saturating 96% on 5 L. WBCs 12.5, hemoglobin 11.5, platelet 331. BMP is unremarkable. HbA1c is 14.3. Echocardiogram done which showed normal ventricle systolic function, mild MR and TR. No pericardial effusion. Will discontinue IV fluids due to concern of fluid overload, will monitor blood pressure closely. Patient remains on vancomycin Rocephin and doxycycline, infectious disease consulted. Pulmonary following. Will try IV diuresis if blood pressure better. 04/21--patient was seen and examined today. Continues complain of productive cough, shortness of breath, generalized weakness and fatigue. Remained afebrile, still quite tachycardic with heart rate in 110s, respiratory rate 20, blood pressure better 119/79, saturating 93% on 4 L. Blood culture came back positive for Staph aureus, antibiotics changed to cefazolin per infectious disease. Started on low-dose metoprolol for heart rate control. Will try low- dose IV Lasix if blood pressure remains stable. 04/22. Patient seen and examined. Vital signs of this morning showed heart rate 122, respiration 20, blood pressure 111/83, currently on 3 L of oxygen. LFTs were elevated. Patient also complaining of coughing when swallowing. Speech evaluation ordered 04/23. Patient seen and examined. Blood work done this morning showed WBC 15.5, hemoglobin 12.5, platelet count 69, sodium 130, potassium 3.5, BUN 16, creatinine 0.53, glucose 167, AST 176, ALT 76. Continues to have cough, nonproductive. April 24: Up in recliner. Short of breath. Congested cough able unable to expectorate. Patient has a flutter valve. Also humidified oxygen. Home oxygen 2 L. Decreased appetite. Tired. IV cefazolin. Follow-up with pulmonary and ID. April 25: Reclining in bed. Congested chest. Not able to expectorate. Humidified oxygen. 2 L. Poor appetite. Discussed with Dr. Mireles. Planning for bronchoscopy with lavage tomorrow. IV cefazolin. April 26: Patient seen this morning. Reclining bed. Remains to have very congested chest. Not able to expectorate. Scheduled for bronchoscopy lavage this afternoon. Remains on IV cefazolin. Short of breath. NPO. April 27: Patient had been bronchoscopy yesterday a lot of secretions obtained. Breathing better. Today up in a chair. On 3 L nasal cannula. Had about 50% of her lunch. Reminded to use incentive spirometry. Cultures pending from lavage. All cultures still now showing MSSA. On IV cefazolin. Chest x-ray from today reviewed by me shows multiple infiltrates. Moderate right pleural effusion. April 28: Up in the chair. Shallow breathing. Not able to take deep breaths. Feels better. On 3 L nasal cannula. Ultrasound done for possible thoracentesis. CT chest done today. Patchy consolidative opacities slight decrease in size. With more cavitary consolidative appearance. Moderate right and small left pleural effusion. Dr. Mierles following. Accu-Cheks running high. Increase Lantus to 26 units nightly: Discussed with Dr. Mireles about possible right-sided thoracentesis. Antibiotics discussed with ID. April 29: Up in a chair. Short of breath. [address] Mireles attempted thoracentesis on the right side. Unable to obtain any fluid. Per ID switched over to IV nafcillin. Received IV Lasix. Congested cough. IV Solu- Medrol. Reminded to use incentive spirometry. Patient rather alkalotic. From IV diuretics. Not much oral intake. Will hold of Lasix. April 30: Up in recliner. Some short of breath. On 2 L nasal cannula. at the bedside. He did discuss about continue incentive spirometry. On IV nafcillin. IV Solu-Medrol. Lasix was discontinued yesterday. Discussed with Dr. Mireles. Repeat x-ray and may consider thoracentesis by interventional radiology. A lot of it looks consolidated lung tissue. Spoke to the and patient. Would consider going home with possible therapy if needed. Patient been up to the bathroom. Increase activity. May 01: Sitting up in the recliner. Using incentive spirometry. IV nafcillin. Switch over to oral prednisone. Discussed with ID Dr. Hartmann. Patient will need a PICC line for discharge. Probably will need to be switched back to IV cefazolin for same. Discussed with patient. Seen by Dr. Owen from pulmonary: Not for repeat thoracentesis. Looking at possible discharge tomorrow. Active Medications Acetaminophen (Acetaminophen Tab 325 Mg Tab) 650 mg PO Q6HR PRN PRN Reason: Mild Pain or Fever > 100.5 Last Admin: 05/01/24 08:28 Dose: 650 mg Hydrocodone Bitart/Acetaminophen (Hydrocodone/Apap 5-325mg 1 Each Tab) 1 each PO Q6HR PRN PRN Reason: Pain Albuterol/Ipratropium (Ipratropium-Albuterol 3 Ml Neb) 3 ml INHALATION RT-QID [facility] Last Admin: 05/01/24 18:48 Dose: 3 ml Amitriptyline HCl (Amitriptyline Hcl 50 Mg Tab) 150 mg PO HS [facility] Last Admin: 05/01/24 20:14 Dose: 150 mg Atorvastatin Calcium (Atorvastatin 40 Mg Tab) 40 mg PO HS [facility] Last Admin: 05/01/24 20:14 Dose: 40 mg Budesonide (Budesonide 1 Mg/2 Ml Nebu) 1 mg INHALATION RT-BID [facility] Last Admin: 05/01/24 18:48 Dose: 1 mg Calcium Carbonate/Glycine (Calcium Carbonate 500 Mg Chewable) 500 mg PO [facility] Last Admin: 05/01/24 20:14 Dose: 500 mg Cyclobenzaprine HCl (Cyclobenzaprine 10 Mg Tab) 10 mg PO [facility] Last Admin: 05/01/24 20:14 Dose: 10 mg Dextrose/Water (Dextrose 50% Syringe 50 Ml) 25 ml IVP PER PROTOCOL PRN; Protocol PRN Reason: Hypoglycemia Dextrose/Water (Dextrose 50% Syringe 50 Ml) 50 ml IVP PER PROTOCOL PRN; Protocol PRN Reason: Hypoglycemia Enoxaparin Sodium (Enoxaparin 40 Mg/0.4 Ml Syringe) 40 mg SQ DAILY [facility] Last Admin: 05/01/24 08:21 Dose: 40 mg Formoterol Fumarate (Formoterol Fumarate 20 Mcg/2 Ml Nebu) 20 mcg INHALATION RT-BID [facility] Last Admin: 05/01/24 18:48 Dose: 20 mcg Guaifenesin (Guaifenesin 600 Mg Tablet.Er) 1,200 mg PO Q12HR [facility] Last Admin: 05/01/24 20:14 Dose: 1,200 mg Nafcillin Sodium 2 gm/ (Dextrose/Water) 100 mls @ 100 mls/hr IVPB Q4HR [facility]; Protocol Last Admin: 05/01/24 20:15 Dose: 100 mls/hr Insulin Glargine (Insulin Glargine (Lantus) 100 Unit/Ml Syr) 34 unit SQ [facility] Last Admin: 05/01/24 20:45 Dose: 34 unit Insulin Human Lispro (Insulin Lispro (Humalog) 100 Unit/Ml 10 Ml Vl) 0 unit SQ [facility]; Protocol Last Admin: 05/01/24 20:46 Dose: 3 unit Methylprednisolone Sodium Succinate (Methylprednisolone Sod Succi 40 Mg/Ml 1 Ml Vial) 40 mg IV Q8HR [facility] Last Admin: 05/01/24 17:01 Dose: 40 mg Metoprolol Tartrate (Metoprolol Tartrate 25 Mg Tab) 25 mg PO BID [facility] Last Admin: 05/01/24 20:15 Dose: 25 mg Miscellaneous Information (Phosphorus Replacement Protoco 1 Each Misc) 1 each MISCELLANE DAILY PRN; Protocol PRN Reason: Per Protocol Miscellaneous Information (Potassium Replacement Protocol 1 Each Misc) 1 each MISCELLANE DAILY PRN; Protocol PRN Reason: Per Protocol Montelukast Sodium (Montelukast 10 Mg Tab) 10 mg PO HS [facility] Last Admin: 05/01/24 20:15 Dose: 10 mg Morphine Sulfate (Morphine Sulfate 4 Mg/Ml Syringe) 4 mg IV Q4HR PRN PRN Reason: Severe Pain (Scale 7 to 10) Last Admin: 04/30/24 07:40 Dose: 4 mg Naloxone HCl (Naloxone 0.4 Mg/Ml 1 Ml Vial) 0.2 mg IV Q2M PRN PRN Reason: Opioid Reversal Nystatin (Nystatin 100,000 Unit/Ml Susp 500,000 Unit/5 Ml Cup) 500,000 unit PO QID [facility]; Protocol Last Admin: 05/01/24 20:15 Dose: 500,000 unit Ondansetron HCl (Ondansetron 4 Mg/2 Ml Vial) 4 mg IVP Q8HR PRN PRN Reason: Nausea And Vomiting Oxybutynin Chloride (Oxybutynin 15 Mg Tab.Er.24) 30 mg PO DAILY [facility] Last Admin: 05/01/24 08:21 Dose: 30 mg On examination: VITAL SIGNS: 98.3, 100, 17, 96.61, 100% 2 L GENERAL APPEARANCE: Up in a recliner. Some shortness of breath. Some congested cough HEENT: Normal external appearance of nose and ear. Oral cavity normal EYES: Pupils equal. Conjunctiva normal. NECK: JVD not raised. Mass not palpable. RESPIRATORY: Respiratory effort increased. Lung diminished breath sounds CARDIOVASCULAR: First and second sounds normal. No edema. ABDOMEN: Soft. Liver and spleen not palpable. No tenderness. No mass palpable. PSYCHIATRY: Alert and oriented x3. Mood and affect tired INVESTIGATIONS, reviewed in the clinical context: April 30: White count 18.2 hemoglobin 8.6 potassium 3.9 BUN 26 creatinine 0.45 bicarb 37 April 29: White count 7.9 hemoglobin 8.3 platelets 607 sodium 132 potassium 3.3 BUN [address] chest [April 28] patchy consolidative opacities slight decrease in size. With more cavitary consolidative appearance. Moderate right and small left pleural effusion. April 27: White count 23.3 hemoglobin 11.6 platelets 606 potassium 3.9 creatinine 0.43 April 26: White count 25.7 hemoglobin 11.3 platelets 1 3 April 24: White count 7.6 hemoglobin 12.1 platelets 374 sodium 136 creatinine 0.4 Blood culture [April 19] Staph aureus. [April 21: Negative] Chest x-ray film personally reviewed by me-[April 24] bilateral infiltrates, pleural effusion 2D echo: EF 50 to 55%. Assessment and plan -Severe sepsis, secondary to pneumonia with blood cultures positive for MSSA: Better : -Bilateral cavitary pneumonia, with possible parapneumonic effusion: Improving IV cefazolin,-changed to IV nafcillin CT chest showing cavitary pneumonia Bronchoscopy with successful lavage done April 26. -Bilateral pleural effusion right greater than left. Attempted thoracentesis right side on April [address] Mireles. No fluid obtained. Not for any further thoracentesis attempt -Acute hypoxic respiratory failure from pneumonia/effusion: Some improvement On 2 L nasal cannula Status post bronchoscopy with lavage Incentive spirometry -Chronic hypoxic respiratory failure. On 2 L oxygen at home -Lactic acidosis: Secondary to sepsis Received fluids -Mild DKA: Resolved -Recent influenza A infection -Acute asthma exacerbation DuoNeb. Nebulized Pulmicort. Solu-Medrol 40 mg every 8 -Diabetes mellitus: Type II, chronically on insulin, uncontrolled with hyperglycemia secondary steroids and infection Follow Accu-Cheks sliding scale Lantus 34 units at night. -Essential hypertension Lopressor -Hyperlipidemia Lipitor GERD -Obesity with BMI of 32.8 -Acute transaminitis, likely from sepsis: Improved Lipitor 40 resume Changed to oral prednisone. PICC line today. Planning for DC home with antibiotics tomorrow. Discussed with patient.
[2024-05-01] MEDS: predniSONE 20 MG TAB PO SCH (23:30)
[2024-05-02 06:14] LABS: Glucose,Whole Blood 146 mg/dL (70-110)
[2024-05-02 09:42] VITALS: TEMP 97.8
[2024-05-02 11:48] LABS: Glucose,Whole Blood 130 mg/dL (70-110)
[2024-05-02 14:34] VITALS: BP 93/54; PULSE 84; RESP 17
--- NOTE | 2024-05-02 15:33 | P.PN ---
Subjective Progress Note Date: 05/02/24 Principal diagnosis: Acute bilateral staphylococcal pneumonia and bilateral pleural effusions On 04/24/2024, patient is being seen for a follow-up. The patient is extensive lower lobe pneumonia left more than right with secondary hypoxic respiratory failure. Blood culture was positive for Staph aureus/MSSA. The patient is currently on IV cefazolin. Still feeling weak. She continues to have a congested cough. She was offered a flutter valve. She will be also given zoila ntive spirometer. She remains on DuoNeb treatments [id number]. She is also on Perforomist and Pulmicort nebulized treatments twice a day. Rest of the medications remain unchanged. She is on Lantus insulin 10 units daily and sliding scale coverage. She is on heparin subcu for DVT prophylaxis. The b chest x-ray from today shows extensive consolidation in the left upper lobe and the left lower lobe. There is also similar consolidation in the right lung base with possible development of a right-sided pleural effusion. There is a large gastric bubble. Echocardiogram that was done on this patient on 04/20/2024 shows a preserved LV function with an ejection fraction of 50 to 55%. No significant valvular abnormalities. Abdominal ultrasound was also done on 04/23/2024 showing cholecystectomy changes without any hepatic abnormalities. The patient's white cell count at 17.6 which remains quite elevated with a hemoglobin 12.1 and a platelet count of 374. BUN 17 with a creatinine of 0.4. LFTs are improving. AST is down to 87 with an ALT of 44 and alkaline phosphatase of 234. Bilirubin is at 0.5. 04/25/2024, the patient is on 2 L of oxygen by nasal cannula. Has a congested co ugh. Unable to bring up much of sputum. Her cough is weak and she is unable to perform adequate pulmonary toileting. A repeat chest x-ray was done and it showed similar multifocal airspace disease and bilateral pleural effusions. The patient remains on IV antibiotics. The patient remains on IV cefazolin for MSSA pneumonia and secondary bacteremia. Rest of the medication remains unchanged. She remains on DuoNeb. She remains on Perforomist and Pulmicort nebulized treatments twice a day. Her blood work shows a white cell count of 17.6 from yesterday. BUN 17 with a creatinine of 0.4. Mild transaminitis with elevation of the LFTs which is also improving. Provided flutter valve. Provide incentive spirometer. Discussed the case with the primary care team and ID. Will do a bronchoscopy for therapeutic airway suctioning in a.m. On today's evaluation of 04/26/2024, the patient is being seen for a follow-up. The patient is being treated for bilateral pneumonia, attributed to staph. The patient was not showing adequate recovery. She continues to have congested cough. Unable to bring up much of sputum. Her coughing mechanism is quite weak. She is afebrile. She is on 4 L of oxygen by nasal cannula with a pulse ox of 92%. Based on further discussions, I decided to proceed with bronchoscopy and I performed this procedure earlier today. The patient was found to have copious amount of respiratory secretions and mucous plugging and therapeutic airway suctioning was done and another BAL of the right lower lobe was done. I cleared upper and lower airway secretions. This was done and the endoscopy suite. The patient remains on IV cefazolin. The patient remains on DuoNeb treatments [id number]. The patient remains on a combination performance of Pulmicort nebulized treatment twice a day. The patient remains on IV Solu- Medrol 40 mg every 8 hours. Following the procedure, the patient seemed to be more comfortable and there was some interval improvement in oxygenation. The white cell count is 25.7 with hemoglobin 0.8 and platelet count of 413. BUN is 23 with a creatinine of 0.4. Electrolytes are all within normal limits. Case was also discussed with her family. On 04/27/2024, the patient is being seen for a follow-up. The patient is improved compared to yesterday. She underwent a bronchoscopy and therapeutic airway suctioning and removal of mucous plugs. Since then, she is breathing easier and she is currently on 2 L of oxygen by nasal cannula with pulse ox of 94%. She continues to use the flutter valve and incentive spirometer. Follow- up chest x-ray from today shows a moderate-sized right-sided pleural effusion which seems to be somewhat loculated and there is also multifocal airspace opacities bilaterally more so in the lower lobes. The results of the BAL are still pending for now. The patient has Staph aureus and the patient is currently on IV cefazolin. She remains on bronchodilators. She remains on steroids. She is also on IV Lasix 20 mg IV push every 12 hours. Fluid balance is -2.8 L over the past 24 hours. Communicating and she seems to be much more arousable compared to yesterday. On 04/28/2024, the patient is being seen for a follow-up. Shortness of breath is gradually improving although the patient continues to have difficulties with cough and congestion and ongoing dyspnea. The patient is being treated for a staphylococcal pneumonia that was complicated with significant mucous plugging is in the patient underwent a bronchoscopy with therapeutic airway suctioning and removal of mucous plugs and the BAL is still positive for MSSA. The patient remains on IV cefazolin. Meanwhile, the follow-up chest x-ray showed bilateral pleural effusions. A repeat chest x-ray was done this morning and the patient was found to have bilateral pleural effusion and the fluid seems to be somewhat loculated on the right. Thoracentesis to be considered and based on that, prior to this procedure, I ordered a noncontrast CAT scan of the chest as the fluid that is on the right is slightly loculated. Contemplating a thoracentesis based on the CAT scan results. No new labs are available from today. The white cell count was still elevated from yesterday. The patient remains on IV cefazolin. The patient is also on IV Lasix 20 mg every 24 hours. Fluid balance has been negative over the past 24 hours in the order of 2.8 L. On 04/29/2024, the patient is being seen for a follow-up. A CAT scan of the ches t was completed yesterday patient had a small to moderate-sized loculated right- sided pleural effusion along with compressive atelectatic change in lung base and the patient had multiple patchy areas of consolidation. I attempted a thoracentesis of the right lung today and I was unable to aspirate any fluid. A repeat chest x-ray was done and findings were essentially stable with a small right-sided and left-sided pleural effusion. The pleural fluid is on the right is somewhat loculated. Clinically, the patient is doing well. Denies having any specific complaints. She remains on oxygen 2 L/min nasal cannula. Remains on bronchodilators and steroids. She remains on IV nafcillin. Meanwhile, the patient continues to diurese with IV Lasix. Her fluid balance is negative and the patient remains on IV Lasix 20 mg every 12 hours. She remains on IV Solu- Medrol 40 mg every 8 hours. On 04/30/2024, the patient's condition is stable on 2 L of oxygen by nasal cannula and she is using incentive spirometer and she is pulling approximately thousand on her incentive spirometer. I failed to evacuate the right-sided pleural effusion. I performed thoracentesis and after 2 separate pokes, no significant effusion was obtained. Repeat chest x-ray was done and showed a small to moderate-sized right-sided pleural effusion. Loculated. There is also a small left-sided pleural effusion also. Clinically, the patient is doing well. Her white cell count is at 18 with a hemoglobin 8.6 and a platelet count of 750. Sodium is at 131, BUN 26 and a creatinine 0.45. The patient remains on IV antibiotics and the patient remains on IV nafcillin. She has MSSA pneumonia. She is also on bronchodilators. She remains on IV Solu-Medrol. Diuretics have been discontinued. She remains on Lovenox for DVT prophylaxis. Rest of medications remain unchanged. Patient was seen today on 05/01/2024, seems to be comfortable, in no distress on 2 L nasal cannula, apparently Dr. Valero attempted to perform thoracentesis on this patient, however he felt the fluid was loculated, and could not drain a ny pleural effusion and he clearly felt that this is not an picture of empyema at this is likely a loculated parapneumonic effusion. Patient remains on antibiotics and she is being followed by infectious disease, she had MSSA pneumonia. Remains on bronchodilators and on steroids, clinically the patient is improving but not back to baseline. Continues to have leukocytosis with WBC count yesterday was 18.2 hemoglobin 8.6 electrolytes are normal renal profile is normal chest x-ray from yesterday and CT of the chest were reviewed again I suspect that the patient has loculated small pleural effusions right more so than left. Patient was seen today on 05/02/2024, patient is feeling better, breathing easier, infectious disease is planning outpatient antibiotics via a PICC line, from my perspective the patient is doing well, and she could be cleared for discharge on outpatient antibiotics. On 2 L nasal cannula, O2 sats 95%. Objective - Vital Signs Vital signs: Vital Signs Temp 97.8 F 05/02/24 08:10 Pulse 84 05/02/24 12:00 Resp 17 05/02/24 12:00 BP 93/54 05/02/24 12:00 Pulse Ox 95 05/02/24 12:00 FiO2 Intake & Output 05/01/24 05/02/24 05/02/24 18:59 06:59 18:59 Intake Total 120 Balance 120 Weight 78.9 kg Intake: Oral 120 Other: Voiding Method Toilet Toilet Toilet Diaper Diaper Diaper External Catheter # Voids 1 1 - Exam General: Revealed 58-year-old female in no distress on 2 L nasal cannula Skin: Skin is warm and dry and no rashes or lesions are noted. Eye: Pupils are equal, round and reactive to light, extra-ocular movements are intact; there is normal conjunctiva bilaterally. Ears, nose, mouth and throat: There are moist mucous membranes and no oral lesions. Neck: The neck is supple, there is no tenderness or JVD. Cardiovascular: Distant S1-S2, no S3 gallop. No murmur Respiratory: Diminished breath sound bilaterally no rhonchi no wheezes Gastrointestinal: Soft, non-distended, non-tender abdomen without masses or organomegaly noted. There is no rebound or guarding present. Bowel sounds are unremarkable. Musculoskeletal: Normal ROM, no tenderness, There is no pedal edema. Neurological: CN II-XII intact, Cranial nerves III through XII are intact. No gross focal deficit Psychiatric: Cooperative, appropriate mood & affect, normal judgment. - Labs CBC & Chem 7: 04/30/24 10:34 04/30/24 06:53 Labs: Abnormal Lab Results - Last 24 Hours (Table) 05/01/24 05/01/24 05/02/24 Range/Units 16:41 20:41 06:12 POC Glucose (mg/dL) 129 H 183 H 146 H (70-110) mg/dL 05/02/24 Range/Units 11:45 POC Glucose (mg/dL) 130 H (70-110) mg/dL Assessment and Plan Assessment: Impression: Acute hypoxic respiratory failure Acute bilateral staphylococcal pneumonia, MSSA Parapneumonic pleural effusions MSSA bacteremia, on cefazolin Acute leukocytosis secondary to above Mild DKA secondary to above Anion gap metabolic acidosis, resolved Recent influenza A infection History of underlying COPD/asthma Type 2 diabetes Benign essential hypertension Dyslipidemia GERD without esophagitis Recommendation: Continue antibiotics, patient will have antibiotics on outpatient basis as recommended by infectious disease Continue to wean and titrate FiO2 Continue nafcillin Continue bronchodilators Will clear for discharge if cleared by other consultants. Time with Patient: Less than 30
--- NOTE | 2024-05-02 15:52 | P.PN ---
Subjective Progress Note Date: 05/02/24 Principal diagnosis: Reason for follow-up is pneumonia and bacteremia Patient is a 58-year-old female with a past medical history significant for COPD diabetes mellitus osteoarthritis and seizure disorder has been diagnosed with influenza A about a week and a half before presentation to the hospital subsequently presented to the hospital with increasing shortness of breath and cough has been diagnosed with pneumonia blood culture positive for MSSA. On today's evaluation that is 05/02/2024, Patient is afebrile this morning patient denies having any chest pain shortness of breath or any worsening cough, the patient is currently on 2 L nasal oxygen, patient denies any abdominal pain no diarrhea no nausea no vomiting. No new lab has been obtained today Objective - Vital Signs Vital signs: Vital Signs Temp 97.8 F 05/02/24 08:10 Pulse 88 05/02/24 11:36 Resp 18 05/02/24 08:10 BP 101/58 05/02/24 08:10 Pulse Ox 95 05/02/24 08:10 FiO2 Intake & Output 05/01/24 05/02/24 05/02/24 18:59 06:59 18:59 Intake Total 120 Balance 120 Weight 78.9 kg Intake: Oral 120 Other: Voiding Method Toilet Toilet Toilet Diaper Diaper Diaper External Catheter # Voids 1 1 - Exam GENERAL DESCRIPTION: Middle-age female up in bed in no distress RESPIRATORY SYSTEM: Unlabored breathing , coarse breath sounds bilaterally HEART: S1 S2 regular rate and rhythm , ABDOMEN: Soft , no tenderness EXTREMITIES: No edema feet - Labs CBC & Chem 7: 04/30/24 10:34 04/30/24 06:53 Labs: Abnormal Lab Results - Last 24 Hours (Table) 05/01/24 05/01/24 05/02/24 Range/Units 16:41 20:41 06:12 POC Glucose (mg/dL) 129 H 183 H 146 H (70-110) mg/dL 05/02/24 Range/Units 11:45 POC Glucose (mg/dL) 130 H (70-110) mg/dL Assessment and Plan (1) Sepsis Status: Acute Code(s): A41.9 - SEPSIS, UNSPECIFIED ORGANISM SNOMED Code(s): 56151399 (2) Pneumonia Status: Acute Code(s): J18.9 - PNEUMONIA, UNSPECIFIED ORGANISM SNOMED Code(s): 796138469 (3) Allergy to sulfa drugs Status: Acute Code(s): Z88.2 - ALLERGY STATUS TO SULFONAMIDES SNOMED Code(s): 90693214 Plan: 1patient presented to hospital with sepsis in this patient noted to have fever tachycardia elevated white count meeting criteria for SIRS source is likely pneumonia in this patient who recently did have a influenza A but not treated with evidence of bibasilar and right middle lung airspace opacity concerning for pneumonia will need to cover for Staph aureus that is commonly associated post influenza pneumonia 2-blood culture has been positive for MSSA sputum culture has not been collected, blood culture has been and so far 3-patient chest x-ray suggestive of bilateral multifocal infiltrate and effusion, patient is status post bronchoscopy and lavage completed on 04/26/2024 and culture now growing Staph aureus 4patient did have a right-sided effusion loculated pulmonary was not able to aspirate. 5patient did get a PICC line antibiotic has been switched over to cefazolin to transition to outpatient for at least 2 to 3-week course depending upon clinical response question concern answered Dictation was produced using [employer] dictation software. please excuse any grammatical, word or spelling errors. Time with Patient: Less than 30
--- NOTE | 2024-05-02 19:31 | P.DS ---
Providers Date of admission: 04/18/24 18:22 Expected date of discharge: 05/02/24 Attending physician: Guillaume Cordova Consults: 04/19/24 01:10 Consult Physician Urgent Consulting Provider: Jayshree Mireles Consult Reason/Comments: pneumonia Do you want consulting provider notified?: Yes, Notify in am 04/20/24 09:48 Consult Physician Routine Consulting Provider: Christ Hartmann Consult Reason/Comments: Sepsis PNA, recent influenza Do you want consulting provider notified?: Yes Primary care physician: Chip Harrismley [facility] Course: 58-year-old female with past medical history significant for type 2 diabetes mellitus, history of COPD/asthma on home inhalers, on 2 L oxygen nightly, hypertension, hyperlipidemia, GERD who presented to ER with a complaint of significant shortness of breath. Patient reported that she had flulike symptoms last Wednesday, went to PCP office on Wednesday and was diagnosed with influenza, patient was outside the window for Tamiflu, was treated with steroid burst taper and cough suppressants. Patient stated that she felt better initially, but her symptoms started to get worse later on. Patient also reported having fever and chills at home. Patient reported productive cough, worsening shortness of breath. Patient denied any headache, chest pain, palpitations, nausea vomiting diarrhea constipation abdominal pain dysuria urgency frequency weakness or numbness to extremities. In the ED patient had a Tmax of 102.1, was initially tachycardic with heart rate in the 130s, tachypneic, blood pressure 10 initially was 112/65, required 2 L oxygen. WBCs 8.0, hemoglobin 14.0, platelet 405. Absolute neutrophils 6.8. VBG showed pH 7.34, pCO2 28, HCO3 15. Sodium 135 potassium 4.3 chloride 101 BUN 19 creatinine 0.64. Lactic acid was 4.2, received fluid boluses, trended down, today 2.2. LFTs were unremarkable except mildly elevated bilirubin 1.6. NT proBNP was 7700. Procalcitonin was 8.68. UA was negative. Viral panel was negative. CT chest showed no PE, showed bilateral pneumonia, small bilateral pleural effusions. 04/20--- patient was seen and examined today. Patient is afebrile, tachycardic, respiratory rate 17, blood pressure 108/68, better as compared to yesterday. Saturating 96% on 5 L. WBCs 12.5, hemoglobin 11.5, platelet 331. BMP is unremarkable. HbA1c is 14.3. Echocardiogram done which showed normal ventricle systolic function, mild MR and TR. No pericardial effusion. Will discontinue IV fluids due to concern of fluid overload, will monitor blood pressure closely. Patient remains on vancomycin Rocephin and doxycycline, infectious disease consulted. Pulmonary following. Will try IV diuresis if blood pressure better. 04/21--patient was seen and examined today. Continues complain of productive cough, shortness of breath, generalized weakness and fatigue. Remained afebrile, still quite tachycardic with heart rate in 110s, respiratory rate 20, blood pressure better 119/79, saturating 93% on 4 L. Blood culture came back positive for Staph aureus, antibiotics changed to cefazolin per infectious disease. Started on low-dose metoprolol for heart rate control. Will try low- dose IV Lasix if blood pressure remains stable. 04/22. Patient seen and examined. Vital signs of this morning showed heart rate 122, respiration 20, blood pressure 111/83, currently on 3 L of oxygen. LFTs were elevated. Patient also complaining of coughing when swallowing. Speech evaluation ordered 04/23. Patient seen and examined. Blood work done this morning showed WBC 15.5, hemoglobin 12.5, platelet count 69, sodium 130, potassium 3.5, BUN 16, creatinine 0.53, glucose 167, AST 176, ALT 76. Continues to have cough, nonproductive. April 24: Up in recliner. Short of breath. Congested cough able unable to expectorate. Patient has a flutter valve. Also humidified oxygen. Home oxygen 2 L. Decreased appetite. Tired. IV cefazolin. Follow-up with pulmonary and ID. April 25: Reclining in bed. Congested chest. Not able to expectorate. Humidified oxygen. 2 L. Poor appetite. Discussed with Dr. Mireles. Planning for bronchoscopy with lavage tomorrow. IV cefazolin. April 26: Patient seen this morning. Reclining bed. Remains to have very congested chest. Not able to expectorate. Scheduled for bronchoscopy lavage this afternoon. Remains on IV cefazolin. Short of breath. NPO. April 27: Patient had been bronchoscopy yesterday a lot of secretions obtained. Breathing better. Today up in a chair. On 3 L nasal cannula. Had about 50% of her lunch. Reminded to use incentive spirometry. Cultures pending from lavage. All cultures still now showing MSSA. On IV cefazolin. Chest x-ray from today reviewed by me shows multiple infiltrates. Moderate right pleural effusion. April 28: Up in the chair. Shallow breathing. Not able to take deep breaths. Feels better. On 3 L nasal cannula. Ultrasound done for possible thoracentesis. CT chest done today. Patchy consolidative opacities slight decrease in size. With more cavitary consolidative appearance. Moderate right and small left pleural effusion. Dr. Mireles following. Accu-Cheks running hi gh. Increase Lantus to 26 units nightly: Discussed with Dr. Mireles about possible right-sided thoracentesis. Antibiotics discussed with ID. April 29: Up in a chair. Short of breath. [address] Mireles attempted thoracentesis on the right side. Unable to obtain any fluid. Per ID switched over to IV nafcillin. Received IV Lasix. Congested cough. IV Solu- Medrol. Reminded to use incentive spirometry. Patient rather alkalotic. From IV diuretics. Not much oral intake. Will hold of Lasix. April 30: Up in recliner. Some short of breath. On 2 L nasal cannula. at the bedside. He did discuss about continue incentive spirometry. On IV nafcillin. IV Solu-Medrol. Lasix was discontinued yesterday. Discussed with Dr. Mireles. Repeat x-ray and may consider thoracentesis by interventional radiology. A lot of it looks consolidated lung tissue. Spoke to the and patient. Would consider going home with possible therapy if needed. Patient been up to the bathroom. Increase activity. May 01: Sitting up in the recliner. Using incentive spirometry. IV nafcillin. Switch over to oral prednisone. Discussed with ID Dr. Hartmann. Patient will need a PICC line for discharge. Probably will need to be switched back to IV cefazolin for same. Discussed with patient. Seen by Dr. Owen from pulmonary: Not for repeat thoracentesis. Looking at possible discharge tomorrow. May 02: Stable. Being discharged on IV cefazolin per ID. For at least 2 to 3 weeks. Will follow-up with pulmonary and ID outpatient. Continue incentive spirometry. On examination: VITAL SIGNS: 97.8, 84, 17, 93 x 54, 95% 2 L GENERAL APPEARANCE: Up in a recliner. Some shortness of breath. Some congested cough HEENT: Normal external appearance of nose and ear. Oral cavity normal EYES: Pupils equal. Conjunctiva normal. NECK: JVD not raised. Mass not palpable. RESPIRATORY: Respiratory effort increased. Lung diminished breath sounds CARDIOVASCULAR: First and second sounds normal. No edema. ABDOMEN: Soft. Liver and spleen not palpable. No tenderness. No mass palpable. PSYCHIATRY: Alert and oriented x3. Mood and affect tired INVESTIGATIONS, reviewed in the clinical context: April 30: White count 18.2 hemoglobin 8.6 potassium 3.9 BUN 26 creatinine 0.45 bicarb 37 April 29: White count 7.9 hemoglobin 8.3 platelets 607 sodium 132 potassium 3.3 BUN [address] chest [April 28] patchy consolidative opacities slight decrease in size. With more cavitary consolidative appearance. Moderate right and small left pleural effusion. April 27: White count 23.3 hemoglobin 11.6 platelets 606 potassium 3.9 creatinine 0.43 April 26: White count 25.7 hemoglobin 11.3 platelets 1 3 April 24: White count 7.6 hemoglobin 12.1 platelets 374 sodium 136 creatinine 0.4 Blood culture [April 19] Staph aureus. [April 21: Negative] Chest x-ray film personally reviewed by me-[April 24] bilateral infiltrates, pleural effusion 2D echo: EF 50 to 55%. Assessment and plan -Severe sepsis, secondary to pneumonia with blood cultures positive for MSSA: Better : -Bilateral cavitary pneumonia, with possible parapneumonic effusion: Improving IV cefazolin,-changed to IV nafcillin. Being discharged on IV cefazolin. For at least [address] chest showing cavitary pneumonia Bronchoscopy with successful lavage done April 26. -Bilateral pleural effusion right greater than left. Attempted thoracentesis right side on April [address] Mireles. No fluid obtained. Not for any further thoracentesis attempt -Acute hypoxic respiratory failure from pneumonia/effusion: Some improvement On 2 L nasal cannula Status post bronchoscopy with lavage Incentive spirometry -Chronic hypoxic respiratory failure. On 2 L oxygen at home -Lactic acidosis: Secondary to sepsis Received fluids -Mild DKA: Resolved -Recent influenza A infection -Acute asthma exacerbation DuoNeb. Nebulized Pulmicort. Solu-Medrol 40 mg every 8 Discharged on prednisone taper. DuoNeb. -Diabetes mellitus: Type II, chronically on insulin, uncontrolled with hyperglycemia secondary steroids and infection Follow Accu-Cheks sliding scale Lantus 18 units at night. -Essential hypertension Lopressor -Hyperlipidemia Lipitor GERD -Obesity with BMI of 32.8 -Acute transaminitis, likely from sepsis: Improved Lipitor 40 resume Disposition: Home Plan - Discharge Summary Discharge Rx Participant: Yes New Discharge Prescriptions: New Ipratropium-Albuterol Nebulize [Duoneb 0.5 mg-3 mg/3 ml Soln] 3 ml INHALATION RT-QID #120 each guaiFENesin [Mucinex] 1,200 mg PO Q12HR #30 tab Atorvastatin [Lipitor] 40 mg PO HS #30 tab Metoprolol Tartrate [Lopressor] 25 mg PO BID #60 tab predniSONE 10 mg PO DAILY #30 tab Continue Montelukast [Singulair] 10 mg PO HS Oxybutynin Chloride [oxyBUTYnin chloride ER] 30 mg PO DAILY Empagliflozin [Jardiance] 10 mg PO DAILY Cyclobenzaprine [Flexeril] 10 mg PO HS Amitriptyline HCl [Elavil] 150 mg PO HS Changed Insulin Degludec [Tresiba Flextouch U-100 Pen] 18 units SQ DAILY #0 Discontinued Lisinopril-Hctz 20-12.5 mg [Zestoretic 20-12.5] 1 tab PO DAILY Atorvastatin [Lipitor] 80 mg PO HS Discharge Medication List Montelukast [Singulair] 10 mg PO HS 02/07/16 [History] Amitriptyline HCl [Elavil] 150 mg PO HS 04/18/24 [History] Cyclobenzaprine [Flexeril] 10 mg PO HS 04/18/24 [History] Empagliflozin [Jardiance] 10 mg PO DAILY 04/18/24 [History] Oxybutynin Chloride [oxyBUTYnin chloride ER] 30 mg PO DAILY 04/18/24 [History] Atorvastatin [Lipitor] 40 mg PO HS #30 tab 05/02/24 [Rx] Insulin Degludec [Tresiba Flextouch U-100 Pen] 18 units SQ DAILY #0 05/02/24 [Rx] Ipratropium-Albuterol Nebulize [Duoneb 0.5 mg-3 mg/3 ml Soln] 3 ml INHALATION RT-QID #120 each 05/02/24 [Rx] Metoprolol Tartrate [Lopressor] 25 mg PO BID #60 tab 05/02/24 [Rx] guaiFENesin [Mucinex] 1,200 mg PO Q12HR #30 tab 05/02/24 [Rx] predniSONE 10 mg PO DAILY #30 tab 05/02/24 [Rx] Follow up Appointment(s)/Referral(s): Vonda Mueller, [facility] [REFERRING] - 1-2 days Mj Diaz DO [Doctor of Osteopathic Medicine] - 05/16/24 8:15 am [facility],Infusion [NON-STAFF] - (Will deliver your antibiotics after tonight after 5PM) Christ Hartmann MD [STAFF PHYSICIAN] - 05/15/24 1:45 pm () [facility] Visiting Nurse, [NON-STAFF] - 05/03/24 Activity/Diet/Wound Care/Special Instructions: Home care will be out tomorrow AM 05/03 to set up antibiotics. Discharge Disposition: HOME WITH HOME HEALTH SERVICES
== END 2024-05-02 13:54 | disposition home health service (06) | DRG 871 ==
LOC: EC 14:17 → 3SCARD 18:22 → 1SOBS 20:36 → 3SCARD 20:39
PROVIDERS: ADMIT Hospitalist; ATTEND Hospitalist
PROC: 0BC68ZZ Extirpation of Matter from Right Lower Lobe Bronchus, Via Natural or Artificial Opening Endoscopic (ICD-10-PCS; principal; 2024-04-26 07:30)
PROC: 0BC18ZZ Extirpation of Matter from Trachea, Via Natural or Artificial Opening Endoscopic (ICD-10-PCS; principal; 2024-04-26 07:30)
PROC: 0B9F8ZX Drainage of Right Lower Lung Lobe, Via Natural or Artificial Opening Endoscopic, Diagnostic (ICD-10-PCS; principal; 2024-04-26 07:30)
PROC: 0BC48ZZ Extirpation of Matter from Right Upper Lobe Bronchus, Via Natural or Artificial Opening Endoscopic (ICD-10-PCS; principal; 2024-04-26 07:30)
PROC: 0BC78ZZ Extirpation of Matter from Left Main Bronchus, Via Natural or Artificial Opening Endoscopic (ICD-10-PCS; principal; 2024-04-26 07:30)
PROC: 0BC38ZZ Extirpation of Matter from Right Main Bronchus, Via Natural or Artificial Opening Endoscopic (ICD-10-PCS; principal; 2024-04-26 07:30)
PROC: 05HA33Z Insertion of Infusion Device into Left Brachial Vein, Percutaneous Approach (ICD-10-PCS; 2024-04-27)
PROC: 0WJ93ZZ Inspection of Right Pleural Cavity, Percutaneous Approach (ICD-10-PCS; 2024-04-30)
DX: A41.01 Sepsis due to Methicillin susceptible Staphylococcus aureus (principal); E11.10 Type 2 diabetes mellitus with ketoacidosis without coma; J15.211 Pneumonia due to Methicillin susceptible Staphylococcus aureus; J96.21 Acute and chronic respiratory failure with hypoxia; J91.8 Pleural effusion in other conditions classified elsewhere; J44.0 Chronic obstructive pulmonary disease with (acute) lower respiratory infection; R17 Unspecified jaundice; E87.3 Alkalosis; J45.901 Unspecified asthma with (acute) exacerbation; E66.01 Morbid (severe) obesity due to excess calories; E11.65 Type 2 diabetes mellitus with hyperglycemia; I10 Essential (primary) hypertension; Z79.4 Long term (current) use of insulin; R65.20 Severe sepsis without septic shock; Z68.32 Body mass index [BMI] 32.0-32.9, adult; J98.09 Other diseases of bronchus, not elsewhere classified; E78.5 Hyperlipidemia, unspecified; E87.70 Fluid overload, unspecified; E07.9 Disorder of thyroid, unspecified; I95.9 Hypotension, unspecified; M54.9 Dorsalgia, unspecified; R74.01 Elevation of levels of liver transaminase levels; Z79.84 Long term (current) use of oral hypoglycemic drugs; Z79.899 Other long term (current) drug therapy; Z86.19 Personal history of other infectious and parasitic diseases; Z88.2 Allergy status to sulfonamides; Z88.8 Allergy status to other drugs, medicaments and biological substances
CPT/HCPCS: 31624; 36410; 36415; 71045; 71046; 71250; 71275; 76604; 76705; 76937; 80048; 80051; 80053; 81003; 82009; 82565; 82803; 82947; 83036; 83605; 83735; 83880; 84100; 84145; 84484; 84520; 85025; 85027; 85610; 85730; 86140; 87040; 87070; 87077; 87186; 87205; 87636; 93005; 93306; 94640; 94667; 94668; 94760; 96361; 96365; 96375; 99285

== ENCOUNTER → 2024-05-26 | Outpatient (CLI) | payer BC ==
--- NOTE | 2024-05-26 12:18 | XR ---
EXAMINATION TYPE: XR chest 2V DATE OF EXAM: 05/26/2024 11:17 AM COMPARISON: Chest radiographs from 04/29/2024 CLINICAL INDICATION: Female, 58 years old with history of J18.9Pneumonia; TECHNIQUE: XR chest 2V Frontal and lateral views of the chest. FINDINGS: Lungs/Pleura: Scattered subtle reticular and hazy opacities. No evidence of pneumothorax, focal conso lidation or pleural effusion. Pulmonary vascularity: Unremarkable. Heart/mediastinum: Cardiomediastinal silhouette is unremarkable. Musculoskeletal: No acute osseous pathology. Other findings: None IMPRESSION: Subtle scattered opacities which may represent an atypical pneumonia. [facility], , 05/26/2024 12:16 PM
== END | disposition home or self-care (01) ==
LOC: RADXRMAIN 10:58
PROVIDERS: ATTEND Internal Medicine Infectious Disease
DX: J18.9 Pneumonia, unspecified organism (principal)
CPT/HCPCS: 71046

== ENCOUNTER → 2024-06-12 | Outpatient (CLI) | payer BC ==
[2024-06-12 15:41] LABS: Basophils # (A) 0.05 X 10*3/uL (0.00-0.10); Basophils % (A) 0.8 %; Eosinophils # (A) 0.02 X 10*3/uL (0.04-0.35); Eosinophils % (A) 0.3 %; HCT 38.3 % (37.2-46.3); HGB 11.2 g/dL (12.0-15.0); Lymphocytes # (A) 2.59 X 10*3/uL (0.90-5.00); Lymphocytes % (A) 39.8 %; MCHC 29.2 g/dL (32.0-37.0); MCV 89.1 FL (80.0-97.0); Monocytes # (A) 0.81 X 10*3/uL (0.20-1.00); Monocytes % (A) 12.4 %; NRBC Per 100 WBC 0 X 10*3/uL (0.00-0.01); Neutrophils # (A) 3.03 X 10*3/uL (1.80-7.70); Neutrophils % (A) 46.5 %; Platelet Count 585 X 10*3/uL (140-440); RDW 14.4 % (11.5-14.5); WBC 6.51 X 10*3/uL (4.50-10.00)
[2024-06-12 16:02] LABS: ALT 8 U/L (8-44); AST 13 U/L (13-35); Albumin 3.6 g/dL (3.8-4.9); Alkaline Phosphatase 71 U/L (41-126); BUN/Creat Ratio 12.17 Ratio (12.00-20.00); Blood Urea Nitrogen 7.3 mg/dL (9.0-27.0); Calcium 9.7 mg/dL (8.7-10.3); Carbon Dioxide 22.3 mmol/L (21.6-31.8); Chloride 102 mmol/L (96-109); Chol/HDL Ratio 5.28 Ratio; Globulin 2.4 g/dL (1.6-3.3); Glucose 156 mg/dL (70-110); LDL Cholesterol,Calculated 132.3 mg/dL (0.0-131.0); Potassium 3.8 mmol/L (3.5-5.5); Sodium 139 mmol/L (135-145); Total Bilirubin 0.3 mg/dL (0.3-1.2)
[2024-06-12 21:22] LABS: Microalbumin Creatinine Ratio <13 mg/g Cr (0-30); Urine Creatinine 95.1 mg/dL (28.0-217.0)
== END | disposition home or self-care (01) ==
LOC: LABWHC1 10:18
PROVIDERS: ATTEND Pediatrics
DX: Z00.00 Encounter for general adult medical examination without abnormal findings (principal); E11.9 Type 2 diabetes mellitus without complications; E04.1 Nontoxic single thyroid nodule; E78.5 Hyperlipidemia, unspecified
CPT/HCPCS: 36415; 80053; 80061; 82043; 82570; 83036; 84443; 85025

== ENCOUNTER → 2024-06-20 | Outpatient (CLI) | payer BC ==
--- NOTE | 2024-06-20 12:14 | MM ---
Reason for Exam: Screening (asymptomatic). Last mammogram was performed 1 year(s) and 3 month(s) ago. Patient History: Menarche at age 17. First Full-Term at age 17. Hysterectomy at age 39. Postmenopausal. Hormonal Contraceptives for 2 years from age 20 until age 25. 09/30/2017, Benign Core Biopsy on the left side. Risk Values: Paige 5 year model risk: 1.0%. NCI Lifetime model risk: 6.0%. Prior Study Comparison: 11/21/2018 Bilateral Diagnostic Mammogram, [facility]. 01/13/2021 Bilateral Screening Mammogram, [facility]. 03/26/2023 Bilateral MG screening mammo w CAD, [facility]. Tissue Density: There are scattered areas of fibroglandular density. Findings: Analyzed By CAD. Left breast biopsy clip. Right breast: There is no suspicious group of microcalcifications or new suspicious mass. Left breast: There is no suspicious group of microcalcifications or new suspicious mass. Overall Assessment: Negative, BI-RAD 1 Management: Screening Mammogram of both breasts in [address] [facility] will attempt to contact patient to return for supplemental views and ultrasound if indicated. Patient should continue monthly self-breast exams. A clinical breast exam by your physician is recommended on an annual basis. This exam should not preclude additional follow-up of suspicious palpable abnormalities. Note on Paige scores and lifetime risk: 1. A Paige score greater than 3% is considered moderate risk. If this is the case, consider specialist referral to assess eligibility for a risk reducing agent. 2. If overall lifetime risk for the development of breast cancer is 20% or higher, the patient may qualify for future screening with alternating mammogram and breast MRI. [facility], , 06/20/2024 12:12 PM. Electronically signed and approved by: Mj Ching DO
== END | disposition home or self-care (01) ==
LOC: RADMAMWWP 11:14
PROVIDERS: ATTEND Pediatrics
DX: Z12.31 Encounter for screening mammogram for malignant neoplasm of breast (principal); R92.323 Mammographic fibroglandular density, bilateral breasts; Z78.0 Asymptomatic menopausal state; Z92.0 Personal history of contraception
CPT/HCPCS: 77063; 77067

== ENCOUNTER → 2024-09-08 | Outpatient (CLI) | payer BC ==
--- NOTE | 2024-09-08 16:30 | US ---
EXAMINATION TYPE: US pelvic complete DATE OF EXAM: 09/08/2024 COMPARISON: CT 2024 CLINICAL INDICATION: Female, 58 years old with history of N83.209 OVARIAN CYST; Recent CT TECHNIQUE: Transabdominal (TA). FINDINGS: EXAM MEASUREMENTS: Right Ovary: 5.9 x 3.8 x 5.9 cm Left Ovary: not seen 1. Uterus: surgically absent 2. Endometrium: surgically absent 3. Right Ovary: 4.6 x 3.4 x 4.4cm cyst 4. Left Ovary: not seen due to overlying bowel gas 5. Bilateral Adnexa: wnl 6. Posterior cul-de-sac: wnl IMPRESSION: Right ovarian cystic lesion. Follow-up in 3 months is advised. Otherwise postsurgical pelvis. O-RADS 2021 [email or web address] [facility], , 09/08/2024 4:27 PM
== END | disposition home or self-care (01) ==
LOC: RADUSWWP 15:52
PROVIDERS: ATTEND Pediatrics
DX: N83.201 Unspecified ovarian cyst, right side (principal)
CPT/HCPCS: 76856